=== PATIENT | female | born 1940 | race Caucasian/White ===

== ENCOUNTER 2020-01-12 20:38 | Observation (INO) | payer MEDICARE, SELFPAY ==
--- NOTE | ~2020-01-12 | XR_ITS ---
XR chest 1V portable DATE: 01/12/2020 22:47 INDICATION: Hemoptysis. Fall. TECHNIQUE: Portable upright AP chest on 01/12/2020 at 2239 hours COMPARISON: 03/25/2018 PA and lateral chest FINDINGS: There is chronic elevation the right leaf of the diaphragm. Normal heart size. Aortic calcification and mild unfolding. No hilar or mediastinal enlargement. No pulmonary infiltrate or consolidation, pleural effusion or pulmonary vascular congestion or pneumo thorax. Diffuse idiopathic skeletal hyperostosis of the thoracic spine. Status post cholecystectomy. IMPRESSION: No active cardiopulmonary disease or significant change since 03/25/2018 Reviewed, dictated and finalized at location A.
[2020-01-12 20:36] VITALS: BP 121/68; PULSE 90; RESP 19; TEMP 36.8; O2SAT 98
--- NOTE | 2020-01-12 20:42 | ECG_ITS ---
Measurements Intervals [place] Rate: 88 P: 51 OK: 143 QRS: 24 QRSD: 93 T: 38 QT: 388 QTc: 470 Interpretive Statements SINUS RHYTHM POSSIBLE LEFT ATRIAL ENLARGEMENT BORDERLINE ST ABNORMALITY- ANTEROLATERAL LEADS BASELINE ARTIFACT- II, III, AVL, AVF, V4-V6 BORDERLINE ECG Electronically Signed On 01-12-2020 21:10:15 CDT by Kelvin Decker D.O.
--- NOTE | 2020-01-12 20:44 | ED.NAVMDI ---
HPI - Nausea/Vomiting/Diarrhea General Chief complaint: Nausea/Vomiting/Diarrhea Stated complaint: nausea/vomiting History of Present Illness HPI Narrative: 1 episode of coffee ground emesis tonight per EMS. [place] cool and clamy. Blood pressure low prior to arrival. Given 500 ml MS by EMS. On arrival BP is normal. She denies any complaints at this time. No dark stools or diarrhea. Related Data Home Medications Medication Instructions Recorded Confirmed aspirin 81 mg tablet,delayed 81 mg PO DAILY 10/31/19 release Allergies Allergy/AdvReac Type Severity Reaction Status Date / Time No Known Allergies Allergy Verified 12/08/19 15:32 Review of Systems Review of Systems: All systems reviewed & are unremarkable except as noted in HPI and below Constitutional: Constitutional: Denies fever(s) Cardiovascular: Cardiovascular: Denies chest pain Respiratory: Respiratory: Denies dyspnea Gastrointestinal: Gastrointestinal: Denies abdominal pain, Reports constipation, Reports nausea and Reports vomiting Genitourinary: Genitourinary: Denies hematuria and Denies dysuria Neurologic: Reports dizziness and Denies weakness [facility] Social History Social History (Reviewed 12/08/19 @ 15:32 by Lulu De Leon [facility]) Smoking status: Never smoker Exam Const: General: no acute distress, alert and ill appearing Orientation/consciousness: patient oriented x3 HENMT: Head: normal to inspection Resp: Effort & Inspection: normal respiratory effort Auscultation: clear to auscultation bilaterally Cardio: Rate: regular rate Rhythm: regular rhythm GI: GI Palp: Yes Soft to palpation and No Tenderness to palpation present (GI) Skin: General skin exam: pallor Neuro: General: patient oriented x3, moves all extremities, no focal motor deficits and CN's II-XI intact bilaterally Speech: normal speech Extrem: General: normal to inspection Course Vital Signs Vital signs: Vital Signs Temperature 36.8 C 01/12/20 20:36 Pulse Rate 90 01/12/20 20:36 Respiratory Rate 19 01/12/20 20:36 Blood Pressure 121/68 01/12/20 20:36 Pulse Oximetry 98 01/12/20 20:36 Temperature 36.8 C 01/12/20 20:36 Pulse Rate 94 01/12/20 21:20 Respiratory Rate 18 01/12/20 21:20 Blood Pressure 115/56 L 01/12/20 21:20 Pulse Oximetry 95 01/12/20 21:20 MDM - Nausea/Vomiting/Diarrhea MDM Narrative Medical decision making narrative: History indicates and upper GI bleed. No history of cirrhosis. Given protonix bolus. Given the history and initial hypotension she will need to be admitted. Case discussed with Dr. Barry. He will consult on the patient. Medical Records Attestation: I reviewed the patient's medical records. Lab Data Attestation: I reviewed the patient's lab results. Result diagrams: 01/12/20 20:47 01/12/20 20:47 Labs: Lab Results 01/12/20 01/12/20 01/12/20 Range/Units 20:46 20:47 20:47 WBC 13.3 H (4.5-10.0) K/mm3 RBC 3.55 L (4.2-5.4) M/mm3 Hgb 11.0 L (12.0-15.0) g/dL Hct 31.6 L (37.0-47.0) % MCV 89.0 (80-100) fl MCH 31.0 (26-34) pg MCHC 34.8 (32-36) g/dl RDW 14.0 (11.5-14.5) % Plt Count 222 (150-375) k/mm3 MPV 10.6 H (7.4-10.4) fl Immature Gran % (Auto) 1.1 H (0-0.5) % Neut % (Auto) 83.5 H (45.5-73.1) % Lymph % (Auto) 9.9 L (18.3-44.2) % [place] % (Auto) 4.9 (2.6-8.5) % Eos % (Auto) 0.2 (0-4.4) % Baso % (Auto) 0.4 (0.2-1.2) % Lymph # (Auto) 1.31 (0.9-3.2) K/mm3 [place] # (Auto) 0.7 H (0.1-0.6) K/mm3 Eos # (Auto) 0.0 (0-0.3) K/mm3 Baso # (Auto) 0.1 (0.0-0.1) K/mm3 Abs Immat Gran (auto) 0.14 H (0.00-0.031) K/mm3 Absolute Neuts (auto) 11.1 H (1.3-6.7) K/mm3 Absolute Nucleated RBC 0.0 (0.0-0.012) K/mm3 Nucleated RBC % 0.0 (0.0-0.2) % PT Pending INR Pending APTT Pending Sodium 135 L (137-145) mmol/L Potassium 3.3 L (3.4-5.0) mmol/L
[2020-01-12 20:53] LABS: Basophils Absolute Auto 0.1 K/mm3 (0.0-0.1); Basophils Percent Auto 0.4 % (0.2-1.2); Eosinophils Percent Auto 0.2 % (0-4.4); Hematocrit 31.6 % (37.0-47.0); Immature Granulocyte Absolute 0.14 K/mm3 (0.00-0.031); Immature Granulocyte Percent A 1.1 % (0-0.5); Lymphocytes Absolute Auto 1.31 K/mm3 (0.9-3.2); Lymphocytes Percent Auto 9.9 % (18.3-44.2); Mean Corpuscular HGB Conc 34.8 g/dl (32-36); Mean Platelet Volume 10.6 fl (7.4-10.4); Monocytes Absolute Auto 0.7 K/mm3 (0.1-0.6); Monocytes Percent Auto 4.9 % (2.6-8.5); Neutrophils Absolute Auto 11.1 K/mm3 (1.3-6.7); Neutrophils Percent Auto 83.5 % (45.5-73.1); Platelet Count Result 222 k/mm3 (150-375); Red Blood Count 3.55 M/mm3 (4.2-5.4); White Blood Count 13.3 K/mm3 (4.5-10.0)
[2020-01-12 21:05] LABS: Alanine Aminotransferase 18 U/L (4-35); Albumin Level 3.6 g/dL (3.5-5.1); Alkaline Phosphatase 56 U/L (38-126); Anion Gap 8 mmol/L (8-16); Aspartate Amino Transferase 20 U/L (14-36); Bilirubin,Total 0.7 mg/dL (0.2-1.3); Blood Urea Nitrogen 45 mg/dL (7-17); Calcium 8.4 mg/dL (8.4-10.2); Carbon Dioxide 25 mmol/L (22-30); Chloride 102 mmol/L (98-107); Estimated CRCL calculation 42 ml/min; Estimated Glomerular Filt Rate > 60; Glucose 231 mg/dL (65-105); Lipase 24 U/L (23-300); Potassium 3.3 mmol/L (3.4-5.0); Sodium 135 mmol/L (137-145)
--- NOTE | 2020-01-12 21:14 | PC.NURSE ---
pt unable to void at this time.
[2020-01-12] MEDS: PANTOPRAZOLE SODIUM IV 40 MG VIAL 80 MG IV PUSH (21:18)
[2020-01-12 21:20] VITALS: BP 115/56; PULSE 94; RESP 18; O2SAT 95
--- NOTE | 2020-01-12 21:30 | PC.NURSE ---
pt dropped toilet paper in urine sample, so sample unable to be used.
[2020-01-12] MEDS: SODIUM CHLORIDE 0.9% IV 1,000 ML 999 ML IV CONT (21:31)
[2020-01-12 21:57] LABS: INR 1.1; Prothrombin Time 14.1 Seconds (11.1-14.7)
[2020-01-12 21:58] LABS: Partial Thromboplastin Time 25.7 SECONDS (22.3-36.8)
[2020-01-12 22:03] VITALS: BP 139/62; PULSE 87; RESP 19; O2SAT 97
--- NOTE | 2020-01-12 22:16 | PM.IMHP ---
H&P: HPI History of Present Illness Date/Time: 01/12/20 22:16 Chief complaint: Coffee ground emesis Narrative: This is a pleasant 79 year old female with known history of previous CVA on ASA therapy who presented to the hospital with a complaint of one episode of dark black coffee ground emesis this evening at home. The patient reports that approximately 3 days ago she suffered a ground level fall where she fell on her right side and since then she has had lower back spasms and pain. She denies any previous episodes of GI bleeding and denies taking any blood thinners. She has no previous history of PUD. She has taken NSAIDs over the past few days for her back pain but normally does not take NSAIDs other than ASA. Her last colonoscopy was two years ago and was normal. She has never had an EGD before. Tonight she denies any abdominal pain, diarrhea, black or bloody stools. No chest pain, shortness of breath, headache, fevers, chills, cough, dysuria, hematuria or LE swelling. The patient has not had any further episodes of vomiting. She was evaluated in the ER and found to have an H/H of .6. GI, Dr. Barry was consulted by ER provider and we have been asked to admit the patient to the hospital for further care. No other complaints. Review of Systems Review of Systems: All systems reviewed & are unremarkable except as noted in HPI and below PMFSH Past Medical History Medical History History of CVA (cerebrovascular accident) HTN (hypertension) with goal to be determined Hyperlipidemia Surgical History Surgical History (Updated 01/13/20 @ 06:19 by Prashant Cheek MD) History of ankle surgery Family History Family History Father Pancreatic cancer Mother Acute myocardial infarction Social History Social History Smoking status: Never smoker Second hand tobacco smoke exposure: Yes (as a child) Alcohol intake: current Drinks per week: 7 Substance use: never Spiritual care concerns: Yes (Hindu) Meds Home Medications and Allergies Home Medications Medication Instructions Recorded Confirmed Type aspirin 81 mg tablet,delayed 81 mg PO DAILY 10/31/19 01/12/20 History release atorvastatin 40 mg PO HS 01/12/20 01/12/20 History citalopram 40 mg PO DAILY 01/12/20 01/12/20 History lisinopril-hydrochlorothiazide 1 tablet PO DAILY 01/12/20 01/12/20 History Allergies Allergy/AdvReac Type Severity Reaction Status Date / Time No Known Allergies Allergy Verified 12/08/19 15:32 Vital Signs Vital Signs - 24 hr 01/12/20 20:36 01/12/20 21:20 01/12/20 22:03 Temperature 36.8 C Pulse Rate 90 94 87 Respiratory Rate 19 18 19 Blood Pressure 121/68 115/56 L 139/62 Pulse Oximetry 98 95 97 Exam Const: General: cooperative, no acute distress, alert and awake Nutritional Appearance: well nourished Orientation/consciousness: patient oriented x3 HENMT: Head: normal to inspection General nose exam: Normal external nose present Face and sinus: normal facial exam Mouth: Yes Normal oral and palatal mucosa present and Yes oropharynx normal Eyes: Pupils: Equal, round and reactive pupils present EOM: EOMs intact bilaterally Neck: Neck: supple and no JVD Thyroid: thyroid normal Lymphatic: lymphadenopathy not noted Resp: Effort & Inspection: normal respiratory effort Auscultation: clear to auscultation bilaterally Cardio: Rate: regular rate Rhythm: regular rhythm Heart sounds: no murmurs GI: Inspection: normal to inspection Auscultation: normal bowel sounds Back/Spine/Pelvis: Back: no CVA tenderness Thoracic/Lumbar Spine: Lasegue's sign negative and lumbar spinal tenderness (B/L++ ) Skin: General skin exam: ecchymosis (Right shoulder and right posterior jaw++ ) Neuro: General: patient oriented x3 Cranial nerves: Yes C
[2020-01-12 22:24] VITALS: BP 136/60; PULSE 81; RESP 19; TEMP 36.3; O2SAT 98
[2020-01-12 22:40] VITALS: BP 140/78; PULSE 80; RESP 20; TEMP 36.5; O2SAT 100
[2020-01-12 22:46] VITALS: PULSE 79
[2020-01-12] MEDS: SODIUM CHLORIDE 0.9% IV 1,000 ML 75 ML IV CONT (22:54)
[2020-01-12] MEDS: KCL 20 MEQ/SW 100 ML 100 ML 50 MEQ IVPB (22:57)
[2020-01-12 23:21] VITALS: BMI 26.7
[2020-01-12 23:42] LABS: Add Urine Microscopic? YES; Appearance Urine Clear (Clear); Bilirubin Urine Negative (Negative); Blood Urine Negative (Negative); Color Urine Straw (Yellow); Glucose Urine UA Negative (Negative); Ketones Urine Trace mg/dL (Negative); Leukocyte Esterase Ur Trace LEU/UL (Negative); Nitrate Urine Negative (Negative); Protein Urine Negative (Negative); RBC Urine 0-2 /hpf (0-2); Specific Grav Ur 1.014 (1.001-1.035); Squamous Epithelial Cell Urine Rare /hpf (Few); Urobilinogen Urine Negative mg/dL (<2.0)
[2020-01-12 23:57] LABS: Glucose Point of Care 125 (65-105)
[2020-01-13] VITALS (11 sets, daily range): BP systolic 143–188; BP diastolic 57–97; PULSE 75–90; RESP 15–22; TEMP 36.7–37.1; O2SAT 97–100
--- NOTE | 2020-01-13 02:52 | PC.NURSE ---
This patient, Elizabeth Johnson, was admitted to IMU Room 232-01. Patient/family oriented to hospital policies and general routines including ID bracelet, bed and alarms, visiting hours, pain management, procedures, bathroom and other care routines, personal items, smoking policy, room service/diet, and visiting hours. Valuables list has been completed. Information on how to activate the Rapid Response Team has been discussed. Patient/Family are encouraged to report perceived risks to care and to ask questions if they do not understand what they are told or what they should do.
[2020-01-13 02:57] LABS: Hematocrit 28.9 % (37.0-47.0); Hemoglobin 10.2 g/dL (12.0-15.0)
[2020-01-13 03:09] LABS: Hemoglobin A1C 5.2 % (<5.7)
[2020-01-13 05:07] LABS: Basophils Percent Auto 0.3 % (0.2-1.2); Eosinophils Percent Auto 0.2 % (0-4.4); Hematocrit 26.7 % (37.0-47.0); Hemoglobin 9.4 g/dL (12.0-15.0); Immature Granulocyte Absolute 0.06 K/mm3 (0.00-0.031); Immature Granulocyte Percent A 0.5 % (0-0.5); Lymphocytes Absolute Auto 2.45 K/mm3 (0.9-3.2); Lymphocytes Percent Auto 21.2 % (18.3-44.2); Mean Corpuscular HGB Conc 35.2 g/dl (32-36); Mean Corpuscular Hemoglobin 30.7 pg (26-34); Mean Corpuscular Volume 87.3 fl (80-100); Mean Platelet Volume 10.4 fl (7.4-10.4); Monocytes Percent Auto 8.8 % (2.6-8.5); Platelet Count Result 195 k/mm3 (150-375); Red Blood Count 3.06 M/mm3 (4.2-5.4); Red Cell Distribution Width 13.7 % (11.5-14.5); White Blood Count 11.5 K/mm3 (4.5-10.0)
[2020-01-13 05:23] LABS: Anion Gap 5 mmol/L (8-16); Blood Urea Nitrogen 33 mg/dL (7-17); Calcium 8.1 mg/dL (8.4-10.2); Carbon Dioxide 26 mmol/L (22-30); Chloride 108 mmol/L (98-107); Estimated CRCL calculation 55 ml/min; Estimated Glomerular Filt Rate > 60; Glucose 125 mg/dL (65-105); Potassium 3.2 mmol/L (3.4-5.0); Sodium 139 mmol/L (137-145)
[2020-01-13 09:04] LABS: Hematocrit 27.1 % (37.0-47.0); Hemoglobin 9.6 g/dL (12.0-15.0)
--- NOTE | 2020-01-13 09:57 | PM.IMPN ---
Progress Note: A&P Assessment and Plan (1) Coffee ground emesis: Code(s): K92.0 - Hematemesis Status: Acute Assessment and Plan: r/o acute upper GI bleeding. She had a recent fall and has been taking NSAIDs. Most likely secondary to ulcer from NSAIDs. She is not on any an acids at home. GI evaluated the patient is going to take her for EGD this morning for further evaluation. She has been given PPI IV. She is NPO, continue light fluid hydration, hold her aspirin. Continue monitoring H&H Q 6. Transfuse as needed. (2) Low back pain: Qualifiers: Back pain laterality: midline Chronicity: acute Sciatica presence: without sciatica Qualified Code(s): M54.5 - Low back pain Code(s): M54.5 - Low back pain Status: Acute Assessment and Plan: likely secondary to lower back strain from recent fall. Acetaminophen IV for pain. Will also order K-pad. She is not want anything stronger for her pain at this time. Will have the patient ambulate with assistance and fall precautions. (3) Abnormal glucose: Code(s): R73.09 - Other abnormal glucose Status: Acute Assessment and Plan: r/o undiagnosed diabetes mellitus. Hemoglobin A1c is within normal range of 5.2%. Will discontinue Accuchecks, SSI Coverage, Hypoglycemic protocol. (4) Leukocytosis: Qualifiers: Leukocytosis type: unspecified Qualified Code(s): D72.829 - Elevated white blood cell count, unspecified Code(s): D72.829 - Elevated white blood cell count, unspecified Status: Acute Assessment and Plan: Likely secondary to trauma from recent fall, pain. Monitor CBCd. No acute signs of infection at this time. (5) Hypokalemia: Code(s): E87.6 - Hypokalemia Status: Acute Assessment and Plan: Potassium was 3.2 this morning. Will replenish with KCL magnesium was 1.7 which is within normal range. Monitor serum potassium. (6) HTN (hypertension) with goal to be determined: Code(s): I10 - Essential (primary) hypertension Status: Chronic Assessment and Plan: Stable. Monitor blood pressure. Resume home antihypertensives when appropriate, Eating and drinking again. (7) Hyperlipidemia: Qualifiers: Hyperlipidemia type: unspecified Qualified Code(s): E78.5 - Hyperlipidemia, unspecified Code(s): E78.5 - Hyperlipidemia, unspecified Status: Chronic Assessment and Plan: Resume Lipitor when appropriate. Time Spent With Patient Time with patient: 25 - 35 minutes Subjective Date/time seen: 01/13/20 09:57 Interval history: Date of service 01/13/2020: patient reports still having some pain and stiffness to her right shoulder and upper back from her fall 5 days ago. She had been take ibuprofen and Aleve for her pain without much improvement. Did notice she had episode of vomiting prior to arrival, secondary to her pain and it was dark in color as well as bright red blood Which brought her into the emergency department. she also just had a bowel movement and reported being dark in color as well. She denies any fevers, chills, nausea, vomiting, abdominal pain, diarrhea, leg swelling, calf pain, headache, vision changes, lightheadedness, dizziness, or any other symptoms at this time. She does not want anything stronger for pain other than Tylenol and a heating pad. Review of Systems Review of Systems: All systems reviewed & are unremarkable except as noted in HPI and below Exam Narrative: Exam Narrative: General: 79-year-old woman Laying flat in bed with her he
[2020-01-13 10:31] LABS: Magnesium 1.7 mg/dL (1.6-2.3)
--- NOTE | 2020-01-13 11:00 | WPDGICN ---
Assessment and Plan Assessment and plan (1) Coffee ground emesis: Code(s): K92.0 - Hematemesis Status: Acute Assessment and Plan: Patient with coffee-ground emesis yesterday per consistent with upper GI blood loss. Decline in hemoglobin overnight also consistent with upper GI bleeding. Plan is to treat a patient with proton pump inhibitor. Avoid nonsteroidal anti-inflammatory agents an EGD will be performed today. (2) Low back pain: Qualifiers: Chronicity: acute Back pain laterality: midline Sciatica presence: without sciatica Qualified Code(s): M54.5 - Low back pain Code(s): M54.5 - Low back pain Status: Acute Assessment and Plan: because of GI bleeding avoiding nonsteroidal anti-inflammatory agents are encourage. GI Consult Note Consult date/time: 01/13/20 11:00 HPI: Elizabeth Johnson is a 79 year old female Seen in evaluation at the request of the emergency room. Patient in usual state of health until a fall 5 days ago. This prompted to take nonsteroidal anti-inflammatory agents. She yesterday was noted to vomited a large amount of coffee-ground dark emesis. Upon presented to the emergency room some decline in hemoglobin was noted overnight. Patient denies any prior history of ulcer disease. She denies abdominal pain. Her family history noncontributory. Review of Systems Review of Systems: All systems reviewed & are unremarkable except as noted in HPI and below PMFSH Past Medical History Medical History History of CVA (cerebrovascular accident) HTN (hypertension) with goal to be determined Hyperlipidemia Surgical History Surgical History History of ankle surgery Family History Family History Father Pancreatic cancer Mother Acute myocardial infarction Social History Social History Smoking status: Never smoker Second hand tobacco smoke exposure: Yes (as a child) Alcohol intake: current Drinks per week: 7 Substance use: never Spiritual care concerns: Yes (Synagogue) Meds Home Medications and Allergies Home Medications Medication Instructions Recorded Confirmed Type aspirin 81 mg tablet,delayed 81 mg PO DAILY 10/31/19 01/12/20 History release atorvastatin 40 mg PO HS 01/12/20 01/12/20 History citalopram 40 mg PO DAILY 01/12/20 01/12/20 History lisinopril-hydrochlorothiazide 1 tablet PO DAILY 01/12/20 01/12/20 History Allergies Allergy/AdvReac Type Severity Reaction Status Date / Time No Known Allergies Allergy Verified 12/08/19 15:32 Vital Signs Vital Signs - 24 hr 01/12/20 20:36 01/12/20 21:20 01/12/20 22:03 Temperature 98.3 F Pulse Rate 90 94 87 Respiratory Rate 19 18 19 Blood Pressure 121/68 115/56 L 139/62 Pulse Oximetry 98 95 97 01/12/20 22:24 01/12/20 22:40 01/12/20 22:46 Temperature 97.3 F L 97.7 F Pulse Rate 81 80 79 Respiratory Rate 19 20 Blood Pressure 136/60 140/78 Pulse Oximetry 98 100 01/13/20 00:00 01/13/20 04:00 01/13/20 05:35 Temperature 98.0 F Pulse Rate 80 77 86 Respiratory Rate 18 Blood Pressure 151/57 H Pulse Oximetry 99 01/13/20 08:00 01/13/20 08:36 Temperature 98.3 F Pulse Rate 90 90 Respiratory Rate 16 16 Blood Pressure 188/69 H Pulse Oximetry 98 98 Exam Narrative: Exam Narrative: Physical exam reveals patient to be alert. Vital signs stable. HEENT exam unremarkable. Lungs are clear to auscultation and percussion. Heart is without murmur or extra sounds. Abdominal exam bowel sounds are present soft nontender with no organomegaly. Digital rectal exam is unremarkable. Results Labs CBC & Chem 7: 01/13/20 08:48 01/13/20 05:00 Labs: Short CBC 01/12/20 01/13/20 01/13/20 Range/Units 20:
[2020-01-13] MEDS: LACTATED RINGERS 1,000 ML 150 ML IV CONT (11:03)
[2020-01-13 11:04] LABS: Glucose Point of Care 121 (65-105)
--- NOTE | 2020-01-13 11:07 | WPDANESEPPF ---
Anes - Initial Pre Proc Eval Procedure: Operation Date: 01/13/20 10:30 Proposed Procedures p Esophagogastroduodenoscopy - Carlin Barry MD Date/Time: 01/13/20 11:07 Surgeon: Jacqueline Wright PA-C Pre Op Diagnosis: Coffee ground emesis Patient Data Age: 79 Gender: F Height: 5 ft 1 in Weight: 64.2 kg Last Vital Signs Temp 98.1 F 01/13/20 10:59 Pulse 87 01/13/20 10:59 Resp 20 01/13/20 10:59 BP 147/97 H 01/13/20 10:59 Pulse Ox 100 01/13/20 10:59 Allergies Allergy/AdvReac Type Severity Reaction Status Date / Time No Known Allergies Allergy Verified 12/08/19 15:32 Home Medications Medication Instructions Recorded Confirmed Type aspirin 81 mg tablet,delayed 81 mg PO DAILY 10/31/19 01/12/20 History release atorvastatin 40 mg PO HS 01/12/20 01/12/20 History citalopram 40 mg PO DAILY 01/12/20 01/12/20 History lisinopril-hydrochlorothiazide 1 tablet PO DAILY 01/12/20 01/12/20 History Laboratory Tests 01/12/20 01/12/20 01/12/20 20:46 20:47 20:47 WBC 13.3 K/mm3 H K/mm3 (4.5-10.0) RBC 3.55 M/mm3 L M/mm3 (4.2-5.4) Hgb 11.0 g/dL L g/dL (12.0-15.0) Hct 31.6 % L % (37.0-47.0) MCV 89.0 fl fl (80-100) MCH 31.0 pg pg (26-34) MCHC 34.8 g/dl g/dl (32-36) RDW 14.0 % % (11.5-14.5) Plt Count 222 k/mm3 k/mm3 (150-375) MPV 10.6 fl H fl (7.4-10.4) Immature Gran % (Auto) 1.1 % H % (0-0.5) Neut % (Auto) 83.5 % H % (45.5-73.1) Lymph % (Auto) 9.9 % L % (18.3-44.2) [place] % (Auto) 4.9 % % (2.6-8.5) Eos % (Auto) 0.2 % % (0-4.4) Baso % (Auto) 0.4 % % (0.2-1.2) Lymph # (Auto) 1.31 K/mm3 K/mm3 (0.9-3.2) [place] # (Auto) 0.7 K/mm3 H K/mm3 (0.1-0.6) Eos # (Auto) 0.0 K/mm3 K/mm3 (0-0.3) Baso # (Auto) 0.1 K/mm3 K/mm3 (0.0-0.1) Abs Immat Gran (auto) 0.14 K/mm3 H K/mm3 (0.00-0.031) Absolute Neuts (auto) 11.1 K/mm3 H K/mm3 (1.3-6.7) Absolute Nucleated RBC 0.0 K/mm3 K/mm3 (0.0-0.012) Nucleated RBC % 0.0 % % (0.0-0.2) PT 14.1 Seconds Seconds (11.1-14.7) INR 1.1 APTT 25.7 SECONDS SECONDS (22.3-36.8) Sodium 135 mmol/L L mmol/L (137-145) Potassium 3.3 mmol/L L mmol/L (3.4-5.0) Chloride 102 mmol/L mmol/L (98-107) Carbon Dioxide 25 mmol/L mmol/L (22-30) Anion Gap 8 mmol/L mmol/L (8-16) BUN 45 mg/dL H mg/dL (7-17) Creatinine 0.80 mg/dL mg/dL (0.7-1.0) Estim Creat Clear Calc 42 ml/min ml/min Estimated GFR > 60 (59 - ) Glucose 231 mg/dL H mg/dL (65-105) POC Capillary Glucose Hemoglobin A1c Calcium 8.4 mg/dL mg/dL (8.4-10.2) Magnesium Total Bilirubin 0.7 mg/dL mg/dL (0.2-1.3) AST 20 U/L U/L (14-36) ALT 18 U/L U/L (4-35) Alkaline Phosphatase 56 U/L U/L (38-126) Total Protein 6.0 g/dL L g/dL (6.3-8.2) Albumin 3.6 g/dL g/dL (3.5-5.1) Lipase 24 U/L U/L (23-300) Urine Color Urine Appearance Urine pH Ur Specific [place] Urine Protein Urine Glucose (UA) Urine Ketones Ur Blood (Man) Urine Nitrate Urine Bilirubin Urine Urobilinogen Ur Leukocyte Esterase Leukocyte Esterase Rfl Urine RBC Urine WBC Urine WBC Clumps Ur Squamous Epith Cells Ur Transition Epith Cell Ur Renal Epithelial Cell Terrance Biurate Crystals Calcium Carbonate Cryst Calcium Phosphate Cryst Calcium Oxalate Crystal Leucine Crystal
--- NOTE | 2020-01-13 11:24 | SUR.OPER ---
[address] ALMEIDA A NOTE WITH THE PATIENT'S DAUGHTER'S PHONE NUMBER. RELAYED THE MESSAGE THAT THE PATIENT AND THE DAUGHTER WOULD LIKE TO SPEAK WITH DR. ALMEIDA. ALSO VERBALLY COMMUNICATED THE MESSAGE WITH HIM WELL. ALEX BAL
[2020-01-13 11:39] LABS: Glucose Point of Care 109 (65-105)
[2020-01-13 15:03] LABS: Hematocrit 26.9 % (37.0-47.0); Hemoglobin 9.3 g/dL (12.0-15.0)
[2020-01-13] MEDS: ACETAMINOPHEN 500 MG TABLET 1000 MG PO (15:42)
[2020-01-13 19:03] LABS: Glucose Point of Care 103 (65-105)
[2020-01-13] MEDS: ATORVASTATIN 40 MG TABLET PO (20:05)
[2020-01-13] MEDS: PANTOPRAZOLE SODIUM IV 40 MG VIAL IV PUSH (20:06)
[2020-01-13 21:23] LABS: Hematocrit 26.6 % (37.0-47.0); Hemoglobin 9.3 g/dL (12.0-15.0)
--- NOTE | 2020-01-13 21:40 | PC.NURSE ---
This patient, Elizabeth Johnson, was transferred to [ [id number]] on 01/13/20 at 2140. Personal belongings sent with patient. Belongings list checked and signed with receiving [ ]. Report given to [Kiya ABL ]. Appropriate documentation sent with patient.
--- NOTE | 2020-01-13 22:35 | PC.NURSE ---
This patient, Elizabeth Johnson, was received from [ IMU] on 01/13/20 at 2145. Personal belongings list checked and signed. Patient/family oriented to unit policies and routines
[2020-01-14] MEDS: ACETAMINOPHEN 500 MG TABLET 1000 MG PO ×3 (00:31→11:01)
[2020-01-14 03:01] LABS: Hematocrit 26.9 % (37.0-47.0); Hemoglobin 9.4 g/dL (12.0-15.0); Mean Corpuscular HGB Conc 34.9 g/dl (32-36); Mean Corpuscular Hemoglobin 30.9 pg (26-34); Mean Corpuscular Volume 88.5 fl (80-100); Mean Platelet Volume 10.2 fl (7.4-10.4); Platelet Count Result 202 k/mm3 (150-375); Red Blood Count 3.04 M/mm3 (4.2-5.4); White Blood Count 10.5 K/mm3 (4.5-10.0)
[2020-01-14 03:18] LABS: Anion Gap 5 mmol/L (8-16); Blood Urea Nitrogen 15 mg/dL (7-17); Calcium 8.6 mg/dL (8.4-10.2); Carbon Dioxide 26 mmol/L (22-30); Chloride 107 mmol/L (98-107); Estimated CRCL calculation 55 ml/min; Estimated Glomerular Filt Rate > 60; Glucose 119 mg/dL (65-105); Magnesium 1.6 mg/dL (1.6-2.3); Potassium 3.3 mmol/L (3.4-5.0); Sodium 138 mmol/L (137-145)
[2020-01-14 05:53] VITALS: BP 180/60
[2020-01-14] MEDS: hydrALAZINE HCL 20 MG/ML VIAL 10 MG IV PUSH (05:58)
[2020-01-14 06:56] VITALS: BP 156/71
--- NOTE | 2020-01-14 07:43 | WPDANESPN ---
Anes - Prog Note Post-Op Date/Time: 01/14/20 07:43 Cardiovascular status: normal Respiratory status: normal Airway patency: baseline Mental status: baseline Post-Op hydration status: normal Vital Signs: Last Vital Signs Temp 98.8 F 01/13/20 19:44 Pulse 83 01/13/20 19:44 Resp 18 01/13/20 19:44 BP 156/71 H 01/14/20 06:56 Pulse Ox 99 01/13/20 19:44 I/O: Intake & Output 01/13/20 01/13/20 01/14/20 15:59 23:59 07:59 Intake Total 300 1000 200 Output Total 25 500 400 Balance 275 500 -200 Laboratory Tests 01/14/20 02:53 01/14/20 02:53 01/13/20 01/13/20 01/13/20 08:48 10:07 11:02 WBC RBC Hgb 9.6 L Hct 27.1 L MCV MCH MCHC RDW Plt Count MPV Sodium Potassium Chloride Carbon Dioxide Anion Gap BUN Creatinine Estim Creat Clear Calc Estimated GFR Glucose POC Capillary Glucose 121 H Calcium Magnesium 1.7 01/13/20 01/13/20 01/13/20 11:37 14:48 19:00 WBC RBC Hgb 9.3 L Hct 26.9 L MCV MCH MCHC RDW Plt Count MPV Sodium Potassium Chloride Carbon Dioxide Anion Gap BUN Creatinine Estim Creat Clear Calc Estimated GFR Glucose POC Capillary Glucose 109 103 Calcium Magnesium 01/13/20 01/14/20 01/14/20 20:51 02:53 02:53 WBC 10.5 H RBC 3.04 L Hgb 9.3 L 9.4 L Hct 26.6 L 26.9 L MCV 88.5 MCH 30.9 MCHC 34.9 RDW 14.0 Plt Count 202 MPV 10.2 Sodium 138 Potassium 3.3 L Chloride 107 Carbon Dioxide 26 Anion Gap 5 L BUN 15 D Creatinine 0.60 L Estim Creat Clear Calc 55 Estimated GFR > 60 Glucose 119 H POC Capillary Glucose Calcium 8.6 Magnesium 1.6 Post-procedural complaints: none Patient Feedback: Patient satisfied with anesthetic care.
[2020-01-14] MEDS: CITALOPRAM HYDROBROMIDE 20 MG TABLET 40 MG PO (08:10)
[2020-01-14] MEDS: hydroCHLOROthiazide 25 MG TABLET PO (08:10)
[2020-01-14] MEDS: lisinopriL 20 MG TABLET PO (08:10)
[2020-01-14] MEDS: PANTOPRAZOLE SODIUM IV 40 MG VIAL IV PUSH (08:11)
[2020-01-14 08:27] LABS: Glucose Point of Care 114 (65-105)
[2020-01-14 09:16] LABS: Hematocrit 28.4 % (37.0-47.0)
--- NOTE | 2020-01-14 09:23 | WPDGIPROGNO ---
Progress Note: A&P Additional Plan Patient alert and comfortable this morning. Denies significant abdominal pain. Tolerated diet. No additional bleeding described. Physical exam reveals her to be alert. Vital signs are stable. Lungs are clear. Heart without murmur. Abdomen is soft and nontender. Labs reveal hemoglobin 10.0, hematocrit 28.4 stable after transfusion. Impression 1. Gastric ulcerations. Plan is for proton pump inhibitor therapy. Avoid nonsteroidal anti-inflammatory agents. Histology pending. As is stain for H pylori. This will be followed up as an outpatient. Follow-up EGD in 2-3 months advised. After discharge. 2. Anticoagulation. Patient should continue to hold anticoagulation for at least 2 weeks if not longer because of this significant ulceration and recent GI blood loss. Okay with me for discharge today father's agree. Subjective Date/time seen: 01/14/20 09:23 Objective Data Vital Signs Vital Signs: Vital Signs - 24 hr 01/13/20 10:59 01/13/20 11:29 01/13/20 11:39 Temperature 98.1 F Pulse Rate 87 83 78 Respiratory Rate 20 22 H 15 Blood Pressure 147/97 H 143/75 H 162/77 H Pulse Oximetry 100 98 97 01/13/20 11:49 01/13/20 14:00 01/13/20 19:44 Temperature 98.0 F 98.8 F Pulse Rate 80 82 83 Respiratory Rate 19 18 18 Blood Pressure 177/79 H 156/81 H 166/64 H Pulse Oximetry 98 99 99 01/14/20 05:53 01/14/20 06:56 Temperature Pulse Rate Respiratory Rate Blood Pressure 180/60 H 156/71 H Pulse Oximetry Intake/Output Intake/Output: Intake & Output 01/11/20 01/12/20 01/13/20 01/14/20 23:59 23:59 23:59 23:59 Intake Total 1000 2022 200 Output Total 300 975 400 Balance 700 1047 -200 Meds/Results Medications: Active Medications Generic Name Dose Route Start Last Admin Trade Name Freq PRN Reason Stop Dose Admin Acetaminophen 1,000 mg 01/13/20 18:00 01/14/20 05:58 Tylenol Tablet PO 1,000 mg Q6H JENNIFER Administration Atorvastatin Calcium 40 mg 01/13/20 21:00 01/13/20 20:05 Lipitor PO 40 mg HS JENNIFER Administration Citalopram Hydrobromide 40 mg 01/14/20 09:00 01/14/20 08:10 Celexa PO 40 mg DAILY JENNIFER Administration Dextrose 12.5 gm 01/12/20 22:42 Dextrose 50% Syringe IV PUSH PRN PRN Hypoglycemia Protocol Docusate Sodium 100 mg 01/13/20 10:33 Colace Capsule PO Q12H PRN Constipation Glucagon 1 mg 01/12/20 22:42 Glucagon For Inj IM PRN PRN Hypoglycemia Protocol Hydralazine HCl 10 mg 01/13/20 10:43 01/14/20 05:58 Apresoline Hcl Inj IV PUSH 10 mg Q8H PRN Administration Blood Pressure - High Hydrochlorothiazide 25 mg 01/14/20 09:00 01/14/20 08:10 Hydrochlorothiazide PO 25 mg QAM JENNIFER Administration Dextrose 1,000 mls @ 100 mls/hr 01/12/20 22:42 Dextrose 5% 1,000 Ml IVPB PRN PRN Hypoglycemia Protocol Insulin Aspart 2 - 5 units 01/14/20 08:00 01/14/20 08:08 Novolog SUB-Q Not Given TIDWM JENNIFER Protocol Lisinopril 20 mg 01/14/20 09:00 01/14/20 08:10 Prinivil PO 20 mg QAM JENNIFER Administration Pantoprazole Sodium 40 mg 01/13/20 21:00 01/14/20 08:11 Protonix Iv IV PUSH 40 mg Q12HR JENNIFER Administration Polyethylene Glycol 17 gm 01/13/20 10:33 Miralax PO QAM PRN Constipation Radiology Results: ITS Impressions Chest X-Ray 01/12/20 22:50 IMPRESSION: No active cardiopulmonary disease or significant change since 03/25/2018 Labs Labs: Laboratory Results - last 24 hr 01/13/20 01/13/20 01/13/20 10:07 11:02 11:37 WBC RBC Hgb Hct MCV MCH MCHC RDW Plt Count MPV Sodium Potassium Chloride Carbon Dioxide Anion Gap BUN Creatinine Estim Creat Clear Calc Estimated GFR Glucose POC Capillary Glucose 121 H 109 Calcium Magnesium 1.7 01/13/20 01/13/20 01/13/20 14:48 19:00
[2020-01-14] MEDS: POTASSIUM CHLORIDE 20 MEQ TABLET 40 MEQ PO (11:00)
[2020-01-14] MEDS: MAGNESIUM SULF 2 GM/WATER 50ML 2 GM/50 ML BAG IVPB (11:00)
[2020-01-14 12:43] LABS: Glucose Point of Care 126 (65-105)
--- NOTE | 2020-01-14 13:08 | PM.DS ---
DS: Admitting Diagnosis Admitting Diagnosis Admitting Diagnosis: Coffee ground emesis DS: Discharge Diagnosis Discharge Diagnosis (1) Coffee ground emesis: Code(s): K92.0 - Hematemesis Status: Acute Assessment and Plan: r/o acute upper GI bleeding. She had a recent fall and has been taking NSAIDs. Most likely secondary to ulcer from NSAIDs. She is not on any an acids at home. She had an EGD yesterday which showed a gastric ulcer. Blood counts are stable. Recommended Pantoprazole 40 mg BID and to avoid NSAIDS and ASA. Dr. Barry wants to have repeat EGD in 2 months. Patient understands and agree with the plan all questions answered. (2) Low back pain: Qualifiers: Back pain laterality: midline Chronicity: acute Sciatica presence: without sciatica Qualified Code(s): M54.5 - Low back pain Code(s): M54.5 - Low back pain Status: Acute Assessment and Plan: likely secondary to lower back strain from recent fall. She reports her pain is much improved today with the Tylenol she has not needed heating Pad at all. Physical therapy evaluated her and states she is at her baseline and she does not need any further therapy at this point. (3) Abnormal glucose: Code(s): R73.09 - Other abnormal glucose Status: Acute Assessment and Plan: r/o undiagnosed diabetes mellitus. Hemoglobin A1c is within normal range of 5.2%. (4) Leukocytosis: Qualifiers: Leukocytosis type: unspecified Qualified Code(s): D72.829 - Elevated white blood cell count, unspecified Code(s): D72.829 - Elevated white blood cell count, unspecified Status: Acute Assessment and Plan: Likely secondary to trauma from recent fall, pain. No acute signs of infection at this time. Normal chest x-ray and urinalysis on arrival. Otherwise the patient is feeling much better at this time and ready for discharge. (5) Hypokalemia: Code(s): E87.6 - Hypokalemia Status: Acute Assessment and Plan: Potassium was 3.3 this morning. Will give her 40 mEq p.o. of potassium. Magnesium was 1.6 Which is borderline low will give IV magnesium 2 g. Will recheck her labs in 1 week for further evaluation but most likely secondary to being NPO, IV fluid dilution. (6) HTN (hypertension) with goal to be determined: Code(s): I10 - Essential (primary) hypertension Status: Chronic Assessment and Plan: Stable. Monitor blood pressure. Resume home Medications. (7) Hyperlipidemia: Qualifiers: Hyperlipidemia type: unspecified Qualified Code(s): E78.5 - Hyperlipidemia, unspecified Code(s): E78.5 - Hyperlipidemia, unspecified Status: Chronic Assessment and Plan: Resume Lipitor when appropriate. DS: Summary Hospital Course Reason for hospitalization: Patient is an 79-year-old woman with history prior CVA on aspirin, who presented to the emergency department after 1 episode of dark black coffee-ground emesis prior to arrival home. The patient reports falling on Sunday while she was out shopping and has had significant pain to her right upper back and side with bruising. She has been taking ibuprofen and Aleve intermittently without much relief. She came to the hospital after having episode of vomiting secondary to increased pain and was found to be dark in nature as well as some bright red blood found. Labs showed temperature of 98.3?, blood pressure 121/68, heart rate 90, respiratory rate 19, oxygen saturation 98% on room air. Labs showed leukocytosis at 13,300 nor
[2020-01-14 14:00] VITALS: BP 148/67; PULSE 99; RESP 20; TEMP 36.9; O2SAT 97
[2020-01-14 15:15] LABS: Hematocrit 28.1 % (37.0-47.0); Hemoglobin 9.9 g/dL (12.0-15.0)
== END 2020-01-14 15:45 | disposition home or self-care (01) ==
LOC: ANHED 21:48 → ANHIMU 22:18 → ANH3MEDSUR 01-14 13:24 → ANHIMU 01-16 11:24
PROVIDERS: Internal Medicine Gastroenterology; Physician Assistant; Admitting Provider Family Medicine; Emergency Provider Emergency Medicine; PCP Family Medicine; Visit Provider Internal Medicine
PROC: 0DJ08ZZ Inspection of Upper Intestinal Tract, Via Natural or Artificial Opening Endoscopic (ICD-10-PCS; CPT 43235; principal; 2020-01-13 10:30)
DX: K25.3 Acute gastric ulcer without hemorrhage or perforation (principal); K92.0 Hematemesis; M54.5 Low back pain; D72.829 Elevated white blood cell count, unspecified; E78.5 Hyperlipidemia, unspecified; E87.6 Hypokalemia; I10 Essential (primary) hypertension; R73.09 Other abnormal glucose; Z86.73 Personal history of transient ischemic attack (TIA), and cerebral infarction without residual deficits; Z79.82 Long term (current) use of aspirin
CPT/HCPCS: 43239; 36415; 71045; 80048; 80053; 81001; 83036; 83690; 83735; 85014; 85018; 85025; 85027; 85610; 85730; 86850; 86900; 86901; 88305; 88342; 93005; 96361; 96365; 96366; 96374; 96375; 96376; 97161; 97165; 99285; A9270; C9113; G0378; J0360; J2704; J3475; J3480; J7030; J7060; J7120

== ENCOUNTER 2020-01-21 13:46 | Outpatient (CLI) | payer MEDICARE, SELFPAY ==
[2020-01-21 14:37] LABS: Hemoglobin 10.1 g/dL (12.0-15.0); Mean Corpuscular HGB Conc 33.7 g/dl (32-36); Mean Corpuscular Hemoglobin 30.3 pg (26-34); Mean Corpuscular Volume 90.1 fl (80-100); Mean Platelet Volume 9.6 fl (7.4-10.4); Platelet Count Result 459 k/mm3 (150-375); Red Blood Count 3.33 M/mm3 (4.2-5.4); Red Cell Distribution Width 14.2 % (11.5-14.5); White Blood Count 10.1 K/mm3 (4.5-10.0)
[2020-01-21 14:50] LABS: Anion Gap 8 mmol/L (8-16); Blood Urea Nitrogen 17 mg/dL (7-17); Calcium 9.2 mg/dL (8.4-10.2); Carbon Dioxide 26 mmol/L (22-30); Chloride 104 mmol/L (98-107); Estimated Glomerular Filt Rate > 60; Glucose 104 mg/dL (65-105); Magnesium 1.6 mg/dL (1.6-2.3); Potassium 4.2 mmol/L (3.4-5.0); Sodium 138 mmol/L (137-145)
== END 2020-01-21 13:47 | disposition home or self-care (01) ==
PROVIDERS: PCP Family Medicine; Visit Provider Physician Assistant
DX: E83.42 Hypomagnesemia (principal); E87.6 Hypokalemia; D64.9 Anemia, unspecified
CPT/HCPCS: 36415; 80048; 83735; 85027

== ENCOUNTER 2020-08-02 11:54 | Inpatient (IN) | payer MEDICARE, SELFPAY ==
[2020-08-02] VITALS (25 sets, daily range): BP systolic 113–154; BP diastolic 49–91; PULSE 90–106; RESP 14–22; TEMP 36.4–37.7; O2SAT 90–100; BMI 33.3; BMI 27.6
--- NOTE | ~2020-08-02 | XR_ITS ---
XR knee LT min 4V, XR knee RT min 4V 08/02/2020 12:43 Indication: Knee pain after fall Procedure: 4 views of each knee Comparison: No prior studies for comparison. Findings: No fracture, subluxation or dislocation. There is mild patellofemoral compartment osteoarth ritis. No significant joint effusion. No foreign bodies. No focal soft tissue abnormality. Impression: 1: No acute fracture. Reviewed, dictated and finalized at location A. Impression: 1: No acute fracture. Impression: 1: No acute fracture.
--- NOTE | ~2020-08-02 | XR_ITS ---
XR hip RT 2V w AP pelvis 08/02/2020 12:43 Indication: Right hip pain after fall Procedure: 3 views right hip including AP pelvis Comparison: No prior studies for comparison. Findings: There is a nondisplaced right femoral subcapital fracture. Sacral foramen are symmetric. Mi ld lower lumbar spondylosis with levocurvature. No other fractures identified. Impression: 1: Displaced right femoral subcapital fracture. Reviewed, dictated and finalized at location A. Impression: 1: Displaced right femoral subcapital fracture.
--- NOTE | ~2020-08-02 | XR_ITS ---
EXAMINATION: XR surgery orthopedic EXAM DATE: 08/02/2020 18:35 INDICATION: Right bipolar hip replacement. Intraoperative. TECHNIQUE: 2 frontal portable projections obtained intraoperatively, of the right hip. There is no prior study for comparison. FINDINGS: These images demonstrate an acetabular intermediary component in position, and a femoral b cain. Some subcutaneous gas, surgical defect. IMPRESSION: Intraoperative right hip intraoperative hardware in position. Reviewed, dictated and finalized at location A.
--- NOTE | ~2020-08-02 | XR_ITS ---
XR chest 1V DATE: 08/02/2020 12:44 INDICATION: Fall. TECHNIQUE: AP chest COMPARISON: 01/12/2020 portable AP chest FINDINGS: Normal heart size. Aortic calcification and mild unfolding. No hilar or mediastinal enlarge ment. There is chronic mild elevation of the right leaf of the diaphragm. No pulmonary infiltrate or consol idation, pleural effusion or pulmonary vascular congestion or pneumothorax is detected. Status post cholecystectomy. No active cardiopulmonary disease IMPRESSION: Reviewed, dictated and finalized at location B. IMPRESSION:
--- NOTE | ~2020-08-02 | XR_ITS ---
EXAMINATION: XR hip RT 1V w AP pelvis EXAM DATE: 08/02/2020 20:01 INDICATION: Postoperative right hip replacement. TECHNIQUE: Portable frontal, crosstable lateral projections right hip hip obtained immediately follo wing arthroplasty. Procedure performed by Chadwick Jordan MD. FINDINGS: Patient is status post right hip arthroplasty. The orthopedic hardware is in expected pos ition. There is a surgical drain in the subcutaneous tissues. There is small amount of subcutaneous gas, some soft tissue swelling. Correlate with procedure note. IMPRESSION: Status post right hip arthroplasty. Reviewed, dictated and finalized at location A.
--- NOTE | ~2020-08-02 | CT_ITS ---
EXAMINATION: CT brain wo con DATE: 08/02/2020 12:20 INDICATION: Dizziness TECHNIQUE: Computed tomography (CT) of the head was performed without intravenous contrast. The dose- length product was 605.33 mGy-cm. The mA was adjusted according to patient size. Iterative reconstruc tion technique was employed. COMPARISON: CT dated 08/31/2005 FINDINGS: Generalized atrophy. There are scattered moderate periventricular and subcortical white mat ter changes, most likely related to small vessel ischemic disease (microangiopathy). No ventriculomeg francisca or midline shift. Basilar cisterns are patent. There are chronic bilateral parietal lobe infarcti ons. Paranasal sinuses and mastoids are pneumatized. No depressed skull fractures. There is a partial ly calcified 1.5 cm extra-axial mass left parietal vertex, most likely benign meningioma. IMPRESSION: 1. No acute intracranial abnormality. 2: Chronic bilateral parietal lobe infarctions. 3: Partially calcified extra-axial mass left parietal vertex measuring 1.5 cm, likely benign meningio ma. 4: Chronic age-related findings. Reviewed, dictated and finalized at location A. IMPRESSION: 1. No acute intracranial abnormality. 2: Chronic bilateral parietal lobe infarctions. 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 4: Chronic age-related findings.
--- NOTE | ~2020-08-02 | CT_ITS ---
EXAMINATION: CTA chest PE protocol DATE: 08/04/2020 14:08 INDICATION: Hypoxia TECHNIQUE: Computed tomography angiography (CTA) of the chest was performed with 100 mL Omnipaque-350 intravenous contrast timed to evaluate the pulmonary arteries. Coronal maximum intensity projection 3D-reconstructions were created by the technologist. Automated exposure control and iterative reconst ruction technique were employed. Exam dose: 204.15 mGy-cm total exam DLP. COMPARISON: 08/02/2020 AP chest FINDINGS: There is diagnostic contrast enhancement of the pulmonary arteries. There is no evidence of pulmonary embolism. No thoracic aortic aneurysm or dissection. Heart size is within normal range. Coronary artery calcification. No pericardial effusion. There is minimal left pleural effusion. No hilar or mediastinal mass lesion or lymphadenopathy. There is mild focal infiltrate or atelectasis in the posterior basilar right lower lobe. Minimal depe ndent atelectasis in the posterior left lung base. The lungs otherwise appear clear of infiltrate or consolidation. Moderate elevation right diaphragm. Status post cholecystectomy. Normal morphology of the adrenal glands. Small sliding hiatal hernia. Old healed posterior right seventh-ninth rib fractures. Severe degenerative disc disease of the lower cervical spine. 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 No suspicious osteolytic or osteoblastic lesions are noted. IMPRESSION: No evidence of pulmonary embolism Mild localized infiltrate or atelectasis in the lower lobes Reviewed, dictated and finalized at Location A. Reviewed, dictated and finalized at location B.
--- NOTE | 2020-08-02 12:03 | ECG_ITS ---
Measurements Intervals [place] Rate: 102 P: 72 ID: 176 QRS: 41 QRSD: 97 T: 29 QT: 375 QTc: 489 Interpretive Statements SINUS TACHYCARDIA BORDERLINE ST-T WAVE ABNORMALITY- ANTEROLAT/INF LEADS BASELINE ARTIFACT- I, II, III, AVR, AVL, AVF, V1 BORDERLINE ECG Electronically Signed On 08-02-2020 13:31:37 CDT by Kelvin Decker D.O.
--- NOTE | 2020-08-02 12:05 | ED.FALL ---
HPI - Fall General Chief Complaint: Fall Stated Complaint: R HIP PAIN Source: patient Mode of arrival: EMS Limitations: no limitations History of Present Illness HPI Narrative: This is an 80 year old female with history of hypertension, hyperlipidemia and CVA who presents from home for evaluation of injuries s/p fall. She states last night around 11 pm she bent over and she became dizzy. She was outside with her dog. This dizziness caused her to fall onto her knees. She states she was unable to get up after this fall and her daughter was asleep. She states she was able to move around outside grabbing onto chairs. She states her daughter brought her into the house at 630 am this morning. Patient states she was unable to get herself up onto the couch so she stayed on the kitchen floor until EMS was called. She reports right hip pain and bilateral knee pain. She denies nausea, vomiting, chest pain, sob, cough, abdominal pain, fever or chills. She states she has history of intermittent episodes of dizziness. She was feeling good yesterday before her fall. She reports going to dinner and having some wine yesterday. Related Data Home Medications Medication Instructions Recorded Confirmed atorvastatin 40 mg PO HS 01/12/20 08/02/20 citalopram 40 mg PO DAILY 01/12/20 08/02/20 lisinopril-hydrochlorothiazide 1 tablet PO DAILY 01/12/20 08/02/20 pantoprazole 40 mg PO DAILY 08/02/20 08/02/20 Allergies Allergy/AdvReac Type Severity Reaction Status Date / Time No Known Allergies Allergy Verified 08/02/20 15:38 Review of Systems Review of Systems: All systems reviewed & are unremarkable except as noted in HPI and below Constitutional: Constitutional: Denies chills and Denies fever(s) ENT: Reports dizziness Cardiovascular: Cardiovascular: Denies chest pain Respiratory: Respiratory: Denies cough and Denies dyspnea Gastrointestinal: Gastrointestinal: Denies abdominal pain, Denies diarrhea, Denies nausea and Denies vomiting Musculoskeletal: Musculoskeletal: Reports arthralgias Neurologic: Reports vertigo, Denies headache(s) and Denies focal weakness [facility] Past Medical History Medical History (Updated 08/02/20 @ 14:55 by Alberto Xavier CRNA) Acidosis, lactic Closed displaced fracture of right femoral neck History of CVA (cerebrovascular accident) History of gastric ulcer HTN (hypertension) with goal to be determined Hyperlipidemia Hypokalemia Leukocytosis Surgical History Surgical History History of ankle surgery Family History Family History Father Pancreatic cancer Mother Acute myocardial infarction Social History Social History Smoking status: Never smoker Second hand tobacco smoke exposure: Yes (as a child) Alcohol intake: current Drinks per week: 7 Substance use: never Gender identity (if verbalized by the patient): Female Spiritual care concerns: Yes (Gnosticism) Exam Const: General: no acute distress and alert Orientation/consciousness: patient oriented x3 Eyes: Pupils: Equal, round and reactive pupils present EOM: EOMs intact bilaterally Chest: Chest palpation & inspection: normal inspection of the chest Resp: Effort & Inspection: normal respiratory effort and no retractions Auscultation: clear to auscultation bilaterally Cardio: Rate: regular rate Rhythm: regular rhythm Heart sounds: no murmurs Other: palpable pedal pulses GI: GI Palp: Yes Soft to palpation, No Tenderness to palpation present (GI) and No Guarding due to palpation present (GI) Auscultation: normal bowel sounds Skin: Other: abrasions bilateral knees, no swelling Neuro: General: patient oriented x3, moves all extremities and CN's II-XI intact bilaterally Extrem: Other: Pain with flexion of right hip. no significant swelling
[2020-08-02] MEDS: LACTATED RINGERS 1,000 ML 999 ML IV CONT (12:30)
[2020-08-02 13:24] LABS: Basophils Absolute Auto 0.1 K/mm3 (0.0-0.1); Basophils Percent Auto 0.3 % (0.2-1.2); Hematocrit 37.9 % (37.0-47.0); Hemoglobin 12.6 g/dL (12.0-15.0); Immature Granulocyte Absolute 0.12 K/mm3 (0.00-0.031); Immature Granulocyte Percent A 0.5 % (0-0.5); Lymphocytes Absolute Auto 1.07 K/mm3 (0.9-3.2); Lymphocytes Percent Auto 4.8 % (18.3-44.2); Mean Corpuscular HGB Conc 33.2 g/dl (32-36); Mean Corpuscular Hemoglobin 26.7 pg (26-34); Mean Corpuscular Volume 80.3 fl (80-100); Monocytes Absolute Auto 1.4 K/mm3 (0.1-0.6); Monocytes Percent Auto 6.5 % (2.6-8.5); Neutrophils Absolute Auto 19.6 K/mm3 (1.3-6.7); Neutrophils Percent Auto 87.9 % (45.5-73.1); Platelet Count Result 321 k/mm3 (150-375); Red Blood Count 4.72 M/mm3 (4.2-5.4); Red Cell Distribution Width 15.7 % (11.5-14.5); White Blood Count 22.3 K/mm3 (4.5-10.0)
[2020-08-02 13:28] LABS: Add Urine Microscopic? YES; Appearance Urine Clear (Clear); Bacteria Urine Trace /hpf; Bilirubin Urine Negative (Negative); Blood Urine 3+ (Negative); Color Urine Yellow (Yellow); Glucose Urine UA 1+ mg/dL (Negative); Hyaline Casts Urine 15-19 /lpf; Ketones Urine 1+ mg/dL (Negative); Leukocyte Esterase Ur Negative LEU/UL (Negative); Mucus Urine Rare /lpf; Nitrate Urine Negative (Negative); Protein Urine 3+ mg/dL (Negative); Specific Grav Ur 1.015 (1.001-1.035); Squamous Epithelial Cell Urine Rare /hpf (Few); Urobilinogen Urine Negative mg/dL (<2.0)
[2020-08-02 13:37] LABS: Lactic Acid Reflex 3.5 mmol/L (0.7-2.1)
[2020-08-02 13:38] LABS: Alanine Aminotransferase 24 U/L (4-35); Albumin Level 4.7 g/dL (3.5-5.1); Alkaline Phosphatase 103 U/L (38-126); Anion Gap 8 mmol/L (8-16); Aspartate Amino Transferase 51 U/L (14-36); Bilirubin,Total 1.4 mg/dL (0.2-1.3); Blood Urea Nitrogen 18 mg/dL (7-17); Calcium 9.9 mg/dL (8.4-10.2); Carbon Dioxide 29 mmol/L (22-30); Chloride 103 mmol/L (98-107); Creatine Kinase 667 U/L (30-135); Estimated Glomerular Filt Rate > 60; Glucose 141 mg/dL (65-105); Magnesium 1.4 mg/dL (1.6-2.3); Potassium 3.3 mmol/L (3.4-5.0); Sodium 140 mmol/L (137-145)
[2020-08-02 13:39] LABS: Ethanol < 10 mg/dL (<10)
[2020-08-02 13:40] LABS: Anisocytosis 1+ (NORMAL); Ovalocytes 1+ (NORMAL); Platelet Estimate Adequate (Adequate); Prothrombin Time 13.5 Seconds (11.1-14.7)
[2020-08-02 13:41] LABS: Partial Thromboplastin Time 24.7 SECONDS (22.3-36.8)
[2020-08-02] MEDS: ONDANSETRON INJ 4 MG/2 ML VIAL IV PUSH (13:46)
[2020-08-02] MEDS: MORPHINE SULFATE (*CRX) 2 MG/ML INJ IV PUSH (13:46)
--- NOTE | 2020-08-02 14:37 | WPDANESEPP ---
Anes - Eval Pre Procedure Procedure: Operation Date: 08/02/20 17:00 Proposed Procedures p Right Bipolar - Chadwick Jordan MD Date/Time: 08/02/20 14:37 Pre Op Diagnosis: Right Subcapital Femoral Neck Fracture Patient Data Age: 80 Gender: F Height: Weight: 80 kg Last Vital Signs Temp 97.8 F 08/02/20 11:56 Pulse 106 H 08/02/20 11:56 Resp 14 08/02/20 11:56 BP 145/70 H 08/02/20 11:56 Pulse Ox 100 08/02/20 11:56 Allergies Allergy/AdvReac Type Severity Reaction Status Date / Time No Known Allergies Allergy Verified 12/08/19 15:32 Home Medications Medication Instructions Recorded Confirmed Type aspirin 81 mg tablet,delayed 81 mg PO DAILY 10/31/19 01/12/20 History release atorvastatin 40 mg PO HS 01/12/20 01/12/20 History citalopram 40 mg PO DAILY 01/12/20 01/12/20 History lisinopril-hydrochlorothiazide 1 tablet PO DAILY 01/12/20 01/12/20 History pantoprazole 40 mg PO BID 28 Days #56 tablet 01/14/20 Rx Laboratory Tests 08/02/20 08/02/20 08/02/20 13:12 13:12 13:12 WBC 22.3 K/mm3 H K/mm3 (4.5-10.0) RBC 4.72 M/mm3 M/mm3 (4.2-5.4) Hgb 12.6 g/dL g/dL (12.0-15.0) Hct 37.9 % % (37.0-47.0) MCV 80.3 fl fl (80-100) MCH 26.7 pg pg (26-34) MCHC 33.2 g/dl g/dl (32-36) RDW 15.7 % H % (11.5-14.5) Plt Count 321 k/mm3 k/mm3 (150-375) MPV 10.0 fl fl (7.4-10.4) Immature Gran % (Auto) 0.5 % % (0-0.5) Neut % (Auto) 87.9 % H % (45.5-73.1) Lymph % (Auto) 4.8 % L % (18.3-44.2) [place] % (Auto) 6.5 % % (2.6-8.5) Eos % (Auto) 0.0 % % (0-4.4) Baso % (Auto) 0.3 % % (0.2-1.2) Lymph # (Auto) 1.07 K/mm3 K/mm3 (0.9-3.2) [place] # (Auto) 1.4 K/mm3 H K/mm3 (0.1-0.6) Eos # (Auto) 0.0 K/mm3 K/mm3 (0-0.3) Baso # (Auto) 0.1 K/mm3 K/mm3 (0.0-0.1) Abs Immat Gran (auto) 0.12 K/mm3 H K/mm3 (0.00-0.031) Absolute Neuts (auto) 19.6 K/mm3 H K/mm3 (1.3-6.7) Absolute Nucleated RBC 0.0 K/mm3 K/mm3 (0.0-0.012) Nucleated RBC % 0.0 % % (0.0-0.2) Platelet Estimate Adequate (Adequate) Anisocytosis 1+ (NORMAL) Ovalocytes 1+ (NORMAL) PT INR APTT Sodium 140 mmol/L mmol/L (137-145) Potassium 3.3 mmol/L L mmol/L (3.4-5.0) Chloride 103 mmol/L mmol/L (98-107) Carbon Dioxide 29 mmol/L mmol/L (22-30) Anion Gap 8 mmol/L mmol/L (8-16) BUN 18 mg/dL H mg/dL (7-17) Creatinine 0.70 mg/dL mg/dL (0.7-1.0) Estim Creat Clear Calc Not Reportable Estimated GFR > 60 (59 - ) Glucose 141 mg/dL H mg/dL (65-105) Lactic Acid 3.5 mmol/L H mmol/L (0.7-2.1) Calcium 9.9 mg/dL mg/dL (8.4-10.2) Magnesium 1.4 mg/dL L mg/dL (1.6-2.3) Total Bilirubin 1.4 mg/dL H mg/dL (0.2-1.3) AST 51 U/L H U/L (14-36) ALT 24 U/L U/L (4-35) Alkaline Phosphatase 103 U/L U/L (38-126) Total Creatine Kinase 667 U/L H U/L (30-135) Total Protein 8.0 g/dL g/dL (6.3-8.2) Albumin 4.7 g/dL g/dL (3.5-5.1) Urine Color Urine Appearance Urine pH Ur Specific [place] Urine Protein Urine Glucose (UA) Urine Ketones Ur Blood (Man) Urine Nitrate Urine Bilirubin Urine Urobilinogen Leukocyte Esterase Rfl Urine RBC Urine WBC Ur Squamous Epith Cells Urine Bacteria Hyaline Casts Urine Mucus Ethyl Alcohol 08/02/20 08/02/20 08/02/20 13:12 13:12 13:12 WBC RBC Hgb
[2020-08-02] MEDS: POTASSIUM CHLORIDE 20 MEQ TABLET 40 MEQ PO (14:47)
[2020-08-02] MEDS: SODIUM CHLORIDE 0.9% IV 1,000 ML 999 ML IV CONT (14:47)
[2020-08-02 16:20] LABS: Reflex Lactic Acid Yes or No Add Lactic
--- NOTE | 2020-08-02 16:50 | P.PNAN_ITS ---
Anes - Eval Final PreProcedure Day of Procedure 08/02/20 16:50 Patient weight: obese Heart: regular rate and rhythm Lungs: clear to auscultation and normal air movement Airway: Mallampati scale class II Neurological: alert and oriented Last oral intake: >/= 8 hours ASA classification: III Emergent: no Anesthetic plan: proceed Anesthesia type and monitoring: general ETT Informed Consent: The patient's anesthetic plan and its attendant risks and be nefits were discussed with the patient/family/POA. Questions were solicited and answers provided to the satisfaction of the patient/family/POA.
--- NOTE | 2020-08-02 16:54 | PM.CNOR ---
Assessment and Plan Additional Plan Patient is an 80-year-old female who presented to the emergency room earlier today with a displaced subcapital right femoral neck fracture. It is a little confusing exactly the sequence of events. She fell on her knee hard yesterday and she does have a small abrasion over the anterolateral margin of the patella on the right where she landed and then earlier today she states she bumped into some furniture and her leg would not lópez she found herself on the ground and had to call the ambulance was brought in. She lives alone and is recently been raising a new puppy. She walks without gait aid. She has had a few falls in the last year and her daughter notes that she is unsteady and would like her mother to use a cane at least. She drives she manages her own affairs. Up until the jon virus pandemic she was going to the [facility] to exercise 3 days a week. Her past medical history is significant for a bleeding gastric ulcer last December treated by Dr. Barry and she did require transfusion. She never underwent the follow-up upper endoscopy to assess healing of the ulcer because of the Coronavirus concerns. Her labs on admission show hemoglobin of 12.6. White count of 22.000, platelets [id number]. Absolute immature granulocytes 0.12. INR was 1.0. Potassium slightly low at 3.0 sodium 140. BUN was 18 creatinine was 0.7 an estimated creatinine clearance was not calculated for some reason. Her GFR was greater than 60. Lactic acid was elevated at 3.5 AST mildly elevated at 51 bilirubin 1.4 magnesium low at 1.4 total creatinine kinase 667. Albumin was normal at 4.7. Her urinalysis showed 4-6 white blood cells per high powered field so no strong evidence to suggest urinary tract infection. Trace bacteria noted. Current medications include pantoprazole 40 mg daily lisinopril hydrochlorothiazide citalopram and atorvastatin. She has a history of a cerebrovascular accident in 2013 and she took baby aspirin following that but the baby aspirin was stopped in April presumably due to concerns of bleeding from her gastric ulcer. She has hyperlipidemia hypertension and history of a broken ankle that we fixed in the early . Patient's EKG today showed borderline abnormalities. She denies any history of heart attack or chest pain problems in the past. On examination today she was alert and oriented. She had a 2+ posterior tibial artery pulse palpable on the right. There is no lower extremity edema. She had a small abrasion over her right patella that was not very tender she had no effusion the right knee normal medial lateral right knee tenderness. There is a purple 2 in bruise over the posterolateral aspect of the right hip. She states that was present yesterday. The skin is otherwise intact. She has bruising over the dorsal surface of the proximal right ulna. She has minimal tenderness there and full range of motion of her elbow and pronation supination without pain. She denies any other injury. She can lift her head off the pillow and moved side to side without difficulty. Impression patient has a displaced right subcapital femoral neck fracture. I have discussed with her and her daughter was present as well as another daughter who is a nurse who was on the telephone the same to the conversation. I have recommended cemented bipolar hemiarthroplasty. We discussed the option of nonsurgical treatment which would give her a poor functional result and has higher risk of mortality and is therefore not a good option for this fracture in this patient. I have discussed the risks of surgery with them in detail. I explained that there is risk of fracture dislocation wound infection blood clots nerve injury blood vessel injury bleeding need for transfusion and medical complications such as heart attack stroke pulmonary embolism and . I think she is a little bit higher risk for stroke as she is not on aspirin as a history of stroke. Fo
[2020-08-02] MEDS: LACTATED RINGERS 1,000 ML 30 ML IV CONT ×2 (17:00→20:00)
[2020-08-02] MEDS: TRANEXAMIC ACID 1,000MG/ISO100 1,000 MG/100 ML BAG 200 MG IVPB (17:00)
[2020-08-02] MEDS: ceFAZolin 2 GM/D5W 50 ML 2 GM/50 ML BAG IVPB (17:07)
[2020-08-02] MEDS: ceFAZolin SODIUM 1 GM VIAL 3 GM IRRIGATION (17:57)
[2020-08-02] MEDS: EPINEPHrine HCL INJ 1 MG/ML AMPUL IRRIGATION (18:26)
[2020-08-02] MEDS: ceFAZolin SODIUM 1 GM VIAL IV PUSH (19:10)
--- NOTE | 2020-08-02 19:15 | PM.IMHP ---
H&P: HPI History of Present Illness Date/Time: 08/02/20 19:15 Chief Complaint: Right hip pain after fall. Narrative: This is a very pleasant 80-year-old female with hypertension, hyperlipidemia, GERD, and history of stroke who presented to the emergency department earlier this morning via EMS from home for evaluation of right hip pain after a fall last night. Last evening around 23:00 she took her 8-week-old puppy out to use the restroom. When she bent over to picker / packer the dog, she felt lightheaded and fell forward onto her knees and right hip. Unfortunately she was not able to get herself up due to the pain in the hip and right leg and was unable to crawl into the home to call for help, thus she lay outside all night until her daughter found her at 06:30. She was brought into the hospital via EMS and on arrival she was found to have a displaced subcapital right femoral fracture. I saw the patient in the PACU status post bipolar hemiarthroplasty of the right hip per Dr. Jordan. At the time my evaluation she rates her pain a 7/10 and has a hard time describing it excised from ?it just hurts.? She tells me that she did not lose consciousness in the fall last night and there was no head trauma. She has had issues with intermittent lightheadedness with position changes but denies syncope. She has not had chest pain, pleuritic pain, palpitations, or shortness of breath. No postoperative fever or chills. She also denies postoperative chest pain, shortness of breath, nausea, and vomiting. Review of Systems Review of Systems: Narrative: Twelve systems were reviewed with pertinent positives and negatives as per HPI. She has been having issues with seasonal allergies this week. No real cold or flu symptoms. She denies sick contacts exposure to those positive for COVID-19. No nausea, vomiting, or diarrhea. No dysuria. She denies history of venous thromboembolism. No history of coronary artery disease. Except as documented, all other systems were reviewed and are negative. [facility] Past Medical History Medical History (Updated 08/02/20 @ 23:47 by Gabrielle Cox PA-C) Cerebrovascular accident (~2012) Gastroesophageal reflux disease History of gastric ulcer Hyperlipidemia Hypertension Surgical History Surgical History (Updated 08/02/20 @ 23:43 by Gabrielle Cox PA-C) History of ankle surgery (~2001) ORIF ankle fracture. History of cataract extraction History of cholecystectomy (~1999) History of facial surgery (~2013) Repair of left orbital fracture. History of hemiarthroplasty of right hip (~08/02/20) ORIF right hip fracture after fall. History of tonsillectomy Family History Family History Father Pancreatic cancer Mother Acute myocardial infarction Social History Social History (Updated 08/02/20 @ 23:44 by Gabrielle Cox PA-C) Social History: Surrogate decision maker: Margi Moura, daughter. Code status: Full code. Smoking status: Never smoker Second hand tobacco smoke exposure: Yes (as a child) Alcohol intake: current Drinks per week: 5 Substance use: never Substance use type: does not use Additional living arrangements comments: The patient lives in her own home in [place]. She has an 8-week-old puppy. 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 Gender identity (if verbalized by the patient): Female Sexual Orientation (if Verbalized by the Patient): Straight or Heterosexual Spiritual care concerns: No Meds Home Medications and Allergies Home Medications Medication Instructions Recorded Confirmed Type atorvastatin 40 mg PO HS 01/12/20 08/02/20 History citalopram 40 mg PO DAILY 01/12/20 08/02/20 History lisinopril-hydrochlorothiazide 1 tablet PO DAILY 01/12/20 08/02/20 History pantoprazole 40 mg PO DAILY 08/02/20 08/02/20 History Allergies Allergy/AdvReac Type
--- NOTE | 2020-08-02 19:43 | PM.PROC ---
Procedure Note - Detailed Date of procedure: 08/02/20 Pre-op diagnosis: Right Subcapital Femoral Neck Fracture Post-op diagnosis: same Procedure performed: Cemented bipolar hemiarthroplasty right hip Description of procedure: Patient was brought to the operating room and general anesthesia was administered. The right hip was scrubbed with the chlorhexidine cloth. She was transferred to the operating table placed in the lateral decubitus position. She received 2 g of Ancef weight based vancomycin and 1 g of tranexamic acid preoperatively. The right hip was prepped draped usual fashion. A 6 in longitudinal incision was made over lateral aspect of the right hip. The fascia was incised longitudinally. Anterior 50% gluteus medius and gluteus minimus were elevated off the greater trochanter. Capsule was incised along its superior aspect elevated off the anterior femur. Provisional femoral neck osteotomy was made in the femoral head removed. It measured 43.3 mm in diameter and the 44 head sat securely in the acetabulum. The femur was very small. We broached up to a size 8 and trialed. I could only get the -6 to reduce. We took an intraoperative x-ray which showed equal leg lengths and I thought just a tiny bit of diminished offset the -6 standard neck. Alignment of the stem was appropriate as was the fit of the femoral head in the acetabulum. We were able to broach up to a size 9 and countersink about 2.5 mm and calcar plane. I trialed and the -6 was a little bit loose in extension external rotation the -3 reduced easily and seemed to have appropriate range of motion soft tissue tension. The small cement restrictor was inserted in the canal. We sounded for a 9 mm centralizer which was applied the tip of the FX size 7 cemented stem. The canal was carefully prepared with pulsatile lavage and epinephrine-soaked sponges and dry sponges and cement was inserted and pressurized and the size 7 Biomet Echo fracture stem was inserted and fully seated in the proper position. The cement was allowed to harden excess cement was sought for removed and we trialed again had the same findings and the -3 was assembled onto the 44 bipolar head and the construct impacted onto the clean and dried trunnion after through irrigation of the wound. Hip was reduced stability range of motion reconfirmed. Capsule was repaired with 2. Ethibond the gluteus minimus and anterior medius were reattached with 5. Mersilene 3 but through bone and 2. Ethibond suture. Fascia roxana closed with 2. Vicryl is a 1. Unidirectional barbed strata fix suture. Drain placed deep in the subcutaneous layer and skin closed with to a subcutaneous Vicryl and glue EBL is 100 cc. Third g of Ancef was given at time of wound closure. There were no known complications. Implants: Biomet Echo FX stem and bipolar head Anesthesia: GETA Surgeon: Chadwick Jordan MD Master Planner: Sg Estimated blood loss (mL): 100 Drains: Yes Packing: No Pathology: none sent Complications: No immediate complications Condition: stable Disposition: PACU
[2020-08-02] MEDS: HYDROmorphone HCL INJ (*CRX) 1 MG/ML SYR 0.25 MG IV PUSH (20:58)
--- NOTE | 2020-08-02 22:09 | PC.NURSE ---
2130 TO ROOM PER BED FROM PACU. A&O X3 VOICES NO C/O
[2020-08-02] MEDS: ACETAMINOPHEN 500 MG TABLET 1000 MG PO (22:42)
[2020-08-02] MEDS: ATORVASTATIN 40 MG TABLET PO (22:43)
[2020-08-02] MEDS: KCL 20 MEQ/D5/0.45% SOD CHL 1,000 ML 100 ML IV CONT (22:58)
[2020-08-03] VITALS (17 sets, daily range): BP systolic 116–150; BP diastolic 52–76; PULSE 85–100; RESP 14–20; TEMP 36–37.1; O2SAT 85–99
[2020-08-03 00:03] LABS: Hemoglobin 9.9 g/dL (12.0-15.0); Mean Corpuscular Hemoglobin 26.5 pg (26-34); Mean Corpuscular Volume 80.4 fl (80-100); Platelet Count Result 252 k/mm3 (150-375); Red Blood Count 3.73 M/mm3 (4.2-5.4); Red Cell Distribution Width 15.9 % (11.5-14.5); White Blood Count 19.5 K/mm3 (4.5-10.0)
[2020-08-03 00:25] LABS: Anion Gap 4 mmol/L (8-16); Blood Urea Nitrogen 9 mg/dL (7-17); CRP 8.4 mg/dL (<1.0); Calcium 8.2 mg/dL (8.4-10.2); Carbon Dioxide 28 mmol/L (22-30); Chloride 105 mmol/L (98-107); Creatine Kinase 1214 U/L (30-135); Estimated CRCL calculation 54 ml/min; Estimated Glomerular Filt Rate > 60; Glucose 163 mg/dL (65-105); Magnesium 1.3 mg/dL (1.6-2.3); Potassium 3.6 mmol/L (3.4-5.0); Sodium 137 mmol/L (137-145)
[2020-08-03] MEDS: oxyCODONE HCL (*CRX) 2.5 MG TAB IR PO ×6 (00:44→22:37)
[2020-08-03] MEDS: SODIUM CHLORIDE 0.9% IV 1,000 ML 100 ML IV CONT (00:48)
[2020-08-03] MEDS: MAGNESIUM SULFATE 3GM/D5W100ML 3 GM/100 ML BAG IVPB (01:20)
[2020-08-03] MEDS: ACETAMINOPHEN 500 MG TABLET 1000 MG PO ×4 (03:14→20:46)
[2020-08-03 05:22] LABS: Basophils Percent Auto 0.1 % (0.2-1.2); Hematocrit 28.8 % (37.0-47.0); Hemoglobin 9.5 g/dL (12.0-15.0); Immature Granulocyte Absolute 0.16 K/mm3 (0.00-0.031); Immature Granulocyte Percent A 0.8 % (0-0.5); Lymphocytes Absolute Auto 1.12 K/mm3 (0.9-3.2); Lymphocytes Percent Auto 5.5 % (18.3-44.2); Mean Corpuscular Hemoglobin 26.4 pg (26-34); Mean Platelet Volume 10.3 fl (7.4-10.4); Monocytes Percent Auto 4.7 % (2.6-8.5); Neutrophils Absolute Auto 18.1 K/mm3 (1.3-6.7); Neutrophils Percent Auto 88.9 % (45.5-73.1); Platelet Count Result 242 k/mm3 (150-375); Red Cell Distribution Width 15.9 % (11.5-14.5); White Blood Count 20.4 K/mm3 (4.5-10.0)
[2020-08-03 05:52] LABS: Alanine Aminotransferase 25 U/L (4-35); Albumin Level 3.1 g/dL (3.5-5.1); Alkaline Phosphatase 60 U/L (38-126); Anion Gap 4 mmol/L (8-16); Aspartate Amino Transferase 61 U/L (14-36); Bilirubin,Total 0.6 mg/dL (0.2-1.3); Blood Urea Nitrogen 9 mg/dL (7-17); Calcium 8.1 mg/dL (8.4-10.2); Carbon Dioxide 27 mmol/L (22-30); Chloride 105 mmol/L (98-107); Creatine Kinase 1354 U/L (30-135); Estimated CRCL calculation 47 ml/min; Estimated Glomerular Filt Rate > 60; Glucose 176 mg/dL (65-105); Potassium 3.7 mmol/L (3.4-5.0); Sodium 136 mmol/L (137-145)
[2020-08-03 05:57] LABS: Large Platelets Present; Ovalocytes 1+ (NORMAL); Platelet Estimate Adequate (Adequate)
[2020-08-03 06:01] LABS: Hemoglobin A1C 5.2 % (<5.7)
--- NOTE | 2020-08-03 06:51 | PM.PNORT ---
Progress Note: A&P Additional Plan POD 1 alert avss wd-dry pt is moving all 4 extrem. equally, pain is controlled, hgb-9.5 PT to start working with pt today <ULICES Tai - Last Filed: 08/03/20 06:53> Subjective Subjective Date/Time Seen: 08/03/20 06:51 <ULICES Tai - Last Filed: 08/03/20 06:53> Objective Data Vital Signs Vital Signs: Vital Signs - 24 hr 08/02/20 11:56 08/02/20 12:02 08/02/20 12:42 Temperature 36.6 C Pulse Rate 106 H 104 H 101 H Respiratory Rate 14 17 16 Blood Pressure 145/70 H 130/77 Pulse Oximetry 100 97 98 08/02/20 12:43 08/02/20 12:45 08/02/20 13:11 Temperature Pulse Rate 100 95 99 Respiratory Rate 14 19 20 Blood Pressure Pulse Oximetry 98 98 95 08/02/20 13:22 08/02/20 13:30 08/02/20 13:50 Temperature Pulse Rate 99 102 H 100 Respiratory Rate 20 20 20 Blood Pressure Pulse Oximetry 98 96 98 08/02/20 14:00 08/02/20 14:15 08/02/20 14:53 Temperature Pulse Rate 100 99 104 H Respiratory Rate 20 20 20 Blood Pressure Pulse Oximetry 97 97 98 08/02/20 14:55 08/02/20 15:27 08/02/20 20:00 Temperature 37.7 C H 37.1 C Pulse Rate 104 H 101 H 96 Respiratory Rate 20 20 17 Blood Pressure 144/67 H 154/67 H 115/55 L Pulse Oximetry 98 100 94 08/02/20 20:15 08/02/20 20:30 08/02/20 20:45 Temperature Pulse Rate 102 H 99 96 Respiratory Rate 20 22 H 18 Blood Pressure 138/77 141/69 H 144/68 H Pulse Oximetry 100 90 93 08/02/20 21:00 08/02/20 21:15 08/02/20 21:37 Temperature Pulse Rate 97 92 94 Respiratory Rate 19 19 Blood Pressure 140/68 128/65 Pulse Oximetry 93 93 08/02/20 22:00 08/02/20 22:15 08/02/20 22:45 Temperature 36.4 C L 36.4 C L 36.4 C Pulse Rate 93 90 90 Respiratory Rate 14 16 16 Blood Pressure 127/91 H 120/60 118/51 L Pulse Oximetry 94 95 95 08/02/20 23:45 08/03/20 00:00 08/03/20 00:30 Temperature 36.5 C Pulse Rate 91 90 Respiratory Rate 16 Blood Pressure 113/49 L Pulse Oximetry 94 95 08/03/20 02:00 08/03/20 04:00 08/03/20 05:08 Temperature 36.4 C L Pulse Rate 85 87 Respiratory Rate 14 Blood Pressure 116/53 L Pulse Oximetry 96 93 <ULICES Tai - Last Filed: 08/03/20 06:53> Intake/Output Intake/Output: Intake & Output 07/31/20 08/01/20 08/02/20 08/03/20 23:59 23:59 23:59 23:59 Intake Total 1350 1150 Output Total 1000 715 Balance 350 435 <ULICES Tai - Last Filed: 08/03/20 06:53> Meds/Results Medications: Active Medications Generic Name Dose Route Start Last Admin Trade Name Freq PRN Reason Stop Dose Admin Acetaminophen 1,000 mg 08/02/20 21:00 08/03/20 03:14 Acetaminophen 500 Mg Tablet PO 1,000 mg Q6H JENNIFER Administration Apixaban 2.5 mg 08/03/20 09:00 Apixaban 2.5 Mg Tablet PO 09/07/20 09:01 Q12HR JENNIFER Atorvastatin Calcium 40 mg 08/02/20 21:00 08/02/20 22:43 Atorvastatin 40 Mg Tablet PO 40 mg HS JENNIFER Administration Citalopram Hydrobromide 40 mg 08/03/20 09:00 Citalopram Hydrobromide 10 Mg Tablet PO DAILY JENNIFER Hydrochlorothiazide 25 mg 08/03/20 09:00 Hydrochlorothiazide 25 Mg Tablet PO DAILY JENNIFER Cefazolin Sodium 1 gm in 50 mls @ 100 mls/hr 08/03/20 01:00 08/03/20 01:22 Ancef 1 Gm/D5w 50 Ml Pm IVPB 08/03/20 17:29 Infused Q8H JENNIFER Infusion Vancomycin HCl 1,000 mg in 250 mls @ 250 mls/hr 08/03/20 03:00 08/03/20 03:14 Vancomycin 1,000 Mg/D5w 250 Ml IVPB 08/03/20 15:59 250 mls/hr Q12H JENNIFER Administration Sodium Chloride 1,000 mls @ 100 mls/hr 08/03/20 00:30 08/03/20 00:48 Normal Saline Iv IV CONT 100 mls/hr .Q10H JENNIFER Administration Lisinopril 20 mg 08/03/20 09:00 Lisinopril 20 Mg Tablet PO 09/02/20 09:01 DAILY JENNIFER Magnesium Hydroxide 30 ml 08/02/20 19:51 Magnesium Hydroxide Susp 30 Ml Udc PO BID PRN Constipation Morphine Sulfate 1 mg 08/02/20 19:54 Morphine Sulfate (*Crx) 2 Mg/Ml Inj IV PUSH Q
[2020-08-03 08:25] LABS: Magnesium 2.3 mg/dL (1.6-2.3)
[2020-08-03] MEDS: APIXABAN 2.5 MG TABLET PO ×2 (11:40→20:46)
[2020-08-03] MEDS: CITALOPRAM HYDROBROMIDE 10 MG TABLET 40 MG PO (11:41)
[2020-08-03] MEDS: SENNA/DOCUSATE SODIUM TABLET 2 TAB PO ×2 (11:45→16:30)
[2020-08-03] MEDS: hydroCHLOROthiazide 25 MG TABLET PO (11:47)
[2020-08-03] MEDS: lisinopriL 20 MG TABLET PO (11:50)
[2020-08-03] MEDS: PANTOPRAZOLE 40 MG TABLET PO ×2 (11:51→20:47)
--- NOTE | 2020-08-03 14:21 | PM.IMPN ---
Progress Note: A&P Assessment and Plan (1) Acute respiratory failure with hypoxia: Code(s): J96.01 - Acute respiratory failure with hypoxia Status: Acute Assessment and Plan: Patient is requiring oxygen especially when ambulating -this is new for her and she does not really feel short of breath -chest x-ray normal -could be due to anesthesia -patient has had both of her COVID-19 vaccines and chest x-ray is clear. COVID less likely -PE seems less likely as she is not tachycardic and has no clinical signs of DVT -at this time I will try to wean the oxygen, if she continues to require oxygen may consider CTA. D-dimer will be elevated due to surgery and not indicated. (2) Closed displaced fracture of right femoral neck: Code(s): S72.001A - Fracture of unspecified part of neck of right femur, initial encounter for closed fracture Status: Acute Assessment and Plan: Postoperative day number 1, status post bipolar hemiarthroplasty of the right hip. -Wound care and pain control will be deferred to Dr. Jordan as well as DVT prophylaxis (currently on Eliquis per Dr. Jordan). (3) Elevated creatine kinase: Code(s): R74.8 - Abnormal levels of other serum enzymes Status: Acute Assessment and Plan: Secondary to lying outside all night -repeat CK in the morning -likely causing her liver enzymes to be slightly elevated -no signs of renal failure -will order small amount of fluids for today, recheck in the morning -patient plans to look in to a medical call button (4) Elevated lactic acid level: Code(s): R79.89 - Other specified abnormal findings of blood chemistry Status: Acute Assessment and Plan: Resolved, no infection suspected (5) Electrolyte abnormality: Code(s): E87.8 - Other disorders of electrolyte and fluid balance, not elsewhere classified Status: Acute Assessment and Plan: Resolved -mag now normal. recheck in the am -glucose elevated d/t fall/sx, a1c is 5.2 (6) Leukocytosis: Code(s): D72.829 - Elevated white blood cell count, unspecified Status: Acute Assessment and Plan: Likely related to a stress response from the fracture and surgery as she gives no history to suggest underlying infection -UA and CXR without infection -no fevers -Will likely decrease with time, monitor closely. (7) Hypertension: Code(s): I10 - Essential (primary) hypertension Status: Acute Assessment and Plan: bp 138/57 -Continue lisinopril and hctz Time Spent With Patient Time with patient: 25 - 35 minutes Subjective Date/time seen: 08/03/20 14:21 Interval history: Pt is a 80-year-old female who was found down outside after getting dizzy and falling forward picking up her dog. She states that she has chronic dizziness that comes and goes that has been thoroughly evaluated according to her. 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 Unfortunately she laid on the back patio overnight until her daughter found her. She had immediate pain to the right hip and was found to have a fracture. Today she states that the pain is currently a 7/10 but she got pain medications recently. She thinks the ice helps. She is not having any numbness or tingling anywhere in her body. She denies chest pain, shortness of breath, fevers, chills, nausea, vomiting, diarrhea or constipation. She states she does not usually wear oxygen at home. Review of Systems Review of Systems: All systems reviewed & are unremarkable except as noted in HPI and below Exam Narrative: Exam Narrative: General: Well developed well nourished patient in NAD HEENT: normocephalic Neck: supple, no pain to palpation Neuro: Alert and oriented x4. Equal strength the upper lower extremities 5/5 CV:RRR. Telemetry without significant abnormal reviews Resp: Mildly decreased breath soun
--- NOTE | 2020-08-03 14:24 | WPDANESPN ---
Anes - Prog Note Post-Op Date/Time: 08/03/20 14:24 Cardiovascular status: normal Respiratory status: normal Airway patency: baseline Mental status: baseline Post-Op hydration status: normal Vital Signs: Last Vital Signs Temp 37.1 C 08/03/20 10:45 Pulse 85 08/03/20 12:00 Resp 20 08/03/20 10:45 BP 138/57 L 08/03/20 10:45 Pulse Ox 99 08/03/20 10:45 Pain Score (VAS): 0 I/O: Intake & Output 08/02/20 08/03/20 08/03/20 23:59 07:59 15:59 Intake Total 250 1150 170 Output Total 1000 715 Balance -750 435 170 Laboratory Tests 08/03/20 05:10 08/03/20 05:10 08/02/20 08/02/20 08/02/20 13:32 21:57 23:53 WBC RBC Hgb Hct MCV MCH MCHC RDW Plt Count MPV Immature Gran % (Auto) Neut % (Auto) Lymph % (Auto) Meriwether % (Auto) Eos % (Auto) Baso % (Auto) Lymph # (Auto) Meriwether # (Auto) Eos # (Auto) Baso # (Auto) Abs Immat Gran (auto) Absolute Neuts (auto) Absolute Nucleated RBC Nucleated RBC % Platelet Estimate Large Platelets Ovalocytes Sodium 137 Potassium 3.6 Chloride 105 Carbon Dioxide 28 Anion Gap 4 L BUN 9 D Creatinine 0.60 L Estim Creat Clear Calc 54 Estimated GFR > 60 Glucose 163 H Hemoglobin A1c Lactic Acid 2.0 Calcium 8.2 L Magnesium 1.3 L Total Bilirubin AST ALT Alkaline Phosphatase Total Creatine Kinase 1214 H C-Reactive Protein 8.4 H Total Protein Albumin Blood Type O Positive Antibody Screen Negative 08/02/20 08/03/20 08/03/20 23:53 05:10 05:10 WBC 19.5 H 20.4 H RBC 3.73 L 3.60 L Hgb 9.9 L 9.5 L Hct 30.0 L 28.8 L MCV 80.4 80.0 MCH 26.5 26.4 MCHC 33.0 33.0 RDW 15.9 H 15.9 H Plt Count 252 242 MPV 10.0 10.3 Immature Gran % (Auto) 0.8 H Neut % (Auto) 88.9 H Lymph % (Auto) 5.5 L Meriwether % (Auto) 4.7 Eos % (Auto) 0.0 Baso % (Auto) 0.1 L Lymph # (Auto) 1.12 Meriwether # (Auto) 1.0 H Eos # (Auto) 0.0 Baso # (Auto) 0.0 Abs Immat Gran (auto) 0.16 H Absolute Neuts (auto) 18.1 H Absolute Nucleated RBC 0.0 Nucleated RBC % 0.0 Platelet Estimate Adequate Large Platelets Present Ovalocytes 1+ Sodium 136 L Potassium 3.7 Chloride 105 Carbon Dioxide 27 Anion Gap 4 L BUN 9 Creatinine 0.70 Estim Creat Clear Calc 47 Estimated GFR > 60 Glucose 176 H Hemoglobin A1c Lactic Acid Calcium 8.1 L Magnesium Total Bilirubin 0.6 AST 61 H ALT 25 Alkaline Phosphatase 60 Total Creatine Kinase 1354 H C-Reactive Protein Total Protein 6.0 L Albumin 3.1 L Blood Type Antibody Screen 08/03/20 08/03/20 05:10 05:10 WBC RBC Hgb Hct MCV MCH MCHC RDW Plt Count MPV Immature Gran % (Auto) Neut % (Auto) Lymph % (Auto) Meriwether % (Auto) Eos % (Auto) Baso % (Auto) Lymph # (Auto) Meriwether # (Auto) Eos # (Auto) Baso # (Auto) Abs Immat Gran (auto) Absolute Neuts (auto) Absolute Nucleated RBC Nucleated RBC % Platelet Estimate Large Platelets Ovalocytes Sodium Potassium Chloride Carbon Dioxide Anion Gap BUN Creatinine Estim Creat Clear Calc Estimated GFR Glucose Hemoglobin A1c 5.2 Lactic Acid Calcium Magnesium 2.3 Total Bilirubin AST ALT Alkaline Phosphatase Total Creatine Kinase C-Reactive Protein Total Protein Albumin Blood Type Antibody Screen Post-procedural complaints: none Patient Feedback: Patient satisfied with anesthetic care.
[2020-08-03] MEDS: LACTATED RINGERS 500 ML 75 ML IV CONT (14:47)
--- NOTE | 2020-08-03 15:44 | WPDGICN ---
Assessment and Plan Assessment and plan (1) Gastric ulcer: Code(s): K25.9 - Gastric ulcer, unspecified as acute or chronic, without hemorrhage or perforation Status: Acute Assessment and Plan: previous hospitalization, no signs of gib bleeding since last hospitalization and she has been taking her ppi twice daily as instructed avoid using nsaid's she did not come back for repeat EGD, at this moment I will defer for another 6-8 weeks until fully recovered from hip surgery unless any signs of gib (2) Closed displaced fracture of right femoral neck: Code(s): S72.001A - Fracture of unspecified part of neck of right femur, initial encounter for closed fracture Status: Acute Assessment and Plan: had surgery, PT/OT (3) Hypertension: Code(s): I10 - Essential (primary) hypertension Status: Acute (4) Acute blood loss anemia: Code(s): D62 - Acute posthemorrhagic anemia Status: Acute Assessment and Plan: probably from recent surgery, no signs of gib continue with ppi bid given history of ulcers months ago GI Consult Note Consult date/time: 08/03/20 15:44 Reason for consult: gastric ulcers HPI: Elizabeth Johnson is a 80 year old female with history of hypertension, hyperlipidemia, stroke who last year was admitted for hematemesis, found to have cratered gastric ulcers 01/2020, started on ppi bid which she has been taking and advised to follow up for repeat EGD but she did not come back because concern of COVID. This time she was admitted to the hospital via EMS from home after she fell outside home when she took her puppy out, developed severe pain of right hip pain. ER evaluation found a displaced subcapital right femoral fracture, underwent hip surgery and she is recovering now. She denies more hematemesis, no abdominal pain or vomiting. Hb on arrival 12.6, repeat 9.5 (after surgery). Review of Systems Constitutional: Constitutional: Denies chills Eyes: Eyes: Reports no additional eye complaints ENT: Reports system reviewed and no additional complaints, except as documented Cardiovascular: Cardiovascular: Denies chest pain Respiratory: Respiratory: Denies dyspnea Gastrointestinal: Gastrointestinal: Denies abdominal pain, Denies melena and Denies vomiting Genitourinary: Genitourinary: Denies hematuria Musculoskeletal: Musculoskeletal: Reports arthralgias Integumentary/Breasts: Skin/Breast: Denies dry skin Neurologic: Denies headache(s) Psychiatric: Psychiatric: Denies anxiety PMFSH Past Medical History Medical History (Updated 08/03/20 @ 15:52 by Cornel Mcdaniel MD) Acute blood loss anemia Cerebrovascular accident (~2012) Gastric ulcer Gastroesophageal reflux disease History of gastric ulcer Hyperlipidemia Hypertension Surgical History Surgical History (Updated 08/02/20 @ 23:43 by Gabrielle Cox PA-C) History of ankle surgery (~2001) ORIF ankle fracture. History of cataract extraction History of cholecystectomy (~1999) History of facial surgery (~2013) Repair of left orbital fracture. History of hemiarthroplasty of right hip (~08/02/20) ORIF right hip fracture after fall. History of tonsillectomy Family History Family History Father Pancreatic cancer Mother Acute myocardial infarction Social History Social History (Updated 08/02/20 @ 23:44 by Gabrielle Cox PA-C) Social History: Surrogate decision maker: Margi Moura, daughter. Code status: Full code. Smoking status: Never smoker Second hand tobacco smoke exposure: Yes (as a child) Alcohol intake: current Drinks per week: 5 Substance use: never Substance use type: does not use Additional living arrangements comments: The patient lives in her own home in [place]. She has an 8-week-old puppy. 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
[2020-08-03] MEDS: ATORVASTATIN 40 MG TABLET PO (20:47)
[2020-08-04] VITALS (14 sets, daily range): BP systolic 111–166; BP diastolic 56–66; PULSE 85–105; RESP 16; TEMP 36–36.8; O2SAT 85–96
[2020-08-04 02:01] LABS: SARS-CoV-2 RNA PCR Negative
[2020-08-04] MEDS: oxyCODONE HCL (*CRX) 2.5 MG TAB IR PO ×4 (03:33→15:56)
[2020-08-04] MEDS: ACETAMINOPHEN 500 MG TABLET 1000 MG PO ×4 (03:33→20:40)
[2020-08-04 05:44] LABS: Basophils Absolute Auto 0.1 K/mm3 (0.0-0.1); Basophils Percent Auto 0.5 % (0.2-1.2); Eosinophils Absolute Auto 0.1 K/mm3 (0-0.3); Eosinophils Percent Auto 0.3 % (0-4.4); Hematocrit 27.1 % (37.0-47.0); Hemoglobin 8.8 g/dL (12.0-15.0); Immature Granulocyte Absolute 0.14 K/mm3 (0.00-0.031); Immature Granulocyte Percent A 0.9 % (0-0.5); Lymphocytes Absolute Auto 1.55 K/mm3 (0.9-3.2); Lymphocytes Percent Auto 9.9 % (18.3-44.2); Mean Corpuscular HGB Conc 32.5 g/dl (32-36); Mean Corpuscular Hemoglobin 26.1 pg (26-34); Mean Corpuscular Volume 80.4 fl (80-100); Mean Platelet Volume 10.6 fl (7.4-10.4); Monocytes Absolute Auto 0.9 K/mm3 (0.1-0.6); Monocytes Percent Auto 5.7 % (2.6-8.5); Neutrophils Absolute Auto 12.9 K/mm3 (1.3-6.7); Neutrophils Percent Auto 82.7 % (45.5-73.1); Platelet Count Result 223 k/mm3 (150-375); Red Blood Count 3.37 M/mm3 (4.2-5.4); White Blood Count 15.6 K/mm3 (4.5-10.0)
[2020-08-04 05:57] LABS: Alanine Aminotransferase 29 U/L (4-35); Albumin Level 3.1 g/dL (3.5-5.1); Alkaline Phosphatase 62 U/L (38-126); Anion Gap 1 mmol/L (8-16); Aspartate Amino Transferase 67 U/L (14-36); Bilirubin,Total 0.7 mg/dL (0.2-1.3); Blood Urea Nitrogen 9 mg/dL (7-17); Calcium 8.4 mg/dL (8.4-10.2); Carbon Dioxide 33 mmol/L (22-30); Chloride 103 mmol/L (98-107); Creatine Kinase 1188 U/L (30-135); Estimated CRCL calculation 47 ml/min; Estimated Glomerular Filt Rate > 60; Glucose 117 mg/dL (65-105); Magnesium 1.7 mg/dL (1.6-2.3); Potassium 3.5 mmol/L (3.4-5.0); Sodium 137 mmol/L (137-145)
[2020-08-04 06:49] LABS: Thyroid Stimulating Hormone Reflex 0.839 uIU/mL (0.465-4.68)
[2020-08-04] MEDS: SENNA/DOCUSATE SODIUM TABLET 2 TAB PO ×2 (08:32→15:57)
[2020-08-04] MEDS: APIXABAN 2.5 MG TABLET PO ×2 (08:32→20:41)
[2020-08-04] MEDS: CITALOPRAM HYDROBROMIDE 10 MG TABLET 40 MG PO (08:33)
[2020-08-04] MEDS: PANTOPRAZOLE 40 MG TABLET PO ×2 (08:33→20:41)
[2020-08-04] MEDS: polyethylene glycoL 3350 17 GM POWD.PACK PO (08:33)
[2020-08-04] MEDS: lisinopriL 20 MG TABLET PO (08:33)
[2020-08-04] MEDS: hydroCHLOROthiazide 25 MG TABLET PO (08:33)
[2020-08-04] MEDS: POTASSIUM CHLORIDE 20 MEQ TABLET PO (10:52)
[2020-08-04] MEDS: MAGNESIUM OXIDE 400 MG TABLET PO (10:53)
--- NOTE | 2020-08-04 11:40 | WPDCDIQUERY2 ---
CDI Query Clarification Request -CK 1214 on 08/02, 1354 on 08/03, and 1188 on 08/04 so CK >1000U/L and >5X upper limit -Documentation that patient fell and laid outside all night -IV fluid bolus given in the ED and IVF at 100cc/hr ordered -Elevated creatine kinase documented on problem list Please clarify if there is a possible corresponding diagnosis for the elevated creatine kinase.
--- NOTE | 2020-08-04 12:02 | WPDHPUPDATE1 ---
History and Physical Update Update Date/Time: 08/04/20 12:02 History and Physical has been reviewed, including an updated exam of the patient. There are NO changes in the patient's condition. Risks, benefits, and alternatives have been discussed and questions answered. Patient agrees to proceed with procedure.
--- NOTE | 2020-08-04 12:12 | PM.IMPN ---
Progress Note: A&P Assessment and Plan (1) Acute respiratory failure with hypoxia: Code(s): J96.01 - Acute respiratory failure with hypoxia Status: Acute Assessment and Plan: Still requiring low-flow supplemental O2 this morning. Denies shortness of breath. Does not use O2 at home. CXR is clear. PE less likely - no tachycardia, chest pain, no clinical signs of DVT. COVID negative 08/03 (tested for dc planning). Obtain CTA chest to rule out PE or other causes for her hypoxia. Continue incentive spirometry. (2) Closed displaced fracture of right femoral neck: Code(s): S72.001A - Fracture of unspecified part of neck of right femur, initial encounter for closed fracture Status: Acute Assessment and Plan: Patient is seen POD#2 s/p bipolar hemiarthroplasty of right hip by Dr Jordan 08/02/20. Wound care, pain control, and DVT prophylaxis are per Dr Jordan's recommendations. (3) Rhabdomyolysis: Qualifiers: Rhabdomyolysis type: traumatic Encounter type: initial encounter Qualified Code(s): T79.6XXA - Traumatic ischemia of muscle, initial encounter Code(s): M62.82 - Rhabdomyolysis Status: Acute Assessment and Plan: Patient was lying outside overnight after a fall, couldn't get up. Now clinically with rhabdomyolysis from same. CK remains elevated today at 1100. She received some IV fluids yesterday. I will resume IV fluids this afternoon for 1L total and we will recheck CK in AM. Also with mild transaminitis suspect related to rhabdo. No evidence of renal failure. Continue to monitor renal function. (4) Leukocytosis: Qualifiers: Leukocytosis type: unspecified Qualified Code(s): D72.829 - Elevated white blood cell count, unspecified Code(s): D72.829 - Elevated white blood cell count, unspecified Status: Acute Assessment and Plan: Likely related to a stress response from the fracture and surgery as she gives no history to suggest underlying infection UA and CXR without infection. Afebrile. Improving today; monitor CBC. (5) Hypertension: Qualifiers: Hypertension type: essential hypertension Qualified Code(s): I10 - Essential (primary) hypertension Code(s): I10 - Essential (primary) hypertension Status: Acute Assessment and Plan: Stable, last 136/62. Continue lisinopril and HCTZ. Monitor BP and adjust treatment as needed. Subjective Date/time seen: 08/04/20 1200 Interval history: Ms. Johnson is an 80yo F seen in follow up, admitted for right hip fracture now POD#2 s/p bipolar hemiarthroplasty right hip. She reports feeling pretty well this morning. She denies feeling short of breath despite her oxygen requirements. She denies chest pain. Her pain to right hip is reasonably well-controlled at present while resting in chair. She tolerated some breakfast and lunch without nausea, vomiting, or abdominal pain. Review of Systems Review of Systems: All systems reviewed & are unremarkable except as noted in HPI and below Exam Narrative: Exam Narrative: General: Female resting comfortably sitting up in bedside chair in no acute distress. HEENT: Normocephalic, EOMI, oral mucosa moist. Neck: Dupple, no pain to palpation Neuro: Alert and oriented. No focal neurologic deficit is noted. Speech is clear. CV:Rate and rhythm regular. Resp: Mildly decreased breath sounds, no crackles or rhonchi. Tolerating 1 L/min at 97% weaned down to room air during my exam. Abd: Soft, nontender, nondistended, bowel sounds present. Extremities: Right hip dressing clean/dry/intact. RLE neurovascularly intact distal to the surgical site. Objective Data Vital Signs Vital Signs: Last Vital Signs Temp 96.8 F L 08/04/20
--- NOTE | 2020-08-04 14:14 | WPDCN ---
Assessment and Plan Assessment and plan (1) Acute blood loss anemia: Code(s): D62 - Acute posthemorrhagic anemia Status: Acute Assessment and Plan: GI consult noted. Continue PPI BID (2) Gastric ulcer: Code(s): K25.9 - Gastric ulcer, unspecified as acute or chronic, without hemorrhage or perforation Status: Acute (3) Acute respiratory failure with hypoxia: Code(s): J96.01 - Acute respiratory failure with hypoxia Status: Acute Assessment and Plan: CTA pending (4) Elevated lactic acid level: Code(s): R79.89 - Other specified abnormal findings of blood chemistry Status: Acute (5) Elevated creatine kinase: Code(s): R74.8 - Abnormal levels of other serum enzymes Status: Acute (6) Hypertension: Code(s): I10 - Essential (primary) hypertension Status: Acute Assessment and Plan: Continue home meds/monitor (7) Closed displaced fracture of right femoral neck: Code(s): S72.001A - Fracture of unspecified part of neck of right femur, initial encounter for closed fracture Status: Acute Assessment and Plan: CHANDNI per Nikki with [facility]WB Patient has been accepted to [facility] awaiting results of CTA (8) Leukocytosis: Code(s): D72.829 - Elevated white blood cell count, unspecified Status: Acute Assessment and Plan: Probable results of Rhabdomylosis (9) Acidosis, lactic: Code(s): E87.2 - Acidosis Status: Acute (10) Rhabdomyolysis: Code(s): M62.82 - Rhabdomyolysis Status: Acute Assessment and Plan: CKs downtrending. Continue to monitor HPI Data of Consult Date/Time: 08/04/20 14:14 Requesting Physician: DEE Salamanca Primary Care Provider: Josr Saha MD Consult Narrative Narrative: Elizabeth Johnson is a 80 year old female who fell outsidess her home while picking up her puppy. Unfortunately, she was not found till the morning and was admitted to [facility] with dx of R femoral neck fracture. Patient underwent CHANDNI by Dr Jordan and is FWB. Hospital course: 1. ABLA GI consulted secondary to prior admission of gastric ulcer. REC PPI BID 2. Hypoxemia: CTA pending 3. Mobility: Patient is requiring min assist with tx and gait ( distance 5-10 feet) 4.Post op pain managed with pain meds PMHX: CVA with RHP, history of falls, HTN, HLD GERD, PUD, Review of Systems Constitutional: Constitutional: Reports frequent falls Eyes: Comments: cataract surgery Cardiovascular: Cardiovascular: Reports no additional cardiovascular complaints Respiratory: Comments: post op hypoxia Gastrointestinal: Gastrointestinal: Reports as per HPI and Reports constipation Comments: Genitourinary: Genitourinary: Reports as per HPI Musculoskeletal: Comments: right bunionectomy with limping and 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 History of cataract extraction History of cholecystectomy (~1999) History of facial surgery (~2013) Repair of left orbital fracture. History of hemiarthroplasty of right hip (~08/02/20) ORIF right hip fracture after fall. History of tonsillectomy Family History Family History Father Pancreatic cancer Mother Acute myocardial infarction Social History Social History (Updated 08/04/20 @ 14:29 by Eleanor Swenson DO) Social History: Chika
--- NOTE | 2020-08-04 14:23 | PCOTNOTE ---
Addendum entered by DURGA Villavicencio 08/04/20 14:32: Patient was not taken for CAT scan, test was for chest CT scan. Original Note: 14:18 - Attempted to see patient for a second time this date. Patient just returned from CAT scan and is lying in bed. When discussing participation in therapy patient declined therapy stating, I just got back, am feeling very worn out and need to rest. The patient treatment was not able to be completed this date. Will plan to continue treatment per plan of care.
--- NOTE | 2020-08-04 14:37 | PCOTNOTE ---
13:49 - Attempted to see patient this PM for skilled OT session. Unable to see patient at this time due to being taken for scan. Will attempt to see patient for a second time this date.
[2020-08-04] MEDS: SODIUM CHLORIDE 0.9% IV 1,000 ML 100 ML IV CONT (15:09)
--- NOTE | 2020-08-04 16:24 | WPDGIPROGNO ---
Progress Note: A&P Assessment and Plan (1) Gastric ulcer: Code(s): K25.9 - Gastric ulcer, unspecified as acute or chronic, without hemorrhage or perforation Status: Acute Assessment and Plan: it does not seem to be an issue but continue with ppi twice daily she can see us in office in about 2 months or so after fully recovered from surgery and then we can make a decision if need to repeat egd (2) Acute blood loss anemia: Code(s): D62 - Acute posthemorrhagic anemia Status: Acute Assessment and Plan: no signs of gib most likely from recent fracture/surgery (3) Closed displaced fracture of right femoral neck: Code(s): S72.001A - Fracture of unspecified part of neck of right femur, initial encounter for closed fracture Status: Acute Assessment and Plan: s/p surgery pt/ot (4) Hypertension: Qualifiers: Hypertension type: essential hypertension Qualified Code(s): I10 - Essential (primary) hypertension Code(s): I10 - Essential (primary) hypertension Status: Acute Subjective Date/time seen: 08/04/20 16:24 Interval history: she is participating with therapy, eating ok, no signs of gib Review of Systems Review of Systems: All systems reviewed & are unremarkable except as noted in HPI and below Exam Const: General: comfortable and no acute distress HENMT: General nose exam: Normal nares present Eyes: General: appearance normal, both eyes and all related structures Neck: Neck: supple Resp: Auscultation: clear to auscultation bilaterally Cardio: Rate: regular rate GI: Inspection: non-distended GI Palp: Yes Soft to palpation and No Guarding due to palpation present (GI) Auscultation: normal bowel sounds Skin: General skin exam: normal color Neuro: Speech: normal speech Extrem: Other: Right hip with clean and dry incisions with no dehiscence or discharge. Psych: Affect: normal affect Objective Data Vital Signs Vital Signs: Vital Signs - 24 hr 08/03/20 20:00 08/03/20 21:40 08/04/20 00:00 Temperature 98.3 F Pulse Rate 94 100 89 Respiratory Rate 16 Blood Pressure 150/67 H Pulse Oximetry 96 96 08/04/20 02:00 08/04/20 04:00 08/04/20 05:30 Temperature 98.0 F 98.0 F Pulse Rate 105 H 91 89 Respiratory Rate 16 16 Blood Pressure 166/66 H 143/65 H Pulse Oximetry 92 94 08/04/20 07:39 08/04/20 10:00 08/04/20 12:32 Temperature 98.3 F Pulse Rate 95 92 Respiratory Rate 16 Blood Pressure 111/57 L Pulse Oximetry 93 85 L 08/04/20 12:38 08/04/20 14:00 Temperature 96.8 F L Pulse Rate 95 Respiratory Rate 16 Blood Pressure 136/62 Pulse Oximetry 92 93 Intake/Output Intake/Output: Intake & Output 08/01/20 08/02/20 08/03/20 08/04/20 23:59 23:59 23:59 23:59 Intake Total 1350 1570 650 Output Total 1000 2015 400 Balance 350 -445 250 Meds/Results Medications: Active Medications Generic Name Dose Route Start Last Admin Trade Name Freq PRN Reason Stop Dose Admin Acetaminophen 1,000 mg 08/02/20 21:00 08/04/20 15:10 Acetaminophen 500 Mg Tablet PO 1,000 mg Q6H JENNIFER Administration Apixaban 2.5 mg 08/03/20 09:00 08/04/20 08:32 Apixaban 2.5 Mg Tablet PO 09/07/20 09:01 2.5 mg Q12HR JENNIFER Administration Atorvastatin Calcium 40 mg 08/02/20 21:00 08/03/20 20:47 Atorvastatin 40 Mg Tablet PO 40 mg HS JENNIFER Administration Citalopram Hydrobromide 40 mg 08/03/20 09:00 08/04/20 08:33 Citalopram Hydrobromide 10 Mg Tablet PO 40 mg DAILY JENNIFER Administration Hydrochlorothiazide 25 mg 08/03/20 09:00 08/04/20 08:33 Hydrochlorothiazide 25 Mg Tablet PO 25 mg DAILY JENNIFER Administration Sodium Chloride 1,000 mls @ 100 mls/hr 08/04/20 14:05 08/04/20 15:09 Normal Saline Iv IV CONT 08/05/20 00:04 100 mls/hr .Q10H JENNIFER Administration Lisinopril 20 mg 08/03/20 09:00 08/04/20 08:33 Lisinopril 20 Mg Tablet PO 09/02/20 09:01 20 mg DAILY JENNIFER
--- NOTE | 2020-08-04 16:59 | PM.PNORT ---
Progress Note: A&P Additional Plan POD2. Some hypoxia. CTA neg for PE but shows some infiltrate and atelectasis. Right hip wd dry. Receiving IVFs. Hg 8.8 Plts [id number]. Subjective Subjective Date/Time Seen: 08/04/20 16:59 Objective Data Vital Signs Vital Signs: Vital Signs - 24 hr 08/03/20 20:00 08/03/20 21:40 08/04/20 00:00 Temperature 36.8 C Pulse Rate 94 100 89 Respiratory Rate 16 Blood Pressure 150/67 H Pulse Oximetry 96 96 08/04/20 02:00 08/04/20 04:00 08/04/20 05:30 Temperature 36.7 C 36.7 C Pulse Rate 105 H 91 89 Respiratory Rate 16 16 Blood Pressure 166/66 H 143/65 H Pulse Oximetry 92 94 08/04/20 07:39 08/04/20 10:00 08/04/20 12:00 Temperature 36.8 C Pulse Rate 95 92 95 Respiratory Rate 16 Blood Pressure 111/57 L Pulse Oximetry 93 08/04/20 12:32 08/04/20 12:38 08/04/20 14:00 Temperature 36.0 C L Pulse Rate 95 Respiratory Rate 16 Blood Pressure 136/62 Pulse Oximetry 85 L 92 93 08/04/20 16:00 Temperature Pulse Rate 87 Respiratory Rate Blood Pressure Pulse Oximetry Intake/Output Intake/Output: Intake & Output 08/01/20 08/02/20 08/03/20 08/04/20 23:59 23:59 23:59 23:59 Intake Total 1350 1570 650 Output Total 1000 2015 400 Balance 350 -445 250 Meds/Results Medications: Active Medications Generic Name Dose Route Start Last Admin Trade Name Freq PRN Reason Stop Dose Admin Acetaminophen 1,000 mg 08/02/20 21:00 08/04/20 15:10 Acetaminophen 500 Mg Tablet PO 1,000 mg Q6H JENNIFER Administration Apixaban 2.5 mg 08/03/20 09:00 08/04/20 08:32 Apixaban 2.5 Mg Tablet PO 09/07/20 09:01 2.5 mg Q12HR JENNIFER Administration Atorvastatin Calcium 40 mg 08/02/20 21:00 08/03/20 20:47 Atorvastatin 40 Mg Tablet PO 40 mg HS JENNIFER Administration Citalopram Hydrobromide 40 mg 08/03/20 09:00 08/04/20 08:33 Citalopram Hydrobromide 10 Mg Tablet PO 40 mg DAILY JENNIFER Administration Hydrochlorothiazide 25 mg 08/03/20 09:00 08/04/20 08:33 Hydrochlorothiazide 25 Mg Tablet PO 25 mg DAILY JENNIFER Administration Sodium Chloride 1,000 mls @ 100 mls/hr 08/04/20 14:05 08/04/20 15:09 Normal Saline Iv IV CONT 08/05/20 00:04 100 mls/hr .Q10H JENNIFER Administration Lisinopril 20 mg 08/03/20 09:00 08/04/20 08:33 Lisinopril 20 Mg Tablet PO 09/02/20 09:01 20 mg DAILY JENNIFER Administration Magnesium Hydroxide 30 ml 08/02/20 19:51 Magnesium Hydroxide Susp 30 Ml Udc PO BID PRN Constipation Magnesium Oxide 400 mg 08/04/20 10:00 08/04/20 10:53 Magnesium Oxide 400 Mg Tablet PO 400 mg QAM JENNIFER Administration Morphine Sulfate 1 mg 08/02/20 19:54 Morphine Sulfate (*Crx) 2 Mg/Ml Inj IV PUSH Q1H PRN Pain Rated 7-10 Naloxone HCl 0.1 mg 08/02/20 19:51 Naloxone Hcl 0.4 Mg/Ml Vial IV PUSH Q2M PRN Opiate Reversal Oxycodone HCl 2.5 mg 08/02/20 19:55 08/04/20 15:56 Oxycodone Hcl (*Crx) 2.5 Mg Tab Ir PO 2.5 mg Q4H JENNIFER Administration Pantoprazole Sodium 40 mg 08/03/20 09:00 08/04/20 08:33 Pantoprazole 40 Mg Tablet PO 40 mg Q12HR JENNIFER Administration Polyethylene Glycol 17 gm 08/03/20 09:00 08/04/20 08:33 Polyethylene Glycol 3350 17 Gm Powd.Pack PO 17 gm QAM JENNIFER Administration Senna/Docusate Sodium 2 tab 08/03/20 09:00 08/04/20 15:57 Senna/Docusate Sodium Tablet PO 2 tab BID JENNIFER Administration Radiology Results: ITS Impressions Head CT 08/02/20 12:26 IMPRESSION: 1. No acute intracranial abnormality. 2: Chronic bilateral parietal lobe infarctions. 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 4: Chronic age-related findings. Knee X-Ray 08/02/20 12:46 Impression: 1: No acute fracture. Knee X-Ray 08/02/20 12:46 Impression: 1: No acute fracture. Chest X-Ray 08/02/20 12:47 IMPRESSION: Intraoperative X-Ray 08/02/20 18:52 IMPRESSION:
[2020-08-04] MEDS: ATORVASTATIN 40 MG TABLET PO (20:41)
[2020-08-05] VITALS (7 sets, daily range): BP systolic 129–136; BP diastolic 46–60; PULSE 53–89; RESP 16; TEMP 36.3–36.8; O2SAT 90–98
[2020-08-05] MEDS: oxyCODONE HCL (*CRX) 2.5 MG TAB IR PO (03:31)
[2020-08-05] MEDS: ACETAMINOPHEN 500 MG TABLET 1000 MG PO (03:31)
[2020-08-05 06:28] LABS: Basophils Absolute Auto 0.1 K/mm3 (0.0-0.1); Basophils Percent Auto 0.4 % (0.2-1.2); Eosinophils Absolute Auto 0.3 K/mm3 (0-0.3); Hematocrit 25.7 % (37.0-47.0); Hemoglobin 8.4 g/dL (12.0-15.0); Immature Granulocyte Absolute 0.06 K/mm3 (0.00-0.031); Immature Granulocyte Percent A 0.5 % (0-0.5); Lymphocytes Absolute Auto 1.29 K/mm3 (0.9-3.2); Lymphocytes Percent Auto 10.4 % (18.3-44.2); Mean Corpuscular HGB Conc 32.7 g/dl (32-36); Mean Corpuscular Hemoglobin 26.7 pg (26-34); Mean Corpuscular Volume 81.6 fl (80-100); Mean Platelet Volume 10.8 fl (7.4-10.4); Monocytes Absolute Auto 0.7 K/mm3 (0.1-0.6); Monocytes Percent Auto 5.8 % (2.6-8.5); Neutrophils Absolute Auto 10.1 K/mm3 (1.3-6.7); Neutrophils Percent Auto 80.9 % (45.5-73.1); Platelet Count Result 234 k/mm3 (150-375); Red Blood Count 3.15 M/mm3 (4.2-5.4); Red Cell Distribution Width 16.1 % (11.5-14.5); White Blood Count 12.4 K/mm3 (4.5-10.0)
[2020-08-05 07:00] LABS: Alanine Aminotransferase 26 U/L (4-35); Albumin Level 2.9 g/dL (3.5-5.1); Alkaline Phosphatase 72 U/L (38-126); Anion Gap 1 mmol/L (8-16); Aspartate Amino Transferase 47 U/L (14-36); Bilirubin,Total 0.7 mg/dL (0.2-1.3); Blood Urea Nitrogen 12 mg/dL (7-17); Calcium 8.4 mg/dL (8.4-10.2); Carbon Dioxide 35 mmol/L (22-30); Chloride 104 mmol/L (98-107); Creatine Kinase 701 U/L (30-135); Estimated CRCL calculation 42 ml/min; Estimated Glomerular Filt Rate > 60; Glucose 97 mg/dL (65-105); Magnesium 1.8 mg/dL (1.6-2.3); Potassium 3.7 mmol/L (3.4-5.0); Sodium 140 mmol/L (137-145)
--- NOTE | 2020-08-05 07:27 | PM.PNORT ---
Progress Note: A&P Additional Plan Patient is postop day 3 after cemented bipolar hemiarthroplasty right hip for femoral neck fracture. She is alert and oriented this morning. Her hemoglobin is a low 8.4 acute blood loss anemia. She is on Eliquis for DVT prophylaxis. Her creatinine clearance remain satisfactory at 42 GFR is greater than 60. Her IV fluids were stopped overnight and she complains that she is still urinating frequently this morning. She has a nasal cannula in place and her O2 sat was 98% last night. Again the CT angiogram was negative for pulmonary embolism but she does have some mild atelectasis and small areas of infiltrates. Her white count is 12.4 this morning. That is steadily coming down. It was 22,000 on admission and we do not have an etiology for that. She has remained afebrile and vital signs stable systolic blood pressure 135. She is getting up and moving around and the plan is for transitional rehab care with the hope of eventually having her return home after that. I Subjective Subjective Date/Time Seen: 08/05/20 07:27 Objective Data Vital Signs Vital Signs: Vital Signs - 24 hr 08/04/20 07:39 08/04/20 10:00 08/04/20 12:00 Temperature 36.8 C Pulse Rate 95 92 95 Respiratory Rate 16 Blood Pressure 111/57 L Pulse Oximetry 93 08/04/20 12:32 08/04/20 12:38 08/04/20 14:00 Temperature 36.0 C L Pulse Rate 95 Respiratory Rate 16 Blood Pressure 136/62 Pulse Oximetry 85 L 92 93 08/04/20 16:00 08/04/20 18:00 08/04/20 20:00 Temperature 36.3 C L Pulse Rate 87 88 85 Respiratory Rate 16 16 Blood Pressure 129/56 L Pulse Oximetry 95 96 08/04/20 22:00 08/05/20 00:00 08/05/20 02:00 Temperature 36.7 C 36.3 C L Pulse Rate 85 80 86 Respiratory Rate 16 16 Blood Pressure 135/57 L 136/60 Pulse Oximetry 96 98 08/05/20 04:00 08/05/20 06:00 Temperature 36.7 C Pulse Rate 84 53 L Respiratory Rate 16 Blood Pressure 131/56 L Pulse Oximetry 95 Intake/Output Intake/Output: Intake & Output 08/02/20 08/03/20 08/04/2021 23:59 23:59 23:59 23:59 Intake Total 1350 1570 850 100 Output Total 999 2014 400 400 Balance 350 -445 450 -300 Meds/Results Medications: Active Medications Generic Name Dose Route Start Last Admin Trade Name Glennq PRN Reason Stop Dose Admin Acetaminophen 1,000 mg 08/02/20 21:00 08/05/20 03:31 Acetaminophen 500 Mg Tablet PO 1,000 mg Q6H JENNIFER Administration Apixaban 2.5 mg 08/03/20 09:00 08/04/20 20:41 Apixaban 2.5 Mg Tablet PO 09/07/20 09:01 2.5 mg Q12HR JENNIFER Administration Atorvastatin Calcium 40 mg 08/02/20 21:00 08/04/20 20:41 Atorvastatin 40 Mg Tablet PO 40 mg HS JENNIFER Administration Citalopram Hydrobromide 40 mg 08/03/20 09:00 08/04/20 08:33 Citalopram Hydrobromide 10 Mg Tablet PO 40 mg DAILY JENNIFER Administration Hydrochlorothiazide 25 mg 08/03/20 09:00 08/04/20 08:33 Hydrochlorothiazide 25 Mg Tablet PO 25 mg DAILY JENNIFER Administration Lisinopril 20 mg 08/03/20 09:00 08/04/20 08:33 Lisinopril 20 Mg Tablet PO 09/02/20 09:01 20 mg DAILY JENNIFER Administration Magnesium Hydroxide 30 ml 08/02/20 19:51 Magnesium Hydroxide Susp 30 Ml Udc PO BID PRN Constipation Magnesium Oxide 400 mg 08/04/20 10:00 08/04/20 10:53 Magnesium Oxide 400 Mg Tablet PO 400 mg QAM JENNIFER Administration Morphine Sulfate 1 mg 08/02/20 19:54 Morphine Sulfate (*Crx) 2 Mg/Ml Inj IV PUSH Q1H PRN Pain Rated 7-10 Naloxone HCl 0.1 mg 08/02/20 19:51 Naloxone Hcl 0.4 Mg/Ml Vial IV PUSH Q2M PRN Opiate Reversal Oxycodone HCl 2.5 mg 08/02/20 19:55 08/05/20 03:31 Oxycodone Hcl (*Crx) 2.5 Mg Tab Ir PO 2.5 mg Q4H JENNIFER Administration Pantoprazole Sodium 40 mg 08/03/20 09:00 08/04/20 20:41 Pantoprazole 40 Mg Tablet PO 40 mg Q12HR JENNIFER Administration Polyethylene Glycol 17 gm 08/03/20 09:00 08/04/20 08:33 Polyethylene Glycol 33
[2020-08-05] MEDS: ACETAMINOPHEN 325 MG TABLET 650 MG PO (08:53)
[2020-08-05] MEDS: hydroCHLOROthiazide 25 MG TABLET PO (08:54)
[2020-08-05] MEDS: CITALOPRAM HYDROBROMIDE 10 MG TABLET 40 MG PO (08:54)
[2020-08-05] MEDS: SENNA/DOCUSATE SODIUM TABLET 2 TAB PO (08:54)
[2020-08-05] MEDS: lisinopriL 20 MG TABLET PO (08:54)
[2020-08-05] MEDS: MAGNESIUM OXIDE 400 MG TABLET PO (08:55)
[2020-08-05] MEDS: PANTOPRAZOLE 40 MG TABLET PO (08:55)
[2020-08-05] MEDS: APIXABAN 2.5 MG TABLET PO (08:55)
--- NOTE | 2020-08-05 13:13 | PC.NURSE ---
This patient, Elizabeth Johnson, was transferred to [facility] room 219 on 08/05/20 at 1300. Personal belongings sent with patient. Report given to Elizabeth Martin. Appropriate documentation sent with patient.
--- NOTE | 2020-08-05 15:58 | PM.DS ---
DS: Admitting Diagnosis Admitting Diagnosis Admitting Diagnosis: Right hip fracture DS: Discharge Diagnosis Discharge Diagnosis (1) Acute respiratory failure with hypoxia: Code(s): J96.01 - Acute respiratory failure with hypoxia Status: Acute Assessment and Plan: Date of Admission 08/02/20 Date of Discharge/DOS 08/05/20 Ms. Johnson is an 80yo F with history of hypertension who presented to the ED for evaluation of ambulatory dysfunction and right hip pain after a fall at home. She was letting her dogs outside when she felt lightheaded and fell to her knees. XR demonstrated displaced right femoral subcapital fracture and orthopedic surgery was consulted. She was evaluated by Dr. Jordan and underwent right bipolar hemiarthroplasty 08/02/20 which she tolerated well. She did continue to require low-flow supplemental oxygen postoperatively however the patient felt well without any chest pain or shortness of breath and was eventually tolerating room air day of discharge. Further imaging with CTA chest demonstrated no evidence for pulmonary embolism but did show some mild bibasilar atelectasis. She was educated and encouraged to continue using incentive spirometry. She did have elevated creatine kinase levels, suspect related to acute rhabdomyolysis as she unfortunately laid outside overnight after her fall due to ambulatory dysfunction until she was found by family. She was maintained on IV fluids and her CK improved down to 701. Routine lab work also demonstrated a leukocytosis which may be related to stress reaction from trauma given that she has no evidence of acute infection at this time, afebrile and feeling well. She continued to work with PT/OT and was felt to be a good candidate to continue therapy in the acute rehab setting. She was started on Eliquis for DVT prophylaxis by the orthopedic surgery service which will be continued at [facility]. Her oxygen requirements and CK levels can continue to be monitored at [facility]. Her blood pressures remained stable on her home lisinopril and hydrochlorothiazide. She is hemodynamically stable for discharge to [facility] 08/05/2020. CTA chest demonstrates bibasilar atelectasis without evidence of PE. Continue incentive spirometry. (2) Closed displaced fracture of right femoral neck: Code(s): S72.001A - Fracture of unspecified part of neck of right femur, initial encounter for closed fracture Status: Acute Assessment and Plan: Patient is discharged to [facility] POD#3 s/p bipolar hemiarthroplasty of right hip by Dr Jordan 08/02/20. Wound care, pain control, and DVT prophylaxis are per Dr Jordan's recommendations. I discharged her with prescriptions for Eliquis and a few oxycodone tablets at the request of the orthopedic service; for further questions please contact Dr. Jordan or CALVIN Leos. (3) Rhabdomyolysis: Qualifiers: Rhabdomyolysis type: traumatic Encounter type: initial encounter Qualified Code(s): T79.6XXA - Traumatic ischemia of muscle, initial encounter Code(s): M62.82 - Rhabdomyolysis Status: Acute Assessment and Plan: Patient was lying outside overnight after a fall, couldn't get up. Now clinically with rhabdomyolysis from same. CK improved from > 1000 down to 700 with some IV hydration. She is doing well, no evidence of renal failure. (4) Leukocytosis: Qualifiers: Leukocytosis type: unspecified Qualified Code(s): D72.829 - Elevated white blood cell count, unspecified Code(s): D72.829 - Elevated white blood cell count, unspecified Status: Acute Assessment and Plan: Likely related to a stress response from the fracture and surgery as she gives no history to suggest underlying infection UA and CXR without infection. Afebrile. Leukocyto
== END 2020-08-05 13:00 | DRG 956 ==
LOC: ANHED 14:29 → ANH2MED 22:20 → ANH3MEDSUR 08-06 13:20
PROVIDERS: Orthopaedic Surgery; Physician Assistant; Admitting Provider Internal Medicine; Emergency Provider General Practice; PCP Family Medicine; Visit Provider Physician Assistant
PROC: 0SRR0J9 Replacement of Right Hip Joint, Femoral Surface with Synthetic Substitute, Cemented, Open Approach (ICD-10-PCS; CPT 27125; principal; 2020-08-02 17:00)
DX: S72.011A Unspecified intracapsular fracture of right femur, initial encounter for closed fracture (principal); T79.6XXA Traumatic ischemia of muscle, initial encounter; J96.01 Acute respiratory failure with hypoxia; D62 Acute posthemorrhagic anemia; W19.XXXA Unspecified fall, initial encounter; Y93.K9 Activity, other involving animal care; Z20.822 Contact with and (suspected) exposure to COVID-19; K25.9 Gastric ulcer, unspecified as acute or chronic, without hemorrhage or perforation; I10 Essential (primary) hypertension; E78.5 Hyperlipidemia, unspecified; E87.6 Hypokalemia; D72.829 Elevated white blood cell count, unspecified; E87.8 Other disorders of electrolyte and fluid balance, not elsewhere classified; R79.89 Other specified abnormal findings of blood chemistry; Z79.899 Other long term (current) drug therapy; Z86.73 Personal history of transient ischemic attack (TIA), and cerebral infarction without residual deficits
CPT/HCPCS: 36415; 70450; 71045; 71275; 73501; 73502; 73564; 80048; 80053; 80076; 80307; 81001; 82550; 83036; 83605; 83735; 84443; 85025; 85027; 85610; 85730; 86140; 86850; 86900; 86901; 88305; 88307; 88311; 93005; 96361; 96374; 96375; 97110; 97116; 97161; 97165; 97530; 97535; 99291; A9270; C1713; C1776; C9803; J0131; J0171; J0330; J0690; J1100; J1170; J2270; J2370; J2405; J2704; J2710; J2795; J3010; J3370; J3475; J3480; J7030; J7120; Q9967; U0003; U0005

== ENCOUNTER 2020-08-05 13:29 | IRF | payer MEDICARE, SELFPAY ==
[2020-08-05 13:10] VITALS: BP 162/59; PULSE 100; RESP 16; TEMP 36.1; O2SAT 92; BMI 27.8
--- NOTE | 2020-08-05 13:26 | ADMGEN ---
This patient, Elizabeth Johnson, was admitted to [facility] Room 219-02. Patient/family oriented to hospital policies and general routines including ID bracelet, bed and alarms, visiting hours, pain management, procedures, bathroom and other care routines, personal items, smoking policy, room service/diet, and visiting hours. Information on how to activate the Rapid Response Team has been discussed. Patient/Family are encouraged to report perceived risks to care and to ask questions if they do not understand what they are told or what they should do. Arrived to floor at 1310, IV's still in place in right and left forearm, will discontinu. Alert and oriented, pleasant and cooperative
[2020-08-05 14:00] VITALS: BP 152/63; PULSE 103; RESP 16; TEMP 36.8; O2SAT 92
[2020-08-05] MEDS: ACETAMINOPHEN 325 MG TABLET 650 MG PO (15:29)
--- NOTE | 2020-08-05 16:02 | WPDREHABHP ---
H&P: HPI History of Present Illness Date/Time: 08/05/20 16:02 Chief Complaint: Fall with R femur fracture s/p CHANDNI and rhabdomyolysis Narrative: HISTORY OF PRESENT ILLNESS: The patient's primary rehab impairment category is Orthopedic lower extremity The etiologic diagnosis is displaced right femoral subcapital fracture I saw this patient [id number] on 08/05/2020 The patient is a 80-year-old female with hypertension, hyperlipidemia, GERD, recent GI bleed, and a history of a stroke with right hemiplegia who was admitted to [facility] on 08/02/2020 via EMS. The patient had taken out her new 8-week-old puppy outside at 11:00 p.m. and fell. She was unable to get back into the house and her daughter discovered her the next morning. Patient was then taken to [facility] a hip and pelvis x-ray revealed a displaced subcapital right femoral fracture. Workup: Head CT no acute intracranial abnormality,, chronic bilateral parietal lobe infarctions, partially calcified extra-axial mass left parietal vertex measuring 1.5 cm likely benign meningioma, and chronic age-related findings. Initial labs revealed leukocytosis elevated AST ALT creatinine kinase felt to be due to rhabdomyolysis, hyperglycemia, hypocalcemia, hypo magnesium, On 08/02/2020 the patient underwent a cemented bipolar hemiarthroplasty of the right hip by Dr Jordan. Patient was still requiring oxygen despite chest x-ray being normal. His chest CTA revealed no evidence of pulmonary embolism and mild localized infiltrate or atelectasis in the lower lobes. On 07/3107/13/2020 gastroenterology was consulted due to acute gastric ulcer history recommended to defer EGD for 6-8 weeks and continue on PPI b.i.d.. Patient continues should to show improvements in all labs and is being transferred today to the rehab center. The patient will be discharged to [facility] on Eliquis 25 mg until 09/07/2020 for DVT prophylaxis. The patient's pain is being moderate urge with Tylenol and rocks a code own. The patient had 3 doses of Ancef pre and postoperatively. COVID: The patient has not traveled outside the [place] or had contact with someone who is ill that his travel outside the [place] in the past 21 days. The patient has not traveled to an area of the [place] that is experiencing known transmission of the Coronavirus and has not had close personal contact with anyone that has. The patient does not have a fever. The patient is not experiencing lower respiratory illness symptoms. The patient has had some postop shortness of breath with ambulation requiring oxygen per nasal cannula, thought to be anesthesia related. COVID testing is negative on 08/03/2020 Therapy was initiated at the acute care facility and the patient transferred to us from [facility] on 08/05/20 FALLS OR SURGERIES: The patient has had major surgeries in the 100 days prior to admission. She has had 2 falls on the past year. She has had 2 falls with injury in the past year. Right hip bipolar arthroplasty on 08/02/[address] Jordan and right rib fracture. January 2020 PRIOR LEVEL OF FUNCTION: Eating was [INDEPENDENT] Oral Care was [INDEPENDENT] Toileting Hygiene was [INDEPENDENT] Shower/Bathing was [INDEPENDENT] Upper Body Dressing was [INDEPENDENT] Lower Body Dressing was [INDEPENDENT] Donning/Watchtower Footwear was [INDEPENDENT] Rolling Left and Right was [INDEPENDENT] Sit to Lying was [INDEPENDENT] Lying to Sitting was [INDEPENDENT] Sit to Stand was [INDEPENDENT] Bed to Chair Transfers was [INDEPENDENT] Toilet Transfers was [INDEPENDENT] Walking was [INDEPENDENT] 500 feet with standard walker prn Wheelchair Mobility was [NOT APPLICABLE PRIOR TO ADMISSION] Stairs were [INDEPENDENT] CURRENT LEVEL OF FUNCTION: Eating was setup or clean-up assistance Oral Care was setup or clean-up assistance Toileting Hygiene was partial to moderate assistance Shower/Bathing was partial to moderate assistance Upper Curt
[2020-08-05] MEDS: oxyCODONE HCL (*CRX) 2.5 MG TAB IR PO ×2 (19:00→23:10)
[2020-08-05 20:00] VITALS: O2SAT 93
[2020-08-05] MEDS: APIXABAN 2.5 MG TABLET PO (20:03)
[2020-08-05] MEDS: ATORVASTATIN 40 MG TABLET PO (20:03)
[2020-08-05 21:22] VITALS: BP 102/65; PULSE 95; RESP 16; TEMP 36.6; O2SAT 91
[2020-08-06 05:10] VITALS: BP 154/75; PULSE 87; RESP 16; TEMP 36.4; O2SAT 92
[2020-08-06 05:11] LABS: Basophils Percent Auto 0.4 % (0.2-1.2); Eosinophils Absolute Auto 0.3 K/mm3 (0-0.3); Eosinophils Percent Auto 2.9 % (0-4.4); Hematocrit 26.6 % (37.0-47.0); Hemoglobin 8.8 g/dL (12.0-15.0); Immature Granulocyte Absolute 0.07 K/mm3 (0.00-0.031); Immature Granulocyte Percent A 0.7 % (0-0.5); Lymphocytes Absolute Auto 1.61 K/mm3 (0.9-3.2); Lymphocytes Percent Auto 15.8 % (18.3-44.2); Mean Corpuscular HGB Conc 33.1 g/dl (32-36); Mean Corpuscular Hemoglobin 26.3 pg (26-34); Mean Corpuscular Volume 79.4 fl (80-100); Mean Platelet Volume 10.1 fl (7.4-10.4); Monocytes Absolute Auto 0.8 K/mm3 (0.1-0.6); Monocytes Percent Auto 7.9 % (2.6-8.5); Neutrophils Absolute Auto 7.4 K/mm3 (1.3-6.7); Neutrophils Percent Auto 72.3 % (45.5-73.1); Platelet Count Result 264 k/mm3 (150-375); Red Blood Count 3.35 M/mm3 (4.2-5.4); Red Cell Distribution Width 15.6 % (11.5-14.5); White Blood Count 10.2 K/mm3 (4.5-10.0)
[2020-08-06 05:34] LABS: Anion Gap 4 mmol/L (8-16); Blood Urea Nitrogen 12 mg/dL (7-17); Calcium 8.5 mg/dL (8.4-10.2); Carbon Dioxide 32 mmol/L (22-30); Chloride 102 mmol/L (98-107); Creatine Kinase 458 U/L (30-135); Estimated CRCL calculation 55 ml/min; Estimated Glomerular Filt Rate > 60; Glucose 110 mg/dL (65-105); Magnesium 1.5 mg/dL (1.6-2.3); Sodium 138 mmol/L (137-145)
[2020-08-06] MEDS: MAGNESIUM OXIDE 400 MG TABLET PO (08:56)
[2020-08-06] MEDS: PANTOPRAZOLE 40 MG TABLET PO (08:56)
[2020-08-06] MEDS: CITALOPRAM HYDROBROMIDE 20 MG TABLET 40 MG PO (08:56)
[2020-08-06] MEDS: APIXABAN 2.5 MG TABLET PO ×2 (08:56→20:34)
[2020-08-06] MEDS: lisinopriL 20 MG TABLET PO (08:57)
[2020-08-06] MEDS: hydroCHLOROthiazide 25 MG TABLET PO (08:57)
[2020-08-06] MEDS: oxyCODONE HCL (*CRX) 2.5 MG TAB IR PO (08:57)
[2020-08-06] MEDS: POTASSIUM CHLORIDE 20 MEQ PACKET (FOR LIQUID) 40 MEQ PO (11:19)
--- NOTE | 2020-08-06 12:51 | WPDNEURORHBP ---
Subjective Date/time seen: 08/06/20 12:51 The patient is a 80-year-old female with hypertension, hyperlipidemia, GERD, recent GI bleed, and a history of a stroke with right hemiplegia who was admitted to [facility] on 08/02/2020 via EMS. The patient had taken out her new 8-week-old puppy outside at 11:00 p.m. and fell. She was unable to get back into the house and her daughter discovered her the next morning. Patient was then taken to [facility] a hip and pelvis x-ray revealed a displaced subcapital right femoral fracture. Workup: Head CT no acute intracranial abnormality,, chronic bilateral parietal lobe infarctions, partially calcified extra-axial mass left parietal vertex measuring 1.5 cm likely benign meningioma, and chronic age-related findings. Initial labs revealed leukocytosis elevated AST ALT creatinine kinase felt to be due to rhabdomyolysis, hyperglycemia, hypocalcemia, hypo magnesium, On 08/02/2020 the patient underwent a cemented bipolar hemiarthroplasty of the right hip by Dr Jordan. Patient was still requiring oxygen despite chest x-ray being normal. His chest CTA revealed no evidence of pulmonary embolism and mild localized infiltrate or atelectasis in the lower lobes. On 07/3107/13/2020 gastroenterology was consulted due to acute gastric ulcer history recommended to defer EGD for 6-8 weeks and continue on PPI b.i.d.. Patient continues should to show improvements in all labs and is being transferred today to the rehab center. The patient will be discharged to [facility] on Eliquis 25 mg until 09/07/2020 for DVT prophylaxis. Patient voices no complaints except for hip pain and fatigue Review of Systems Review of Systems: All systems reviewed & are unremarkable except as noted in HPI and below Functional Status Ambulation Ability Ability to Ambulate 10 Feet: Minimum Assistance X 1 Ambulation Assistive Devices: Walker, Wheeled Exam Narrative: Exam Narrative: Patient is seen in wheelchair. Patient is in no acute distress. Head is normocephalic. Extraocular muscles are intact. Speech is fluent. Neck is supple. Heart rate and rhythm is regular. Lungs are clear to auscultation. Abdomen is soft nontender. Bilateral upper extremity strength reveal mild rotator cuff bilaterally but essential strength is 4-5 left lower extremity strength is 4/5. Right proximal hip reveals incision with dressing with scant drainage noted. Bruising present. Right proximal hip strength is 2 and distal strength is 3+ to 4-. Patient's transfers are fluctuating from minute to moderate assistance. Gait is also Min to moderate assistance short distances. Cognition reveals memory deficits. Patient requires rest between therapies. Objective Data Vital Signs Vital Signs: Vital Signs - 24 hr 08/05/20 13:10 08/05/20 14:00 08/05/20 20:00 Temperature 36.1 C L 36.8 C Pulse Rate 100 103 H Respiratory Rate 16 16 Blood Pressure 162/59 H 152/63 H Pulse Oximetry 92 92 93 08/05/20 21:22 08/06/20 05:10 Temperature 36.6 C 36.4 C L Pulse Rate 95 87 Respiratory Rate 16 16 Blood Pressure 102/65 154/75 H Pulse Oximetry 91 92 Intake/Output Intake/Output: Intake & Output 08/03/20 08/04/20 08/05/20 08/06/20 23:59 23:59 23:59 23:59 Intake Total 240 250 Balance 240 250 Meds/Results Medications: Active Medications Generic Name Dose Route Start Last Admin Trade Name Freq PRN Reason Stop Dose Admin Acetaminophen 650 mg 08/05/20 14:06 08/05/20 15:29 Acetaminophen 325 Mg Tablet PO 650 mg Q6H PRN Administration Pain rated 1-6 Apixaban 2.5 mg 08/05/20 21:00 08/06/20 08:56 Apixaban 2.5 Mg Tablet PO 2.5 mg Q12HR JENNIFER Administration Atorvastatin Calcium 40 mg 08/05/20 21:00 08/05/20 20:03 Atorvastatin 40 Mg Tablet PO 40 mg HS JENNIFER Administration Citalopram Hydrobromide 40 mg 08/06/20 09:00 08/06/20 08:56 Citalopram Hydrobromide 20 Mg Tablet PO 40 mg DAILY JENNIFER Administrat
[2020-08-06 12:54] VITALS: BMI 27.8
--- NOTE | 2020-08-06 13:23 | PCNSR ---
On 08/06/20, the student, Alexandra Bertrand, provided care and completed [facility] documentation on this patient. I have reviewed the student's documentation and agree with the findings.
[2020-08-06 14:00] VITALS: BP 120/49; PULSE 90; RESP 16; TEMP 36.1; O2SAT 96
[2020-08-06] MEDS: ATORVASTATIN 40 MG TABLET PO (20:34)
[2020-08-06 22:00] VITALS: BP 149/60; PULSE 89; RESP 16; TEMP 36.9; O2SAT 93
[2020-08-07 05:14] VITALS: BP 165/85; PULSE 83; RESP 16; TEMP 36.3; O2SAT 95
[2020-08-07 06:44] VITALS: BP 183/87
[2020-08-07] MEDS: APIXABAN 2.5 MG TABLET PO ×2 (08:42→20:36)
[2020-08-07] MEDS: oxyCODONE HCL (*CRX) 2.5 MG TAB IR PO ×2 (08:42→12:05)
[2020-08-07] MEDS: lisinopriL 20 MG TABLET PO (08:43)
[2020-08-07] MEDS: MAGNESIUM OXIDE 400 MG TABLET PO (08:43)
[2020-08-07] MEDS: CITALOPRAM HYDROBROMIDE 20 MG TABLET 40 MG PO (08:43)
[2020-08-07] MEDS: polyethylene glycoL 3350 17 GM POWD.PACK PO (08:43)
[2020-08-07] MEDS: PANTOPRAZOLE 40 MG TABLET PO (08:43)
[2020-08-07] MEDS: hydroCHLOROthiazide 25 MG TABLET PO (08:43)
--- NOTE | 2020-08-07 09:26 | WPDNEURORHBP ---
Subjective Date/time seen: 08/07/20 The patient is a 80-year-old female with hypertension, hyperlipidemia, GERD, recent GI bleed, and a history of a stroke with right hemiplegia who was admitted to [facility] on 08/02/2020 via EMS. The patient had taken out her new 8-week-old puppy outside at 11:00 p.m. and fell. She was unable to get back into the house and her daughter discovered her the next morning. Patient was then taken to [facility] a hip and pelvis x-ray revealed a displaced subcapital right femoral fracture. Workup: Head CT no acute intracranial abnormality,, chronic bilateral parietal lobe infarctions, partially calcified extra-axial mass left parietal vertex measuring 1.5 cm likely benign meningioma, and chronic age-related findings. Initial labs revealed leukocytosis elevated AST ALT creatinine kinase felt to be due to rhabdomyolysis, hyperglycemia, hypocalcemia, hypo magnesium, On 08/02/2020 the patient underwent a cemented bipolar hemiarthroplasty of the right hip by Dr Jordan. Patient was still requiring oxygen despite chest x-ray being normal. His chest CTA revealed no evidence of pulmonary embolism and mild localized infiltrate or atelectasis in the lower lobes. On 07/3107/13/2020 gastroenterology was consulted due to acute gastric ulcer history recommended to defer EGD for 6-8 weeks and continue on PPI b.i.d.. Patient continues should to show improvements in all labs and is being transferred today to the rehab center. The patient will be discharged to [facility] on Eliquis 25 mg until 09/07/2020 for DVT prophylaxis. The patient's pain is being moderate urge with Tylenol and rocks a code own. The patient had 3 doses of Ancef pre and postoperatively. Post op encephalopathy improving. Pain is better with scheduled dosing . Appetite is poor. Review of Systems Review of Systems: All systems reviewed & are unremarkable except as noted in HPI and below Functional Status Ambulation Ability Ability to Ambulate 10 Feet: Minimum Assistance X 1 Ambulation Assistive Devices: Walker, Wheeled Exam Narrative: Exam Narrative: Patient is seen in wheelchair. Patient is in no acute distress. Head is normocephalic. Extraocular muscles are intact. Speech is fluent. Neck is supple. Heart rate and rhythm is regular. Lungs are clear to auscultation. Abdomen is soft nontender. Bilateral upper extremity strength reveal mild rotator cuff bilaterally but essential strength is 4-5 left lower extremity strength is 4/5. Right proximal hip reveals incision with dressing with scant drainage noted. Bruising present. Right proximal hip strength is 2 and distal strength is 3+ to 4-. Patient's transfers are fluctuating from minute to moderate assistance. Cognition is better. Speech no longer has delay with answers. Overall endurance is limited but improving. O 2 needs are during therapy prn Objective Data Vital Signs Vital Signs: Vital Signs - 24 hr 08/06/20 14:00 08/06/20 22:00 08/07/20 05:14 Temperature 36.1 C L 36.9 C 36.3 C L Pulse Rate 90 89 83 Respiratory Rate 16 16 16 Blood Pressure 120/49 L 149/60 H 165/85 H Pulse Oximetry 96 93 95 08/07/20 06:44 Temperature Pulse Rate Respiratory Rate Blood Pressure 183/87 H Pulse Oximetry Intake/Output Intake/Output: Intake & Output 08/04/20 08/05/20 08/06/20 08/07/20 23:59 23:59 23:59 23:59 Intake Total 240 670 360 Balance 240 670 360 Meds/Results Medications: Active Medications Generic Name Dose Route Start Last Admin Trade Name Freq PRN Reason Stop Dose Admin Acetaminophen 650 mg 08/05/20 14:06 08/05/20 15:29 Acetaminophen 325 Mg Tablet PO 650 mg Q6H PRN Administration Pain rated 1-6 Apixaban 2.5 mg 08/05/20 21:00 08/07/20 08:42 Apixaban 2.5 Mg Tablet PO 2.5 mg Q12HR JENNIFER Administration Atorvastatin Calcium 40 mg 08/05/20 21:00 08/06/20 20:34 Atorvastatin 40 Mg Tablet PO 40 mg HS JENNIFER Administration Cital
[2020-08-07 11:08] LABS: Alanine Aminotransferase 28 U/L (4-35); Albumin Level 3.8 g/dL (3.5-5.1); Alkaline Phosphatase 85 U/L (38-126); Anion Gap 7 mmol/L (8-16); Aspartate Amino Transferase 37 U/L (14-36); Bilirubin,Total 0.9 mg/dL (0.2-1.3); Blood Urea Nitrogen 13 mg/dL (7-17); Carbon Dioxide 30 mmol/L (22-30); Chloride 102 mmol/L (98-107); Estimated CRCL calculation 47 ml/min; Estimated Glomerular Filt Rate > 60; Glucose 115 mg/dL (65-105); Sodium 139 mmol/L (137-145)
[2020-08-07] MEDS: FERROUS SULFATE 324 MG TABLET PO (12:05)
[2020-08-07] MEDS: DOCUSATE SODIUM 100 MG CAPSULE PO ×2 (12:05→20:36)
[2020-08-07 14:00] VITALS: BP 152/67; PULSE 86; RESP 18; TEMP 36.6; O2SAT 97
[2020-08-07] MEDS: POTASSIUM CHLORIDE 20 MEQ TABLET.ER PO (17:25)
[2020-08-07 20:00] VITALS: PULSE 81; RESP 18; O2SAT 96
[2020-08-07] MEDS: ATORVASTATIN 40 MG TABLET PO (20:36)
[2020-08-07 20:49] VITALS: BP 120/55; PULSE 81; RESP 18; TEMP 36.2; O2SAT 96
[2020-08-08 04:49] LABS: Potassium 3.4 mmol/L (3.4-5.0)
[2020-08-08 05:34] VITALS: BP 126/76; PULSE 82; RESP 18; TEMP 36.4; O2SAT 99
[2020-08-08 08:00] VITALS: PULSE 82; RESP 18; O2SAT 99
[2020-08-08] MEDS: hydroCHLOROthiazide 25 MG TABLET PO (08:28)
[2020-08-08] MEDS: PANTOPRAZOLE 40 MG TABLET PO (08:28)
[2020-08-08] MEDS: lisinopriL 20 MG TABLET PO (08:28)
[2020-08-08] MEDS: POTASSIUM CHLORIDE 20 MEQ TABLET.ER PO (08:29)
[2020-08-08] MEDS: DOCUSATE SODIUM 100 MG CAPSULE PO (08:29)
[2020-08-08] MEDS: APIXABAN 2.5 MG TABLET PO ×2 (08:29→20:38)
[2020-08-08] MEDS: CITALOPRAM HYDROBROMIDE 20 MG TABLET 40 MG PO (08:29)
[2020-08-08] MEDS: MAGNESIUM OXIDE 400 MG TABLET PO (08:29)
[2020-08-08] MEDS: FERROUS SULFATE 324 MG TABLET PO (08:29)
[2020-08-08] MEDS: polyethylene glycoL 3350 17 GM POWD.PACK PO (08:30)
[2020-08-08] MEDS: oxyCODONE HCL (*CRX) 2.5 MG TAB IR PO ×2 (08:33→11:58)
--- NOTE | 2020-08-08 08:51 | WPDNEURORHBP ---
Subjective Date/time seen: 08/08/20 08:51 The patient is a 80-year-old female with hypertension, hyperlipidemia, GERD, recent GI bleed, and a history of a stroke with right hemiplegia who was admitted to [facility] on 08/02/2020 via EMS. The patient had taken out her new 8-week-old puppy outside at 11:00 p.m. and fell. She was unable to get back into the house and her daughter discovered her the next morning. Patient was then taken to [facility] a hip and pelvis x-ray revealed a displaced subcapital right femoral fracture. Workup: Head CT no acute intracranial abnormality,, chronic bilateral parietal lobe infarctions, partially calcified extra-axial mass left parietal vertex measuring 1.5 cm likely benign meningioma, and chronic age-related findings. Initial labs revealed leukocytosis elevated AST ALT creatinine kinase felt to be due to rhabdomyolysis, hyperglycemia, hypocalcemia, hypo magnesium, On 08/02/2020 the patient underwent a cemented bipolar hemiarthroplasty of the right hip by Dr Jordan. Patient was still requiring oxygen despite chest x-ray being normal. Her chest CTA revealed no evidence of pulmonary embolism and mild localized infiltrate or atelectasis in the lower lobes. On 07/31/20 gastroenterology was consulted due to acute gastric ulcer history recommended to defer EGD for 6-8 weeks and continue on PPI b.i.d.. The patient will be on Eliquis 25 mg until 09/07/2020 for DVT prophylaxis. Post op encephalopathy improving. Pain is better with scheduled dosing . Appetite has improved. Patient voices complaint of soft stools. Patient feels stronger. Review of Systems Review of Systems: All systems reviewed & are unremarkable except as noted in HPI and below Functional Status Ambulation Ability Ability to Ambulate 10 Feet: Minimum Assistance X 1 Ability to Ambulate 50 Feet With 2 Turns: Minimum Assistance X 1 Ambulation Assistive Devices: Walker, Wheeled Transfers Ability Ability to Transfer In/Out of Chair: Contact Guard Exam Narrative: Exam Narrative: Patient is seen in wheelchair.Patient has eaten better today. Patient is in no acute distress. Head is normocephalic. Extraocular muscles are intact. Speech is fluent. Neck is supple. Heart rate and rhythm is regular. Lungs are clear to auscultation. Abdomen is soft nontender. Bilateral upper extremity strength reveal mild rotator cuff bilaterally but essential strength is 4-5 left lower extremity strength is 4/5. . Right proximal hip strength is 2 and distal strength is 3+ to 4-. Patient's transfers have improved to contact guard Cognition is better. Speech no longer has delay with answers. Overall endurance is limited but improving. O 2 needs are during therapy prn Objective Data Vital Signs Vital Signs: Vital Signs - 24 hr 08/07/20 14:00 08/07/20 20:00 08/07/20 20:49 Temperature 36.6 C 36.2 C L Pulse Rate 86 81 81 Respiratory Rate 18 18 18 Blood Pressure 152/67 H 120/55 L Pulse Oximetry 97 96 96 08/08/20 05:34 Temperature 36.4 C Pulse Rate 82 Respiratory Rate 18 Blood Pressure 126/76 Pulse Oximetry 99 Intake/Output Intake/Output: Intake & Output 08/05/20 08/06/20 08/07/20 08/08/20 23:59 23:59 23:59 23:59 Intake Total 240 670 840 Balance 240 670 840 Meds/Results Medications: Active Medications Generic Name Dose Route Start Last Admin Trade Name Freq PRN Reason Stop Dose Admin Acetaminophen 650 mg 08/05/20 14:06 08/05/20 15:29 Acetaminophen 325 Mg Tablet PO 650 mg Q6H PRN Administration Pain rated 1-6 Apixaban 2.5 mg 08/05/20 21:00 08/08/20 08:29 Apixaban 2.5 Mg Tablet PO 2.5 mg Q12HR JENNIFER Administration Atorvastatin Calcium 40 mg 08/05/20 21:00 08/07/20 20:36 Atorvastatin 40 Mg Tablet PO 40 mg HS JENNIFER Administration Citalopram Hydrobromide 40 mg 08/06/20 09:00 08/08/20 08:29 Citalopram Hydrobromide 20 Mg Tablet PO 40 mg DAILY JENNIFER Administration Ferrous S
[2020-08-08 14:00] VITALS: BP 146/67; PULSE 78; RESP 18; TEMP 36.3; O2SAT 99
[2020-08-08 19:54] VITALS: BP 120/41; PULSE 78; RESP 18; TEMP 36.1; O2SAT 93
[2020-08-08 20:00] VITALS: PULSE 78; RESP 18; O2SAT 93
[2020-08-08] MEDS: ATORVASTATIN 40 MG TABLET PO (20:38)
[2020-08-08] MEDS: ACETAMINOPHEN 325 MG TABLET 650 MG PO (20:43)
[2020-08-09 05:07] VITALS: BP 171/69; PULSE 83; RESP 20; TEMP 36.4; O2SAT 96
[2020-08-09] MEDS: ACETAMINOPHEN 325 MG TABLET 650 MG PO (05:22)
--- NOTE | 2020-08-09 08:35 | RPD ---
INDIVIDUALIZED PLAN OF CARE FOR Elizabeth Johnson Brief Synthesis of Pre-Admission Screen, Post-Admission Evaluation and Therapy Evaluations: The patient presents to rehab with a displaced right femoral subcapital fracture. Comorbidities include ABLA, gastric ulcer, acute respiratory failure with hypoxia, electroltye abnormality, elevated lactic acid level, elevated creatine kinase, HTN, lactic acidosis, leukocytosis, displaced right femoral subcapital fracture, hypokalemia, abnormal glucose, HLD, low back pain, hyponatremia, hypocalcemia, hypomagnesemia, hypoproteinemia, hypoalbuminemia, and rhabdomyolysis. The complexity of the patient's medical management, nursing, and therapy needs require an inpatient rehab hospital stay with a physician-led interdisciplinary team approach. The patient?s needs will be best met in an intensive program vs. at a lower level of care. The patient requires physician services for medical oversight, management of postop complications in setting of present comorbidities, and pain management. She will be followed at least three times a week by the rehabilitation physician. The patient requires nursing services for DVT prophylactics, infection protection, medication management and education, pressure relief, and wound care Deficits include:ADLs, Balance, Endurance, Family Training/Education, Mobility, Pain Management, ROM, Safety, Strength, and Transfers. Metal Machine Setter/Case Management for: Discharge Planning and Patient/Family Counseling Physical Therapy: 5 days per week for 90 minutes. Treatments may include: Therapeutic Exercise, Gait Training, Neuromuscular Re-education, Transfer Training, Community Reintegration, Bed Mobility, Patient/Family Education, Wheelchair Mobility Group Therapy/Concurrent Therapy Rationales: -Improve attention span during functional activities in a distracted environment. -Enhance problem solving and/or adequate judgment skills during functional activities in a distracted environment. -Promote increased safety awareness in a distracted environment to reduce fall risk with functional tasks, transfers, and ambulation to allow a more safe, self-sufficient return to the home environment. -Improve dynamic balance skills to promote safety and independence with functional activities in a distracted environment for maximum gain. Occupational Therapy: 5 days per week for 90 minutes. Treatments may include: Therapeutic Exercise, Therapeutic Activity, Cognitive Training, Self-Care Transfer Training, Community Reintegration, Home Management, Patient/Family Education, Wheelchair Mobility Training, Energy Conservation Training Group Therapy/Concurrent Therapy Rationales: -Allow therapist to observe and teach generalization and carry-over of skills learned in individual therapy. -Enhance problem solving and sequencing skills during therapeutic activities in a distracted environment. -Promote increased safety awareness in a realistic setting to reduce fall risk with functional tasks due to visual and verbal distractions. -Increase functional level with ADLs, ADL transfers and use of adaptive equipment through therapeutic activities with others while promoting safety to allow a more safe, self-sufficient return home. Medical Prognosis: Good Anticipated Length of Stay: 10 days Rehab Goals: Eating Goal: 06-Independent Oral Hygiene Goal: 06-Independent Toileting Hygiene Goal: 06-Independent Shower/Bathe Self Goal: 06-Independent Upper Body Dressing Goal: 06-Independent Lower Body Dressing Goal: 06-Independent Putting On/Taking Off Footwear Goal: 06-Independent Rolling Left and Right Goal: 06-Independent Sit to Lying Goal: 06-Independent Lying to Sitting on Side of Bed Goal: 06-Independent Sit to Stand Goal: 06-Independent Chair/[id number] Transfer Goal: 06-Independent Toilet Transfer Goal: 06-Independent Car Transfer Goal: 06-Independent Walk 10' Goal: 06-Independent Walk 50' with Two Turns Goal: 06-Independen
[2020-08-09] MEDS: polyethylene glycoL 3350 17 GM POWD.PACK PO (09:09)
[2020-08-09] MEDS: CITALOPRAM HYDROBROMIDE 20 MG TABLET 40 MG PO (09:09)
[2020-08-09] MEDS: APIXABAN 2.5 MG TABLET PO ×2 (09:09→20:23)
[2020-08-09] MEDS: MAGNESIUM OXIDE 400 MG TABLET PO (09:09)
[2020-08-09] MEDS: oxyCODONE HCL (*CRX) 2.5 MG TAB IR PO ×3 (09:09→23:28)
[2020-08-09] MEDS: FERROUS SULFATE 324 MG TABLET PO (09:10)
[2020-08-09] MEDS: POTASSIUM CHLORIDE 20 MEQ TABLET.ER PO (09:10)
[2020-08-09] MEDS: hydroCHLOROthiazide 25 MG TABLET PO (09:10)
[2020-08-09] MEDS: lisinopriL 20 MG TABLET PO (09:10)
[2020-08-09] MEDS: PANTOPRAZOLE 40 MG TABLET PO ×2 (09:11→17:38)
--- NOTE | 2020-08-09 09:54 | WPDNEURORHBP ---
Subjective Date/time seen: 08/09/20 09:54 Interval history: 80-year-old female with history of hypertension, hyperlipidemia, GERD, recent GI bleed, history of CVA with right hemiplegia who was admitted to [facility] on 08/02/2020. patient had spent the night outside after taking her 8-week-old puppy outside 11:00 p.m. she fell. Daughter did not discover her till the morning. Patient was found to have a displaced subcapital right femoral fracture. Workup: Head CT no acute intracranial abnormality, chronic bilateral parietal lobe infarcts, partially calcified extra axial mass left parietal vertex measuring 1.5 cm likely benign meningioma and chronic age-related findings. Her chest CT revealed no evidence of pulmonary embolism and mild localized infiltrate or atelectasis in the lower lobes. Initial labs revealed leukocytosis, elevated AST and ALT and creatinine kinase felt to be due to rhabdomyolysis. Patient also demonstrated postop confusion felt to be due to encephalopathy Patient also experienced hyperglycemia hypocalcemia and Hypomagnesium. On 08/02 patient underwent a cemented bipolar hemiarthroplasty of the right hip by Dr. Jordan. Patient was transferred to the rehab center at [facility]. Rehab hospital course: Encephalopathy has been resolved. Hypokalemia requires ongoing potassium Pain is lessening Discharge planning: family members and patient's initial discharge planning was to go home with circular sawyer helper.Her daughter now is considering other options. Review of Systems Review of Systems: All systems reviewed & are unremarkable except as noted in HPI and below Functional Status Ambulation Ability Ability to Ambulate 10 Feet: Contact Guard Ability to Ambulate 50 Feet With 2 Turns: Minimum Assistance X 1 Ambulation Assistive Devices: Walker, Wheeled Transfers Ability Ability to Transfer In/Out of Chair: Contact Guard Exam Narrative: Exam Narrative: Patient is seen in wheelchair.Patient is getting her appetite back. Patient is in no acute distress. Head is normocephalic. Extraocular muscles are intact. Speech is fluent. Neck is supple. Heart rate and rhythm is regular. Lungs are clear to auscultation. Abdomen is soft nontender. Bilateral upper extremity strength reveal mild rotator cuff bilaterally but essential strength is 4-5 left lower extremity strength is 4/5. . Right proximal hip strength is 3and distal strength is 3+ to 4-. Cognition. Patient's speech is fluent and intelligible. No expressive language deficit noted. No cognitive her written language deficits noted. Transfers are contact guard to standby assist. Patient is bearing more weight through the right lower extremity. Objective Data Vital Signs Vital Signs: Vital Signs - 24 hr 08/08/20 14:00 08/08/20 19:54 08/08/20 20:00 Temperature 36.3 C L 36.1 C L Pulse Rate 78 78 78 Respiratory Rate 18 18 18 Blood Pressure 146/67 H 120/41 L Pulse Oximetry 99 93 93 08/09/20 05:07 Temperature 36.4 C Pulse Rate 83 Respiratory Rate 20 Blood Pressure 171/69 H Pulse Oximetry 96 Intake/Output Intake/Output: Intake & Output 08/06/20 08/07/20 08/08/20 08/09/20 23:59 23:59 23:59 23:59 Intake Total 670 840 720 Balance 670 840 720 Meds/Results Medications: Active Medications Generic Name Dose Route Start Last Admin Trade Name Freq PRN Reason Stop Dose Admin Acetaminophen 650 mg 08/05/20 14:06 08/09/20 05:22 Acetaminophen 325 Mg Tablet PO 650 mg Q6H PRN Administration Pain rated 1-6 Apixaban 2.5 mg 08/05/20 21:00 08/09/20 09:09 Apixaban 2.5 Mg Tablet PO 2.5 mg Q12HR JENNIFER Administration Atorvastatin Calcium 40 mg 08/05/20 21:00 08/08/20 20:38 Atorvastatin 40 Mg Tablet PO 40 mg HS JENNIFER Administration Citalopram Hydrobromide 40 mg 08/06/20 09:00 08/09/20 09:09 Citalopram Hydrobromide 20 Mg Tablet PO 40 mg DAILY JENNIFER Administration Ferrous Sulf
[2020-08-09 11:28] LABS: Alanine Aminotransferase 22 U/L (4-35); Albumin Level 3.8 g/dL (3.5-5.1); Alkaline Phosphatase 76 U/L (38-126); Anion Gap 8 mmol/L (8-16); Aspartate Amino Transferase 28 U/L (14-36); Bilirubin,Total 0.5 mg/dL (0.2-1.3); Blood Urea Nitrogen 14 mg/dL (7-17); Calcium 8.9 mg/dL (8.4-10.2); Carbon Dioxide 27 mmol/L (22-30); Chloride 104 mmol/L (98-107); Estimated CRCL calculation 47 ml/min; Estimated Glomerular Filt Rate > 60; Glucose 113 mg/dL (65-105); Potassium 3.6 mmol/L (3.4-5.0); Sodium 139 mmol/L (137-145)
[2020-08-09 14:00] VITALS: BP 122/56; PULSE 89; RESP 16; TEMP 36.3; O2SAT 95
--- NOTE | 2020-08-09 17:08 | PM.PNORT ---
Progress Note: A&P Additional Plan POD 7 pt is alert, she did remember me from previous care. She is cheerful with min. pain. She has been progressing with PT, remains on eliquis, wd-dry, dresssing to be changed today. Overall doing much better. Will continue with PT, pt has no help at home at this point so we will try to keep her in rehab as long as possible Subjective Subjective Date/Time Seen: 08/09/20 17:08 Objective Data Vital Signs Vital Signs: Vital Signs - 24 hr 08/08/20 19:54 08/08/20 20:00 08/09/20 05:07 Temperature 36.1 C L 36.4 C Pulse Rate 78 78 83 Respiratory Rate 18 18 20 Blood Pressure 120/41 L 171/69 H Pulse Oximetry 93 93 96 08/09/20 14:00 Temperature 36.3 C L Pulse Rate 89 Respiratory Rate 16 Blood Pressure 122/56 L Pulse Oximetry 95 Intake/Output Intake/Output: Intake & Output 08/06/20 08/07/20 08/08/20 08/09/20 23:59 23:59 23:59 23:59 Intake Total 670 840 720 480 Balance 670 840 720 480 Meds/Results Medications: Active Medications Generic Name Dose Route Start Last Admin Trade Name Freq PRN Reason Stop Dose Admin Acetaminophen 650 mg 08/05/20 14:06 08/09/20 05:22 Acetaminophen 325 Mg Tablet PO 650 mg Q6H PRN Administration Pain rated 1-6 Apixaban 2.5 mg 08/05/20 21:00 08/09/20 09:09 Apixaban 2.5 Mg Tablet PO 2.5 mg Q12HR JENNIFER Administration Atorvastatin Calcium 40 mg 08/05/20 21:00 08/08/20 20:38 Atorvastatin 40 Mg Tablet PO 40 mg HS JENNIFER Administration Citalopram Hydrobromide 40 mg 08/06/20 09:00 08/09/20 09:09 Citalopram Hydrobromide 20 Mg Tablet PO 40 mg DAILY JENNIFER Administration Ferrous Sulfate 324 mg 08/07/20 09:30 08/09/20 09:10 Ferrous Sulfate 324 Mg Tablet PO 324 mg DAILY JENNIFER Administration Hydrochlorothiazide 25 mg 08/06/20 09:00 08/09/20 09:10 Hydrochlorothiazide 25 Mg Tablet PO 25 mg DAILY JENNIFER Administration Lisinopril 20 mg 08/06/20 09:00 08/09/20 09:10 Lisinopril 20 Mg Tablet PO 20 mg DAILY JENNIFER Administration Magnesium Oxide 400 mg 08/08/20 09:00 08/09/20 09:09 Magnesium Oxide 400 Mg Tablet PO 400 mg QAM [facility] Administration Oxycodone HCl 2.5 mg 08/05/20 14:06 08/06/20 08:57 Oxycodone Hcl (*Crx) 2.5 Mg Tab Ir PO 2.5 mg Q4H PRN Administration pain (scale score 7-10) Oxycodone HCl 2.5 mg 08/07/20 08:00 08/09/20 13:05 Oxycodone Hcl (*Crx) 2.5 Mg Tab Ir PO 2.5 mg 0800,1200 [facility] Administration Pantoprazole Sodium 40 mg 08/09/20 17:00 Pantoprazole 40 Mg Tablet PO BIDWM [facility] Polyethylene Glycol 17 gm 08/06/20 09:00 08/09/20 09:09 Polyethylene Glycol 3350 17 Gm Powd.Pack PO 17 gm QAM [facility] Administration Potassium Chloride 20 meq 08/07/20 08:00 08/09/20 09:10 Potassium Chloride 20 Meq Tablet.Er PO 20 meq DAILY@0800 [facility] Administration Senna/Docusate Sodium 1 tab 08/05/20 14:06 Senna/Docusate Sodium Tablet PO BID PRN constipation Labs Labs: Laboratory Results - last 24 hr 08/09/20 11:00 Sodium 139 Potassium 3.6 Chloride 104 Carbon Dioxide 27 Anion Gap 8 BUN 14 Creatinine 0.70 Estim Creat Clear Calc 47 Estimated GFR > 60 Glucose 113 H Calcium 8.9 Total Bilirubin 0.5 AST 28 ALT 22 Alkaline Phosphatase 76 Total Protein 7.0 Albumin 3.8
[2020-08-09] MEDS: ATORVASTATIN 40 MG TABLET PO (20:24)
[2020-08-09 21:52] VITALS: BP 128/66; PULSE 81; RESP 16; TEMP 36.6; O2SAT 95
[2020-08-10 05:18] LABS: Anion Gap 0 mmol/L (8-16); Blood Urea Nitrogen 14 mg/dL (7-17); Calcium 8.4 mg/dL (8.4-10.2); Carbon Dioxide 34 mmol/L (22-30); Chloride 108 mmol/L (98-107); Estimated CRCL calculation 42 ml/min; Estimated Glomerular Filt Rate > 60; Glucose 111 mg/dL (65-105); Potassium 4.1 mmol/L (3.4-5.0); Sodium 142 mmol/L (137-145)
[2020-08-10 07:30] VITALS: BP 166/71; PULSE 88; RESP 18; TEMP 35.9; O2SAT 100
[2020-08-10] MEDS: oxyCODONE HCL (*CRX) 2.5 MG TAB IR PO ×2 (07:55→12:05)
[2020-08-10] MEDS: PANTOPRAZOLE 40 MG TABLET PO ×2 (07:55→17:44)
[2020-08-10] MEDS: APIXABAN 2.5 MG TABLET PO ×2 (07:56→20:10)
[2020-08-10] MEDS: FERROUS SULFATE 324 MG TABLET PO (07:56)
[2020-08-10] MEDS: lisinopriL 20 MG TABLET PO (07:56)
[2020-08-10] MEDS: CITALOPRAM HYDROBROMIDE 20 MG TABLET 40 MG PO (07:56)
[2020-08-10] MEDS: MAGNESIUM OXIDE 400 MG TABLET PO (07:56)
[2020-08-10] MEDS: POTASSIUM CHLORIDE 20 MEQ TABLET.ER PO (07:56)
[2020-08-10] MEDS: hydroCHLOROthiazide 25 MG TABLET PO (07:56)
[2020-08-10] MEDS: polyethylene glycoL 3350 17 GM POWD.PACK PO (07:57)
[2020-08-10 14:00] VITALS: BP 112/43; PULSE 86; RESP 18; TEMP 35.8; O2SAT 96
--- NOTE | 2020-08-10 14:11 | WPDNEURORHBP ---
Subjective Date/time seen: 08/10/20 14:11 Interval history: 80-year-old female with history of hypertension, hyperlipidemia, GERD, recent GI bleed, history of CVA with right hemiplegia who was admitted to [facility] on 08/02/2020. patient had spent the night outside after taking her 8-week-old puppy outside 11:00 p.m. she fell. Daughter did not discover her till the morning. Patient was found to have a displaced subcapital right femoral fracture. Workup: Head CT no acute intracranial abnormality, chronic bilateral parietal lobe infarcts, partially calcified extra axial mass left parietal vertex measuring 1.5 cm likely benign meningioma and chronic age-related findings. Her chest CT revealed no evidence of pulmonary embolism and mild localized infiltrate or atelectasis in the lower lobes. Initial labs revealed leukocytosis, elevated AST and ALT and creatinine kinase felt to be due to rhabdomyolysis. Patient also demonstrated postop confusion felt to be due to encephalopathy Patient also experienced hyperglycemia hypocalcemia and Hypomagnesium. On 08/02 patient underwent a cemented bipolar hemiarthroplasty of the right hip by Dr. Jordan. Patient was transferred to the rehab center at [facility]. Rehab hospital course: Encephalopathy has been resolved. Hypokalemia requires ongoing potassium Pain is lessening No O2 needs now Discharge planning: family members and patient's initial discharge planning was to go home with car unloader helper.Her daughters now are considering other options. Patient admits to being anxious and nervous about going home. Reassurance was offered. Patient denies any complaints. Review of Systems Review of Systems: All systems reviewed & are unremarkable except as noted in HPI and below Functional Status Ambulation Ability Ability to Ambulate 10 Feet: Standby Assistance Ability to Ambulate 50 Feet With 2 Turns: Standby Assistance Ability to Ambulate 150 Feet: Standby Assistance Ambulation Assistive Devices: Walker, Standard Transfers Ability Ability to Transfer In/Out of Chair: Standby Assistance Exam Narrative: Exam Narrative: Patient is seen in wheelchair. Appetite improving Patient is in no acute distress. Head is normocephalic. Extraocular muscles are intact. Speech is fluent. Neck is supple. Heart rate and rhythm is regular. Lungs are clear to auscultation. Abdomen is soft nontender. Bilateral upper extremity strength reveal mild rotator cuff bilaterally but essential strength is 4-5 left lower extremity strength is 4/5. . Right proximal hip strength is 3and distal strength is 3+ to 4-. Cognition. Patient's speech is fluent and intelligible. No expressive language deficit noted. No cognitive or written language deficits noted. Transfers are contact guard to standby assist. Patient is bearing more weight through the right lower extremity. Rehab: Patient is minimal assistance with bed mobility requiring assistance only to get the right leg into bed. Transfers are contact guard. Patient is ambulating 150 ft with contact guard with a standard walker. Patient is independent with grooming she requires setup to standby assistance with her ADLs except for tub shower transfers which are minimal assistance. Patient is continent of bowel and bladder. Objective Data Vital Signs Vital Signs: Vital Signs - 24 hr 08/09/20 21:52 08/10/20 07:30 Temperature 36.6 C 35.9 C L Pulse Rate 81 88 Respiratory Rate 16 18 Blood Pressure 128/66 166/71 H Pulse Oximetry 95 100 Intake/Output Intake/Output: Intake & Output 08/07/20 08/08/20 08/09/20 08/10/20 23:59 23:59 23:59 23:59 Intake Total 840 720 720 720 Balance 840 720 720 720 Meds/Results Medications: Active Medications Generic Name Dose Route Start Last Admin Trade Name Freq PRN Reason Stop Dose Admin Acetaminophen 650 mg 08/05/20 14:06 08/09/20 05:22 Acetaminophen 325 Mg Tablet PO 650 mg Q6H
[2020-08-10] MEDS: ATORVASTATIN 40 MG TABLET PO (20:10)
[2020-08-10 22:00] VITALS: BP 158/62; PULSE 90; RESP 16; TEMP 36.2; O2SAT 100
[2020-08-11 06:00] VITALS: BP 138/55; PULSE 75; RESP 16; TEMP 36.3; O2SAT 99
[2020-08-11 08:00] VITALS: PULSE 75; RESP 16; O2SAT 99
[2020-08-11] MEDS: lisinopriL 20 MG TABLET PO (08:29)
[2020-08-11] MEDS: APIXABAN 2.5 MG TABLET PO ×2 (08:29→21:27)
[2020-08-11] MEDS: POTASSIUM CHLORIDE 20 MEQ TABLET.ER PO (08:29)
[2020-08-11] MEDS: MAGNESIUM OXIDE 400 MG TABLET PO (08:29)
[2020-08-11] MEDS: hydroCHLOROthiazide 25 MG TABLET PO (08:29)
[2020-08-11] MEDS: FERROUS SULFATE 324 MG TABLET PO (08:29)
[2020-08-11] MEDS: CITALOPRAM HYDROBROMIDE 20 MG TABLET 40 MG PO (08:29)
[2020-08-11] MEDS: PANTOPRAZOLE 40 MG TABLET PO ×2 (08:30→17:08)
[2020-08-11] MEDS: oxyCODONE HCL (*CRX) 2.5 MG TAB IR PO ×2 (08:35→12:07)
--- NOTE | 2020-08-11 13:32 | WPDNEURORHBP ---
Subjective Date/time seen: 08/11/20 13:32 Interval history: 80-year-old female with history of hypertension, hyperlipidemia, GERD, recent GI bleed, history of CVA with right hemiplegia who was admitted to [facility] on 08/02/2020. patient had spent the night outside after taking her 8-week-old puppy outside 11:00 p.m. she fell. Daughter did not discover her till the morning. Patient was found to have a displaced subcapital right femoral fracture. Workup: Head CT no acute intracranial abnormality, chronic bilateral parietal lobe infarcts, partially calcified extra axial mass left parietal vertex measuring 1.5 cm likely benign meningioma and chronic age-related findings. Her chest CT revealed no evidence of pulmonary embolism and mild localized infiltrate or atelectasis in the lower lobes. Initial labs revealed leukocytosis, elevated AST and ALT and creatinine kinase felt to be due to rhabdomyolysis. Patient also demonstrated postop confusion felt to be due to encephalopathy Patient also experienced hyperglycemia hypocalcemia and Hypomagnesium. On 08/02 patient underwent a cemented bipolar hemiarthroplasty of the right hip by Dr. Jordan. Patient was transferred to the rehab center at [facility]. Rehab hospital course: Encephalopathy has been resolved. Hypokalemia requires ongoing potassium . Potassium is now 4.1. Appetite has improved. Will discontinue K and recheck labs. Pain is lessening Discharge planning: family members and patient's initial discharge planning was to go home with cement mason helper.Her daughter now is considering other options. Review of Systems Review of Systems: All systems reviewed & are unremarkable except as noted in HPI and below Functional Status Ambulation Ability Ability to Ambulate 10 Feet: Independent Ability to Ambulate 50 Feet With 2 Turns: Independent Ability to Ambulate 150 Feet: Standby Assistance Ambulation Assistive Devices: Walker, Standard Transfers Ability Ability to Transfer In/Out of Chair: Standby Assistance Exam Narrative: Exam Narrative: Patient is seen in wheelchair. Appetite improving Patient is in no acute distress. Head is normocephalic. Extraocular muscles are intact. Speech is fluent. Neck is supple. Heart rate and rhythm is regular. Lungs are clear to auscultation. Abdomen is soft nontender. Bilateral upper extremity strength reveal mild rotator cuff bilaterally but essential strength is 4-5 left lower extremity strength is 4/5. . Right proximal hip strength is 3and distal strength is 3+ to 4-. Cognition. Patient's speech is fluent and intelligible. No expressive language deficit noted. No cognitive or written language deficits noted. Transfers are contact guard to standby assist. Patient is bearing more weight through the right lower extremity. Rehab: Patient is now at independent level. Transfers are SBA Patient is ambulating 150 ft with contact guard with a standard walker. Patient is independent with grooming she requires setup to standby assistance with her ADLs except for tub shower transfers which are minimal assistance. Patient is continent of bowel and bladder. Objective Data Vital Signs Vital Signs: Vital Signs - 24 hr 08/10/20 14:00 08/10/20 22:00 08/11/20 06:00 Temperature 35.8 C L 36.2 C L 36.3 C L Pulse Rate 86 90 75 Respiratory Rate 18 16 16 Blood Pressure 112/43 L 158/62 H 138/55 L Pulse Oximetry 96 100 99 08/11/20 08:00 Temperature Pulse Rate 75 Respiratory Rate 16 Blood Pressure Pulse Oximetry 99 Intake/Output Intake/Output: Intake & Output 08/08/20 08/09/20 08/10/20 08/11/20 23:59 23:59 23:59 23:59 Intake Total 720 720 960 480 Balance 720 720 960 480 Meds/Results Medications: Active Medications Generic Name Dose Route Start Last Admin Trade Name Freq PRN Reason Stop Dose Admin Acetaminophen 650 mg 08/05/20 14:06 08/09/20 05:22 Acetaminophen 325 Mg Tablet PO
[2020-08-11 13:52] VITALS: TEMP 36.3
[2020-08-11] MEDS: ACETAMINOPHEN 325 MG TABLET 650 MG PO (13:52)
[2020-08-11 14:00] VITALS: BP 140/57; PULSE 80; RESP 18; TEMP 36.3; O2SAT 97
[2020-08-11] MEDS: ACETAMINOPHEN 500 MG TABLET 1000 MG PO (17:08)
[2020-08-11 20:30] VITALS: BP 112/47; PULSE 74; RESP 18; TEMP 35.9; O2SAT 98
[2020-08-11] MEDS: ATORVASTATIN 40 MG TABLET PO (21:27)
[2020-08-12 05:31] VITALS: BP 174/60; PULSE 85; RESP 18; TEMP 36.1; O2SAT 100
[2020-08-12 08:35] VITALS: PULSE 108; O2SAT 96
[2020-08-12] MEDS: APIXABAN 2.5 MG TABLET PO ×2 (09:42→20:42)
[2020-08-12] MEDS: FERROUS SULFATE 324 MG TABLET PO (09:42)
[2020-08-12] MEDS: PANTOPRAZOLE 40 MG TABLET PO ×2 (09:42→16:25)
[2020-08-12] MEDS: CITALOPRAM HYDROBROMIDE 20 MG TABLET 40 MG PO (09:42)
[2020-08-12] MEDS: ACETAMINOPHEN 500 MG TABLET 1000 MG PO ×2 (09:42→16:25)
[2020-08-12] MEDS: lisinopriL 20 MG TABLET PO (09:43)
[2020-08-12] MEDS: hydroCHLOROthiazide 25 MG TABLET PO (09:43)
[2020-08-12] MEDS: MAGNESIUM OXIDE 400 MG TABLET PO (09:43)
--- NOTE | 2020-08-12 13:08 | PCDIET ---
Nutrition Follow-Up Complete: No nutrition diagnosis at this time. Nutrition Goal: Patient to consume 75% or more of meals on current diet order. Goal in progress. Patient consuming 70-100% of recorded meals, but c/o decreased appetite and is ordering light meals. Does not care for Ensure Surgery and does not recall receiving Frozen Nutritional Treat. Clarified orders with dietary department. Recommend discontinuing Ensure Surgery and sending Frozen Nutritional Treat BID. Last recorded weight is 66.7 kg. Recommend obtaining new weight. Bowel Motility: +BM today. Labs Reviewed: Glu (111) Meds Noted: Lipitor, Ferrous Sulfate, Hydrochlorothiazide, Lisinopril, Mag-ox, Miralax, Protonix Additional Notes: Right hip surgical site. No documented pressure sores. Will continue to monitor with same goal. Nutrition Monitoring and Evaluation: Follow up every 7 days.
[2020-08-12 14:00] VITALS: BP 105/48; PULSE 85; RESP 16; TEMP 36.5; O2SAT 99
--- NOTE | 2020-08-12 15:36 | WPDNEURORHBP ---
Subjective Date/time seen: 08/12/20 15:36 Interval history: 80-year-old female with history of hypertension, hyperlipidemia, GERD, recent GI bleed, history of CVA with right hemiplegia who was admitted to [facility] on 08/02/2020. patient had spent the night outside after taking her 8-week-old puppy outside 11:00 p.m. she fell. Daughter did not discover her till the morning. Patient was found to have a displaced subcapital right femoral fracture. Workup: Head CT no acute intracranial abnormality, chronic bilateral parietal lobe infarcts, partially calcified extra axial mass left parietal vertex measuring 1.5 cm likely benign meningioma and chronic age-related findings. Her chest CT revealed no evidence of pulmonary embolism and mild localized infiltrate or atelectasis in the lower lobes. Initial labs revealed leukocytosis, elevated AST and ALT and creatinine kinase felt to be due to rhabdomyolysis. Patient also demonstrated postop confusion felt to be due to encephalopathy Patient also experienced hyperglycemia hypocalcemia and Hypomagnesium. On 08/02 patient underwent a cemented bipolar hemiarthroplasty of the right hip by Dr. Jordan. Patient was transferred to the rehab center at [facility]. Rehab hospital course: Encephalopathy has been resolved. Hypokalemia requires ongoing potassium . Potassium is now 4.1. Appetite has improved. Will discontinue K and recheck labs. Pain is lessening Discharge planning: family members and patient's initial discharge planning was to go home with pole peeling machine operator helper.Her daughter now is considering other options. Confidence is building Patient admits to fair appetite Review of Systems Review of Systems: All systems reviewed & are unremarkable except as noted in HPI and below Functional Status Ambulation Ability Ability to Ambulate 10 Feet: Independent Ability to Ambulate 50 Feet With 2 Turns: Independent Ability to Ambulate 150 Feet: Standby Assistance Ambulation Assistive Devices: Walker, Standard Transfers Ability Ability to Transfer In/Out of Chair: Standby Assistance Exam Narrative: Exam Narrative: Patient is in no acute distress. Head is normocephalic. Extraocular muscles are intact. Speech is fluent. Neck is supple. Heart rate and rhythm is regular. Lungs are clear to auscultation. Abdomen is soft nontender. Bilateral upper extremity strength reveal mild rotator cuff bilaterally but essential strength is 4-5 left lower extremity strength is 4/5. . Right proximal hip strength is 3+ and distal strength is 4-. Cognition. Patient's speech is fluent and intelligible. No expressive language deficit noted. No cognitive or written language deficits noted. Transfers are contact guard to standby assist. Patient is bearing more weight through the right lower extremity. Weightshifting is improving. Rehab: Patient is now at independent level. Transfers are SBA Patient is ambulating 150 ft with contact guard with a standard walker. Patient is independent with grooming she requires setup to standby assistance with her ADLs except for tub shower transfers which are minimal assistance. Patient is continent of bowel and bladder. Objective Data Vital Signs Vital Signs: Vital Signs - 24 hr 08/11/20 20:30 08/12/20 05:31 08/12/20 14:00 Temperature 35.9 C L 36.1 C L 36.5 C Pulse Rate 74 85 85 Respiratory Rate 18 18 16 Blood Pressure 112/47 L 174/60 H 105/48 L Pulse Oximetry 98 100 99 Intake/Output Intake/Output: Intake & Output 08/09/20 08/10/20 08/11/20 08/12/20 23:59 23:59 23:59 23:59 Intake Total 720 960 720 360 Balance 720 960 720 360 Meds/Results Medications: Active Medications Generic Name Dose Route Start Last Admin Trade Name Freq PRN Reason Stop Dose Admin Acetaminophen 650 mg 08/05/20 14:06 08/11/20 13:52 Acetaminophen 325 Mg Tablet PO 650 mg Q6H PRN Administration Pain rated 1-6 Acetaminophen 1,00
[2020-08-12] MEDS: oxyCODONE HCL (*CRX) 2.5 MG TAB IR PO (20:41)
[2020-08-12] MEDS: ATORVASTATIN 40 MG TABLET PO (20:43)
[2020-08-12 20:53] VITALS: BP 119/50; PULSE 75; RESP 18; TEMP 36.1; O2SAT 99
[2020-08-12 23:40] VITALS: O2SAT 99
[2020-08-13 05:11] LABS: Basophils Absolute Auto 0.1 K/mm3 (0.0-0.1); Basophils Percent Auto 0.8 % (0.2-1.2); Eosinophils Absolute Auto 0.5 K/mm3 (0-0.3); Hematocrit 31.4 % (37.0-47.0); Hemoglobin 9.8 g/dL (12.0-15.0); Immature Granulocyte Absolute 0.13 K/mm3 (0.00-0.031); Immature Granulocyte Percent A 1.5 % (0-0.5); Lymphocytes Absolute Auto 2.55 K/mm3 (0.9-3.2); Lymphocytes Percent Auto 28.8 % (18.3-44.2); Mean Corpuscular HGB Conc 31.2 g/dl (32-36); Mean Corpuscular Hemoglobin 26.1 pg (26-34); Mean Corpuscular Volume 83.7 fl (80-100); Monocytes Absolute Auto 0.9 K/mm3 (0.1-0.6); Monocytes Percent Auto 10.2 % (2.6-8.5); Neutrophils Absolute Auto 4.7 K/mm3 (1.3-6.7); Neutrophils Percent Auto 52.7 % (45.5-73.1); Platelet Count Result 449 k/mm3 (150-375); Red Blood Count 3.75 M/mm3 (4.2-5.4); Red Cell Distribution Width 17.3 % (11.5-14.5); White Blood Count 8.9 K/mm3 (4.5-10.0)
[2020-08-13] MEDS: CITALOPRAM HYDROBROMIDE 20 MG TABLET 40 MG PO (08:44)
[2020-08-13] MEDS: FERROUS SULFATE 324 MG TABLET PO (08:44)
[2020-08-13] MEDS: MAGNESIUM OXIDE 400 MG TABLET PO (08:44)
[2020-08-13] MEDS: PANTOPRAZOLE 40 MG TABLET PO ×2 (08:45→17:26)
[2020-08-13] MEDS: lisinopriL 20 MG TABLET PO (08:45)
[2020-08-13] MEDS: ACETAMINOPHEN 500 MG TABLET 1000 MG PO ×2 (08:45→17:26)
[2020-08-13] MEDS: hydroCHLOROthiazide 25 MG TABLET PO (08:45)
[2020-08-13] MEDS: APIXABAN 2.5 MG TABLET PO ×2 (09:02→20:28)
[2020-08-13 11:00] VITALS: BP 118/51; PULSE 74; RESP 18; TEMP 36.3; O2SAT 100
[2020-08-13 14:00] VITALS: BP 125/49; PULSE 79; RESP 18; TEMP 36.2; O2SAT 97
--- NOTE | 2020-08-13 17:36 | WPDNEURORHBP ---
Subjective Date/time seen: 08/13/20 17:36 Interval history: 80-year-old female with history of hypertension, hyperlipidemia, GERD, recent GI bleed, history of CVA with right hemiplegia who was admitted to [facility] on 08/02/2020. patient had spent the night outside after taking her 8-week-old puppy outside 11:00 p.m. she fell. Daughter did not discover her till the morning. Patient was found to have a displaced subcapital right femoral fracture. Workup: Head CT no acute intracranial abnormality, chronic bilateral parietal lobe infarcts, partially calcified extra axial mass left parietal vertex measuring 1.5 cm likely benign meningioma and chronic age-related findings. Her chest CT revealed no evidence of pulmonary embolism and mild localized infiltrate or atelectasis in the lower lobes. Initial labs revealed leukocytosis, elevated AST and ALT and creatinine kinase felt to be due to rhabdomyolysis. Patient also demonstrated postop confusion felt to be due to encephalopathy Patient also experienced hyperglycemia hypocalcemia and Hypomagnesium. On 08/02 patient underwent a cemented bipolar hemiarthroplasty of the right hip by Dr. Jordan. Patient was transferred to the rehab center at [facility]. Rehab hospital course: Encephalopathy has been resolved. Hypokalemia requires ongoing potassium . Potassium is now 4.1. Appetite has improved. Will discontinue K and recheck labs. Pain is lessening Discharge planning: family members and patient's initial discharge planning was to go home with oil pipe inspector helper.Her daughter now is considering other options. Confidence is building Patient admits to fair appetite Functional Status Ambulation Ability Ability to Ambulate 10 Feet: Independent Ability to Ambulate 50 Feet With 2 Turns: Independent Ability to Ambulate 150 Feet: Standby Assistance Ambulation Assistive Devices: Walker, Standard Transfers Ability Ability to Transfer In/Out of Chair: Standby Assistance Exam Narrative: Exam Narrative: Patient is in no acute distress. Head is normocephalic. Extraocular muscles are intact. Speech is fluent. Neck is supple. Heart rate and rhythm is regular. Lungs are clear to auscultation. Abdomen is soft nontender. Bilateral upper extremity strength reveal mild rotator cuff bilaterally but essential strength is 4-5 left lower extremity strength is 4/5. . Right proximal hip strength is 3+ and distal strength is 4-. Cognition. Patient's speech is fluent and intelligible. No expressive language deficit noted. No cognitive or written language deficits noted. Transfers are contact guard to standby assist. Patient is bearing more weight through the right lower extremity. Weightshifting is improving. Rehab: Patient is now at independent level. Transfers are SBA Patient is ambulating 150 ft with contact guard with a standard walker. Patient is independent with grooming she requires setup to standby assistance with her ADLs except for tub shower transfers which are minimal assistance. Patient is continent of bowel and bladder. Objective Data Vital Signs Vital Signs: Vital Signs - 24 hr 08/12/20 20:53 08/12/20 23:40 08/13/20 11:00 Temperature 36.1 C L 36.3 C L Pulse Rate 75 74 Respiratory Rate 18 18 Blood Pressure 119/50 L 118/51 L Pulse Oximetry 99 99 100 08/13/20 14:00 Temperature 36.2 C L Pulse Rate 79 Respiratory Rate 18 Blood Pressure 125/49 L Pulse Oximetry 97 Intake/Output Intake/Output: Intake & Output 08/10/20 08/11/20 08/12/20 08/13/20 23:59 23:59 23:59 23:59 Intake Total 960 720 690 480 Balance 960 720 690 480 Meds/Results Medications: Active Medications Generic Name Dose Route Start Last Admin Trade Name Freq PRN Reason Stop Dose Admin Acetaminophen 650 mg 08/05/20 14:06 08/11/20 13:52 Acetaminophen 325 Mg Tablet PO 650 mg Q6H PRN Administration Pain rated 1-6 Acetaminophen 1,000 mg
[2020-08-13 20:00] VITALS: PULSE 66; RESP 16; O2SAT 98
[2020-08-13] MEDS: ATORVASTATIN 40 MG TABLET PO (20:28)
[2020-08-13 21:27] VITALS: BP 116/57; PULSE 66; RESP 16; TEMP 35.9; O2SAT 98
[2020-08-14 05:14] VITALS: BP 171/61; PULSE 76; RESP 16; TEMP 36.6; O2SAT 96
[2020-08-14 07:14] LABS: Alanine Aminotransferase 14 U/L (4-35); Albumin Level 3.9 g/dL (3.5-5.1); Alkaline Phosphatase 90 U/L (38-126); Anion Gap 7 mmol/L (8-16); Aspartate Amino Transferase 20 U/L (14-36); Bilirubin,Total 0.3 mg/dL (0.2-1.3); Blood Urea Nitrogen 16 mg/dL (7-17); Calcium 9.2 mg/dL (8.4-10.2); Carbon Dioxide 28 mmol/L (22-30); Chloride 108 mmol/L (98-107); Estimated CRCL calculation 42 ml/min; Estimated Glomerular Filt Rate > 60; Glucose 108 mg/dL (65-105); Potassium 3.8 mmol/L (3.4-5.0); Sodium 143 mmol/L (137-145)
[2020-08-14] MEDS: ACETAMINOPHEN 500 MG TABLET 1000 MG PO ×2 (08:47→17:15)
[2020-08-14] MEDS: MAGNESIUM OXIDE 400 MG TABLET PO (08:47)
[2020-08-14] MEDS: APIXABAN 2.5 MG TABLET PO ×2 (08:47→22:36)
[2020-08-14] MEDS: CITALOPRAM HYDROBROMIDE 20 MG TABLET 40 MG PO (08:47)
[2020-08-14] MEDS: PANTOPRAZOLE 40 MG TABLET PO ×2 (08:47→17:15)
[2020-08-14] MEDS: FERROUS SULFATE 324 MG TABLET PO (08:48)
[2020-08-14] MEDS: hydroCHLOROthiazide 25 MG TABLET PO (08:48)
[2020-08-14] MEDS: lisinopriL 20 MG TABLET PO (08:48)
--- NOTE | 2020-08-14 09:22 | WPDNEURORHBP ---
Subjective Date/time seen: 08/14/20 09:22 Interval history: 80-year-old female with history of hypertension, hyperlipidemia, GERD, recent GI bleed, history of CVA with right hemiplegia who was admitted to [facility] on 08/02/2020. patient had spent the night outside after taking her 8-week-old puppy outside 11:00 p.m. she fell. Daughter did not discover her till the morning. Patient was found to have a displaced subcapital right femoral fracture. Workup: Head CT no acute intracranial abnormality, chronic bilateral parietal lobe infarcts, partially calcified extra axial mass left parietal vertex measuring 1.5 cm likely benign meningioma and chronic age-related findings. Her chest CT revealed no evidence of pulmonary embolism and mild localized infiltrate or atelectasis in the lower lobes. Initial labs revealed leukocytosis, elevated AST and ALT and creatinine kinase felt to be due to rhabdomyolysis. Patient also demonstrated postop confusion felt to be due to encephalopathy Patient also experienced hyperglycemia hypocalcemia and Hypomagnesium. On 08/02 patient underwent a cemented bipolar hemiarthroplasty of the right hip by Dr. Jordan. Patient was transferred to the rehab center at [facility]. Rehab hospital course: Encephalopathy has been resolved. Hypokalemia requires ongoing potassium . Potassium is now 4.1. Appetite has improved. Will discontinue K and recheck labs. Pain is lessening Discharge planning: family members and patient's initial discharge planning was to go home with cane weigher helper.Her daughter now is considering other options. Confidence is building Patient admits to fair appetite Review of Systems Review of Systems: All systems reviewed & are unremarkable except as noted in HPI and below Functional Status Ambulation Ability Ability to Ambulate 10 Feet: Independent Ability to Ambulate 50 Feet With 2 Turns: Independent Ability to Ambulate 150 Feet: Standby Assistance Ambulation Assistive Devices: Walker, Standard Transfers Ability Ability to Transfer In/Out of Chair: Standby Assistance Exam Narrative: Exam Narrative: Patient is in no acute distress. Head is normocephalic. Extraocular muscles are intact. Speech is fluent. Neck is supple. Heart rate and rhythm is regular. Lungs are clear to auscultation. Abdomen is soft nontender. Bilateral upper extremity strength reveal mild rotator cuff bilaterally but essential strength is 4-5 left lower extremity strength is 4/5. . Right proximal hip strength is 3+ and distal strength is 4-. Cognition. Patient's speech is fluent and intelligible. No expressive language deficit noted. No cognitive or written language deficits noted. Transfers are contact guard to standby assist. Patient is bearing more weight through the right lower extremity. Weightshifting is improving. Rehab: Transfers are SBA Patient is ambulating 150 ft with contact guard with a standard walker. Patient is independent with grooming she requires setup to standby assistance with her ADLs except for tub shower transfers which are minimal assistance. Patient is continent of bowel and bladder. Objective Data Vital Signs Vital Signs: Vital Signs - 24 hr 08/13/20 11:00 08/13/20 14:00 08/13/20 20:00 Temperature 36.3 C L 36.2 C L Pulse Rate 74 79 66 Respiratory Rate 18 18 16 Blood Pressure 118/51 L 125/49 L Pulse Oximetry 100 97 98 08/13/20 21:27 08/14/20 05:14 Temperature 35.9 C L 36.6 C Pulse Rate 66 76 Respiratory Rate 16 16 Blood Pressure 116/57 L 171/61 H Pulse Oximetry 98 96 Intake/Output Intake/Output: Intake & Output 08/11/20 08/12/20 08/13/20 08/14/20 23:59 23:59 23:59 23:59 Intake Total 720 690 720 240 Balance 720 690 720 240 Meds/Results Medications: Active Medications Generic Name Dose Route Start Last Admin Trade Name Freq PRN Reason Stop Dose Admin Acetaminophen 650 mg 08/05/20 14:06 08/11/20 13:52
[2020-08-14 14:00] VITALS: BP 109/42; PULSE 85; RESP 18; TEMP 36.4; O2SAT 99
[2020-08-14 20:00] VITALS: PULSE 79; RESP 16; O2SAT 99
[2020-08-14 22:00] VITALS: BP 137/48; PULSE 79; RESP 16; TEMP 36.8; O2SAT 99
[2020-08-14] MEDS: oxyCODONE HCL (*CRX) 2.5 MG TAB IR PO (22:35)
[2020-08-14] MEDS: ATORVASTATIN 40 MG TABLET PO (22:37)
[2020-08-15 05:45] VITALS: BP 170/74; PULSE 80; RESP 16; TEMP 36.1; O2SAT 99
[2020-08-15] MEDS: hydroCHLOROthiazide 25 MG TABLET PO (08:42)
[2020-08-15] MEDS: lisinopriL 20 MG TABLET PO (08:42)
[2020-08-15] MEDS: CITALOPRAM HYDROBROMIDE 20 MG TABLET 40 MG PO (08:42)
[2020-08-15] MEDS: FERROUS SULFATE 324 MG TABLET PO (08:42)
[2020-08-15] MEDS: MAGNESIUM OXIDE 400 MG TABLET PO (08:42)
[2020-08-15] MEDS: PANTOPRAZOLE 40 MG TABLET PO ×2 (08:42→17:39)
[2020-08-15] MEDS: APIXABAN 2.5 MG TABLET PO ×2 (08:42→19:57)
[2020-08-15] MEDS: ACETAMINOPHEN 500 MG TABLET 1000 MG PO ×2 (08:43→17:39)
--- NOTE | 2020-08-15 08:51 | WPDNEURORHBP ---
Subjective Date/time seen: 08/15/20 08:51 Interval history: 80-year-old female with history of hypertension, hyperlipidemia, GERD, recent GI bleed, history of CVA with right hemiplegia who was admitted to [facility] on 08/02/2020. patient had spent the night outside after taking her 8-week-old puppy outside 11:00 p.m. she fell. Daughter did not discover her till the morning. Patient was found to have a displaced subcapital right femoral fracture. Workup: Head CT no acute intracranial abnormality, chronic bilateral parietal lobe infarcts, partially calcified extra axial mass left parietal vertex measuring 1.5 cm likely benign meningioma and chronic age-related findings. Her chest CT revealed no evidence of pulmonary embolism and mild localized infiltrate or atelectasis in the lower lobes. Initial labs revealed leukocytosis, elevated AST and ALT and creatinine kinase felt to be due to rhabdomyolysis. Patient also demonstrated postop confusion felt to be due to encephalopathy Patient also experienced hyperglycemia hypocalcemia and Hypomagnesium. On 08/02 patient underwent a cemented bipolar hemiarthroplasty of the right hip by Dr. Jordan. Patient was transferred to the rehab center at [facility]. Rehab hospital course: Encephalopathy has been resolved. Hypokalemia required ongoing potassium. Potassium has been held. Current potassium level is 3.8. Appetite has improved. Will discontinue K and recheck labs prn. Pain is lessening. Patient takes the occasional oxycodone but is essentially maintained with Tylenol Discharge planning: family members and patient's initial discharge planning was to go home with marine pipefitter helper. Plans keep changing. Patient was to go to [place]. Current plans: home for 2 weeks then [place] Confidence is building Patient admits to fair appetite No complaints Review of Systems Review of Systems: All systems reviewed & are unremarkable except as noted in HPI and below Functional Status Ambulation Ability Ability to Ambulate 10 Feet: Independent Ability to Ambulate 50 Feet With 2 Turns: Independent Ability to Ambulate 150 Feet: Independent Ambulation Assistive Devices: Walker, Standard Transfers Ability Ability to Transfer In/Out of Chair: Independent Exam Narrative: Exam Narrative: Patient is in no acute distress. Head is normocephalic. Extraocular muscles are intact. Speech is fluent. Neck is supple. Heart rate and rhythm is regular. Lungs are clear to auscultation. Abdomen is soft nontender. Bilateral upper extremity strength reveal mild rotator cuff bilaterally but essential strength is 4-5 left lower extremity strength is 4/5. . Right proximal hip strength is 3+ and distal strength is 4-. Cognition. Patient's speech is fluent and intelligible. No expressive language deficit noted. No cognitive or written language deficits noted. Transfers are contact guard to standby assist. Patient is bearing more weight through the right lower extremity. Weightshifting is improving. Rehab: Transfers are SBA/independent Patient is ambulating 150 ft with contact guard/independent with a standard walker. Patient is independent with grooming she requires setup to standby assistance/independent with her ADLs except for tub shower transfers which are minimal assistance. Patient is continent of bowel and bladder. Objective Data Vital Signs Vital Signs: Vital Signs - 24 hr 08/14/20 14:00 08/14/20 20:00 08/14/20 22:00 Temperature 36.4 C 36.8 C Pulse Rate 85 79 79 Respiratory Rate 18 16 16 Blood Pressure 109/42 L 137/48 L Pulse Oximetry 99 99 99 08/15/20 05:45 Temperature 36.1 C L Pulse Rate 80 Respiratory Rate 16 Blood Pressure 170/74 H Pulse Oximetry 99 Intake/Output Intake/Output: Intake & Output 08/12/20 08/13/20 08/14/20 08/15/20 23:59 23:59 23:59 23:59 Intake Total 690 720 720 240 Balance 690 720 720 240 Meds/Results Medications: Active
[2020-08-15 14:00] VITALS: BP 111/47; PULSE 79; RESP 18; TEMP 36.7; O2SAT 97
[2020-08-15] MEDS: ATORVASTATIN 40 MG TABLET PO (19:57)
[2020-08-15 22:00] VITALS: BP 114/47; PULSE 68; RESP 16; TEMP 36.2; O2SAT 98
[2020-08-16 06:00] VITALS: BP 172/55; PULSE 90; RESP 18; TEMP 36.4; O2SAT 96
[2020-08-16 06:50] VITALS: BP 146/60; PULSE 77
[2020-08-16] MEDS: CITALOPRAM HYDROBROMIDE 20 MG TABLET 40 MG PO (08:47)
[2020-08-16] MEDS: MAGNESIUM OXIDE 400 MG TABLET PO (08:47)
[2020-08-16] MEDS: APIXABAN 2.5 MG TABLET PO ×2 (08:47→20:49)
[2020-08-16] MEDS: FERROUS SULFATE 324 MG TABLET PO (08:47)
[2020-08-16] MEDS: lisinopriL 20 MG TABLET PO (08:47)
[2020-08-16] MEDS: ACETAMINOPHEN 500 MG TABLET 1000 MG PO ×2 (08:47→17:14)
[2020-08-16] MEDS: hydroCHLOROthiazide 25 MG TABLET PO (08:48)
[2020-08-16] MEDS: PANTOPRAZOLE 40 MG TABLET PO ×2 (08:48→17:14)
[2020-08-16 14:00] VITALS: BP 117/55; PULSE 87; RESP 18; TEMP 36.8; O2SAT 98
--- NOTE | 2020-08-16 14:40 | WPDNEURORHBP ---
Subjective Date/time seen: 08/16/20 14:40 Interval history: 80-year-old female with history of hypertension, hyperlipidemia, GERD, recent GI bleed, history of CVA with right hemiplegia who was admitted to [facility] on 08/02/2020. patient had spent the night outside after taking her 8-week-old puppy outside 11:00 p.m. she fell. Daughter did not discover her till the morning. Patient was found to have a displaced subcapital right femoral fracture. Workup: Head CT no acute intracranial abnormality, chronic bilateral parietal lobe infarcts, partially calcified extra axial mass left parietal vertex measuring 1.5 cm likely benign meningioma and chronic age-related findings. Her chest CT revealed no evidence of pulmonary embolism and mild localized infiltrate or atelectasis in the lower lobes. Initial labs revealed leukocytosis, elevated AST and ALT and creatinine kinase felt to be due to rhabdomyolysis. Patient also demonstrated postop confusion felt to be due to encephalopathy Patient also experienced hyperglycemia hypocalcemia and Hypomagnesium. On 08/02 patient underwent a cemented bipolar hemiarthroplasty of the right hip by Dr. Jordan. Patient was transferred to the rehab center at [facility]. Rehab hospital course: Encephalopathy has been resolved. Hypokalemia required ongoing potassium. Potassium has been held. Current potassium level is 3.8. Appetite has improved. Will discontinue K and recheck labs prn. Pain is lessening. Patient takes the occasional oxycodone but is essentially maintained with Tylenol Discharge planning: family members and patient's initial discharge planning was to go home with skein yarn dyer helper. Plans keep changing. Patient was to go to [place]. Current plans: home for 2 weeks then [place] Confidence is building. Patient is feeling more relaxed about going home. Patient is enjoying the frozen protein supplements. Appetite is still somewhat limited on the food trays that she receives. Review of Systems Review of Systems: All systems reviewed & are unremarkable except as noted in HPI and below Functional Status Ambulation Ability Ability to Ambulate 10 Feet: Independent Ability to Ambulate 50 Feet With 2 Turns: Independent Ability to Ambulate 150 Feet: Independent Ambulation Assistive Devices: Walker, Standard Transfers Ability Ability to Transfer In/Out of Chair: Independent Exam Narrative: Exam Narrative: Patient is in no acute distress. Head is normocephalic. Extraocular muscles are intact. Speech is fluent. Neck is supple. Heart rate and rhythm is regular. Lungs are clear to auscultation. Abdomen is soft nontender. Bilateral upper extremity strength reveal mild rotator cuff bilaterally but essential strength is 4-5 left lower extremity strength is 4/5. . Right proximal hip strength is 3+ and distal strength is 4-. Cognition. Patient's speech is fluent and intelligible. No expressive language deficit noted. No cognitive or written language deficits noted. Patient is bearing more weight through the right lower extremity. Weightshifting is improving. Rehab: Transfers are independent Patient is ambulating 150 ft with independent with a standard walker. Patient is independent with grooming she is independent with her ADLs except for tub shower transfers which are minimal assistance. We will transition to independent living tomorrow Patient is continent of bowel and bladder. Objective Data Vital Signs Vital Signs: Vital Signs - 24 hr 08/15/20 22:00 08/16/20 06:00 08/16/20 06:50 Temperature 36.2 C L 36.4 C L Pulse Rate 68 90 77 Respiratory Rate 16 18 Blood Pressure 114/47 L 172/55 H 146/60 H Pulse Oximetry 98 96 Intake/Output Intake/Output: Intake & Output 08/13/20 08/14/20 08/15/20 08/16/20 23:59 23:59 23:59 23:59 Intake Total 720 720 480 480 Balance 720 720 480 480 Meds/Results Medications: Active Medications Generic Name D
[2020-08-16] MEDS: ACETAMINOPHEN 325 MG TABLET 650 MG PO (14:55)
[2020-08-16] MEDS: ATORVASTATIN 40 MG TABLET PO (20:49)
[2020-08-16 21:56] VITALS: BP 141/52; PULSE 66; RESP 16; TEMP 36.6; O2SAT 98
[2020-08-17 08:00] VITALS: BP 110/49; PULSE 88; RESP 18; TEMP 36.3; O2SAT 97
[2020-08-17 09:02] LABS: Hematocrit 34.4 % (37.0-47.0); Mean Corpuscular Hemoglobin 27.2 pg (26-34); Mean Corpuscular Volume 84.9 fl (80-100); Mean Platelet Volume 9.7 fl (7.4-10.4); Platelet Count Result 601 k/mm3 (150-375); Red Blood Count 4.05 M/mm3 (4.2-5.4); Red Cell Distribution Width 17.9 % (11.5-14.5)
[2020-08-17 09:21] LABS: Alanine Aminotransferase 13 U/L (4-35); Albumin Level 4.2 g/dL (3.5-5.1); Alkaline Phosphatase 93 U/L (38-126); Anion Gap 9 mmol/L (8-16); Aspartate Amino Transferase 20 U/L (14-36); Bilirubin,Total 0.4 mg/dL (0.2-1.3); Blood Urea Nitrogen 17 mg/dL (7-17); Calcium 9.4 mg/dL (8.4-10.2); Carbon Dioxide 28 mmol/L (22-30); Chloride 106 mmol/L (98-107); Estimated CRCL calculation 42 ml/min; Estimated Glomerular Filt Rate > 60; Glucose 122 mg/dL (65-105); Potassium 3.2 mmol/L (3.4-5.0); Sodium 143 mmol/L (137-145)
[2020-08-17] MEDS: APIXABAN 2.5 MG TABLET PO ×2 (09:38→21:00)
[2020-08-17] MEDS: ACETAMINOPHEN 500 MG TABLET 1000 MG PO ×2 (09:38→18:02)
[2020-08-17] MEDS: PANTOPRAZOLE 40 MG TABLET PO ×2 (09:38→18:02)
[2020-08-17] MEDS: FERROUS SULFATE 324 MG TABLET PO (09:38)
[2020-08-17] MEDS: CITALOPRAM HYDROBROMIDE 20 MG TABLET 40 MG PO (09:38)
[2020-08-17] MEDS: lisinopriL 20 MG TABLET PO (09:39)
[2020-08-17] MEDS: MAGNESIUM OXIDE 400 MG TABLET PO (09:39)
[2020-08-17] MEDS: hydroCHLOROthiazide 25 MG TABLET PO (09:39)
--- NOTE | 2020-08-17 10:45 | PCPTNOTE ---
Elizabeth Johnson was evaluated for a STANDARD walker on 08/17/2020 by this physical therapist. The STANDARD walker will resolve patient's mobility limitations and will be used for ADL's within the home. The patient can safely use the STANDARD walker. ?The STANDARD walker will resolve the patient?s mobility deficits, including impaired balance, impaired strength, and impaired functional activity tolerance. Yens Otero, PT, DPT
[2020-08-17 14:00] VITALS: BP 144/58; PULSE 74; RESP 18; TEMP 36.2; O2SAT 97
--- NOTE | 2020-08-17 14:32 | WPDNEURORHBP ---
Subjective Date/time seen: 08/17/20 14:32 pa Patient complaining of diarrhea. Patient states that she is anxious and nervous and this is the cause of the diarrhea. Patient is nervous about going home and she is aware that she is independent. Family members will be with her at home. Interval history: 80-year-old female with history of hypertension, hyperlipidemia, GERD, recent GI bleed, history of CVA with right hemiplegia who was admitted to [facility] on 08/02/2020. patient had spent the night outside after taking her 8-week-old puppy outside 11:00 p.m. she fell. Daughter did not discover her till the morning. Patient was found to have a displaced subcapital right femoral fracture. Workup: Head CT no acute intracranial abnormality, chronic bilateral parietal lobe infarcts, partially calcified extra axial mass left parietal vertex measuring 1.5 cm likely benign meningioma and chronic age-related findings. Her chest CT revealed no evidence of pulmonary embolism and mild localized infiltrate or atelectasis in the lower lobes. Initial labs revealed leukocytosis, elevated AST and ALT and creatinine kinase felt to be due to rhabdomyolysis. Patient also demonstrated postop confusion felt to be due to encephalopathy Patient also experienced hyperglycemia hypocalcemia and Hypomagnesium. On 08/02 patient underwent a cemented bipolar hemiarthroplasty of the right hip by Dr. Jordan. Patient was transferred to the rehab center at [facility]. Rehab hospital course: Encephalopathy has been resolved. Hypokalemia required ongoing potassium. Potassium has been held. Current potassium level is 3.8. Appetite has improved. Will discontinue K and recheck labs prn. Pain is lessening. Patient takes the occasional oxycodone but is essentially maintained with Tylenol Discharge planning: family members and patient's initial discharge planning was to go home with line helper. Plans keep changing. Patient was to go to [place]. Current plans: home for 2 weeks then [place] Confidence is building. Patient is feeling more relaxed about going home. Patient is enjoying the frozen protein supplements. Appetite is still somewhat limited on the food trays that she receives. Review of Systems Review of Systems: All systems reviewed & are unremarkable except as noted in HPI and below Functional Status Ambulation Ability Ability to Ambulate 10 Feet: Independent Ability to Ambulate 50 Feet With 2 Turns: Independent Ability to Ambulate 150 Feet: Independent Ambulation Assistive Devices: Walker, Standard Transfers Ability Ability to Transfer In/Out of Chair: Independent Exam Narrative: Exam Narrative: Patient is in no acute distress. Head is normocephalic. Extraocular muscles are intact. Speech is fluent. Neck is supple. Heart rate and rhythm is regular. Lungs are clear to auscultation. Abdomen is soft nontender. Bilateral upper extremity strength reveal mild rotator cuff bilaterally but essential strength is 4-5 left lower extremity strength is 4/5. . Right proximal hip strength is 3+ and distal strength is 4-. Patient's speech is fluent and intelligible. No expressive language deficit noted. No cognitive or written language deficits noted. Patient is bearing more weight through the right lower extremity. Weightshifting is improving. Rehab: Transfers are independent Patient is ambulating 150 ft with independent with a standard walker. Patient is independent with grooming she is independent with her ADLs except for tub shower transfers which are SBA Patient is continent of bowel and bladder. Objective Data Vital Signs Vital Signs: Vital Signs - 24 hr 08/16/20 21:56 08/17/20 08:00 08/17/20 14:00 Temperature 36.6 C 36.3 C L 36.2 C L Pulse Rate 66 88 74 Respiratory Rate 16 18 18 Blood Pressure 141/52 H 110/49 L 144/58 H Pulse Oximetry 98 97 97 Intake/Output Intake/Output: Intake & Output 08/14/20 04/0
[2020-08-17] MEDS: ATORVASTATIN 40 MG TABLET PO (21:00)
[2020-08-17 21:27] VITALS: BP 125/39; PULSE 78; RESP 18; TEMP 36.4; O2SAT 98
[2020-08-18] MEDS: ACETAMINOPHEN 500 MG TABLET 1000 MG PO (06:48)
[2020-08-18] MEDS: hydroCHLOROthiazide 25 MG TABLET PO (08:43)
[2020-08-18] MEDS: APIXABAN 2.5 MG TABLET PO (08:43)
[2020-08-18] MEDS: CITALOPRAM HYDROBROMIDE 20 MG TABLET 40 MG PO (08:43)
[2020-08-18] MEDS: FERROUS SULFATE 324 MG TABLET PO (08:43)
[2020-08-18] MEDS: PANTOPRAZOLE 40 MG TABLET PO (08:43)
[2020-08-18] MEDS: MAGNESIUM OXIDE 400 MG TABLET PO (08:43)
[2020-08-18] MEDS: lisinopriL 20 MG TABLET PO (08:43)
--- NOTE | 2020-08-18 09:13 | PM.DS ---
DS: Admitting Diagnosis Admitting Diagnosis Admitting Diagnosis: displaced right femoral subcapital fracture DS: Discharge Diagnosis Discharge Diagnosis (1) Closed displaced fracture of right femoral neck: Code(s): S72.001A - Fracture of unspecified part of neck of right femur, initial encounter for closed fracture Status: Acute Assessment and Plan: PTOT (2) Rhabdomyolysis: Qualifiers: Encounter type: initial encounter Rhabdomyolysis type: traumatic Qualified Code(s): T79.6XXA - Traumatic ischemia of muscle, initial encounter Code(s): M62.82 - Rhabdomyolysis Status: Acute Assessment and Plan: resolved. Labs back to normal. Cognition improved to baseline (3) Acute blood loss anemia: Code(s): D62 - Acute posthemorrhagic anemia Status: Acute Assessment and Plan: add iron supplement. Hemoglobin is now 11 (4) Right hemiplegia: Code(s): G81.91 - Hemiplegia, unspecified affecting right dominant side Status: Acute Assessment and Plan: OT PT ST to assess and treat for maximum recovery following fall. No further need for Speech. (5) Hypertension: Qualifiers: Hypertension type: essential hypertension Qualified Code(s): I10 - Essential (primary) hypertension Code(s): I10 - Essential (primary) hypertension Status: Acute Assessment and Plan: Lisinopril 20 mg daily HCTZ 25mg daily She has been trending high but this may be due to pain. Will follow. BP better today Highest BP occurs at 5 am. Will see if BP is lower after 7 am. Patient may be startled and this may be an inaccurate reading. Patient BP fluctuated again this morning but will not change meds for now. Patient is highly anxious in the morning. (6) Hypokalemia: Code(s): E87.6 - Hypokalemia Status: Acute Assessment and Plan: Patient has been off K supplement .K level has dropped to 3.2 Will resume low dose K but will need ongoing follow up PCP (7) Encephalopathy: Code(s): G93.40 - Encephalopathy, unspecified Status: Acute Assessment and Plan: Cognition is now at baseline. Speech will re eval with D/C (8) Nutrition impaired due to imbalance of nutrients: Code(s): E63.9 - Nutritional deficiency, unspecified Status: Acute Assessment and Plan: Add Ensure. Appetite better (9) Gastric ulcer: Code(s): K25.9 - Gastric ulcer, unspecified as acute or chronic, without hemorrhage or perforation Status: Acute Assessment and Plan: Pantoprazole 40 mg b.i.d. with meals DS: Summary Hospital Course Hospital Course: The patient's primary rehab impairment category is Orthopedic lower extremity The etiologic diagnosis is displaced right femoral subcapital fracture I saw this patient [id number] on 08/05/2020 The patient is a 80-year-old female with hypertension, hyperlipidemia, GERD, recent GI bleed, and a history of a stroke with right hemiplegia who was admitted to [facility] on 08/02/2020 via EMS. The patient had taken out her new 8-week-old puppy outside at 11:00 p.m. and fell. She was unable to get back into the house and her daughter discovered her the next morning. Patient was then taken to [facility] a hip and pelvis x-ray revealed a displaced subcapital right femoral fracture. Workup: Head CT no acute intracranial abnormality,, chronic bilateral parietal lobe infarctions, partially calcified extra-axial mass left parietal vertex measuring 1.5 cm likely benign meningioma, and chronic age-related findings. Initial labs revealed leukocytosis elevated AST ALT creatinine kinase felt to be due to rhabdomyolysis, hyperglycemia, hypocalcemia, hypo magnesium, On 08/02/2020 the patient underwent a cemented bipolar hemiarthroplasty of the right hip by Dr Jordan. Patient was still requiring oxygen despite chest x-ray being normal. His chest CTA revealed no evidence of
[2020-08-18 14:00] VITALS: BP 137/56; PULSE 79; RESP 20; TEMP 36.2; O2SAT 97
[2020-08-18] MEDS: ACETAMINOPHEN 325 MG TABLET 650 MG PO (15:25)
== END 2020-08-18 16:30 | disposition home health service (06) | DRG 560 ==
PROVIDERS: Admitting Provider Physical Medicine & Rehabilitation; PCP Family Medicine; Visit Provider Physical Medicine & Rehabilitation
DX: Z47.1 Aftercare following joint replacement surgery (principal); I69.351 Hemiplegia and hemiparesis following cerebral infarction affecting right dominant side; S72.011D Unspecified intracapsular fracture of right femur, subsequent encounter for closed fracture with routine healing; T79.6XXD Traumatic ischemia of muscle, subsequent encounter; W19.XXXD Unspecified fall, subsequent encounter; E87.6 Hypokalemia; E78.5 Hyperlipidemia, unspecified; E83.42 Hypomagnesemia; F41.9 Anxiety disorder, unspecified; I10 Essential (primary) hypertension; K21.9 Gastro-esophageal reflux disease without esophagitis; K25.9 Gastric ulcer, unspecified as acute or chronic, without hemorrhage or perforation; Z96.641 Presence of right artificial hip joint
CPT/HCPCS: 36415; 80048; 80053; 82550; 83735; 84132; 85025; 85027; 92507; 92523; 97110; 97116; 97161; 97166; 97530; 97535; 97542; A9270

== ENCOUNTER 2021-08-05 20:32 | Emergency (ER) | payer MEDICARE, SELFPAY ==
--- NOTE | ~2021-08-05 | CT_ITS ---
EXAMINATION: CT brain wo con EXAM DATE: 08/05/2021 21:54 INDICATION: Head injury TECHNIQUE: Spiral CT of the head was performed without contrast. Axial, coronal and sagittal images were reviewed. The dose-length product (DLP) for this examination was 605.33 mGy-cm. The exposure w as tailored according to patient size, and iterative reconstruction (ASIR) was used as additional dos e reduction technique. Comparison is made to prior examination from 08/02/2020. FINDINGS: There is no acute intraparenchymal hemorrhage. No evidence of intraparenchymal brain mass lesion. No evidence of acute infarction. Please note that initial head CT has limited sensitivity f or small or acute infarctions. Calcified meningioma at the left vertex unchanged. There is mild to moderate periventricular and subcortical hypodensity, nonspecific but probably related to small vesse l ischemic disease. There is prominence of the sulci and ventricles related to cerebral atrophy. There is intracranial carotid arteriosclerosis. There are no extra-axial collections. There is no m ass effect or midline shift. There is left orbital inferior orbital wall repair. There is large right posterior scalp hematoma, laceration. The visualized sinuses and mastoid air cells are well aerated. IMPRESSION: 1. Large right posterior scalp contusion. Laceration. No underlying fracture. No acute intracranial findings. 2. Chronic age related findings. 3. Chronic meningioma unchanged. Reviewed, dictated and finalized at location .
--- NOTE | ~2021-08-05 | CT_ITS ---
EXAMINATION: CT cervical spine wo con EXAM DATE: 08/05/2021 22:02 INDICATION: Head injury. TECHNIQUE: Spiral CT of the cervical spine was performed without contrast. Axial images were reviewe d. Coronal and sagittal reformatted images cervical spine were also reviewed. The dose-length produc t (DLP) for this examination was 265.98 mGy-cm. The exposure was tailored according to patient size (auto mA exposure control), and iterative reconstruction (ASIR) was used as additional dose reduction technique. There is no prior study for comparison. FINDINGS: There is no evidence of acute cervical fracture. The odontoid process is intact. Pre-dens space is normal. Prevertebral soft tissue is normal. There are no soft tissue abnormalities identi fied. There is no disc space widening or traumatic vertebral body subluxation suspected. There are large cervical thoracic endplate osteophytes. There is advanced left-sided facet arthropathy. Moderat e lower cervical disc disease. A detailed level by level evaluation of spondylosis can be added as a ddendum if requested. IMPRESSION: No acute cervical fracture. Spondylosis. Reviewed, dictated and finalized at location G.
[2021-08-05 20:40] VITALS: BP 154/67; PULSE 95; RESP 16; TEMP 36.1; O2SAT 99
--- NOTE | 2021-08-05 21:28 | ED.HEATRA ---
HPI - Head Injury General Chief complaint: Head Injury Stated complaint: fall, struck head Time Seen by Provider: 08/05/21 21:15 Source: patient Mode of arrival: EMS Limitations: no limitations History of Present Illness HPI Narrative: Patient is an 81-year-old female brought in by EMS complaining of head injury after she fell backwards at home. Patient states that she missed a step on her porch fell backwards landing on the back of her head. Patient denies any symptoms prior to the fall. Patient denies any loss of consciousness. Patient denies any neck, chest, back, abdomen, pelvis, hip or any extremity pain/injury. Patient states that she was able to call her neighbor to help her up and that is when they called EMS after. Patient currently denies any pain, I am surprised I am not in any pain . Related Data Home Medications Medication Instructions Recorded Confirmed atorvastatin 40 mg PO HS 01/12/20 08/05/20 citalopram 40 mg PO DAILY 01/12/20 08/05/20 lisinopril-hydrochlorothiazide 1 tablet PO DAILY 01/12/20 08/05/20 Allergies Allergy/AdvReac Type Severity Reaction Status Date / Time No Known Drug Allergies Allergy Unknown Unknown Verified 08/05/21 20:46 Review of Systems Review of Systems: All systems reviewed & are unremarkable except as noted in HPI and below Constitutional: Constitutional: Denies body ache(s), Denies chills, Denies excessive sweating, Denies fatigue, Denies fever(s), Denies headache(s), Denies lethargy, Denies malaise, Denies weakness and Denies weight loss Eyes: Eyes: Denies blurry vision, Denies change in vision and Denies loss of vision ENT: Denies dizziness, Denies ear discharge, Denies headache(s), Denies lip swelling, Denies epistaxis, Denies nasal congestion, Denies neck pain, Denies throat swelling and Denies tongue swelling Cardiovascular: Cardiovascular: Denies chest pain, Denies chest pain at rest, Denies chest pain with activity, Denies diaphoresis, Denies rapid heart rate, Denies edema, Denies irregular heart rhythm, Denies lightheadedness, Denies palpitations, Denies dyspnea and Denies dyspnea on exertion Respiratory: Respiratory: Denies chest congestion, Denies cough, Denies hemoptysis, Denies dyspnea and Denies dyspnea on exertion Gastrointestinal: Gastrointestinal: Denies abdominal pain, Denies melena, Denies hematochezia, Denies diarrhea, Denies nausea, Denies vomiting and Denies hematemesis Musculoskeletal: Musculoskeletal: Denies abnormal gait, Denies deformity, Denies joint swelling, Denies limited range of motion, Denies neck pain and Denies numbness Neurologic: Denies Abnormal speech present, Denies abnormal gait, Denies confusion, Denies dizziness, Denies headache(s), Denies focal weakness, Denies loss of vision, Denies numbness, Denies Other visual disturbances, Denies Sensory deficit (Neuro) and Denies weakness Psychiatric: Psychiatric: Denies confusion, Denies depression, Denies auditory hallucinations, Denies homicidal ideation and Denies suicidal ideation Endocrine: Endocrine: Denies cold intolerance, Denies excessive sweating, Denies fatigue, Denies heat intolerance and Denies palpitations Hematologic/Lymphatic: Hematologic/Lymphatic: Denies easy bleeding and Denies easy bruising Allergic/Immunologic: Allergic/Immunologic: Denies lip swelling, Denies throat swelling and Denies tongue swelling PMFSH Past Medical History Medical History Acute blood loss anemia Cerebrovascular accident (~2012) Gastric ulcer Gastroesophageal reflux disease History of gastric ulcer Hyperlipidemia Hypertension Right hemiplegia Surgical History Surgical History History of ankle surgery (~2001) ORIF ankle fracture. History of bunionectomy of right great toe History of cataract extraction History of cholecystectomy (~1999) History of facial surgery (~2013) Repair of left orbi
[2021-08-05 22:22] LABS: Basophils Absolute Auto 0.1 K/mm3 (0.0-0.1); Basophils Percent Auto 0.3 % (0.2-1.2); Eosinophils Percent Auto 0.1 % (0-4.4); Hematocrit 36.2 % (37.0-47.0); Hemoglobin 12.1 g/dL (12.0-15.0); Immature Granulocyte Absolute 0.07 K/mm3 (0.00-0.031); Immature Granulocyte Percent A 0.4 % (0-0.5); Lymphocytes Absolute Auto 1.33 K/mm3 (0.9-3.2); Lymphocytes Percent Auto 8.5 % (18.3-44.2); Mean Corpuscular HGB Conc 33.4 g/dl (32-36); Mean Corpuscular Hemoglobin 28.5 pg (26-34); Mean Corpuscular Volume 85.2 fl (80-100); Monocytes Percent Auto 6.5 % (2.6-8.5); Neutrophils Absolute Auto 13.1 K/mm3 (1.3-6.7); Neutrophils Percent Auto 84.2 % (45.5-73.1); Platelet Count Result 255 k/mm3 (150-375); Red Blood Count 4.25 M/mm3 (4.2-5.4); Red Cell Distribution Width 15.5 % (11.5-14.5); White Blood Count 15.6 K/mm3 (4.5-10.0)
[2021-08-05 22:32] LABS: Anion Gap 8 mmol/L (8-16); Blood Urea Nitrogen 14 mg/dL (7-17); Calcium 9.2 mg/dL (8.4-10.2); Carbon Dioxide 28 mmol/L (22-30); Chloride 101 mmol/L (98-107); Estimated CRCL calculation 46 ml/min; Estimated Glomerular Filt Rate > 60; Glucose 156 mg/dL (65-110); Potassium 3.3 mmol/L (3.4-5.0); Sodium 137 mmol/L (137-145)
[2021-08-05] MEDS: HYDROGEN PEROXIDE 3% SOLN(*SP) 473 ML BOTTLE IRRIGATION (22:51)
[2021-08-05] MEDS: LACTATED RINGERS 1,000 ML 500 ML IV CONT (22:52)
[2021-08-06] MEDS: ACETAMINOPHEN 325 MG TABLET 650 MG PO (00:01)
[2021-08-06] MEDS: POTASSIUM CHLORIDE 20 MEQ PACKET (FOR LIQUID) 40 MEQ PO (00:02)
[2021-08-06 00:36] VITALS: PULSE 76; RESP 18; O2SAT 98
== END 2021-08-06 00:37 | disposition home or self-care (01) ==
PROVIDERS: Emergency Provider Emergency Medicine; PCP Family Medicine
DX: S01.01XA Laceration without foreign body of scalp, initial encounter (principal); E78.5 Hyperlipidemia, unspecified; I10 Essential (primary) hypertension; G81.91 Hemiplegia, unspecified affecting right dominant side; K21.9 Gastro-esophageal reflux disease without esophagitis; Z98.49 Cataract extraction status, unspecified eye; Z86.73 Personal history of transient ischemic attack (TIA), and cerebral infarction without residual deficits; Z66 Do not resuscitate; M47.812 Spondylosis without myelopathy or radiculopathy, cervical region; W10.9XXA Fall (on) (from) unspecified stairs and steps, initial encounter
CPT/HCPCS: 12002; 36415; 70450; 72125; 80048; 85025; 96360; 96361; 99284; A9270; J7120

== ENCOUNTER 2024-12-09 14:23 | Outpatient (CLI) | payer MEDICARE, SELFPAY ==
--- OUTSIDE RECORDS SUMMARY | 2024-12-09 14:31 | XMS_ITS | Clinical Summary ---
Author Organization [facility] Address [address] [place] [address] Phone Care Team Providers Care Lumber Yard Worker Name Role Phone Laina Duran Primary Care Provider [phone] Allergies Active Allergy Reactions Criticality Noted Date Comments Risedronate Other (See Comments) 09/14/2014 Flu like reaction Medications CALCIUM CARBONATE/VITAMIN D3 (CALCIUM + D ORAL) Take by mouth. 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 (CMS/HCC),History of cerebrovascular accident TAKE 1 TABLET BY MOUTH EVERY DAY 100 Tablet 3 09/02/19 25 Active Active Problems Problem Noted Date Diagnosed Date History of cerebrovascular accident 03/08/2015 Osteopenia 07/06/2014 Risk for falls 11/12/2013 Hemiplegia 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 She was in [place] at that time and so her surgeon is over there, she has a follow up in the near future Impacted cerumen 06/28/2007 12/07/2008 Herpes zoster without mention of complication 04/27/20 06 12/14/2009 Routine general medical exam ination at a health care facility 04/09/2006 12/07/2008 Need for prophylactic vaccin ation and inoculation against influenza 04/09/2006 12/07/2008 Need for prophylactic vaccin ation against Streptococcus pneumoniae (pneumococcus) 04/09/2006 12/07/2008 Family history of ischemic heart disease 04/09/2006 01/27/2011 Family history of malignant neoplasm of breast 04/09/2006 01/27/2011 Edema 04/09/2006 02/26/2013 Family history of other card iovascular diseases(V17.49) 01/14/2004 01/27/2011 Overview (06/08/2010): Updating IMO/ICD9 Code and Description Other bursitis disorders 12/30/2002 Encounters Date Type Department Care Team Description 10/21/2024 External Device Data STL ABSTRACTION Provider, Abstract from Last 3 Months Immunizations Immunization Administration Dates Next Due (ADACEL/BOOSTRIX)(10 YR UP) TDAP VACCINE, 0.5ML, IM 02/26/2012 (COMIRNATY)(12 YR UP) COVID- 19 VACCINE, MRNA, SPIKE PROTEIN, LNP, MARY JO(PF) 30 MCG/0.3 ML IM SUSP 06/09/2024 (PNEUMOVAX 23)(50 YRS UP) PN EUMOCOCCAL POLYSACCHARIDE (PPV23) 0.5 ML, IM 09/28/2011,04/09/2006 (PREVNAR 13)(6 WKS UP) PNEUM OCOCCAL CONJUGATE (PCV13) 0.5 ML, IM 03/08/2015 (SHINGRIX)(50 YRS UP) ZOSTER VACCINE RECOMBINANT, 0.5 ML, IM 07/17/2019,03/05/2019,07/18/2018 INFLUENZA VACCINE HIGH DOSE QUADRIVALENT 65 YR UP PF IM 02/16/2022,03/10/2021 INFLUENZA VACCINE QUADRIVALE NT 6 MOS UP PF IM 05/16/2023 INFLUENZA VACCINE QUADRIVALE NT ADJ 65 YR UP PF IM 02/27/2020 Influenza Seasonal Unspecifi ed Formulation IM 03/25/2017,02/22/2015 Influenza Vaccine High Dose 65+ Yrs IM 9,03/23/2017 Influenza Vaccine Split 3+ Yrs IM 2015,03/03/2014,02/26/2013,02/25,01/27/2011,04/09/2006 Influenza Vaccine Tri Adjuva nted 65+ PF IM 02/06/2018 Varicella Zoster Immune Glob ulin IM Patient Supplied 01/27/2011 Family History Medical History Relation Name Comments No Known Problems Daughter 1 Breast Cancer Daughter 2 Pancreatic Cancer Father Coronary Artery Disease Mother Heart Disease Mother Cancer Other Multiple aunts and uncles/Aunt with stomach cancer Breast Cancer Sister 1 Hypertension Sister 1 Heart Failure Sister 2 Ovarian Cancer Neg Hx Relation Name Status Comments Daughter 1 Alive Daughter 2 Alive Father Mother Other Sister 1 Alive Sister 2 Alive Social History Tobacco Use Types Packs/Day Years Used Date Smoking Tobacco: Never Smokeless Tobacco: Never Tobacco Cessation:Counseling Given: Not Answered Alcohol Use Standard Drinks/Week Comments Yes 14 (1 standard drink = 0.6 oz pu re alcohol) Comments No Sex and Gender Information Value Date Recorded Sex Assigned at Not on file Legal Sex Female 3:53 AM MARKETING AGENT Gender Identity Not on file Sexual Orientation Not on file Occupation Industry Job Start Date Job End Date retired Not on file Not on file Not on file Not on file Not on file Not on file Not on file Last Filed Vital Signs Vital Sign Reading Time Taken Comments Blood Pressure 138/78 06/09/2024 1:33 PM MARKETING AGENT Pulse 86 06/09/2024 1:33 PM MARKETING AGENT Temperature 35.8 C (96.4 F) 06/09/2024 1:33 PM MARKETING AGENT Respiratory Rate 10 05/16/2023 1:38 PM MARKETING AGENT Oxygen Saturation 96% 06/09/2024 1:33 PM MARKETING AGENT Inhaled Oxygen Concentration - - Weight 60.9 kg (134 lb 3.2 oz) 06/09/2024 1:33 P M MARKETING AGENT Height 154.9 cm (5' 1) 06/09/2024 1:33 PM MARKETING AGENT Body Mass Index 25.36 06/09/2024 1:33 PM MARKETING AGENT Plan of Treatment Upcoming Encounters Date Type Department Care Team (Late st Contact Info) Description 02/20/2025 11:30 AM CDT Office Visit [facility] Internal Medicine Medical [place] [facility] [address] [place] [address] Laina Duran, [address] [facility] [place] [address] Health Maintenance Due Date Last Done Comments RSV VACCINE (60+ or ) (1 - 1-dose 75+ series) 2014 DTAP/TDAP/TD VACCINES (2 - T d or Tdap) 02/25/2022 02/26/2012 COVID-19 Vaccine (2 - 2023-2 5 season) 2024 06/09/2024 INFLUENZA VACCINE (#1) 2024 , 05/16/2023, 02/16/2022, Additional history exists Traditional Medicare (ACO) A nnual Wellness Visit 06/10/2025 06/09/2024, 05/16/2023, 03/10/2021, Additional history exists OSTEOPOROSIS SCREENING 12/29/2027 3, 11/22/2020, 12/13/2017, Additional history exists FIT/FOBT Q 1 year Discontinued 07/13/2011, , 12/30/2002, Additional history exists PNEUMOCOCCAL VACCINE 50+ YEARS Completed 1 , 09/28/2011, 04/09/2006 COLORECTAL SCREENING Discontinued 01/03/2017, 01/03/2017, 12/07/2006 Colorectal Cancer Screening Discontinued ZOSTER VACCINE Completed 07/17/2019, 02/12, 07/18/2018 FIT-DNA Q 3 years Discontinued Flex Sig/CT Colonography Q 5 years Discontinued Procedures Procedure Name Priority Date/Time Associated Diagnosis Comments XR DEXA BONE DENSITY AXIAL 1 OR MORE SITES Routine 12/28/2022 10:59 AM CDT Osteopenia, unspecified location Postmenopausal ENDOSCOPY, COLON, SCREENING Routine 01/03/2017 POC OCCULT BLOOD 1 CARD Routine 07/13/2011 Screening for malignant neoplasm of the rectum from Last 3 Months or Most Recently Relevant to Health Maintenance Results * XR DEXA BONE DENSITY AXIAL 1 OR MORE SITES (12/28/2022 10:59 AM CDT) Anatomical Region Laterality Modality Digital Radiogra phy 12/28/2022 11:0 8 AM CDT Impressions 12/28/2022 11:33 AM CDT IMPRESSION: This is a summary page. Please refer to the complete detailed report found in the Imaging Section of the [facility] EMR. Osteopenia. Lumbar Spine: t-Score: 1.0 Left Femoral Neck: t-Score: -1.8 Left Total Femur: t-Score: -1.2 Left Forearm: t-Score: -2.0 Statistical change: Significant decrease of 5.3 % in Left femoral neck BMD since 2020. Significant decrease of 5.5 % in Left forearm BMD since 2020. FRAX FRACTURE RISK ASSESSMENT: (Only valid Between 40-89 Years Of Age) Risk factors: History of fracture as an adult. 10 Year Probability Of Fracture Major Osteoporotic: 21.4 % Hip: 5.8 % Comparison population: [place], Race: White A major osteoporotic fracture is defined as a fracture of the spine, forearm, hip or shoulder. Definitions: Normal: T-score above -1.0 Osteopenia T-score less than -1.0 and above -2.5 Osteoporosis: T-score <= -2.5 Follow-up Recommendations: Patients without high risk factors for osteoporosis T-score -1.0 to -1.5 - Consider repeat BMD in 5-10 years T-score -1.5 to - 2.0 - Consider repeat BMD in 3-5 years T-score -2.0 to - 2.5 - Consider repeat BMD every 2 years Patients on treatment for osteoporosis 1-2 years after initiation of treatment and every 2 years thereafter D[address] Dr[address] Carlin Avalos MD DICTATION LOCATION: 12/28/2022 11:33 AM CDT EXAMINATION: BONE DENSITY STUDY (DXA) DATE: 12/28/2022 10:59 AM HISTORY: 82 years Female. Postmenopausal. Right hip replacement. PROCEDURE: Planar images of the lumbar spine, hip(s) and forearm(s) using a LUNAR DEXA scanner for bone mineral density determination (BMD). Prior bone density: 11/22/2020 FINDINGS: Lumbar Spine (L1-L2): t-Score: 1.0 1.285 g/sq cm Prior: 1.249 g/sq cm Left Femoral Neck: t-Score: -1.8 0.793 g/sq cm Prior: 0.837 g/sq cm Left Total Femur: t-Score: -1.2 Left 33% Radius: t-Score: -2.0 0.701 g/sq cm Prior: 0.742 g/sq cm INCIDENTAL FINDINGS: L3-L4 excluded bcause of statistical variation.. Procedure Note Carlin Avalos MD - 12/28/2022 EXAMINATION: BONE DENSITY STUDY (DXA) DATE: 12/28/2022 10:59 AM HISTORY: 82 years Female. Postmenopausal. Right hip replacement. PROCEDURE: Planar images of the lumbar spine, hip(s) and forearm(s) using a LUNAR DEXA scanner for bone mineral density determination (BMD). Prior bone density: 11/22/2020 FINDINGS: Lumbar Spine (L1-L2): t-Score: 1.0 1.285 g/sq cm Prior: 1.249 g/sq cm Left Femoral Neck: t-Score: -1.8 0.793 g/sq cm Prior: 0.837 g/sq cm Left Total Femur: t-Score: -1.2 Left 33% Radius: t-Score: -2.0 0.701 g/sq cm Prior: 0.742 g/sq cm INCIDENTAL FINDINGS: L3-L4 excluded bcause of statistical variation.. IMPRESSION: This is a summary page. Please refer to the complete detailed report found in the Imaging Section of the [facility] EMR. Osteopenia. Lumbar Spine: t-Score: 1.0 Left Femoral Neck: t-Score: -1.8 Left Total Femur: t-Score: -1.2 Left Forearm: t-Score: -2.0 Statistical change: Significant decrease of 5.3 % in Left femoral neck BMD since 2020. Significant decrease of 5.5 % in Left forearm BMD since 2020. FRAX FRACTURE RISK ASSESSMENT: (Only valid Between 40-89 Years Of Age) Risk factors: History of fracture as an adult. 10 Year Probability Of Fracture Major Osteoporotic: 21.4 % Hip: 5.8 % Comparison population: [place], Race: White A major osteoporotic fracture is defined as a fracture of the spine, forearm, hip or shoulder. Definitions: Normal: T-score above -1.0 Osteopenia T-score less than -1.0 and above -2.5 Osteoporosis: T-score <= -2.5 Follow-up Recommendations: Patients without high risk factors for osteoporosis T-score -1.0 to -1.5 - Consider repeat BMD in 5-10 years T-score -1.5 to - 2.0 - Consider repeat BMD in 3-5 years T-score -2.0 to - 2.5 - Consider repeat BMD every 2 years Patients on treatment for osteoporosis 1-2 years after initiation of treatment and every 2 years thereafter D[address] Dr[address] Carlin Avalos MD DICTATION LOCATION: 1 us Laina Duran DO DIAGNOSTIC IMAGING ORDERABLES Final Result * ENDOSCOPY, COLON, SCREENING (01/03/2017) us Laina Duran DO GI PROCEDURE ORDERABLES Final Result [facility], KARAN JIMENEZIA# [id number] [address] [address] * POC OCCULT BLOOD 1 CARD (07/13/2011) OCCULT BLOOD #1 Negative [facility] Stool specimen (specimen) Julieta Brock MD POINT OF CARE TESTING Final Result [facility] from Last 3 Months or Most Recently Relevant to Health Maintenance Insurance MEDICARE PART A AND B [facility] [employer] Medicare Part D Advance Directives For more information, please contact: [phone] * Full Code (Latest Code Status on File) Date Activated Date Inactivated Comments 09/27/2013 2:49 PM 09/29/2013 7:30 PM Care Teams Lumber Yard Worker Relationship Specialty Start Date End Date Laina Duran DO [address] [place] [id number] PCP - General Internal Medicine 03/08/15 NO DME 03/05/19
--- OUTSIDE RECORDS SUMMARY | 2024-12-09 14:31 | XMS_ITS | Continuity of Care Document ---
Author Organization [facility] Address [address] [place] [address] Phone Care Team Providers Care Educational Administration Teacher Name Role Phone David Appiah Unavailable Unavailable Advance Directives Directive Yes / No Effective Date File Name No Information Encounters Encounter Description Practice Location Reason(s) For Visit Diagnoses Date Provider Providers Copied on Encounter Merged with [facility], [id number] [place] [address] [address], [place], [place], [id number], [place] tel:[phone] [facility] No Information [address] , [address], [place], [address], [place]. tel:[phone] Family History Family Member Type Diagnosis Age At Onset No Information Payers Payer name Insurance type Covered green party ID Authoriza tion(s) No Information Social History Type Description Quantity Date Captured Comments Sex Female Smoking Status No Information Chief Complaint And Reason For Visit No Information Reason For Referral Reason For Referral No Information History Of Present Illness Encounter Date Complaint History Of Prese nt Illness No Information Functional Status Date Functional Assessmen t No Information Instructions Date Instruction Additional Infor mation No Information Assessments Type Assessment Date No Information Patient Care Teams Name Effective Dates (start - stop) Status Members No Information
--- OUTSIDE RECORDS SUMMARY | 2024-12-09 14:31 | XMS_ITS | Clinical Summary ---
Author Organization [facility] [place] [address] Address [address] [place] [address] Care Team Providers Care Mortgage Collector Name Role Phone Unknown, Notinfile Primary Care Provider Unavail able Allergies Active Allergy Reactions Criticality Noted Date Comments Risedronate Other (See comments) Low 09/14/2014 Flu like reaction Medications No known medications Active Problems No known active problems Immunizations Immunization Administration Dates Next Due Influenza, Quadrivalent, Hig h Dose, Preservative Free, Intrr 02/16/2022 Social History Tobacco Use Types Packs/Day Years Used Date Smoking Tobacco: Never Assessed Comments Unknown Sex and Gender Information Value Date Recorded Sex Assigned at Not on file Legal Sex Female 5:02 AM BUILDING 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 Gender Identity Not on file Sexual Orientation Not on file Obstetrics History Last Filed Vital Signs Vital Sign Reading Time Taken Comments Blood Pressure 140/72 09/08/2021 7:16 PM CDT Pulse 81 09/08/2021 6:43 PM CDT Temperature 36.9 C (98.5 F) 09/08/2021 6:43 PM CDT Respiratory Rate 14 09/08/2021 6:43 PM CDT Oxygen Saturation 100% 09/08/2021 6:43 PM CDT Inhaled Oxygen Concentration - - Weight 62.6 kg (138 lb) 09/08/2021 6:43 PM CDT Height 154.9 cm (5' 1) 09/08/2021 6:43 PM CDT Body Mass Index 26.07 09/08/2021 6:43 PM CDT Plan of Treatment Health Maintenance Due Date Last Done Comments Depression Screening 1940 Fall Risk Assessment 1940 Osteoporosis Screening-Bone Density Scan 1940 Hepatitis B Screening 1957 Well Visit 65+ 2004 DTaP/Tdap/Td Vaccine (2 - Td or Tdap) 02/25/2022 02/26/2012 Covid-19 Vaccine (4 2023-2 5 season) 2024 03/29/2021, 07/20/2020, 06/22/2020 Influenza Vaccine (#1) 2025 , 02/27/2020, 03/05/2019, Additional history exists Pneumococcal vaccine 65+ Completed 015, 09/28/2011, 04/09/2006 Zoster Vaccine Completed 07/17/2019, 02/12, 07/18/2018 Insurance MEDICARE [facility] Care Teams Mortgage Collector Relationship Specialty Start Date End Date Unknown, Notinfile PCP - General 09/08/21
--- OUTSIDE RECORDS SUMMARY | 2024-12-09 14:31 | XMS_ITS | Referral Summary ---
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
--- OUTSIDE RECORDS SUMMARY | 2024-12-09 14:32 | XMS_ITS | Encounter Summary ---
Author Organization [facility] Address [address] [place] [address] Care Team Providers Care Hand Tool Lapper Name Role Phone Laina Duran DO Primary Care Provider [phone] Encounter Details Date Type Department Care Team (Late st Contact Info) Description 03/06/2000 Outpatient Historical [facility] Internal Medicine - [place] [address] [place] [address] [place] [address] [place] [address] Social History Tobacco Use Types Packs/Day Years Used Date Smoking Tobacco: Never Assessed Comments Unknown Sex and Gender Information Value Date Recorded Sex Assigned at Not on file Legal Sex Female 3:53 AM LIGHTING TECHNICIAN Gender Identity Not on file Sexual Orientation Not on file documented as of this encounter Plan of Treatment Upcoming Encounters Date Type Department Care Team (Late st Contact Info) Description 02/20/2025 11:30 AM CDT Office Visit [facility] Internal Medicine Medical [place] [address] [facility] [facility] [address] [address] Laina Duran DO [address] [facility] [facility] [address] [place] [address] documented as of this encounter Visit Diagnoses Not on filedocumented in this encounter Care Teams Hand Tool Lapper Relationship Specialty Start Date End Date Laina Duran DO [address] [place] [address] PCP - General Internal Medicine 03/08/15 NO DME 03/05/19 documented as of this encounter
--- OUTSIDE RECORDS SUMMARY | 2024-12-09 14:32 | XMS_ITS | Encounter Summary ---
Author Organization [facility] Address [address] [place] [address] Care Team Providers Care Drilling Field Operator Name Role Phone Laina Duran DO Primary Care Provider [phone] Encounter Details Date Type Department Care Team (Late st Contact Info) Description 06/28/2007 Outpatient Historical [facility] Internal Medicine [facility] [address] [facility] [address] [address] Kandy Schulz MD Social History Tobacco Use Types Packs/Day Years Used Date Smoking Tobacco: Never Assessed Comments Unknown Sex and Gender Information Value Date Recorded Sex Assigned at Not on file Legal Sex Female 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 Gender Identity Not on file Sexual Orientation Not on file documented as of this encounter Plan of Treatment Upcoming Encounters Date Type Department Care Team (Late st Contact Info) Description 02/20/2025 11:30 AM CDT Office Visit [facility] Internal Medicine [facility] [address] [address] Laina Duran DO [address] [facility] [address] [place] [address] documented as of this encounter Visit Diagnoses Not on filedocumented in this encounter Care Teams Drilling Field Operator Relationship Specialty Start Date End Date Laina Duran DO [address] [facility] [facility] [address] [place] [address] PCP - General Internal Medicine 03/08/15 NO DME 03/05/19 documented as of this encounter
--- OUTSIDE RECORDS SUMMARY | 2024-12-09 14:32 | XMS_ITS | Encounter Summary ---
Author Organization [facility] Address [address] [place] [address] Care Team Providers Care Shrinking Machine Operator Name Role Phone Laina Duran DO Primary Care Provider [phone] Encounter Details Date Type Department Care Team (Latest Contact Info) Description 11/03/1998 Outpatient Historical HIS [facility] AVRIL Avila, Candi Ferreira MD NO ADDRESS ON FILE Other screening mammogram (Primary Dx) Social History Tobacco Use Types Packs/Day Years Used Date Smoking Tobacco: Never Assessed Comments Unknown Sex and Gender Information Value Date Recorded Sex Assigned at Not on file Legal Sex Female 3:53 AM PRACTICE MANAGEMENT CONSULTANT Gender Identity Not on file Sexual Orientation Not on file documented as of this encounter Plan of Treatment Upcoming Encounters Date Type Department Care Team (Late st Contact Info) Description 02/20/2025 11:30 AM CDT Office Visit [facility] Internal Medicine Medical [place] [address] [address] Laina Duran DO [address] [place], [place] [id number] documented as of this encounter Visit Diagnoses Diagnosis Other screening mammogram- Primary documented in this encounter Care Teams Shrinking Machine Operator Relationship Specialty Start Date End Date Laina Duran DO [address] [place] [address] PCP - General Internal Medicine 03/08/15 NO DME 03/05/19 documented as of this encounter
--- OUTSIDE RECORDS SUMMARY | 2024-12-09 14:32 | XMS_ITS | Encounter Summary ---
Author Organization [facility] Address [address] [place] [address] Care Team Providers Care Curing Room Supervisor Name Role Phone Laina Duran DO Primary Care Provider [phone] Encounter Details Date Type Department Care Team (Latest Contact Info) Description 07/01/2008 Outpatient Historical HIS [facility] AV[facility] Avila, Candi Ferreira MD NO ADDRESS ON FILE Other Screening Mammogram Social History Tobacco Use Types Packs/Day Years Used Date Smoking Tobacco: Never Assessed Comments Unknown Sex and Gender Information Value Date Recorded Sex Assigned at Not on file Legal Sex Female 3:53 AM PELLETIZER Gender Identity Not on file Sexual Orientation Not on file documented as of this encounter Plan of Treatment Upcoming Encounters Date Type Department Care Team (Late st Contact Info) Description 02/20/2025 11:30 AM CDT Office Visit [facility] Internal Medicine Medical [place] A [facility] [address] [address] Laina Duran DO [address] [place] [address] documented as of this encounter Procedures Procedure Name Priority Date/Time Associated Diagnosis Comments MAMMO SCREEN BILAT W OR WO CAD Routine 07/01/2008 10:04 AM PELLETIZER documented in this encounter Results * MAMMO DIGITAL SCREEN BILAT (07/01/2008 10:04 AM PELLETIZER) Anatomical Region Laterality Modality Breast Bilateral Other 07/01/2008 10:0 4 AM PELLETIZER Narrative 07/02/2008 7:40 AM PELLETIZER [place] [address] [place], [place] [address] Admit Date: 07/01/2008 ELIZABETH GODFREY Sex: F Admit Prov: CANDI AVILA Date: 1940 Primary Care Prov: LILIYA MURRAY CMRN: [id number] [facility]: [id number] IMAGING SERVICES Ordering Prov: CANDI AVILA Accession Number: [id number] Interpretation BILATERAL FULL FIELD DIGITAL SCREENING MAMMOGRAM WITH CAD. Date: 07/01/08 History: Routine Screening. Technique: Full field digital craniocaudal and mediolateral oblique projections of both breasts were obtained. Computer aided detection was performed. Comparison: 06/2007, 04/2006, 02/2005, 01/2004 Breast Parenchymal Composition: Scattered fibroglandular densities. Findings: No suspicious mass, suspicious microcalcifications, or architectural distortion in either breast is identified. Since the prior study, there has been no significant interval change. The computer aided detection system detects no significant abnormality. Overall Assessment: BI-RADS category 1: Negative. Recommendation: Annual mammography is recommended. Assessment BIRADS: 1-Negative Recommendation: Normal interval follow-up Dictated by: ORALIA BENITO Electronically signed by: ORALIA BENITO 07/02/2008 07:39 Transcribed: 07/01/2008 22:17 AMK Procedure Note Oralia Benito - 07/02/2008 [place] [address] [place], [place] [address] Admit Date: 07/01/2008 ELIZABETH GODFREY Sex: F Admit Prov: CANDI AVILA Date: 1940 Primary Care Prov: LILIYA MURRAY CMRN: [id number] Room: [facility] SSN: [id number] IMAGING SERVICES Ordering Prov: CANDI AVILA Interpretation BILATERAL FULL FIELD DIGITAL SCREENING MAMMOGRAM WITH CAD. Date: 07/01/08 History: Routine Screening. Technique: Full field digital craniocaudal and mediolateral oblique projections of both breasts were obtained. Computer aided detectionwas performed. Comparison: 06/2007, 04/2006, 02/2005, 01/2004 Breast Parenchymal Composition: Scattered fibroglandular densities. Findings: No suspicious mass, suspicious microcalcifications, or architectural distortion in either breast is identified. Since theprior study, there has been no significant interval change. The computeraided detection system detects no significant abnormality. Overall Assessment: BI-RADS category 1: Negative. Recommendation: Annual mammography is recommended. Assessment BIRADS: 1-Negative Recommendation: Normal interval follow-up Dictated by: ORALIA BENITO Electronically signed by: ORALIA BENITO 07/02/2008 07:39 Transcribed: 07/01/2008 22:17 AMK Candi Avila MD MAMMO ORDERABLES Final Resul t documented in this encounter Visit Diagnoses Diagnosis Other screening mammogram documented in this encounter Care Teams Curing Room Supervisor Relationship Specialty Start Date End Date Laina Duran DO [address] [place] [address] PCP - General Internal Medicine 03/08/15 NO DME 03/05/19 documented as of this encounter
--- OUTSIDE RECORDS SUMMARY | 2024-12-09 14:32 | XMS_ITS | Encounter Summary ---
Author Organization [facility] Address [address] [place] [address] Care Team Providers Care Magnetic Tape Composer Operator Name Role Phone Laina Duran DO Primary Care Provider [phone] Encounter Details Date Type Department Care Team (Latest Contact Info) Description 01/27/2004 Outpatient Historical HIS [facility] AVRIL Avila, Candi Ferreira MD NO ADDRESS ON FILE SCREENING MAMM-MAILG NEOPL-OTHER (Primary Dx) Social History Tobacco Use Types Packs/Day Years Used Date Smoking Tobacco: Never Assessed Comments Unknown Sex and Gender Information Value Date Recorded Sex Assigned at Not on file Legal Sex Female 3:53 AM SEWING DEPARTMENT SUPERVISOR Gender Identity Not on file Sexual Orientation Not on file documented as of this encounter Plan of Treatment Upcoming Encounters Date Type Department Care Team (Late st Contact Info) Description 02/20/2025 11:30 AM CDT Office Visit [facility] Internal Medicine Medical [place] [address] [address] Laina Duran DO [address] [place] [address] documented as of this encounter Visit Diagnoses Diagnosis Other screening mammogram- Primary documented in this encounter Care Teams Magnetic Tape Composer Operator Relationship Specialty Start Date End Date Laina Duran DO [address] [place] [address] PCP - General Internal Medicine 03/08/15 NO DME 03/05/19 documented as of this encounter
--- OUTSIDE RECORDS SUMMARY | 2024-12-09 14:32 | XMS_ITS | Encounter Summary ---
Author Organization [facility] Address [address] [place] [address] Care Team Providers Care Pin Sorter And Bagger Name Role Phone Laina Duran DO Primary Care Provider [phone] Encounter Details Date Type Department Care Team (Late st Contact Info) Description 12/07/2006 Outpatient Historical [facility] Kevin Garcia MD [address] [place] [address] Special Screening for Malignant Neoplasms, Colon (Primary Dx) Social History Tobacco Use Types Packs/Day Years Used Date Smoking Tobacco: Never Assessed Comments Unknown Sex and Gender Information Value Date Recorded Sex Assigned at Not on file Legal Sex Female 3:53 AM RECOVERY AGENT Gender Identity Not on file Sexual Orientation Not on file documented as of this encounter Plan of Treatment Upcoming Encounters Date Type Department Care Team (Late st Contact Info) Description 02/20/2025 11:30 AM CDT Office Visit [facility] Internal Medicine Medical [place] A [facility] [address] [facility] [address] [address] Laina Duran DO [address] [facility] [facility] [address] [place] [address] documented as of this encounter Visit Diagnoses Diagnosis Special screening for malignant neoplasms, colon- Primary documented in this encounter Care Teams Pin Sorter And Bagger Relationship Specialty Start Date End Date Laina Duran DO [address] [facility] [facility] [address] [place] [address] PCP - General Internal Medicine 03/08/15 NO DME 03/05/19 documented as of this encounter
--- OUTSIDE RECORDS SUMMARY | 2024-12-09 14:32 | XMS_ITS | Encounter Summary ---
Author Organization [facility] Address [address] [place] [address] Care Team Providers Care Background Check Coordinator Name Role Phone Laina Duran DO Primary Care Provider [phone] Encounter Details Date Type Department Care Team (Late st Contact Info) Description 05/30/2005 Outpatient Historical [facility] Internal Medicine - [place] [address] [place] [address] [place] [address] [place] [id number] Social History Tobacco Use Types Packs/Day Years Used Date Smoking Tobacco: Never Assessed Comments Unknown Sex and Gender Information Value Date Recorded Sex Assigned at Not on file Legal Sex Female 3:53 AM BANQUET PREP COOK Gender Identity Not on file Sexual Orientation Not on file documented as of this encounter Plan of Treatment Upcoming Encounters Date Type Department Care Team (Late st Contact Info) Description 02/20/2025 11:30 AM CDT Office Visit [facility] Internal Medicine Medical [place] [address] [facility] [address] [address] Laina Duran DO [address] [facility] [address] [place] [address] documented as of this encounter Visit Diagnoses Not on filedocumented in this encounter Care Teams Background Check Coordinator Relationship Specialty Start Date End Date Laina Duran DO [address] [place] [address] PCP - General Internal Medicine 03/08/15 NO DME 03/05/19 documented as of this encounter
--- OUTSIDE RECORDS SUMMARY | 2024-12-09 14:32 | XMS_ITS | Encounter Summary ---
Author Organization [facility] Address [address] [place] [address] Care Team Providers Care Harbor Engineer Name Role Phone Laina Duran DO Primary Care Provider [phone] Encounter Details Date Type Department Care Team (Late st Contact Info) Description 12/30/2002 Outpatient Historical [facility] Internal Medicine - [place] [address] [place] [address] [place] [address] [place] [phone] Social History Tobacco Use Types Packs/Day Years Used Date Smoking Tobacco: Never Assessed Comments Unknown Sex and Gender Information Value Date Recorded Sex Assigned at Not on file Legal Sex Female 3:53 AM PROSTHETIC LAB TECHNICIAN Gender Identity Not on file Sexual Orientation Not on file documented as of this encounter Plan of Treatment Upcoming Encounters Date Type Department Care Team (Late st Contact Info) Description 02/20/2025 11:30 AM CDT Office Visit [facility] Internal Medicine Medical [place] [address] [facility] [address] [address] Laina Duran DO [address] [facility] [facility] [address] [place] [address] documented as of this encounter Visit Diagnoses Not on filedocumented in this encounter Care Teams Harbor Engineer Relationship Specialty Start Date End Date Laina Duran DO [address] [facility] [facility] [address] [place] [address] PCP - General Internal Medicine 03/08/15 NO DME 03/05/19 documented as of this encounter
--- OUTSIDE RECORDS SUMMARY | 2024-12-09 14:32 | XMS_ITS | Encounter Summary ---
Author Organization [facility] Address [address] [place] [address] Care Team Providers Care Stone Polisher Machine Name Role Phone Laina Duran DO Primary Care Provider [phone] Encounter Details Date Type Department Care Team (Late st Contact Info) Description 04/09/2006 Outpatient Historical [facility] Internal Medicine [facility] [address] [address] Kandy Schulz MD Social History Tobacco Use Types Packs/Day Years Used Date Smoking Tobacco: Never Assessed Comments Unknown Sex and Gender Information Value Date Recorded Sex Assigned at Not on file Legal Sex Female 3:53 AM RUBY RAILS DEVELOPER Gender Identity Not on file Sexual Orientation Not on file documented as of this encounter Plan of Treatment Upcoming Encounters Date Type Department Care Team (Late st Contact Info) Description 02/20/2025 11:30 AM CDT Office Visit [facility] Internal Medicine [facility] [address] [address] Laina Duran DO [address] [facility] [address] [place] [address] documented as of this encounter Visit Diagnoses Not on filedocumented in this encounter Care Teams Stone Polisher Machine Relationship Specialty Start Date End Date Laina Duran DO [address] [facility] [address] [place] [address] PCP - General Internal Medicine 03/08/15 NO DME 03/05/19 documented as of this encounter
--- OUTSIDE RECORDS SUMMARY | 2024-12-09 14:32 | XMS_ITS | Encounter Summary ---
Author Organization [facility] Address [address] [place] [address] Care Team Providers Care Regional Vice President Life Sales Name Role Phone Laina Duran DO Primary Care Provider [phone] Encounter Details Date Type Department Care Team (Late st Contact Info) Description 06/28/2007 Outpatient Historical [facility] Internal Medicine [facility] [address] [address] Kandy Schulz MD Social History Tobacco Use Types Packs/Day Years Used Date Smoking Tobacco: Never Assessed Comments Unknown Sex and Gender Information Value Date Recorded Sex Assigned at Not on file Legal Sex Female 3:53 AM NICU RN Gender Identity Not on file Sexual Orientation Not on file documented as of this encounter Plan of Treatment Upcoming Encounters Date Type Department Care Team (Late st Contact Info) Description 02/20/2025 11:30 AM CDT Office Visit [facility] Internal Medicine [facility] [address] [address] Laina Duran DO [address] [facility] [facility] [address] [place] [address] documented as of this encounter Visit Diagnoses Not on filedocumented in this encounter Care Teams Regional Vice President Life Sales Relationship Specialty Start Date End Date Laina Duran DO [address] [facility] [facility] [address] [place] [address] PCP - General Internal Medicine 03/08/15 NO DME 03/05/19 documented as of this encounter
--- OUTSIDE RECORDS SUMMARY | 2024-12-09 14:32 | XMS_ITS | Encounter Summary ---
Author Organization [facility] Address [address] [place] [address] Care Team Providers Care Rotary Kiln Operator Name Role Phone Laina Duran DO Primary Care Provider [phone] Encounter Details Date Type Department Care Team (Late st Contact Info) Description 07/23/2001 Outpatient Historical [facility] Internal Medicine - [place] [address] [place] [address] [place] [address] [place] [phone] Social History Tobacco Use Types Packs/Day Years Used Date Smoking Tobacco: Never Assessed Comments Unknown Sex and Gender Information Value Date Recorded Sex Assigned at Not on file Legal Sex Female 3:53 AM GARDENING INSTRUCTOR Gender Identity Not on file Sexual Orientation Not on file documented as of this encounter Plan of Treatment Upcoming Encounters Date Type Department Care Team (Late st Contact Info) Description 02/20/2025 11:30 AM CDT Office Visit [facility] Internal Medicine Medical [place] [address] [facility] [address] [address] Laina Duran DO [address] [facility] [address] [place] [address] documented as of this encounter Visit Diagnoses Not on filedocumented in this encounter Care Teams Rotary Kiln Operator Relationship Specialty Start Date End Date Laina Duran DO [address] [facility] [address] [place] [address] PCP - General Internal Medicine 03/08/15 NO DME 03/05/19 documented as of this encounter
--- OUTSIDE RECORDS SUMMARY | 2024-12-09 14:32 | XMS_ITS | Encounter Summary ---
Author Organization [facility] Address [address] [place] [address] Care Team Providers Care Sweatband Drummer Name Role Phone Laina Duran DO Primary Care Provider [phone] Encounter Details Date Type Department Care Team (Latest Contact Info) Description 06/19/2007 Outpatient Historical HIS [facility] AVRIL Avila, Candi Ferreira MD NO ADDRESS ON FILE Other Screening Mammogram Social History Tobacco Use Types Packs/Day Years Used Date Smoking Tobacco: Never Assessed Comments Unknown Sex and Gender Information Value Date Recorded Sex Assigned at Not on file Legal Sex Female 3:53 AM HOME THERAPY CLINICIAN Gender Identity Not on file Sexual Orientation Not on file documented as of this encounter Plan of Treatment Upcoming Encounters Date Type Department Care Team (Late st Contact Info) Description 02/20/2025 11:30 AM CDT Office Visit [facility] Internal Medicine Medical [place] A [facility] [address] [facility] [address] [address] Laina Duran DO [address] [facility] [facility] [address] [place] [address] documented as of this encounter Visit Diagnoses Diagnosis Other screening mammogram documented in this encounter Care Teams Sweatband Drummer Relationship Specialty Start Date End Date Laina Duran DO [address] [facility] [facility] [address] [place] [address] PCP - General Internal Medicine 03/08/15 NO DME 03/05/19 documented as of this encounter
--- OUTSIDE RECORDS SUMMARY | 2024-12-09 14:32 | XMS_ITS | Encounter Summary ---
Author Organization [facility] Address [address] Attn: [place] [address] Care Team Providers Care Punch Machine Operator Name Role Phone Laina Duran DO Primary Care Provider Encounter Details Date Type Department Care Team (Latest Contact Info) Description 06/28/2007 Orders Only Kandy Schulz MD Social History Tobacco Use Types Packs/Day Years Used Date Smoking Tobacco: Never Assessed Comments Unknown Sex and Gender Information Value Date Recorded Sex Assigned at Not on file Legal Sex Female 3:53 AM PACKER OPERATOR AUTOMATIC Gender Identity Not on file Sexual Orientation Not on file documented as of this encounter Plan of Treatment Upcoming Encounters Date Type Department Care Team (Late st Contact Info) Description 02/20/2025 11:30 AM CDT Office Visit [facility] Internal Medicine Medical [place] [address] [facility] [address] [address] Laina Duran DO [address] [address] [facility] [address] [place], [place] [address] documented as of this encounter Visit Diagnoses Not on filedocumented in this encounter Care Teams Punch Machine Operator Relationship Specialty Start Date End Date Laina Duran DO [address] [facility] [address] [place] [address] PCP - General Internal Medicine 03/08/15 NO DME 03/05/19 documented as of this encounter
--- OUTSIDE RECORDS SUMMARY | 2024-12-09 14:32 | XMS_ITS | Encounter Summary ---
Author Organization [facility] Address [address] [place] [address] Care Team Providers Care Trimmer Machine Operator Name Role Phone Laina Duran DO Primary Care Provider [phone] Encounter Details Date Type Department Care Team (Latest Contact Info) Description 06/28/2007 Outpatient Historical HIS [facility] AVRIL Avila, Candi Ferreira MD NO ADDRESS ON FILE Other Screening Mammogram Social History Tobacco Use Types Packs/Day Years Used Date Smoking Tobacco: Never Assessed Comments Unknown Sex and Gender Information Value Date Recorded Sex Assigned at Not on file Legal Sex Female 3:53 AM TAX EXAMINER Gender Identity Not on file Sexual Orientation Not on file documented as of this encounter Plan of Treatment Upcoming Encounters Date Type Department Care Team (Late st Contact Info) Description 02/20/2025 11:30 AM CDT Office Visit [facility] Internal Medicine Medical [place] A [facility] [address] [address] Laina Duran DO [address] [facility] [address] [place] [address] documented as of this encounter Procedures Procedure Name Priority Date/Time Associated Diagnosis Comments MAMMO SCREEN BILAT W OR WO CAD Timed Study 06/28/2007 12:24 PM TAX EXAMINER documented in this encounter Results * MAMMO DIGITAL SCREEN BILAT (06/28/2007 12:24 PM TAX EXAMINER) Anatomical Region Laterality Modality Breast Bilateral Other 06/28/2007 12:2 4 PM TAX EXAMINER Narrative 06/29/2007 7:35 PM TAX EXAMINER [id number] [place], [place] [address] Admit Date: 06/28/2007 ELIZABETH GODFREY Sex: F Admit Prov: CANDI AVILA Date: 1940 Primary Care Prov: LILIYA MURRAY CMRN: [id number] Room: TERRA N: [id number] IMAGING SERVICES Ordering Prov: CANDI AVILA Accession Number: [id number] Interpretation BILATERAL SCREENING DIGITAL MAMMOGRAMS WITH COMPUTER ASSISTED DIAGNOSIS 06/28/2007 Comparison is made with 01/27/04. The breast parenchyma is heterogeneously dense. No new dominant masses, suspicious calcifications or areas of parenchymal asymmetry or distortion are identified. The films were reviewed using the CAD system. Impression: Stable screening mammogram Recommend routine followup Assessment BIRADS: 1-Negative Recommendation: Normal interval follow-up Dictated by: ANA MARIA TUCKER Electronically signed by: ANA MARIA TUCKER 06/29/2007 19:35 Transcribed: 06/28/2007 14:00 AMK Procedure Note Provider, Historical - 06/29/2007 [id number] [place], [place] [address] Admit Date: 06/28/2007 ELIZABETH GODFREY Sex: F Admit Prov: CANDI AVILA Date: 1940 Primary Care Prov: LILIYA MURRAY CMRN: [id number] Room: TERRA N: [id number] IMAGING SERVICES Ordering Prov: CANDI AVILA Interpretation BILATERAL SCREENING DIGITAL MAMMOGRAMS WITH COMPUTER ASSISTEDDIAGNOSIS 06/28/2007 Comparison is made with 01/27/04. The breast parenchyma isheterogeneously dense. No new dominant masses, suspicious calcifications or areasof parenchymal asymmetry or distortion are identified. The films were reviewed using the CAD system. Impression: Stable screening mammogram Recommend routine followup Assessment BIRADS: 1-Negative Recommendation: Normal interval follow-up Dictated by: ANA MARIA TUCKER Electronically signed by: ANA MARIA TUCKER 06/29/2007 19:35 Transcribed: 06/28/2007 14:00 AMK Candi Avila MD MAMMO ORDERABLES Final Resul t documented in this encounter Visit Diagnoses Diagnosis Other screening mammogram documented in this encounter Care Teams Trimmer Machine Operator Relationship Specialty Start Date End Date Laina Duran DO [address] [place] [address] PCP - General Internal Medicine 03/08/15 NO DME 03/05/19 documented as of this encounter
--- OUTSIDE RECORDS SUMMARY | 2024-12-09 14:32 | XMS_ITS | Encounter Summary ---
Author Organization [facility] Address [address] [place] [address] Care Team Providers Care Packing Machine Tender Name Role Phone Laina Duran DO Primary Care Provider [phone] Encounter Details Date Type Department Care Team (Late st Contact Info) Description 01/14/2004 Outpatient Historical [facility] Internal Medicine - [place] [address] [place] [address] [place] [address] [place], [place] Social History Tobacco Use Types Packs/Day Years Used Date Smoking Tobacco: Never Assessed Comments Unknown Sex and Gender Information Value Date Recorded Sex Assigned at Not on file Legal Sex Female 3:53 AM RIVETER HAND Gender Identity Not on file Sexual Orientation Not on file documented as of this encounter Plan of Treatment Upcoming Encounters Date Type Department Care Team (Late st Contact Info) Description 02/20/2025 11:30 AM CDT Office Visit [facility] Internal Medicine Medical [place] [address] [address] Laina Duran DO [address] [place] [address] documented as of this encounter Visit Diagnoses Not on filedocumented in this encounter Care Teams Packing Machine Tender Relationship Specialty Start Date End Date Laina Duran DO [address] [place] [address] PCP - General Internal Medicine 03/08/15 NO DME 03/05/19 documented as of this encounter
--- OUTSIDE RECORDS SUMMARY | 2024-12-09 14:32 | XMS_ITS | Encounter Summary ---
Author Organization [facility] Address [address] [place] [address] Care Team Providers Care Business Technology Professor Name Role Phone Laina Duran DO Primary Care Provider [phone] Reason for Visit * Reason Comments Question Encounter Details Date Type Department Care Team (Late st Contact Info) Description 12/27/2023 Telephone [facility] Internal Medicine Medical [facility] [address] [facility] [address] [address] Laina Duran DO [address] [facility] [address] [place] [address] Question Social History Tobacco Use Types Packs/Day Years Used Date Smoking Tobacco: Never Smokeless Tobacco: Never Alcohol Use Standard Drinks/Week Comments Yes 14 (1 standard drink = 0.6 oz pu re alcohol) Comments No Sex and Gender Information Value Date Recorded Sex Assigned at Not on file Legal Sex Female 3:53 AM HELICOPTER DISPATCHER Gender Identity Not on file Sexual Orientation Not on file Occupation Industry Job Start Date Job End Date retired Not on file Not on file Not on file Not on file Not on file Not on file Not on file documented as of this encounter Miscellaneous Notes * Telephone Encounter - Lety Douglas - 12/28/2023 8:26 AM CDT 12/28/2023 8:26 AM Called patient x2, both times phone was picked up and then disconnected. Contact Center ok to warm transfer to back line. Need more information regarding recommendations. What specialty or reason for referrals? Lety * Telephone Encounter - Carol Ann Dumont - 12/27/2023 1:54 PM CDT Copied from [facility] #[id number]. Topic: Patient or Caregiver Communication Request >> Dec 27, 2023 1:47 PM Carol Ann Ferreira wrote: Patient or Caregiver insisting that a message be sent to Care Team Caller: Elizabeth Johnson Patient/Caregiver Callback Number: [phone] (home) Call Notes: .Elizabeth Johnson because she wanted to know the name of the 4 docs she recommend herto go to . Please call pt back on phone documented in this encounter Plan of Treatment Upcoming Encounters Date Type Department Care Team (Late st Contact Info) Description 02/20/2025 11:30 AM CDT Office Visit [facility] Internal Medicine Medical [place] A [facility] [address] [address] Laina Duran DO [address] [facility] [address] [place] [address] documented as of this encounter Visit Diagnoses Not on filedocumented in this encounter Care Teams Business Technology Professor Relationship Specialty Start Date End Date Laina Duran DO [address] [place] [address] PCP - General Internal Medicine 03/08/15 NO DME 03/05/19 documented as of this encounter
--- OUTSIDE RECORDS SUMMARY | 2024-12-09 14:32 | XMS_ITS | Clinical Summary ---
Author Organization [facility] Address [address] [place] [address] Care Team Providers Care Cigarette Making Machine Hopper Feeder Name Role Phone Kandy Schulz MD Primary Care Provider Source Comments [facility],non-owned Affiliates and Associated Physician Practices is amultiple site organization consisting of ambulatory clinics and hospital sitesin [place], [place], [place] and [place]. This disclosure is being madepursuant to the Care Everywhere program and may not contain all information available regarding this patient. Last updated 18.[facility] Allergies No known active allergies Medications * Be aware that medications may not be up to date on this document. Alwaysverify current medications with the patient. 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 Family History Medical History Relation Name Comments Cancer - Skin, Non Melanoma Father Relation Name Status Comments Father Social History Tobacco Use Types Packs/Day Years Used Date Smoking Tobacco: Never Smokeless Tobacco: Never Alcohol Use Standard Drinks/Week Comments Yes 0 (1 standard drink = 0.6 oz pur e alcohol) socially Comments Unknown Sex and Gender Information Value Date Recorded Sex Assigned at Not on file Legal Sex Female 6:28 PM CLINICAL OPERATIONS LEADER Gender Identity Not on file Sexual Orientation Not on file Last Filed Vital Signs Vital Sign Reading Time Taken Comments Blood Pressure 186/82 03/28/2018 2:46 PM CLINICAL OPERATIONS LEADER Pulse 65 03/28/2018 2:45 PM CLINICAL OPERATIONS LEADER Temperature 36.4 C (97.5 F) 03/28/2018 2:00 PM CLINICAL OPERATIONS LEADER Respiratory Rate 20 03/28/2018 2:45 PM CLINICAL OPERATIONS LEADER Oxygen Saturation 97% 03/28/2018 2:40 PM CLINICAL OPERATIONS LEADER Inhaled Oxygen Concentration - - Weight 59.4 kg (131 lb) 03/28/2018 11:49 AM CLINICAL OPERATIONS LEADER Height 154.9 cm (5' 1) 03/28/2018 11:49 AM CLINICAL OPERATIONS LEADER Body Mass Index 24.75 03/28/2018 11:49 AM CLINICAL OPERATIONS LEADER Plan of Treatment Health Maintenance Due Date Last Done Comments BONE DENSITY TESTING 1940 DTAP/TDAP/TD VACCINES (1 - Tdap) 1958 PNEUMOCOCCAL VACCINE 50+ (1 of 1 - PCV) 1989 ZOSTER VACCINE (1 of 2) 1989 Respiratory Syncytial Virus (RSV) Vaccine Pt: or over 60 yrs (1 - 1-dose 75+ series) 2014 COVID-19 VACCINE ( - 2023-2 5 season) 2024 DEPRESSION SCREENING 05/14/2024 INFLUENZA VACCINE (#1) 2025 HEPATITIS B VACCINE Aged Out No longe r eligible based on patient's age to complete this topic HIB VACCINE Aged Out No longer eligi ble based on patient's age to complete this topic HPV VACCINE Aged Out No longer eligi ble based on patient's age to complete this topic MENINGOCOCCAL (Group B) VACC INE SHARED DECISION-MAKING Aged Out No longer eligibl e based on patient's age to complete this topic MENINGOCOCCAL GROUPS A/C/Y/W VACCINE Aged Out No longer eligible b ased on patient's age to complete this topic Medical Devices Implanted Type Area Academic Manager Device Identifier Shelf Expiration Date Model / Serial / Lot Kit Inst 2mm Bone Tamp Gd Slv Implanted:Qty: 1 on 03/28/2018 by Janine Conway MD at [facility] Right: Foot [employer] [id number] / / [id number] Insurance MEDICARE MEDICARE [facility] Care Teams Cigarette Making Machine Hopper Feeder Relationship Specialty Start Date End Date Kandy Schulz MD [address] [place] [phone] PCP - General 06/12/08
--- OUTSIDE RECORDS SUMMARY | 2024-12-09 14:32 | XMS_ITS | Encounter Summary ---
Author Organization [facility] Address [address] [place] [address] Care Team Providers Care Parts Counter Specialist Name Role Phone Laina Duran DO Primary Care Provider [phone] Encounter Details Date Type Department Care Team (Late st Contact Info) Description 02/10/1999 Outpatient Historical [facility] Julieta Brock MD [address] [facility] [address] [place] [address] Abdominal pain, left lower quadrant (Primary Dx) Social History Tobacco Use Types Packs/Day Years Used Date Smoking Tobacco: Never Assessed Comments Unknown Sex and Gender Information Value Date Recorded Sex Assigned at Not on file Legal Sex Female 3:53 AM DIE TECHNICIAN Gender Identity Not on file Sexual Orientation Not on file documented as of this encounter Plan of Treatment Upcoming Encounters Date Type Department Care Team (Late Contact Info) Description 02/20/2025 11:30 AM CDT Office Visit [facility] Internal Medicine Medical [place] [address] [facility] [facility] [address] [facility] [address] [address] Laina Duran DO [address] [facility] [address] [facility] [address] [place] [address] documented as of this encounter Visit Diagnoses Diagnosis Abdominal pain, left lower quadrant- Primary documented in this encounter Care Teams Parts Counter Specialist Relationship Specialty Start Date End Date Laina Duran DO [address] [facility] [address] [place] [address] PCP - General Internal Medicine 03/08/15 NO DME 03/05/19 documented as of this encounter
--- OUTSIDE RECORDS SUMMARY | 2024-12-09 14:32 | XMS_ITS | Encounter Summary ---
Author Organization [facility] Address [address] [place] [address] Care Team Providers Care Warehouse Production Worker Name Role Phone Laina Duran DO Primary Care Provider [phone] Encounter Details Date Type Department Care Team (Late st Contact Info) Description 12/17/1998 Outpatient Historical [facility] Internal Medicine - [place] [address] [address] [place] [address] [place] [address] Social History Tobacco Use Types Packs/Day Years Used Date Smoking Tobacco: Never Assessed Comments Unknown Sex and Gender Information Value Date Recorded Sex Assigned at Not on file Legal Sex Female 3:53 AM INDUSTRIAL PSYCHOLOGY TEACHER Gender Identity Not on file Sexual Orientation Not on file documented as of this encounter Plan of Treatment Upcoming Encounters Date Type Department Care Team (Late st Contact Info) Description 02/20/2025 11:30 AM CDT Office Visit [facility] Internal Medicine Medical [place] [address] [facility] [address] [address] Laina Duran DO [address] [facility] [address] [place] [address] documented as of this encounter Visit Diagnoses Not on filedocumented in this encounter Care Teams Warehouse Production Worker Relationship Specialty Start Date End Date Laina Duran DO [address] [facility] [address] [place] [address] PCP - General Internal Medicine 03/08/15 NO DME 03/05/19 documented as of this encounter
--- OUTSIDE RECORDS SUMMARY | 2024-12-09 14:32 | XMS_ITS | Encounter Summary ---
Author Organization [facility] Address [address] [place] [address] Care Team Providers Care Warehouse Helper Name Role Phone Laina Duran DO Primary Care Provider [phone] Encounter Details Date Type Department Care Team (Latest Contact Info) Description 09/03/2002 Outpatient Historical HIS [facility] AVRIL Avila, Candi Ferreira MD NO ADDRESS ON FILE SCREENING MAMM-MAILG NEOPL-OTHER (Primary Dx) Social History Tobacco Use Types Packs/Day Years Used Date Smoking Tobacco: Never Assessed Comments Unknown Sex and Gender Information Value Date Recorded Sex Assigned at Not on file Legal Sex Female 3:53 AM EXCEPTIONAL NEEDS TEACHER Gender Identity Not on file Sexual Orientation Not on file documented as of this encounter Plan of Treatment Upcoming Encounters Date Type Department Care Team (Late st Contact Info) Description 02/20/2025 11:30 AM CDT Office Visit [facility] Internal Medicine Medical [place] [address] [address] Laina Duran DO [address] [facility] [address] [place] [address] documented as of this encounter Visit Diagnoses Diagnosis Other screening mammogram- Primary documented in this encounter Care Teams Warehouse Helper Relationship Specialty Start Date End Date Laina Duran DO [address] [facility] [address] [place] [address] PCP - General Internal Medicine 03/08/15 NO DME 03/05/19 documented as of this encounter
--- OUTSIDE RECORDS SUMMARY | 2024-12-09 14:32 | XMS_ITS | Encounter Summary ---
Author Organization [facility] Address [address] [place] [address] Care Team Providers Care Counselor Manager Name Role Phone Laina Duran DO Primary Care Provider [phone] Encounter Details Date Type Department Care Team (Latest Contact Info) Description 04/11/2006 Outpatient Historical [facility] AVRIL Avila, Candi Ferreira MD NO ADDRESS ON FILE Other Screening Mammogram (Primary Dx) Social History Tobacco Use Types Packs/Day Years Used Date Smoking Tobacco: Never Assessed Comments Unknown Sex and Gender Information Value Date Recorded Sex Assigned at Not on file Legal Sex Female 3:53 AM SEAM FINISHER Gender Identity Not on file Sexual Orientation Not on file documented as of this encounter Plan of Treatment Upcoming Encounters Date Type Department Care Team (Late st Contact Info) Description 02/20/2025 11:30 AM CDT Office Visit [facility] Internal Medicine Medical [place] [address] [address] Laina Duran DO [address] [facility] [facility] [address] [place], [place] [address] documented as of this encounter Visit Diagnoses Diagnosis Other screening mammogram- Primary documented in this encounter Care Teams Counselor Manager Relationship Specialty Start Date End Date Laina Duran DO [address] [facility] [facility] [address] [place] [address] PCP - General Internal Medicine 03/08/15 NO DME 03/05/19 documented as of this encounter
--- OUTSIDE RECORDS SUMMARY | 2024-12-09 14:32 | XMS_ITS | Encounter Summary ---
Author Organization [facility] Address [address] [place] [address] Care Team Providers Care Retort Operator Name Role Phone Laina Duran DO Primary Care Provider [phone] Encounter Details Date Type Department Care Team (Latest Contact Info) Description 12/07/2008 Outpatient Historical [facility] AVRIL Schulz, Kandy Perez MD [address] [place] [address] Family History of Ischemic Heart Disease Social History Tobacco Use Types Packs/Day Years Used Date Smoking Tobacco: Never Alcohol Use Standard Drinks/Week Comments Yes 6.7 (1 standard drink = 0.6 oz p ure alcohol) social Comments No Sex and Gender Information Value Date Recorded Sex Assigned at Not on file Legal Sex Female 3:53 AM SKIN CARE TECHNICIAN Gender Identity Not on file Sexual Orientation Not on file Occupation Industry Job Start Date Job End Date retired Not on file Not on file Not on file documented as of this encounter Plan of Treatment Upcoming Encounters Date Type Department Care Team (Late st Contact Info) Description 02/20/2025 11:30 AM CDT Office Visit [facility] Internal Medicine Medical [place] [facility] [address] [facility] [address] [facility] [address] [address] Laina Duran DO [address] [facility] [address] [place] [address] documented as of this encounter Visit Diagnoses Diagnosis Family history of ischemic heart disease documented in this encounter Care Teams Retort Operator Relationship Specialty Start Date End Date Laina Duran DO [address] [place] [address] PCP - General Internal Medicine 03/08/15 NO DME 03/05/19 documented as of this encounter
--- OUTSIDE RECORDS SUMMARY | 2024-12-09 14:32 | XMS_ITS | Encounter Summary ---
Author Organization [facility] Address [address] [place] [address] Care Team Providers Care Laborer Shaft Sinking Name Role Phone Laina Duran DO Primary Care Provider [phone] Encounter Details Date Type Department Care Team (Late st Contact Info) Description 05/30/2005 Outpatient Historical [facility] Internal Medicine - [place] [address] [place] [address] [place] [address] [place] [address] Social History Tobacco Use Types Packs/Day Years Used Date Smoking Tobacco: Never Assessed Comments Unknown Sex and Gender Information Value Date Recorded Sex Assigned at Not on file Legal Sex Female 3:53 AM BACTERIOLOGIST INDUSTRIAL Gender Identity Not on file Sexual Orientation Not on file documented as of this encounter Plan of Treatment Upcoming Encounters Date Type Department Care Team (Late st Contact Info) Description 02/20/2025 11:30 AM CDT Office Visit [facility] Internal Medicine Medical [place] [address] [facility] [facility] [address] [address] Laina Duran DO [address] [facility] [address] [place] [address] documented as of this encounter Visit Diagnoses Not on filedocumented in this encounter Care Teams Laborer Shaft Sinking Relationship Specialty Start Date End Date Laina Duran DO [address] [facility] [address] [place] [address] PCP - General Internal Medicine 03/08/15 NO DME 03/05/19 documented as of this encounter
--- OUTSIDE RECORDS SUMMARY | 2024-12-09 14:32 | XMS_ITS | Encounter Summary ---
Author Organization [facility] Address [address] [place] [address] Care Team Providers Care Instrumentation Chemist Name Role Phone Laina Duran DO Primary Care Provider [phone] Encounter Details Date Type Department Care Team (Late st Contact Info) Description 12/30/2002 Outpatient Historical [facility] Internal Medicine - [place] [address] [place] [address] [place] [address] [place] [address] Social History Tobacco Use Types Packs/Day Years Used Date Smoking Tobacco: Never Assessed Comments Unknown Sex and Gender Information Value Date Recorded Sex Assigned at Not on file Legal Sex Female 3:53 AM MEDICINE MAN Gender Identity Not on file Sexual Orientation Not on file documented as of this encounter Plan of Treatment Upcoming Encounters Date Type Department Care Team (Late st Contact Info) Description 02/20/2025 11:30 AM CDT Office Visit [facility] Internal Medicine Medical [place] [address] [facility] [address] [address] Laina Duran DO [address] [facility] [address] [place] [address] documented as of this encounter Visit Diagnoses Not on filedocumented in this encounter Care Teams Instrumentation Chemist Relationship Specialty Start Date End Date Laina Duran DO [address] [facility] [address] [place] [address] PCP - General Internal Medicine 03/08/15 NO DME 03/05/19 documented as of this encounter
--- OUTSIDE RECORDS SUMMARY | 2024-12-09 14:32 | XMS_ITS | Encounter Summary ---
Author Organization [facility] Address [address] [place] [address] Care Team Providers Care Brass Bobbin Winder Name Role Phone Laina Duran DO Primary Care Provider [phone] Encounter Details Date Type Department Care Team (Late st Contact Info) Description 12/30/2002 Outpatient Historical [facility] Internal Medicine - [place] [address] [place] [address] [place] [address] [place] [id number] Social History Tobacco Use Types Packs/Day Years Used Date Smoking Tobacco: Never Assessed Comments Unknown Sex and Gender Information Value Date Recorded Sex Assigned at Not on file Legal Sex Female 3:53 AM EGGS INSPECTOR Gender Identity Not on file Sexual Orientation Not on file documented as of this encounter Plan of Treatment Upcoming Encounters Date Type Department Care Team (Late st Contact Info) Description 02/20/2025 11:30 AM CDT Office Visit [facility] Internal Medicine Medical [place] [address] [facility] [address] [address] Laina Duran DO [address] [address] [place] [address] documented as of this encounter Visit Diagnoses Not on filedocumented in this encounter Care Teams Brass Bobbin Winder Relationship Specialty Start Date End Date Laina Duran DO [address] [facility] [address] [place] [address] PCP - General Internal Medicine 03/08/15 NO DME 03/05/19 documented as of this encounter
--- OUTSIDE RECORDS SUMMARY | 2024-12-09 14:32 | XMS_ITS | Encounter Summary ---
Author Organization [facility] Address [address] [place] [address] Care Team Providers Care Staff Certified Nurse Midwife Name Role Phone Laina Duran DO Primary Care Provider [phone] Reason for Visit * Reason Comments Provider Call Encounter Details Date Type Department Care Team (Late st Contact Info) Description 07/29/2024 Telephone [facility] Internal Medicine Medical [facility] [address] [facility] [address] [address] Laina Duran DO [address] [facility] [address] [place] [address] Provider Call Social History Tobacco Use Types Packs/Day Years Used Date Smoking Tobacco: Never Smokeless Tobacco: Never Alcohol Use Standard Drinks/Week Comments Yes 14 (1 standard drink = 0.6 oz pu re alcohol) Comments No Sex and Gender Information Value Date Recorded Sex Assigned at Not on file Legal Sex Female 3:53 AM CHILD ADOLESCENT CARE Gender Identity Not on file Sexual Orientation Not on file Occupation Industry Job Start Date Job End Date retired Not on file Not on file Not on file Not on file Not on file Not on file Not on file documented as of this encounter Miscellaneous Notes * Telephone Encounter - Eagle Murillo - 07/29/2024 11:18 AM CDT Copied from [facility] #[id number]. Topic: Lhdgghbf-Sw-Avhyyict Call >> Jul 29, 2024 11:16 AM Eagle Ferreira wrote: Caller is requesting to speak with Clinical Care Team. Caller Name: [facility] Callback Number: [phone] Clinician Type: Other healthcare professional not listed above Call Notes: Leda with [facility] in [place] is calling for NPI for Remote Control Assembler Rozina Ratliff.Info was given. Is this addressing an immediate patient care need? No documented in this encounter Plan of Treatment Upcoming Encounters Date Type Department Care Team (Late st Contact Info) Description 02/20/2025 11:30 AM CDT Office Visit [facility] Internal Medicine Medical [place] A [facility] [address] [address] Laina Duran DO [address] [facility] [address] [place] [address] documented as of this encounter Visit Diagnoses Not on filedocumented in this encounter Care Teams Staff Certified Nurse Midwife Relationship Specialty Start Date End Date Laina Duran DO [address] [facility] [address] [place] [address] PCP - General Internal Medicine 03/08/15 NO DME 03/05/19 documented as of this encounter
--- OUTSIDE RECORDS SUMMARY | 2024-12-09 14:32 | XMS_ITS | Encounter Summary ---
Author Organization [facility] Address [address] Attn: [place] [address] Care Team Providers Care Puddler Helper Name Role Phone Laina Duran DO Primary Care Provider [phone] Encounter Details Date Type Department Care Team (Latest Contact Info) Description 04/09/2006 Orders Only Kandy Schulz MD Social History Tobacco Use Types Packs/Day Years Used Date Smoking Tobacco: Never Assessed Comments Unknown Sex and Gender Information Value Date Recorded Sex Assigned at Not on file Legal Sex Female 3:53 AM CLIPPER MACHINE Gender Identity Not on file Sexual Orientation Not on file documented as of this encounter Plan of Treatment Upcoming Encounters Date Type Department Care Team (Late st Contact Info) Description 02/20/2025 11:30 AM CDT Office Visit [facility] Internal Medicine Medical [place] [address] [facility] [address] [address] Laina Duran DO [address] [facility] [address] [place] [address] documented as of this encounter Visit Diagnoses Not on filedocumented in this encounter Care Teams Puddler Helper Relationship Specialty Start Date End Date Laina Duran DO [address] [facility] [address] [place] [address] PCP - General Internal Medicine 03/08/15 NO DME 03/05/19 documented as of this encounter
--- OUTSIDE RECORDS SUMMARY | 2024-12-09 14:32 | XMS_ITS | Encounter Summary ---
Author Organization [facility] Address [address] [place] [address] Care Team Providers Care Room Clerk Name Role Phone Laina Duran DO Primary Care Provider [phone] Encounter Details Date Type Department Care Team (Late st Contact Info) Description 10/30/2014 Nurse Triage Report [facility] ABSTRACTION Natalia Jean, RN Social History Tobacco Use Types Packs/Day Years Used Date Smoking Tobacco: Never Smokeless Tobacco: Never Alcohol Use Standard Drinks/Week Comments Yes 16.7 (1 standard dri nk = 0.6 oz pure alcohol) social, wine daily one glass Comments No Sex and Gender Information Value Date Recorded Sex Assigned at Not on file Legal Sex Female 3:53 AM RAD TECH Gender Identity Not on file Sexual Orientation Not on file Occupation Industry Job Start Date Job End Date retired Not on file Not on file Not on file Not on file Not on file Not on file Not on file documented as of this encounter Progress Notes * Natalia Jean RN - 10/30/2014 6:35 PM CDT CHART DOCUMENTATION ONLY Call Type: Triage Call Presenting Problem: I have a rash. Report feedback to Dr. Schulz Associated Symptoms: Rash after Poison Puja Exposure, hands back, legs Onset: x 3 days and worsening Location: Generalized Pain Assessment: 1 - 10 with 10 being the most severe pain 8 Treatment so far for current presenting problem: Anti-itch cream History (Clinical Problems): (HTN, Hx CVA) Medications: Reviewed with pt per Epic Medication reactions: Reviewed with pt per Epic <<<<<<<< TRIAGE NOTE >>>>>>>> Triage Note: Death Surveys Coder Natalia Jean added this note on Oct 30 2014 6:34PM: Dr Capps returned call and order for prescription given. Escribed dosepack as ordered to pt's pharmacy of choice. Pt very pleased. <<<<<<<< TRIAGE/OUTCOME >>>>>>>> Guideline Title: Poison Puja, [place], or [place] Exposure ; Poison Puja, [place], or [place] Exposure Recommended Disposition: See Provider within 4 hours Original Inclination: Call Provider/See in 24 Override Disposition: Redirection Page Intended Action: Call Provider Immediately Physician Contacted: Yes Involves eyes, mouth, or genitals. ? YES documented in this encounter Plan of Treatment Upcoming Encounters Date Type Department Care Team (Late st Contact Info) Description 02/20/2025 11:30 AM CDT Office Visit [facility] Internal Medicine Medical [place] [facility] [address] [facility] [address] [address] Laina Duran DO [address] [facility] [facility] [address] [place] [address] documented as of this encounter Visit Diagnoses Not on filedocumented in this encounter Additional Health Concerns Assessment Noted Time PHQ-9 Depression Total Score: 2 03/03/20 14 1:00 PM CDT documented as of this encounter Care Teams Room Clerk Relationship Specialty Start Date End Date Laina Duran DO [address] [facility] [address] [place] [address] PCP - General Internal Medicine 03/08/15 NO DME 03/05/19 documented as of this encounter
--- OUTSIDE RECORDS SUMMARY | 2024-12-09 14:32 | XMS_ITS | Encounter Summary ---
Author Organization [facility] Address [address] [place] [address] Care Team Providers Care Folder And Notcher Name Role Phone Laina Duran DO Primary Care Provider [phone] Encounter Details Date Type Department Care Team (Late st Contact Info) Description 01/14/2004 Outpatient Historical [facility] Internal Medicine - [place] [address] [place] [address] [place] [address] [place], [place] Social History Tobacco Use Types Packs/Day Years Used Date Smoking Tobacco: Never Assessed Comments Unknown Sex and Gender Information Value Date Recorded Sex Assigned at Not on file 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 Gender Identity Not on file Sexual Orientation Not on file documented as of this encounter Plan of Treatment Upcoming Encounters Date Type Department Care Team (Late st Contact Info) Description 02/20/2025 11:30 AM CDT Office Visit [facility] Internal Medicine Medical [place] [address] [facility] [address] [address] Laina Duran DO [address] [facility] [address] [place] [address] documented as of this encounter Visit Diagnoses Not on filedocumented in this encounter Care Teams Folder And Notcher Relationship Specialty Start Date End Date Laina Duran DO [address] [facility] [address] [place] [address] PCP - General Internal Medicine 03/08/15 NO DME 03/05/19 documented as of this encounter
--- OUTSIDE RECORDS SUMMARY | 2024-12-09 14:32 | XMS_ITS | Encounter Summary ---
Author Organization [facility] Address [address] [place] [address] Care Team Providers Care Freight Car Loader Name Role Phone Laina Duran DO Primary Care Provider [phone] Encounter Details Date Type Department Care Team (Latest Contact Info) Description 04/09/2006 Outpatient Historical [facility] Internal Medicine [facility] [address] [facility] [address] [facility] [place] [address] Kandy Schulz MD Family History of Ischemic Heart Disease (Primary Dx) Social History Tobacco Use Types Packs/Day Years Used Date Smoking Tobacco: Never Assessed Comments Unknown Sex and Gender Information Value Date Recorded Sex Assigned at Not on file Legal Sex Female 3:53 AM FIRST SAMPLER Gender Identity Not on file Sexual Orientation Not on file documented as of this encounter Plan of Treatment Upcoming Encounters Date Type Department Care Team (Late st Contact Info) Description 02/20/2025 11:30 AM CDT Office Visit [facility] Internal Medicine [facility] [address] [facility] [address] [place] [address] Laina Duran DO [address] [facility] [facility] [address] [place] [address] documented as of this encounter Procedures Procedure Name Priority Date/Time Associated Diagnosis Comments TSH REFLEXIVE Routine 04/09/2006 11:01 AM FIRST SAMPLER CBC WITH DIFFERENTIAL Routine 04/09/2006 11:01 AM FIRST SAMPLER CBC WITH DIFFERENTIAL Routine 04/09/2006 11:01 AM FIRST SAMPLER LIPID PANEL Routine 04/09/2006 11:01 AM FIRST SAMPLER COMPREHENSIVE METABOLIC PANEL Routine 04/09/2006 11:01 AM FIRST SAMPLER documented in this encounter Results * CBC WITH DIFFERENTIAL (04/09/2006 11:01 AM FIRST SAMPLER) NEUTROPHILS 50 45 - 70 % INTERFAC E SYSTEM LYMPHOCYTES 40 16 - 45 % INTERFAC E SYSTEM MONOCYTES 6 3 - 13 % INTERFACE SYSTEM EOSINOPHILS 3 0 - 7 % INTERFAC E SYSTEM BASOPHILS 0 0 - 2 % INTERFACE SYSTEM NEUTROPHIL ABSOLUTE 3.54 1.90 - 7.00 K/uL INTERFACE SYSTEM LYMPHOCYTE ABSOLUTE 2.85 0.70 - 4.50 K/uL INTERFACE SYSTEM MONOCYTE ABSOLUTE 0.45 0.10 - 1.30 K/uL INTERFACE SYSTEM EOSINOPHIL ABSOLUTE 0.21 0.00 - 0.70 K/uL INTERFACE SYSTEM BASOPHILS ABSOLUTE 0.03 0.00 - 0.20 K/uL INTERFACE SYSTEM 04/09/2006 11:0 1 AM FIRST SAMPLER us Kandy Schulz MD HEMATOLOGY ORDERABLES Final R esult INTERFACE SYSTEM Refer to clinic/hospital department * CBC WITH DIFFERENTIAL (04/09/2006 11:01 AM FIRST SAMPLER) WBC 7.1 4.0 - 9.8 K/uL INTERFACE SYSTEM RBC 4.78 3.90 - 4.90 M/uL INTERFACE SYSTEM HEMOGLOBIN 14.2 11.8 - 14.8 g/dL INTERFACE SYSTEM HEMATOCRIT 40.2 35.5 - 44.0 % INTERFACE SYSTEM MCV 84.1 82.0 - 99.0 fL INTERFACE SYSTEM MCH 29.7 27.2 - 32.6 pg INTERFACE SYSTEM MCHC 35.3 31.5 - 35.5 % INTERFACE SYSTEM RDW 13.7 11.5 - 14.5 % INTERFACE SYSTEM RDW-STDEV 41.9 37.1 - 48.7 fL INTERFACE SYSTEM PLATELETS 321 140 - 350 K/uL INTERFACE SYSTEM MPV 10.1 9.3 - 12.4 fL INTERFACE SYSTEM 04/09/2006 11:0 1 AM FIRST SAMPLER us Kandy Schulz MD HEMATOLOGY ORDERABLES Final R esult Performing Organization Address [facility] [place] Phone Number INTERFACE SYSTEM Refer to clinic/hospital department * TSH REFLEXIVE (04/09/2006 11:01 AM FIRST SAMPLER) TSH 1.28 0.27 - 4.20 uU/mL INTERFACE SYSTEM 04/09/2006 11:0 1 AM FIRST SAMPLER us Kandy Schulz MD CHEMISTRY ORDERABLES Final Re sult Performing Organization Address [facility] Phone Number INTERFACE SYSTEM Refer to clinic/hospital department * (ABNORMAL) COMPREHENSIVE METABOLIC PANEL (04/09/2006 11:01 AM FIRST SAMPLER) GLUCOSE 94 65 - 99 mg/dL INTERFACE SYSTEM CREATININE 0.70 0.51 - 0.95 mg/dL INTERFACE SYSTEM Comment:Note: Effective 03/14 New Methodolgy and Reference Ranges CALCIUM 8.7 8.4 - 10.2 mg/dL INTERFACE SYSTEM ALKALINE PHOSPHATASE 72 35 - 104 U/L INTERFACE SYSTEM AST 18 12 - 32 U/L INTERFACE SYSTEM ALT 9 0 - 31 U/L INTERFACE SYSTEM TOTAL PROTEIN 7.3 6.3 - 8.6 g/dL INTERFACE SYSTEM ALBUMIN 4.3 3.4 - 4.8 g/dL INTERFACE SYSTEM BILIRUBIN TOTAL 0.4 0.2 - 1.0 mg/dL INTERFACE SYSTEM BUN 17 6 - 20 mg/dL INTERFACE SYSTEM SODIUM 145 135 - 145 mmol/L INTERFACE SYSTEM POTASSIUM 3.4(L) 3.5 - 4.9 mmol/L INTERFACE SYSTEM CHLORIDE 106 96 - 108 mmol/L INTERFACE SYSTEM CO2 29 22 - 30 mmol/L INTERFACE SYSTEM 04/09/2006 11:0 1 AM FIRST SAMPLER us Kandy Schulz MD CHEMISTRY ORDERABLES Final Re sult Performing Organization Address [facility] Co de Phone Number INTERFACE SYSTEM Refer to clinic/hospital department * (ABNORMAL) LIPID PANEL (04/09/2006 11:01 AM FIRST SAMPLER) CHOLESTEROL 180 100 - 199 mg/dL INTERFACE SYSTEM TRIGLYCERIDE 101 10 - 149 mg/dL INTERFACE SYSTEM HDL 70(H) 40 - 59 mg/dL INTERFACE SYSTEM CHOL/HDL RATIO 2.6 2.0 - 5.0 INTER FACE SYSTEM LDL CALCULATED 90 <=99 mg/dL INTERFACE SYSTEM LIPID PANEL COMMENT See Below INTERFACE SYSTEM Comment: The adult ATP and pediatric NCEP classifications for lipids are available on the [facility] Intranet at: [email or web address] Select: Lab Policies and Procedures Select: Reference Ranges - Lipids 04/09/2006 11:0 1 AM FIRST SAMPLER us Kandy Schulz MD CHEMISTRY ORDERABLES Final Re sult INTERFACE SYSTEM Refer to clinic/hospital department documented in this encounter Visit Diagnoses Diagnosis Family history of ischemic heart disease- Primary documented in this encounter Care Teams Freight Car Loader Relationship Specialty Start Date End Date Laina Duran DO [address] [facility] [address] [place] [address] PCP - General Internal Medicine 03/08/15 NO DME 03/05/19 documented as of this encounter
--- OUTSIDE RECORDS SUMMARY | 2024-12-09 14:32 | XMS_ITS | Continuity of Care Document ---
Author Organization [facility] Address [address] [facility] [address] [place] [address] Phone Care Team Providers Care Welding Lead Burner Name Role Phone Iris COTTO, Monster Unavailable Unavaila ble Allergies, Adverse Reactions, Alerts Substance Reaction Status Criticality No Known Allergies Active No Inform ation Medications Medication Instructions Dosage Effective Dates (start - stop) Status Comments pantoprazole 40 mg tablet,delayed release take 1 tablet by oral route every day 40 MG - Active LISINOPRIL-HYDROCHLO ROTHIAZIDE (unknown strength) take 1 tablet by oral route every day Not Available - Active atorvastatin 40 mg tablet take 1 tablet by oral route every day 40 MG - Active citalopram 20 mg tablet take 1 tablet (20MG) by oral route every day 20 MG - Active Procedures Procedure Date OFFICE/OUTPATIENT VISIT, EST OFFICE/OUTPATIENT VISIT, EST OFFICE/OUTPATIENT VISIT, EST OFFICE/OUTPATIENT VISIT, EST OFFICE/OUTPATIENT VISIT, EST OFFICE/OUTPATIENT VISIT, EST OFFICE/OUTPATIENT VISIT, NEW Advance Directives Directive Yes / No Effective Date File Name No Information Encounters Encounter Description Practice Location Reason(s) For Visit Diagnoses Date Provider Providers Copied on Encounter OFFICE/OUTPA TIENT VISIT, EST [facility], [address] [address], [place], [place], [id number], [place] tel:[phone] [facility] CON[facility] pseudophakia (chief complaint) Other secondary cataract, bilateralPost erior vitreous detachment of both eyesInsuffici ency of tear film of both eyesMacular pucker, left eyePseudophak ia of both eyes 5 Iris Sureshhil. [address], [address], [place], [place], [id number], [place]. tel:[phone] Referring Provider: Monster painting, [address], [place], [address] . tel:[phone] OFFICE/OUTPA TIENT VISIT, EST [facility], [address] [place] [address], [id number], [place] tel:[phone] OPH CONSULT CATRINA GIPSON PCO OU (chief complaint) Other secondary cataract, bilateralPost erior vitreous detachment of both eyesMacular pucker, left eyeInsufficie ncy of tear film of both eyesPseudopha arnol of both eyes Fe 4 Iris Coelhol. [address], [address], [place], [place], [id number], [place]. tel:[phone] Referring Provider: Monster painting, [address], [place], [address] . tel:[phone] OFFICE/OUTPA TIENT VISIT, EST [facility], [address] [place] [address], [id number], [place] tel:[phone] OPH CONSULT CATRINA GIPSON pressure inside OS (chief complaint) Other secondary cataract, bilateralPost erior vitreous detachment of both eyesMacular pucker, left eyeInsufficie ncy of tear film of both eyesPseudopha arnol of both eyes Oct- 2 Iris Sureshhil. [address], [address], [place], [place], [id number], [place]. tel:[phone] Referring Provider: Laina NAVARRETE, [address], [place], [address]. tel:[phone] OFFICE/OUTPA TIENT VISIT, EST [facility], [address] [place] [address], [id number], [place] tel:[phone] OPH CONSULT CATRINA GIPSON IOL check (chief complaint) Other secondary cataract, bilateralPost erior vitreous detachment of both eyesInsuffici ency of tear film of both eyesMacular pucker, left eyePseudophak ia of both eyes 9 Krishnasamy Monster. [address], [address], [place], [place], [id number], [place]. tel:[phone] Referring Provider: Monster painting, [address], [place], [address] . tel:[phone] OFFICE/OUTPA TIENT VISIT, EST [facility], [address] [place] [address], [id number], [place] tel:[phone] Oph Consult [facility] Office feeling pressure (chief complaint) PVD (posterior vitreous detachment), both eyesOther secondary cataract, bilateralPseu dophakia of both eyesInsuffici ency of tear film of both eyesClosed fracture of left orbital floor with routine healing, subsequent encounter 6 Krishnasabel Sureshhil. [address], [address], [place], [place], [id number], [place]. tel:[phone] Referring Provider: Monster painting, [address], [place], [address] . tel:[phone] OFFICE/OUTPA TIENT VISIT, EST [facility], [address] [place] [address], [id number], [place] tel:[phone] Oph Consult [facility] Office Pressure/ Blurry Vison (chief complaint) Closed fracture of orbital floor (blow-out)Santo s replaced by other meansDiplopia Vitreous degenerationE xposure keratoconjunc tivitisAfter cataract not obscuring vision 5 Krishnasamy Monster. [address], [address], [place], [place], [id number], . tel:[phone] Referring Provider: Monster painting, [address], [place], [address] . tel:[phone] OFFICE/OUTPA TIENT VISIT, NEW [facility], [address] [address], [place], [place], [id number], tel:[phone] Oph Consult [facility] Office Exposure keratoconjunc tivitisDiplop iaClosed fracture of orbital floor (blow-out)Tea r film insufficiency , unspecifiedVi treous degenerationL ens replaced by other means 4 Iris Hook. [address], [place], [place], [id number], [place]. tel:[phone] Referring Provider: Monster painting, [address], [place], [address] . tel:[phone] Family History Family Member Type Diagnosis Age At Onset Problem No family history of Macular degeneration Problem No family history of [place] a Payers Payer name Insurance type Covered alliance party ID Authorconnor gupta(s) [place] MB [id number] [facility] [id number] Social History Type Description Quantity Date Captured Comments Alcohol Use Details Caffeine Use Details Unknown Tobacco Use Status Current non-smoker Smoking Status Never smoker Non-Smoking Tobacco Use Details : No Details Available : No Details Available Sex Female Vital Signs Date / Time: Height Weight BMI Pulse Rate Blood Pressure Temperature Respiratory Rate Body Surface Area Head Circumference Head Circ. Percentile Wt./Santo. Percentile BMI percentile Pulse Ox Inhaled Ox 10:11 AM 61.00 in 54.431 kg (120.00 lbs) 22.6 7 kg/m eter (2) Chief Complaint And Reason For Visit From encounter dated '11/20/2024 10:00'. pseudophakia (chief complaint). Description: The 84 year old patient presents for evaluation of pseudophakia, monovision.Patient states distance and near vision is stable, can still see everything clearly. Does feel a pressure sensation in OS, s/p Orbital Fracture. Not using any gtts. Reason For Referral Reason For Referral No Information History Of Present Illness Encounter Date Complaint History Of Prese nt Illness pseudophakia The 84 year old patient presents for evaluation of pseudophakia, monovision.Patient states distance and near vision is stable, can still see everything clearly. Does feel a pressure sensation in OS, s/p Orbital Fracture. Not using any gtts. PCO OU The 82 year old female presents for evaluation of PCO OU. Pt complains of mildly blurry vision OS, constant, stable. She denies much noticeable change to vision since the last visit. She denies any new floaters or flashers, no pain or discomfort. She is not using any eyedrops. She notes that vision is comfortable OU without Rx. pressure inside OS The 81 year o ld female presents for evaluation of pressure inside OS. Pt states that in 2013 she had to have facial reconstructive surgery to rebuild OS orbit. Starting back in November 2021 she started feeling pressure in her eye. This worried her so she is here to make sure that everything is doing ok. She does state that her vision has been gradually getting worse, but it DID NOT start at the same time. IOL check The 78 year old female presents for evaluation of IOL check in the right eye and left eye. Last exam was about 3 year(s) ago. The condition is constant. The condition is stable. Pt reports her DV isn't quite as bright as it has been in the past. H/O PCO OU feeling pressure The 75 year old female presents for evaluation of feeling pressure in the left eye. It started about 2 month(s) ago. The symptom is pretty constant and mild. Is worried that something has changed since having the closed fracture of orbital floor OS 2-3 yrs ago.Vision seems foggy, but very mild. Pressure/ Blurry Vison The 74 ye ar old female presents for evaluation of Pressure/ Blurry Vison in the left eye. It started about 2 month(s) ago. It occurs with no pattern. It affects VA not affected. The symptom is constant. The condition is significant. Pt states that vision clears up throughout the day. She states that OS feels swollen, no pain, but feeling of pressure. 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 Impression/Plan Related to Poste rior vitreous detachment of both eyes Impression/Plan Related to Other secondary cataract, bilateral Impression/Plan Related to Other secondary cataract, bilateral Impression/Plan Related to Poste rior vitreous detachment of both eyes Impression/Plan Related to Macul ar pucker, left eye Impression/Plan 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 Impression/Plan 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 Feb- Impression/Plan 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 Feb- Impression/Plan 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 Continue to observe. Related to Pseudophakia of both eyes Impression/Plan - s/ p LLL ectropion repair by Dr Cedeno.Some limitation to up and down gaze d/t injury-stable.Continue to observe. Related to Closed fracture of left orbital floor with routine healing, subsequent encounter Impression/Plan - No evidence of permanent changes to the cornea. Explained condition does not have a cure and will need artificial tears for maintenance. 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 All signs and risks of retinal detachment and tears were discussed in detail. Patient instructed to call the office immediately if any symptoms noted. Related to PVD (posterior vitreous detachment), both eyes Impression/Plan - No t visually significant. Continue to observe. Related to Other secondary cataract, bilateral Impression/Plan - RD warning discussed, patient aware and understands. Related to Vitreous degeneration Impression/Plan - Re assured patient of current condition and treatment. Emphasized and explained compliance. Continue Ats monique QPM OU. 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 Related to Diplopia Impression/Plan - Wi ll continue to observe Related to Lens replaced by other means Impression/Plan - Fo llow up with Dr. Cedeno PRN. Related to Closed fracture of orbital floor (blow-out) Impression/Plan - YA G not indicated, will monitor. Related to After cataract not obscuring vision Lens replaced by oth er means OU - Will continue to observe Related to Lens replaced by other means - Return in 3 weeks with Monster Simmons MD for follow up exam. Related to Lens replaced by other means Exposure keratoconju nctivitis OS - S/P orbital fracture repair - Discussed diagnosis in detail with patient. Discussed treatment options with patient. Patient instructed to use monique or gel tears QID OS. 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 There is no evidence of retinal pathology. All signs and risks of retinal detachment and tears were discussed in detail. Patient instructed to call the office immediately if any symptoms noted. Educational materials provided:Flashers/floaters. Related to Vitreous degeneration Tear film insufficie ncy, unspecified OU - Dry eyes account for the patient's complaints. There is no evidence of permanent changes to the cornea. Explained condition does not have a cure and will need artificial tears for maintenance. Patient instructed to use artificial tears as needed, monique at bedtime. Educational materials provided:Dry eye syndrome. Related to Tear film insufficiency, unspecified Closed fracture of o rbital floor (blow-out) OS - S/P repair in [place] - Patient Ref to Dr. Cedeno for evaluation Related to Closed fracture of orbital floor (blow-out) Diplopia - supra/inf raduction deficit OS, post-traumatic and post orbital floor fx repair - Discussed diagnosis in detail with patient. Reassured patient of current condition and treatment. Will continue to observe condition and or symptoms. New glasses rx not given at this time Related to Diplopia Assessments Type Assessment Date assessment Other secondary cataract, bilate ral impression Other secondary cataract, bilate ral: H26.493. assessment Posterior vitreous detachment of both eyes impression Posterior vitreous detachment of both eyes: H43.813. assessment Insufficiency of tear film of stephanie th eyes impression Insufficiency of tear film of stephanie th eyes: H04.123. assessment Macular pucker, left eye 2024 impression Macular pucker, left eye: H35.37 2. assessment Pseudophakia of both eyes impression Pseudophakia of both eyes: Z96.1 . monovision Patient Care Teams Name Effective Dates (start - stop) Status Members No Information
--- OUTSIDE RECORDS SUMMARY | 2024-12-09 14:32 | XMS_ITS | Encounter Summary ---
Author Organization [facility] Address [address] [place] [address] Care Team Providers Care [facility]keeper [facility] Name Role Phone Laina Duran DO Primary Care Provider [phone] Encounter Details Date Type Department Care Team (Late st Contact Info) Description 01/14/2004 Outpatient Historical [facility] Internal Medicine - [place] [address] [place] [address] [place] [address] [place], [place] Social History Tobacco Use Types Packs/Day Years Used Date Smoking Tobacco: Never Assessed Comments Unknown Sex and Gender Information Value Date Recorded Sex Assigned at Not on file Legal Sex Female 3:53 AM LAYUP WORKER Gender Identity Not on file Sexual Orientation Not on file documented as of this encounter Plan of Treatment Upcoming Encounters Date Type Department Care Team (Late st Contact Info) Description 02/20/2025 11:30 AM CDT Office Visit [facility] Internal Medicine Medical [place] [address] [address] [facility] [address] [address] Laina Duran DO [address] [facility] [address] [place] [address] documented as of this encounter Visit Diagnoses Not on filedocumented in this encounter Care Teams Housekeeper [facility] Relationship Specialty Start Date End Date Laina Duran DO [address] [facility] [address] [place] [address] PCP - General Internal Medicine 03/08/15 NO DME 03/05/19 documented as of this encounter
--- OUTSIDE RECORDS SUMMARY | 2024-12-09 14:32 | XMS_ITS | Encounter Summary ---
Author Organization [facility] Address [address] [place] [address] Care Team Providers Care Stacker Attendant Name Role Phone Laina Duran DO Primary Care Provider [phone] Encounter Details Date Type Department Care Team (Latest Contact Info) Description 04/10/2000 Outpatient Historical [facility] AVRIL Avila, Candi Ferreira MD NO ADDRESS ON FILE Other screening mammogram (Primary Dx) Social History Tobacco Use Types Packs/Day Years Used Date Smoking Tobacco: Never Assessed Comments Unknown Sex and Gender Information Value Date Recorded Sex Assigned at Not on file Legal Sex Female 3:53 AM POURER CRANE LADLE Gender Identity Not on file Sexual Orientation Not on file documented as of this encounter Plan of Treatment Upcoming Encounters Date Type Department Care Team (Late st Contact Info) Description 02/20/2025 11:30 AM CDT Office Visit [facility] Internal Medicine Medical [place] [address] [facility] [address] [address] Laina Duran DO [address] [facility] [address] [place], [place] [id number] documented as of this encounter Visit Diagnoses Diagnosis Other screening mammogram- Primary documented in this encounter Care Teams Stacker Attendant Relationship Specialty Start Date End Date Laina Duran DO [address] [facility] [address] [place] [address] PCP - General Internal Medicine 03/08/15 NO DME 03/05/19 documented as of this encounter
--- OUTSIDE RECORDS SUMMARY | 2024-12-09 14:32 | XMS_ITS | Encounter Summary ---
Author Organization [facility] Address [address] [place] [address] Care Team Providers Care Hydro Excavation Operator Name Role Phone Laina Duran DO Primary Care Provider [phone] Encounter Details Date Type Department Care Team (Late st Contact Info) Description 04/09/2006 Outpatient Historical [facility] Internal Medicine [facility] [address] [facility] [address] [address] Kandy Schulz MD Social History Tobacco Use Types Packs/Day Years Used Date Smoking Tobacco: Never Assessed Comments Unknown Sex and Gender Information Value Date Recorded Sex Assigned at Not on file Legal Sex Female 3:53 AM SPECIAL 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 TEACHER Gender Identity Not on file Sexual Orientation Not on file documented as of this encounter Plan of Treatment Upcoming Encounters Date Type Department Care Team (Late st Contact Info) Description 02/20/2025 11:30 AM CDT Office Visit [facility] Internal Medicine [facility] [address] [address] Laina Duran DO [address] [facility] [address] [place] [address] documented as of this encounter Visit Diagnoses Not on filedocumented in this encounter Care Teams Hydro Excavation Operator Relationship Specialty Start Date End Date Laina Duran DO [address] [facility] [address] [place] [address] PCP - General Internal Medicine 03/08/15 NO DME 03/05/19 documented as of this encounter
--- OUTSIDE RECORDS SUMMARY | 2024-12-09 14:32 | XMS_ITS | Encounter Summary ---
Author Organization [facility] Address [address] [place] [address] Care Team Providers Care Clinic Mgr Name Role Phone Laina Duran DO Primary Care Provider Encounter Details Date Type Department Care Team (Late st Contact Info) Description 05/30/2005 Outpatient Historical [facility] Internal Medicine - [place] [address] [place] [address] [place] [address] [place] [address] Social History Tobacco Use Types Packs/Day Years Used Date Smoking Tobacco: Never Assessed Comments Unknown Sex and Gender Information Value Date Recorded Sex Assigned at Not on file Legal Sex Female 3:53 AM CLINIC LEAD Gender Identity Not on file Sexual Orientation Not on file documented as of this encounter Plan of Treatment Upcoming Encounters Date Type Department Care Team (Late st Contact Info) Description 02/20/2025 11:30 AM CDT Office Visit [facility] Internal Medicine Medical [place] A [address] [facility] [address] [address] Laina Duran DO [address] [facility] [address] [place] [address] documented as of this encounter Visit Diagnoses Not on filedocumented in this encounter Care Teams Clinic Mgr Relationship Specialty Start Date End Date Laina Duran DO [address] [facility] [address] [place] [address] PCP - General Internal Medicine 03/08/15 NO DME 03/05/19 documented as of this encounter
--- OUTSIDE RECORDS SUMMARY | 2024-12-09 14:32 | XMS_ITS | Encounter Summary ---
Author Organization [facility] Address 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 Gender Identity Not on file Sexual Orientation Not on file documented as of this encounter Plan of Treatment Upcoming Encounters Date Type Department Care Team (Late st Contact Info) Description 02/20/2025 11:30 AM CDT Office Visit [facility] Internal Medicine Medical [place] [address] [address] [facility] [address] [address] Laina Duran DO [address] [facility] [address] [place] [address] documented as of this encounter Visit Diagnoses Diagnosis Mastodynia- Primary documented in this encounter Care Teams Vocational Education Professional Relationship Specialty Start Date End Date Laina Duran DO [address] [facility] [address] [place] [address] PCP - General Internal Medicine 03/08/15 NO DME 03/05/19 documented as of this encounter
--- OUTSIDE RECORDS SUMMARY | 2024-12-09 14:32 | XMS_ITS | Encounter Summary ---
Author Organization [facility] Address 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 Gender Identity Not on file Sexual Orientation Not on file documented as of this encounter Plan of Treatment Upcoming Encounters Date Type Department Care Team (Late st Contact Info) Description 02/20/2025 11:30 AM CDT Office Visit [facility] Internal Medicine Medical [place] [address] [facility] [address] [address] [address] Laina Duran DO [address] [facility] [address] [place] [address] documented as of this encounter Visit Diagnoses Diagnosis Mastodynia- Primary documented in this encounter Care Teams Smoke Control Supervisor Relationship Specialty Start Date End Date Laina Duran DO [address] [facility] [address] [place] [address] PCP - General Internal Medicine 03/08/15 NO DME 03/05/19 documented as of this encounter
--- OUTSIDE RECORDS SUMMARY | 2024-12-09 14:32 | XMS_ITS | Encounter Summary ---
Author Organization [facility] Address [address] [place] [address] Care Team Providers Care Director Of Radiology Name Role Phone Laina Duran DO Primary Care Provider [phone] Encounter Details Date Type Department Care Team (Late st Contact Info) Description 04/27/2006 Orders Only [facility] Internal Medicine Medical [place] [facility] [address] [address] Consuelo Hernandez MD [facility] [address] [place] [address] Social History Tobacco Use Types Packs/Day Years Used Date Smoking Tobacco: Never Assessed Comments Unknown Sex and Gender Information Value Date Recorded Sex Assigned at Not on file Legal Sex Female 3:53 AM COMPUTATIONAL LINGUIST Gender Identity Not on file Sexual Orientation Not on file documented as of this encounter Progress Notes * Consuelo Hernandez MD - 02/26/2008 3:35 AM CDT WEIGHT: 132lbs BLOOD PRESSURE: 120/70 Right Arm Sitting PULSE: 80 Right Radial, Regular HEIGHT: 5ft1in NURSE NAME: Marita Andre ALLERGIES: Allergies were reviewed. MEDICATIONS: Medication list current. CHIEF COMPLAINT Complains of left leg pain. HISTORY: HISTORY OF PRESENT ILLNESS: PAIN: Hip pain noted on the left. The onset was approximately 4 days ago. Woke from sleep- burning pain- thought she pulled something. Saw PT and pain is worse. Has had rash developing in that area. CURRENT PROBLEM LIST: 782.3 EDEMA V03.82 NEED FOR VACCINE PNEUMOCOCCUS V04.81 NEED FOR VACCINE INFLUENZA V16.3 FAMILY HISTORY OF CARCINOMA BREAST V17.3 FAMILY HISTORY OF ISCHEMIC HEART DISEASE V70.0 ROUTINE GENERAL MEDICAL EXAMINATION CURRENT MEDICATION LIST: EVISTA ORAL TABLET 60 MG, 1qd TRIAMTERENE-HCTZ ORAL TABLET 37.5-25 MG, 1 Every Day CURRENT ALLERGY LIST: NKDA PHYSICAL EXAMINATION: CONSTITUTIONAL: GENERAL APPEARANCE: Healthy appearing patient in no distress. SKIN: vesicular rash in dermatomal distribution along and just below left inguinal area. ASSESSMENT/PLAN: 053.9-HERPES ZOSTER/SHINGLES also gave lidoderm patch to try MEDICATIONS: ACYCLOVIR ORAL TABLET 800 MG, 1 po 5x a day for 10 days, 50 Dispensed, status: NEW PRESCRIPTION, 04/27/2006. PERCOCET ORAL TABLET 5-325 MG, 1-2 po q 4-6 hours prn, 40 Dispensed, status: NEW PRESCRIPTION, 04/27/2006. RETURN VISIT : Patient instructed to call in 1 week if not improving. Electronically Signed by: Consuelo Hernandez MD on Thursday, April 27, 2006 documented in this encounter Plan of Treatment Upcoming Encounters Date Type Department Care Team (Late st Contact Info) Description 02/20/2025 11:30 AM CDT Office Visit [facility] Internal Medicine [place] [facility] [address] [address] Laina Duran DO [address] [facility] [address] [place], [place] [address] documented as of this encounter Visit Diagnoses Not on filedocumented in this encounter Care Teams Director Of Radiology Relationship Specialty Start Date End Date Laina Duran DO [address] [facility] [address] [place] [address] PCP - General Internal Medicine 03/08/15 NO DME 03/05/19 documented as of this encounter
--- OUTSIDE RECORDS SUMMARY | 2024-12-09 14:32 | XMS_ITS | Encounter Summary ---
Author Organization [facility] Address [address] [place] [address] Care Team Providers Care Briar Shop Supervisor Name Role Phone Laina Duran DO Primary Care Provider [phone] Encounter Details Date Type Department Care Team (Late st Contact Info) Description 06/28/2007 Outpatient Historical [facility] Internal Medicine [facility] [address] [address] Kandy Schulz MD Social History Tobacco Use Types Packs/Day Years Used Date Smoking Tobacco: Never Assessed Comments Unknown Sex and Gender Information Value Date Recorded Sex Assigned at Not on file Legal Sex Female 3:53 AM CHIEF OF HARBOR PATROL Gender Identity Not on file Sexual Orientation Not on file documented as of this encounter Plan of Treatment Upcoming Encounters Date Type Department Care Team (Late st Contact Info) Description 02/20/2025 11:30 AM CDT Office Visit [facility] Internal Medicine [facility] [address] [address] Laina Duran DO [address] [place] [address] documented as of this encounter Visit Diagnoses Not on filedocumented in this encounter Care Teams Briar Shop Supervisor Relationship Specialty Start Date End Date Laina Duran DO [address] [place] [address] PCP - General Internal Medicine 03/08/15 NO DME 03/05/19 documented as of this encounter
--- OUTSIDE RECORDS SUMMARY | 2024-12-09 14:32 | XMS_ITS | Encounter Summary ---
Author Organization [facility] Address [address] [place] [address] Care Team Providers Care Condenser Operator Name Role Phone Laina Duran DO Primary Care Provider [phone] Encounter Details Date Type Department Care Team (Late st Contact Info) Description 05/30/2006 Outpatient Historical [facility] Internal Medicine Medical [place] [facility] [address] [address] Kandy Schulz MD Social History Tobacco Use Types Packs/Day Years Used Date Smoking Tobacco: Never Assessed Comments Unknown Sex and Gender Information Value Date Recorded Sex Assigned at Not on file Legal Sex Female 3:53 AM ORE STORAGE DRIER Gender Identity Not on file Sexual Orientation Not on file documented as of this encounter Last Filed Vital Signs Vital Sign Reading Time Taken Comments Blood Pressure 130/74 05/30/2006 2:15 PM ORE STORAGE DRIER Pulse 72 05/30/2006 2:15 PM ORE STORAGE DRIER Temperature 36.8 C (98.2 F) 05/30/2006 2:15 PM ORE STORAGE DRIER Respiratory Rate - - Oxygen Saturation - - Inhaled Oxygen Concentration - - Weight 58.5 kg (129 lb) 05/30/2006 2:15 PM ORE STORAGE DRIER Height - - Body Mass Index 24.37 04/27/2006 4:00 PM ORE STORAGE DRIER documented in this encounter Plan of Treatment Upcoming Encounters Date Type Department Care Team (Late st Contact Info) Description 02/20/2025 11:30 AM CDT Office Visit [facility] Internal Medicine Medical [place] [facility] [address] [address] Laina Duran DO [address] [place] [address] documented as of this encounter Visit Diagnoses Not on filedocumented in this encounter Care Teams Condenser Operator Relationship Specialty Start Date End Date Laina Duran DO [address] [place] [address] PCP - General Internal Medicine 03/08/15 NO DME 03/05/19 documented as of this encounter
--- OUTSIDE RECORDS SUMMARY | 2024-12-09 14:32 | XMS_ITS | Encounter Summary ---
Author Organization [facility] Address [address] [place] [address] Care Team Providers Care Centrifugal Casting Machine Operator Name Role Phone Laina Duran DO Primary Care Provider [phone] Encounter Details Date Type Department Care Team (Late st Contact Info) Description 04/09/2006 Outpatient Historical [facility] Internal Medicine [facility] [address] [facility] [address] [facility] [address] [address] Kandy Schulz MD Social History Tobacco Use Types Packs/Day Years Used Date Smoking Tobacco: Never Assessed Comments Unknown Sex and Gender Information Value Date Recorded Sex Assigned at Not on file Legal Sex Female 3:53 AM COMMUNITY SUPPORT WORKER Gender Identity Not on file Sexual Orientation Not on file documented as of this encounter Plan of Treatment Upcoming Encounters Date Type Department Care Team (Late st Contact Info) Description 02/20/2025 11:30 AM CDT Office Visit [facility] Internal Medicine [facility] [address] [address] Laina Duran DO [address] [place] [address] documented as of this encounter Visit Diagnoses Not on filedocumented in this encounter Care Teams Centrifugal Casting Machine Operator Relationship Specialty Start Date End Date Laina Duran DO [address] [place] [address] PCP - General Internal Medicine 03/08/15 NO DME 03/05/19 documented as of this encounter
--- OUTSIDE RECORDS SUMMARY | 2024-12-09 14:32 | XMS_ITS | Encounter Summary ---
Author Organization [facility] Address [address] [place] [address] Care Team Providers Care City Engineer Name Role Phone Laina Duran DO Primary Care Provider [phone] Reason for Visit * Reason Onset Date Comments Needs Form Or Letter Filled Out 07/05/2023 Handicapped Placard Encounter Details Date Type Department Care Team (Late st Contact Info) Description 07/05/2023 Telephone [facility] Internal Medicine Medical [place] [facility] [address] [address] Laina Duran DO [address] [facility] [address] [place] [address] Needs Form Or Letter Filled Out (Handicapped Placard) Social History Tobacco Use Types Packs/Day Years Used Date Smoking Tobacco: Never Smokeless Tobacco: Never Alcohol Use Standard Drinks/Week Comments Yes 14 (1 standard drink = 0.6 oz pu re alcohol) Comments No Sex and Gender Information Value Date Recorded Sex Assigned at Not on file Legal Sex Female 3:53 AM AGGREGATE CONVEYOR OPERATOR Gender Identity Not on file Sexual Orientation Not on file Occupation Industry Job Start Date Job End Date retired Not on file Not on file Not on file Not on file Not on file Not on file Not on file documented as of this encounter Miscellaneous Notes * Telephone Encounter - Lety Douglas - 07/05/2023 1:31 PM CST Spoke with patient, she would prefer 5 year permanent handicapped placard. [place] resident. Filled out [place] Handicapped Parking Placard Form. At my desk to be signed by physician. Then will mail to patient home. EGATE CONVEYOR OPERATOR * Telephone Encounter - Lety Douglas - 07/05/2023 1:26 PM CST LM to call office back. Contact Center: Transfer to office EGATE CONVEYOR OPERATOR * Telephone Encounter - Laina Duran DO - 07/05/2023 12:24 PM CST Ok to do handicap placard, please advise her temporary can only be for 6 mo max. Does she want permanent (5yrs) instead? EGATE CONVEYOR OPERATOR * Telephone Encounter - Jimenez Lomeli - 07/05/2023 12:06 PM CST Copied from [facility] #[id number]. Topic: CPA Information Request - Patient Call Back >> Jul 05, 2023 12:05 PM Jimenez Ferreira wrote: Caller is returning phone call from clinic. Patient Has Additional Questions Caller Name: Elizabeth Johnson Patient/Caregiver Callback Number: [phone] Call Notes: ,Elizabeth called in regarding issue with broken hip and cannot step on a curb. She wantspermission to get a disabled sticker for drving for a 1 yr. Please Advise EGATE CONVEYOR OPERATOR documented in this encounter Plan of Treatment Upcoming Encounters Date Type Department Care Team (Late st Contact Info) Description 02/20/2025 11:30 AM CDT Office Visit [facility] Internal Medicine [facility] [place] [facility] [address] [address] Laina Duran DO [address] [place], [place] [address] documented as of this encounter Visit Diagnoses Not on filedocumented in this encounter Care Teams City Engineer Relationship Specialty Start Date End Date Laina Duran DO [address] [place] [address] PCP - General Internal Medicine 03/08/15 NO DME 03/05/19 documented as of this encounter
--- OUTSIDE RECORDS SUMMARY | 2024-12-09 14:32 | XMS_ITS | Encounter Summary ---
Author Organization [facility] Address [address] [place] [address] Care Team Providers Care Bracer Name Role Phone Laina Duran DO Primary Care Provider [phone] Encounter Details Date Type Department Care Team (Late st Contact Info) Description 04/27/2006 Outpatient Historical [facility] Internal Medicine [facility] [place] [address] [address] Consuelo Hernandez MD [address] [place] [address] Social History Tobacco Use Types Packs/Day Years Used Date Smoking Tobacco: Never Assessed Comments Unknown Sex and Gender Information Value Date Recorded Sex Assigned at Not on file Legal Sex Female 3:53 AM PULMONARY FELLOW Gender Identity Not on file Sexual Orientation Not on file documented as of this encounter Last Filed Vital Signs Vital Sign Reading Time Taken Comments Blood Pressure 120/70 04/27/2006 4:00 PM PULMONARY FELLOW Pulse 80 04/27/2006 4:00 PM PULMONARY FELLOW Temperature - - Respiratory Rate - - Oxygen Saturation - - Inhaled Oxygen Concentration - - Weight 59.9 kg (132 lb) 04/27/2006 4:00 PM PULMONARY FELLOW Height 154.9 cm (5' 1) 04/27/2006 4:00 PM PULMONARY FELLOW Body Mass Index 24.94 04/27/2006 4:00 PM PULMONARY FELLOW documented in this encounter Plan of Treatment Upcoming Encounters Date Type Department Care Team (Late st Contact Info) Description 02/20/2025 11:30 AM CDT Office Visit [facility] Internal Medicine Medical [place] [address] [address] Laina Duran DO [address] [address] [place] [address] documented as of this encounter Visit Diagnoses Not on filedocumented in this encounter Care Teams Bracer Relationship Specialty Start Date End Date Laina Duran DO [address] [facility] [address] [place] [address] PCP - General Internal Medicine 03/08/15 NO DME 03/05/19 documented as of this encounter
--- OUTSIDE RECORDS SUMMARY | 2024-12-09 14:32 | XMS_ITS | Encounter Summary ---
Author Organization [facility] Address [address] [place] [address] Care Team Providers Care Primary Care Pediatrician Name Role Phone Laina Duran DO Primary Care Provider [phone] Encounter Details Date Type Department Care Team (Latest Contact Info) Description 06/28/2007 Outpatient Historical [facility] Internal Medicine [facility] [address] [place] [address] Kandy Schulz MD Family History of Ischemic Heart Disease Social History Tobacco Use Types Packs/Day Years Used Date Smoking Tobacco: Never Assessed Comments Unknown Sex and Gender Information Value Date Recorded Sex Assigned at Not on file Legal Sex Female 3:53 AM MAJOR GIFTS DIRECTOR Gender Identity Not on file Sexual Orientation Not on file documented as of this encounter Plan of Treatment Upcoming Encounters Date Type Department Care Team (Late st Contact Info) Description 02/20/2025 11:30 AM CDT Office Visit [facility] Internal Medicine [facility] [address] [facility] [address] [facility] [address] [place] [address] Laina Duran DO [address] [address] documented as of this encounter Procedures Procedure Name Priority Date/Time Associated Diagnosis Comments TSH WITH REFLEX FT4 AND FT3 Routine 06/28/2007 11:59 AM MAJOR GIFTS DIRECTOR LIPID PANEL Routine 06/28/2007 11:59 AM MAJOR GIFTS DIRECTOR COMPREHENSIVE METABOLIC PANEL Routine 06/28/2007 11:59 AM MAJOR GIFTS DIRECTOR documented in this encounter Results * (ABNORMAL) LIPID PANEL (06/28/2007 11:59 AM MAJOR GIFTS DIRECTOR) Pathologist [facility] CHOL/HDL RATIO 2.7 2.0 - 5.0 [facility] TRIGLYCERIDE 116 10 - 149 mg/dL [facility] HDL 72(H) 40 - 59 mg/dL [facility] CHOLESTEROL 196 100 - 199 mg/dL [facility] LDL CALCULATED 101(H) <=99 mg/dL [facility] LIPID PANEL COMMENT See Below [facility] Comment: The adult ATP and pediatric NCEP classifications for lipids are available on the [facility] Intranet at: [email or web address] Select: Lab Policies and Procedures,Current Select: Lipid Panel Interpretation Blood specimen (specimen) 06/28/2007 11:59 AM MAJOR GIFTS DIRECTOR 06/28/2007 12:12 PM MAJOR GIFTS DIRECTOR Kandy Schulz MD CHEMISTRY ORDERABLES Edited [facility] [address] [place] [address] * TSH WITH REFLEX FT4 AND FT3 (06/28/2007 11:59 AM MAJOR GIFTS DIRECTOR) Pathologist [facility] TSH 1.33 0.27 - 4.20 uU/mL [facility] Blood specimen (specimen) 06/28/2007 11:59 AM MAJOR GIFTS DIRECTOR 06/28/2007 12:12 PM MAJOR GIFTS DIRECTOR us Kandy Schulz MD CHEMISTRY ORDERABLES Final Resu lt [facility] [address] [place] [address] * (ABNORMAL) COMPREHENSIVE METABOLIC PANEL (06/28/2007 11:59 AM MAJOR GIFTS DIRECTOR) SODIUM 144 135 - 145 mmol/L [facility] ALKALINE PHOSPHATASE 65 35 - 104 U/L [facility] CO2 30 22 - 30 mmol/L [facility] BILIRUBIN TOTAL 0.4 0.2 - 1.0 mg/dL [facility] POTASSIUM 3.1(L) 3.5 - 4.9 mmol/L [facility] TOTAL PROTEIN 7.3 6.3 - 8.6 g/dL [facility] GLUCOSE 93 65 - 99 mg/dL [facility] AST 22 12 - 32 U/L [facility] BUN 16 6 - 20 mg/dL [facility] CALCIUM 8.8 8.4 - 10.2 mg/dL [facility] ALBUMIN 4.3 3.4 - 4.8 g/dL [facility] CHLORIDE 103 96 - 108 mmol/L [facility] CREATININE 0.72 0.51 - 0.95 mg/dL [facility] ALT 14 0 - 31 U/L [facility] GFR, >60 >=60 mL/min/1. 7 sq meter [facility] GFR >60 >=60 mL/min/1. 7 sq meter [facility] Comment: Estimated GFR rate interpretative information for both Americans and non- Americans is available on the [facility] Intranet at: [email or web address] Select: Lab Policies and Procedures Select: Reference Ranges - GFR Blood specimen (specimen) 06/28/2007 11:59 AM MAJOR GIFTS DIRECTOR 06/28/2007 12:12 PM MAJOR GIFTS DIRECTOR Kandy Schulz MD CHEMISTRY ORDERABLES Edited [facility] [address] [place] [address] documented in this encounter Visit Diagnoses Diagnosis Family history of ischemic heart disease documented in this encounter Care Teams Primary Care Pediatrician Relationship Specialty Start Date End Date Laina Duran DO [address] [facility] [facility] [address] [place] [address] PCP - General Internal Medicine 03/08/15 NO DME 03/05/19 documented as of this encounter
[2024-12-09 18:45] LABS: Hematocrit 40.6 % (37.0-47.0); Hemoglobin 13.7 g/dL (12.0-15.0); Immature Granulocyte Percent A 0.4 % (0-0.5); Lymphocytes Absolute Auto 2.84 K/mm3 (0.9-3.2); Mean Corpuscular HGB Conc 33.7 g/dl (32-36); Mean Corpuscular Hemoglobin 29.2 pg (26-34); Mean Corpuscular Volume 86.6 fl (80-100); Nucleated Red Blood Cells Absolute Auto 0.000 K/mm3 (0.0-0.012); Nucleated Red Blood Cells Perc 0.0 % (0.0-0.2); Platelet Count Result 263 k/mm3 (150-375); Red Blood Count 4.69 M/mm3 (4.2-5.4); White Blood Count 9.5 K/mm3 (4.5-10.0)
[2024-12-09 19:40] LABS: Alanine Aminotransferase 15 U/L (6-35); Albumin Level 4.3 g/dL (3.5-5.1); Alkaline Phosphatase 88 U/L (38-126); Anion Gap 7 mmol/L (4-12); Aspartate Amino Transferase 36 U/L (14-36); Bilirubin,Total 1.0 mg/dL (0.2-1.3); Blood Urea Nitrogen 15 mg/dL (7-17); Calcium 9.8 mg/dL (8.4-10.2); Carbon Dioxide 28 mmol/L (22-30); Chloride 100 mmol/L (98-107); Cholesterol 140 mg/dL (0-200); Estimated Glomerular Filt Rate > 60; Glucose 82 mg/dL (65-110); HDL Direct 71 mg/dL; Potassium 4.0 mmol/L (3.4-5.0); Sodium 135 mmol/L (137-145); Total Protein 7.5 g/dL (6.3-8.2); Triglycerides 110 mg/dL (<150)
[2024-12-09 20:20] LABS: Thyroid Stimulating Hormone < 0.015 uIU/mL (0.465-4.680)
== END 2024-12-09 14:24 | disposition home or self-care (01) ==
LOC: ANHGOSHLAB 14:23
PROVIDERS: PCP Family Medicine; Visit Provider Family Medicine
DX: E87.6 Hypokalemia (principal); I10 Essential (primary) hypertension; Z78.0 Asymptomatic menopausal state; Z79.899 Other long term (current) drug therapy
CPT/HCPCS: 36415; 80053; 80061; 82306; 84443; 85025

== ENCOUNTER 2024-12-25 12:52 | Outpatient (CLI) | payer MEDICARE, SELFPAY ==
--- OUTSIDE RECORDS SUMMARY | 2024-12-25 13:05 | XMS_ITS | Encounter Summary ---
Author Organization [facility] Address [address] [place] [address] Care Team Providers Care Media Monitor Name Role Phone Laina Duran DO Primary Care Provider [phone] Encounter Details Date Type Department Care Team (Late st Contact Info) Description 04/09/2006 Outpatient Historical [facility] Internal Medicine [facility] [address] [facility] [address] [address] Kandy Schulz MD Social History Tobacco Use Types Packs/Day Years Used Date Smoking Tobacco: Never Assessed Comments Unknown Sex and Gender Information Value Date Recorded Sex Assigned at Not on file Legal Sex Female 3:53 AM MILLER APPRENTICE Gender Identity Not on file Sexual Orientation Not on file documented as of this encounter Plan of Treatment Upcoming Encounters Date Type Department Care Team (Late st Contact Info) Description 02/20/2025 11:30 AM CDT Office Visit [facility] Internal Medicine [facility] [address] [address] Laina Duran DO [address] [facility] [address] [place] [address] documented as of this encounter Visit Diagnoses Not on filedocumented in this encounter Care Teams Media Monitor Relationship Specialty Start Date End Date Laina Duran DO [address] [facility] [address] [place] [address] PCP - General Internal Medicine 03/08/15 NO DME 03/05/19 documented as of this encounter
--- OUTSIDE RECORDS SUMMARY | 2024-12-25 13:05 | XMS_ITS | Encounter Summary ---
Author Organization [facility] Address [address] [place] [address] Care Team Providers Care Hose Tester Name Role Phone Laina Duran DO Primary Care Provider [phone] Encounter Details Date Type Department Care Team (Late st Contact Info) Description 04/09/2006 Outpatient Historical [facility] Internal Medicine [facility] [address] [facility] [address] [address] Kandy Schulz MD Social History Tobacco Use Types Packs/Day Years Used Date Smoking Tobacco: Never Assessed Comments Unknown Sex and Gender Information Value Date Recorded Sex Assigned at Not on file Legal Sex Female 3:53 AM NEEDLE LOOM TENDER Gender Identity Not on file Sexual Orientation Not on file documented as of this encounter Plan of Treatment Upcoming Encounters Date Type Department Care Team (Late st Contact Info) Description 02/20/2025 11:30 AM CDT Office Visit [facility] Internal Medicine [facility] [address] [address] Laina Duran DO [address] [facility] [address] [place] [address] documented as of this encounter Visit Diagnoses Not on filedocumented in this encounter Care Teams Hose Tester Relationship Specialty Start Date End Date Laina Duran DO [address] [facility] [address] [place] [address] PCP - General Internal Medicine 03/08/15 NO DME 03/05/19 documented as of this encounter
--- OUTSIDE RECORDS SUMMARY | 2024-12-25 13:05 | XMS_ITS | Encounter Summary ---
Author Organization [facility] Address [address] [place] [address] Care Team Providers Care Glove Boarder Name Role Phone Laina Duran DO Primary Care Provider [phone] Encounter Details Date Type Department Care Team (Latest Contact Info) Description 01/27/2004 Outpatient Historical [facility] AVRIL Avila, Candi Ferreira MD NO ADDRESS ON FILE SCREENING MAMM-MAILG NEOPL-OTHER (Primary Dx) Social History Tobacco Use Types Packs/Day Years Used Date Smoking Tobacco: Never Assessed Comments Unknown Sex and Gender Information Value Date Recorded Sex Assigned at Not on file Legal Sex Female 3:53 AM COOK SOUP Gender Identity Not on file Sexual Orientation Not on file documented as of this encounter Plan of Treatment Upcoming Encounters Date Type Department Care Team (Late st Contact Info) Description 02/20/2025 11:30 AM CDT Office Visit [facility] Internal Medicine Medical [place] [address] [facility] [address] [address] Laina Duran DO [address] [facility] [address] [place] [address] documented as of this encounter Visit Diagnoses Diagnosis Other screening mammogram- Primary documented in this encounter Care Teams Glove Boarder Relationship Specialty Start Date End Date Laina Duran DO [address] [facility] [address] [place] [address] PCP - General Internal Medicine 03/08/15 NO DME 03/05/19 documented as of this encounter
--- OUTSIDE RECORDS SUMMARY | 2024-12-25 13:05 | XMS_ITS | Clinical Summary ---
Author Organization [facility] [address] Address [address] [place] [address] Care Team Providers Care Senior Chemist Name Role Phone Unknown, Notinfile Primary Care [...] on file Legal Sex Female 5:[address] Gender Identity Not on file Sexual Orientation [...] Vaccine Completed 07/17/2019, 02/12, 07/18/2018 Insurance MEDICARE [facility] Care Teams Senior Chemist Relationship Specialty Start Date End Date Unknown, Notinfile PCP - General 09/08/21
--- OUTSIDE RECORDS SUMMARY | 2024-12-25 13:05 | XMS_ITS | Encounter Summary ---
Author Organization [facility] Address [address] [place] [address] Care Team Providers Care Dynamotor Repairer Name Role Phone Laina Duran DO Primary Care Provider [phone] Encounter Details Date Type Department Care Team (Late st Contact Info) Description 07/23/2001 Outpatient Historical [facility] Internal Medicine - [place] [address] [place] [address] [place] [address] [place] [id number] Social History Tobacco Use Types Packs/Day Years Used Date Smoking Tobacco: Never Assessed Comments Unknown Sex and Gender Information Value Date Recorded Sex Assigned at Not on file Legal Sex Female 3:53 AM DESIGN MAKER Gender Identity Not on file Sexual Orientation Not on file documented as of this encounter Plan of Treatment Upcoming Encounters Date Type Department Care Team (Late st Contact Info) Description 02/20/2025 11:30 AM CDT Office Visit [facility] Internal Medicine Medical [place] [address] [facility] [address] [address] Laina Duarn DO [address] [facility] [address] [place] [address] documented as of this encounter Visit Diagnoses Not on filedocumented in this encounter Care Teams Dynamotor Repairer Relationship Specialty Start Date End Date Laina Duran DO [address] [facility] [address] [place] [address] PCP - General Internal Medicine 03/08/15 NO DME 03/05/19 documented as of this encounter
--- OUTSIDE RECORDS SUMMARY | 2024-12-25 13:05 | XMS_ITS | Encounter Summary ---
Author Organization [facility] Address [address] [place] [address] Care Team Providers Care Station Jailer Name Role Phone Laina Duran DO Primary Care Provider [phone] Encounter Details Date Type Department Care Team (Late st Contact Info) Description 01/14/2004 Outpatient Historical [facility] Internal Medicine - [place] [address] [place] [address] [place] [address] [place], [place] Social History Tobacco Use Types Packs/Day Years Used Date Smoking Tobacco: Never Assessed Comments Unknown Sex and Gender Information Value Date Recorded Sex Assigned at Not on file Legal Sex Female 3:53 AM LIDAR TECHNICIAN Gender Identity Not on file Sexual Orientation Not on file documented as of this encounter Plan of Treatment Upcoming Encounters Date Type Department Care Team (Late st Contact Info) Description 02/20/2025 11:30 AM CDT Office Visit [facility] Internal Medicine Medical [place] A [address] [facility] [address] [address] Laina Duran DO [address] [facility] [address] [place] [address] documented as of this encounter Visit Diagnoses Not on filedocumented in this encounter Care Teams Station Jailer Relationship Specialty Start Date End Date Laina Duran DO [address] [facility] [address] [place] [address] PCP - General Internal Medicine 03/08/15 NO DME 03/05/19 documented as of this encounter
--- OUTSIDE RECORDS SUMMARY | 2024-12-25 13:05 | XMS_ITS | Encounter Summary ---
Author Organization [facility] Address [address] [place] [address] Care Team Providers Care Sap Crm Developer Name Role Phone Laina Duran DO Primary Care Provider [phone] Encounter Details Date Type Department Care Team (Late st Contact Info) Description 04/09/2006 Outpatient Historical [facility] Internal Medicine [facility] [address] [facility] [address] [address] Kandy Schulz MD Social History Tobacco Use Types Packs/Day Years Used Date Smoking Tobacco: Never Assessed Comments Unknown Sex and Gender Information Value Date Recorded Sex Assigned at Not on file Legal Sex Female 3:53 AM SHIFT PRODUCTION SUPERVISOR Gender Identity Not on file Sexual Orientation Not on file documented as of this encounter Plan of Treatment Upcoming Encounters Date Type Department Care Team (Late st Contact Info) Description 02/20/2025 11:30 AM CDT Office Visit [facility] Internal Medicine [facility] [address] [address] Laina Duran DO [address] [facility] [address] [place] [address] documented as of this encounter Visit Diagnoses Not on filedocumented in this encounter Care Teams Sap Crm Developer Relationship Specialty Start Date End Date Laina Duran DO [address] [facility] [address] [place] [address] PCP - General Internal Medicine 03/08/15 NO DME 03/05/19 documented as of this encounter
--- OUTSIDE RECORDS SUMMARY | 2024-12-25 13:05 | XMS_ITS | Encounter Summary ---
Author Organization [facility] Address [address] [place] [address] Care Team Providers Care Appraiser Real Estate Name Role Phone Laina Duran DO Primary Care Provider [phone] Encounter Details Date Type Department Care Team (Late st Contact Info) Description 03/06/2000 Outpatient Historical [facility] Internal Medicine - [place] [address] [place] [address] [place] [address] [place] [address] Social History Tobacco Use Types Packs/Day Years Used Date Smoking Tobacco: Never Assessed Comments Unknown Sex and Gender Information Value Date Recorded Sex Assigned at Not on file Legal Sex Female 3:53 AM SUBSTATION TECHNICIAN Gender Identity Not on file Sexual Orientation Not on file documented as of this encounter Plan of Treatment Upcoming Encounters Date Type Department Care Team (Late st Contact Info) Description 02/20/2025 11:30 AM CDT Office Visit [facility] Internal Medicine Medical [place] [address] [facility] [address] [address] Laina Duran DO [address] [facility] [address] [place] [address] documented as of this encounter Visit Diagnoses Not on filedocumented in this encounter Care Teams Appraiser Real Estate Relationship Specialty Start Date End Date Laina Duran DO [address] [facility] [address] [place] [address] PCP - General Internal Medicine 03/08/15 NO DME 03/05/19 documented as of this encounter
--- OUTSIDE RECORDS SUMMARY | 2024-12-25 13:05 | XMS_ITS | Encounter Summary ---
Author Organization [facility] Address [address] [place] [address] Care Team Providers Care Pet Resort Concierge Name Role Phone Laina Duran DO Primary Care Provider [phone] Encounter Details Date Type Department Care Team (Latest Contact Info) Description 09/03/2002 Outpatient Historical HIS [facility] AVRIL Avila, Candi Ferreira MD NO ADDRESS ON FILE SCREENING MAMM-MAILG NEOPL-OTHER (Primary Dx) Social History Tobacco Use Types Packs/Day Years Used Date Smoking Tobacco: Never Assessed Comments Unknown Sex and Gender Information Value Date Recorded Sex Assigned at Not on file Legal Sex Female 3:53 AM TRUCK SUPERVISOR Gender Identity Not on file Sexual Orientation Not on file documented as of this encounter Plan of Treatment Upcoming Encounters Date Type Department Care Team (Late st Contact Info) Description 02/20/2025 11:30 AM CDT Office Visit [facility] Internal Medicine Medical [place] A [address] [facility] [place] [address] [address] Laina Duran DO [address] [facility] [address] [place] [address] documented as of this encounter Visit Diagnoses Diagnosis Other screening mammogram- Primary documented in this encounter Care Teams Pet Resort Concierge Relationship Specialty Start Date End Date Laina Duran DO [address] [facility] [address] [place] [address] PCP - General Internal Medicine 03/08/15 NO DME 03/05/19 documented as of this encounter
--- OUTSIDE RECORDS SUMMARY | 2024-12-25 13:05 | XMS_ITS | Encounter Summary ---
Author Organization [facility] Address [address] [place] [address] Care Team Providers Care Glass Ribbon Machine Operator Name Role Phone Laina Duran DO Primary Care Provider [phone] Encounter Details Date Type Department Care Team (Late st Contact Info) Description 01/14/2004 Outpatient Historical [facility] Internal Medicine - [place] [address] [place] [address] [place] [address] [place], [place] Social History Tobacco Use Types Packs/Day Years Used Date Smoking Tobacco: Never Assessed Comments Unknown Sex and Gender Information Value Date Recorded Sex Assigned at Not on file Legal Sex Female 3:53 AM INFORMATION ARCHITECT Gender Identity Not on file Sexual Orientation Not on file documented as of this encounter Plan of Treatment Upcoming Encounters Date Type Department Care Team (Late st Contact Info) Description 02/20/2025 11:30 AM CDT Office Visit [facility] Internal Medicine Medical [place] [address] [facility] [address] [address] Laina Duran DO [address] [facility] [address] [place] [address] documented as of this encounter Visit Diagnoses Not on filedocumented in this encounter Care Teams Glass Ribbon Machine Operator Relationship Specialty Start Date End Date Laina Duran DO [address] [facility] [address] [place] [address] PCP - General Internal Medicine 03/08/15 NO DME 03/05/19 documented as of this encounter
--- OUTSIDE RECORDS SUMMARY | 2024-12-25 13:05 | XMS_ITS | Encounter Summary ---
Author Organization [facility] Address [address] [place] [address] Care Team Providers Care Tailer Out Name Role Phone Laina Duran DO Primary Care Provider [phone] Encounter Details Date Type Department Care Team (Late st Contact Info) Description 05/30/2005 Outpatient Historical [facility] Internal Medicine - [place] [address] [place] [address] [place] [address] [place] [address] Social History Tobacco Use Types Packs/Day Years Used Date Smoking Tobacco: Never Assessed Comments Unknown Sex and Gender Information Value Date Recorded Sex Assigned at Not on file Legal Sex Female 3:53 AM NASCAR PIT CREW PERSON Gender Identity Not on file Sexual Orientation Not on file documented as of this encounter Plan of Treatment Upcoming Encounters Date Type Department Care Team (Late st Contact Info) Description 02/20/2025 11:30 AM CDT Office Visit [facility] Internal Medicine Medical [place] [address] [facility] [address] [address] Laina Duran DO [address] [facility] [address] [place] [address] documented as of this encounter Visit Diagnoses Not on filedocumented in this encounter Care Teams Tailer Out Relationship Specialty Start Date End Date Laina Duran DO [address] [facility] [address] [place] [address] PCP - General Internal Medicine 03/08/15 NO DME 03/05/19 documented as of this encounter
--- OUTSIDE RECORDS SUMMARY | 2024-12-25 13:05 | XMS_ITS | Encounter Summary ---
Author Organization [facility] Address [address] [place] [address] Care Team Providers Care Branch Lead Name Role Phone Laina Duran DO Primary Care Provider [phone] Encounter Details Date Type Department Care Team (Latest Contact Info) Description 04/09/2006 Outpatient Historical [facility] Internal [facility] [place] [address] [facility] [place] [address] Kandy Schulz MD Family History of Ischemic Heart Disease (Primary Dx) Social History Tobacco Use Types Packs/Day Years Used Date Smoking Tobacco: Never Assessed Comments Unknown Sex and Gender Information Value Date Recorded Sex Assigned at Not on file Legal Sex Female 3:53 AM BOBBIN DRIER Gender Identity Not on file Sexual Orientation Not on file documented as of this encounter Plan of Treatment Upcoming Encounters Date Type Department Care Team (Late st Contact Info) Description 02/20/2025 11:30 AM CDT Office Visit [facility] [place] [address] [facility] [address] [place] [address] Laina Duran DO [address] [facility] [address] [place] [address] documented as of this encounter Procedures Procedure Name Priority Date/Time Associated Diagnosis Comments TSH REFLEXIVE Routine 04/09/2006 11:01 AM BOBBIN DRIER CBC WITH DIFFERENTIAL Routine 04/09/2006 11:01 AM BOBBIN DRIER CBC WITH DIFFERENTIAL Routine 04/09/2006 11:01 AM BOBBIN DRIER LIPID PANEL Routine 04/09/2006 11:01 AM BOBBIN DRIER COMPREHENSIVE METABOLIC PANEL Routine 04/09/2006 11:01 AM BOBBIN DRIER documented in this encounter Results * CBC WITH DIFFERENTIAL (04/09/2006 11:01 AM BOBBIN DRIER) NEUTROPHILS 50 45 - 70 % INTERFAC [...] K/uL INTERFACE SYSTEM 04/09/2006 11:0 1 AM BOBBIN DRIER us Kandy Schulz MD HEMATOLOGY ORDERABLES Final R esult INTERFACE SYSTEM Refer to clinic/hospital department * CBC WITH DIFFERENTIAL (04/09/2006 11:01 AM BOBBIN DRIER) WBC 7.1 4.0 - 9.8 K/uL INTERFACE [...] fL INTERFACE SYSTEM 04/09/2006 11:0 1 AM BOBBIN DRIER us Kandy Schulz MD HEMATOLOGY ORDERABLES Final R esult Performing Organization Address [facility] Co me Phone Number INTERFACE SYSTEM Refer to clinic/hospital department * TSH REFLEXIVE (04/09/2006 11:01 AM BOBBIN DRIER) TSH 1.28 0.27 - 4.20 uU/mL INTERFACE SYSTEM 04/09/2006 11:0 1 AM BOBBIN DRIER us Kandy Schulz MD CHEMISTRY ORDERABLES Final Re sult Performing Organization Address [facility] Phone Number INTERFACE SYSTEM Refer to clinic/hospital department * (ABNORMAL) COMPREHENSIVE METABOLIC PANEL (04/09/2006 11:01 AM BOBBIN DRIER) GLUCOSE 94 65 - 99 mg/dL INTERFACE [...] mmol/L INTERFACE SYSTEM 04/09/2006 11:0 1 AM BOBBIN DRIER us Kandy Schulz MD CHEMISTRY ORDERABLES Final Re sult Performing Organization Address [facility] Co de Phone Number INTERFACE SYSTEM Refer to clinic/hospital department * (ABNORMAL) LIPID PANEL (04/09/2006 11:01 AM BOBBIN DRIER) CHOLESTEROL 180 100 - 199 mg/dL INTERFACE SYSTEM TRIGLYCERIDE 101 10 - 149 mg/dL INTERFACE SYSTEM HDL 70(H) 40 - 59 mg/dL INTERFACE SYSTEM CHOL/HDL RATIO 2.6 2.0 - 5.0 INTER FACE SYSTEM LDL CALCULATED 90 <=99 mg/dL INTERFACE SYSTEM LIPID PANEL COMMENT See Below INTERFACE SYSTEM Comment: The adult ATP and pediatric NCEP classifications for lipids are available on the [facility] Intranet at: [email or web address] Select: Lab Policies and Procedures Select: Reference Ranges - Lipids 04/09/2006 11:0 1 AM BOBBIN DRIER us Kandy Schulz MD CHEMISTRY ORDERABLES Final Re sult INTERFACE SYSTEM Refer to clinic/hospital department documented in this encounter Visit Diagnoses Diagnosis Family history of ischemic heart disease- Primary documented in this encounter Care Teams Branch Lead Relationship Specialty Start Date End Date Laina Duran DO [address] [facility] [address] [place] [address] PCP - General Internal Medicine 03/08/15 NO DME 03/05/19 documented as of this encounter
--- OUTSIDE RECORDS SUMMARY | 2024-12-25 13:05 | XMS_ITS | Encounter Summary ---
Author Organization [facility] Address [address] [place] [address] Care Team Providers Care Electrical Tech/Project Manager Name Role Phone Laina Duran DO Primary Care Provider Encounter Details Date Type Department Care Team (Late st Contact Info) Description 05/30/[address] [facility] Internal Medicine - [place] [address] [place] [address] [place] [address] [place] [address] Social History Tobacco Use Types Packs/Day Years Used Date Smoking Tobacco: Never Assessed Comments Unknown Sex and Gender Information Value Date Recorded Sex Assigned at Not on file Legal Sex Female 3:53 AM LAYER OFF Gender Identity Not on file Sexual Orientation Not on file documented as of this encounter Plan of Treatment Upcoming Encounters Date Type Department Care Team (Late st Contact Info) Description 02/20/2025 11:30 AM CDT Office Visit [facility] Internal Medicine Medical [place] [address] [facility] [address] [address] Liana Duran DO [address] [facility] [address] [place] [address] documented as of this encounter Visit Diagnoses Not on filedocumented in this encounter Care Teams Electrical Tech/Project Manager Relationship Specialty Start Date End Date Laina Duran DO [address] [facility] [address] [place] [address] PCP - General Internal Medicine 03/08/15 NO DME 03/05/19 documented as of this encounter
--- OUTSIDE RECORDS SUMMARY | 2024-12-25 13:05 | XMS_ITS | Encounter Summary ---
Author Organization [facility] Address [address] [place] [address] Care Team Providers Care Catering Barista Name Role Phone Laina Duarn DO Primary Care Provider [phone] Encounter Details Date Type Department Care Team (Late st Contact Info) Description 12/17/1998 Outpatient Historical [facility] Internal Medicine - [place] [address] [place] [address] [place] [address] [place] [address] Social History Tobacco Use Types Packs/Day Years Used Date Smoking Tobacco: Never Assessed Comments Unknown Sex and Gender Information Value Date Recorded Sex Assigned at Not on file Legal Sex Female 3:53 AM DRY GOODS CLERK Gender Identity Not on file Sexual Orientation Not on file documented as of this encounter Plan of Treatment Upcoming Encounters Date Type Department Care Team (Late st Contact Info) Description 02/20/2025 11:30 AM CDT Office Visit [facility] Internal Medicine Medical [place] [address] [facility] [address] [address] Laina Duran DO [address] [facility] [address] [place] [address] documented as of this encounter Visit Diagnoses Not on filedocumented in this encounter Care Teams Catering Barista Relationship Specialty Start Date End Date Laina Duran DO [address] [facility] [address] [place] [address] PCP - General Internal Medicine 03/08/15 NO DME 03/05/19 documented as of this encounter
--- OUTSIDE RECORDS SUMMARY | 2024-12-25 13:05 | XMS_ITS | Encounter Summary ---
Author Organization [facility] Address [address] [place] [address] Care Team Providers Care Musculoskeletal Physician Name Role Phone Laina Duran DO Primary Care Provider Encounter Details Date Type Department Care Team (Latest Contact Info) Description 11/03/1998 Outpatient Historical [facility] AVRIL Avila, Candi Ferreira MD NO ADDRESS ON FILE Other screening mammogram (Primary Dx) Social History Tobacco Use Types Packs/Day Years Used Date Smoking Tobacco: Never Assessed Comments Unknown Sex and Gender Information Value Date Recorded Sex Assigned at Not on file Legal Sex Female 3:53 AM HIRED HAND Gender Identity Not on file Sexual Orientation Not on file documented as of this encounter Plan of Treatment Upcoming Encounters Date Type Department Care Team (Late st Contact Info) Description 02/20/2025 11:30 AM CDT Office Visit [facility] Internal Medicine Medical [place] [address] [facility] [address] [address] Laina Duran DO [address] [facility] [address] [place], [place] [address] documented as of this encounter Visit Diagnoses Diagnosis Other screening mammogram- Primary documented in this encounter Care Teams Musculoskeletal Physician Relationship Specialty Start Date End Date Laina Duran DO [address] [facility] [address] [place] [address] PCP - General Internal Medicine 03/08/15 NO DME 03/05/19 documented as of this encounter
--- OUTSIDE RECORDS SUMMARY | 2024-12-25 13:05 | XMS_ITS | Encounter Summary ---
Author Organization [facility] Address [address] [place] [address] Care Team Providers Care Ditch Digger Name Role Phone Laina Duran DO Primary Care Provider [phone] Encounter Details Date Type Department Care Team (Latest Contact Info) Description 04/10/2000 Outpatient Historical [facility] Avila, Candi Ferreira MD NO ADDRESS ON FILE Other screening mammogram (Primary Dx) Social History Tobacco Use Types Packs/Day Years Used Date Smoking Tobacco: Never Assessed Comments Unknown Sex and Gender Information Value Date Recorded Sex Assigned at Not on file Legal Sex Female 3:53 AM COUNSELING CENTER MANAGER Gender Identity Not on file Sexual Orientation Not on file documented as of this encounter Plan of Treatment Upcoming Encounters Date Type Department Care Team (Late st Contact Info) Description 02/20/2025 11:30 AM CDT Office Visit [facility] Internal Medicine Medical [place] [address] [facility] [address] [address] Laina Duran DO [address] [facility] [address] [place], [place] [address] documented as of this encounter Visit Diagnoses Diagnosis Other screening mammogram- Primary documented in this encounter Care Teams Ditch Digger Relationship Specialty Start Date End Date Laina Duran DO [address] [place] [address] PCP - General Internal Medicine 03/08/15 NO DME 03/05/19 documented as of this encounter
--- OUTSIDE RECORDS SUMMARY | 2024-12-25 13:05 | XMS_ITS | Encounter Summary ---
Author Organization [facility] Address [address] [place] [address] Care Team Providers Care Marketing Services Vice President Name Role Phone Laina Duran DO Primary Care Provider [phone] Encounter Details Date Type Department Care Team (Late st Contact Info) Description 05/30/[address] [facility] Internal Medicine - [place] [address] [place] [address] [place] [address] [place] [id number] Social History Tobacco Use Types Packs/Day Years Used Date Smoking Tobacco: Never Assessed Comments Unknown Sex and Gender Information Value Date Recorded Sex Assigned at Not on file Legal Sex Female 3:53 AM FREIGHT BRAKEMAN Gender Identity Not on file Sexual Orientation Not on file documented as of this encounter Plan of Treatment Upcoming Encounters Date Type Department Care Team (Late st Contact Info) Description 02/20/2025 11:30 AM CDT Office Visit [facility] Internal Medicine Medical [place] A [address] [facility] [address] [address] Laina Duran DO [address] [facility] [address] [place] [address] documented as of this encounter Visit Diagnoses Not on filedocumented in this encounter Care Teams Marketing Services Vice President Relationship Specialty Start Date End Date Laina Duran DO [address] [facility] [address] [place] [address] PCP - General Internal Medicine 03/08/15 NO DME 03/05/19 documented as of this encounter
--- OUTSIDE RECORDS SUMMARY | 2024-12-25 13:05 | XMS_ITS | Encounter Summary ---
Author Organization [facility] Address [address] [place] [address] Care Team Providers Care Learning Development Specialist Name Role Phone Laina Duran DO Primary Care Provider [phone] Encounter Details Date Type Department Care Team (Late st Contact Info) Description 01/14/2004 Outpatient Historical [facility] Internal Medicine - [place] [address] [place] [address] [place] [address] [place], [place] Social History Tobacco Use Types Packs/Day Years Used Date Smoking Tobacco: Never Assessed Comments Unknown Sex and Gender Information Value Date Recorded Sex Assigned at Not on file Legal Sex Female 3:53 AM HOSTED SERVICES ANALYST Gender Identity Not on file Sexual Orientation Not on file documented as of this encounter Plan of Treatment Upcoming Encounters Date Type Department Care Team (Late st Contact Info) Description 02/20/2025 11:30 AM CDT Office Visit [facility] Internal Medicine Medical [place] A [address]ENCHO [address] [facility] [address] [address] Laina Duran DO [address] [facility] [address] [place] [address] documented as of this encounter Visit Diagnoses Not on filedocumented in this encounter Care Teams Learning Development Specialist Relationship Specialty Start Date End Date Laina Duran DO [address] [facility] [address] [place] [address] PCP - General Internal Medicine 03/08/15 NO DME 03/05/19 documented as of this encounter
--- OUTSIDE RECORDS SUMMARY | 2024-12-25 13:05 | XMS_ITS | Encounter Summary ---
Author Organization [facility] Address [address] [place] [address] Care Team Providers Care Jig And Fixture Builder Apprentice Name Role Phone Laina Duran DO Primary Care Provider [phone] Encounter Details Date Type Department Care Team (Latest Contact Info) Description 10/11/2004 Outpatient Historical HIS [facility] Avila, Candi Ferreira MD NO ADDRESS ON FILE MASTODYNIA (Primary Dx) Social History Tobacco Use Types Packs/Day Years Used Date Smoking Tobacco: Never Assessed Comments Unknown Sex and Gender Information Value Date Recorded Sex Assigned at Not on file Legal Sex Female 3:53 AM FOOD SANITARIAN Gender Identity Not on file Sexual Orientation Not on file documented as of this encounter Plan of Treatment Upcoming Encounters Date Type Department Care Team (Late st Contact Info) Description 02/20/2025 11:30 AM CDT Office Visit [facility] Internal Medicine Medical [place] A [address]ENCHO [address] [facility] [address] [address] Laina Duran DO [address] [facility] [address] [place] [address] documented as of this encounter Visit Diagnoses Diagnosis Mastodynia- Primary documented in this encounter Care Teams Jig And Fixture Builder Apprentice Relationship Specialty Start Date End Date Laina Duran DO [address] [facility] [address] [place] [address] PCP - General Internal Medicine 03/08/15 NO DME 03/05/19 documented as of this encounter
--- OUTSIDE RECORDS SUMMARY | 2024-12-25 13:05 | XMS_ITS | Clinical Summary ---
Author Organization [facility] Address [address] [place] [address] Phone Care Team Providers Care Relocation Counselor Name Role Phone Laina Duran Primary Care Provider [phone] Allergies Active Allergy Reactions Criticality Noted Date Comments Risedronate Other (See Comments) 09/14/2014 Flu like reaction Medications CALCIUM CARBONATE/VITAMIN D3 (CALCIUM + D ORAL) Take by mouth. 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 03/10/20 Active Additional Information Patient not taking.Reported on [...] surgery, has titanium plates. She was in [place] at that time and so her surgeon [...] Encounters Date Type Department Care Team Description 12/23/2024 External Device Data STL ABSTRACTION Provider, Abstract 10/21/2024 External Device Data STL ABSTRACTION Provider, [...] on file Legal Sex Female 3:53 AM SALES SOLUTIONS REPRESENTATIVE Gender Identity Not on file Sexual Orientation Not on file Occupation Industry Job Start Date Job End Date retired Not on file Not on file Not on file Not on file Not on file Not on file Not on file Last Filed Vital Signs Vital Sign Reading Time Taken Comments Blood Pressure 138/78 06/09/2024 1:33 PM SALES SOLUTIONS REPRESENTATIVE Pulse 86 06/09/2024 1:33 PM SALES SOLUTIONS REPRESENTATIVE Temperature 35.8 C (96.4 F) 06/09/2024 1:33 PM SALES SOLUTIONS REPRESENTATIVE Respiratory Rate 10 05/16/2023 1:38 PM SALES SOLUTIONS REPRESENTATIVE Oxygen Saturation 96% 06/09/2024 1:33 PM SALES SOLUTIONS REPRESENTATIVE Inhaled Oxygen Concentration - - Weight 60.9 kg (134 lb 3.2 oz) 06/09/2024 1:33 P M SALES SOLUTIONS REPRESENTATIVE Height 154.9 cm (5' 1) 06/09/2024 1:33 PM SALES SOLUTIONS REPRESENTATIVE Body Mass Index 25.36 06/09/2024 1:33 PM SALES SOLUTIONS REPRESENTATIVE Plan of Treatment Upcoming Encounters Date Type Department Care Team (Late st Contact Info) Description 02/20/2025 11:30 AM CDT Office Visit [facility] Internal Medicine Medical [place] [facility] [address] [facility] [address] [place] [address] Laina Duranatt, DO [address] [facility] [address] [place] [address] Health Maintenance Due Date Last [...] 03/10/2021, Additional history exists OSTEOPOROSIS SCREENING 12/29/2027 , 11/22/2020, 12/13/2017, Additional history exists FIT/FOBT Q [...] found in the Imaging Section of the [facility] EMR. Osteopenia. Lumbar Spine: t-Score: 1.0 Left [...] lumbar spine, hip(s) and forearm(s) using a [employer] DEXA scanner for bone mineral density determination [...] found in the Imaging Section of the [facility] EMR. Osteopenia. Lumbar Spine: t-Score: 1.0 Left [...] Dr. Carlin Avalos MD DICTATION LOCATION: 1 Laina Duran DO DIAGNOSTIC IMAGING ORDERABLES Final Result * ENDOSCOPY, COLON, SCREENING (01/03/2017) Laina Duran DO GI PROCEDURE ORDERABLES Final Result [facility], KARAN DENNIS MD [facility]# [id number] [address] [address] * POC OCCULT BLOOD 1 CARD (07/13/2011) OCCULT BLOOD #1 Negative [facility] Stool specimen (specimen) us Julieta Brock MD POINT OF CARE TESTING Final Result [facility] from Last 3 Months or Most Recently Relevant to Health Maintenance Insurance MEDICARE PART A AND B [facility] [employer] Medicare Part D Advance Directives For more information, please contact: [phone] * Full Code (Latest Code Status on File) Date Activated Date Inactivated Comments 09/27/2013 2:49 PM 09/29/2013 7:30 PM Care Teams Relocation Counselor Relationship Specialty Start Date End Date Laina Duran DO [address] [place] [address] PCP - General Internal Medicine 03/08/15 NO DME 03/05/19
--- OUTSIDE RECORDS SUMMARY | 2024-12-25 13:05 | XMS_ITS | Encounter Summary ---
Author Organization [facility] Address [address] [place] [address] Care Team Providers Care Steam Turbine Assembler Name Role Phone Laina Duran DO Primary Care Provider [phone] Encounter Details Date Type Department Care Team (Latest Contact Info) Description 03/01/2005 Outpatient Historical [facility] [place] [facility] Avila, Candi Ferreira MD NO ADDRESS ON FILE MASTODYNIA (Primary Dx) Social History Tobacco Use Types Packs/Day Years Used Date Smoking Tobacco: Never Assessed Comments Unknown Sex and Gender Information Value Date Recorded Sex Assigned at Not on file Legal Sex Female 3:53 AM CHIEF RELAY TESTER Gender Identity Not on file Sexual Orientation Not on file documented as of this encounter Plan of Treatment Upcoming Encounters Date Type Department Care Team (Late st Contact Info) Description 02/20/2025 11:30 AM CDT Office Visit [facility] Internal Medicine Medical [place] A [address] [facility] [address] [address] Laina Duran DO [address] [facility] [address] [place] [address] documented as of this encounter Visit Diagnoses Diagnosis Mastodynia- Primary documented in this encounter Care Teams Steam Turbine Assembler Relationship Specialty Start Date End Date Laina Duran DO [address] [facility] [address] [place] [address] PCP - General Internal Medicine 03/08/15 NO DME 03/05/19 documented as of this encounter
--- OUTSIDE RECORDS SUMMARY | 2024-12-25 13:05 | XMS_ITS | Encounter Summary ---
Author Organization [facility] Address [address] [place] [address] Care Team Providers Care Chrome Polisher Name Role Phone Laina Duran DO Primary Care Provider [phone] Encounter Details Date Type Department Care Team (Late st Contact Info) Description 12/30/2002 Outpatient Historical [facility] Internal Medicine - [place] [address] [place] [address] [place] [address] [place] [address] Social History Tobacco Use Types Packs/Day Years Used Date Smoking Tobacco: Never Assessed Comments Unknown Sex and Gender Information Value Date Recorded Sex Assigned at Not on file Legal Sex Female 3:53 AM AUTOMATIC SEAMER Gender Identity Not on file Sexual Orientation Not on file documented as of this encounter Plan of Treatment Upcoming Encounters Date Type Department Care Team (Late st Contact Info) Description 02/20/2025 11:30 AM CDT Office Visit [facility] Internal Medicine Medical [place] A [address] [facility] [address] [address] Laina Duran DO [address] [facility] [facility] [address] [place] [address] documented as of this encounter Visit Diagnoses Not on filedocumented in this encounter Care Teams Chrome Polisher Relationship Specialty Start Date End Date Laina Duran DO [address] [facility] [address] [place] [address] PCP - General Internal Medicine 03/08/15 NO DME 03/05/19 documented as of this encounter
--- OUTSIDE RECORDS SUMMARY | 2024-12-25 13:05 | XMS_ITS | Encounter Summary ---
Author Organization [facility] Address [address] [place] [address] Care Team Providers Care Inpatient Auditor Name Role Phone Laina Duran DO Primary Care Provider [phone] Encounter Details Date Type Department Care Team (Late st Contact Info) Description 02/10/1999 Outpatient Historical [facility] Julieta Brock MD [address] [facility] [address] [place] [address] Abdominal pain, left lower quadrant (Primary Dx) Social History Tobacco Use Types Packs/Day Years Used Date Smoking Tobacco: Never Assessed Comments Unknown Sex and Gender Information Value Date Recorded Sex Assigned at Not on file Legal Sex Female 3:53 AM RIGGER THIRD Gender Identity Not on file Sexual Orientation Not on file documented as of this encounter Plan of Treatment Upcoming Encounters Date Type Department Care Team (Late Contact Info) Description 02/20/2025 11:30 AM CDT Office Visit [facility] Internal Medicine Medical [place] A [address] [facility] [address] [address] Laina Duran DO [address] [facility] [address] [place] [address] documented as of this encounter Visit Diagnoses Diagnosis Abdominal pain, left lower quadrant- Primary documented in this encounter Care Teams Inpatient Auditor Relationship Specialty Start Date End Date Laina Duran DO [address] [facility] [address] [place] [address] PCP - General Internal Medicine 03/08/15 NO DME 03/05/19 documented as of this encounter
--- OUTSIDE RECORDS SUMMARY | 2024-12-25 13:06 | XMS_ITS | Encounter Summary ---
Author Organization [facility] Address [address] [place] [address] Care Team Providers Care Master Barber Name Role Phone Laina Duran DO Primary Care Provider [phone] Encounter Details Date Type Department Care Team (Latest Contact Info) Description 04/11/2006 Outpatient Historical [facility] Avila, Candi Ferreira MD NO ADDRESS ON FILE Other Screening Mammogram (Primary Dx) Social History Tobacco Use Types Packs/Day Years Used Date Smoking Tobacco: Never Assessed Comments Unknown Sex and Gender Information Value Date Recorded Sex Assigned at Not on file Legal Sex Female 3:53 AM POT BUILDER Gender Identity Not on file Sexual Orientation Not on file documented as of this encounter Plan of Treatment Upcoming Encounters Date Type Department Care Team (Late st Contact Info) Description 02/20/2025 11:30 AM CDT Office Visit [facility] Internal Medicine Medical [place] [address] [facility] [address] [address] Laina Duran DO [address] [facility] [address] [place], [place] [address] documented as of this encounter Visit Diagnoses Diagnosis Other screening mammogram- Primary documented in this encounter Care Teams Master Barber Relationship Specialty Start Date End Date aLina Duran DO [address] [facility] [address] [place] [address] PCP - General Internal Medicine 03/08/15 NO DME 03/05/19 documented as of this encounter
--- OUTSIDE RECORDS SUMMARY | 2024-12-25 13:06 | XMS_ITS | Continuity of Care Document ---
Author Organization [facility] Address [address] [place] [address] Phone Care Team Providers Care Moid Middle [employer] Teacher Name Role Phone David Appiah Unavailable Unavailable Advance Directives Directive Yes / No Effective Date File Name No Information Encounters Encounter Description Practice Location Reason(s) For Visit Diagnoses Date Provider Providers Copied on Encounter [facility], [id number] [place] [address] [address], [place], [place], [id number], [place] tel:[phone] [facility] No Information [address], [place], [address], [place]. tel:[phone] Family History Family Member Type Diagnosis Age At Onset No Information Payers Payer name Insurance type Covered democrat ID Authoriza tion(s) No Information Social History [...]
--- OUTSIDE RECORDS SUMMARY | 2024-12-25 13:06 | XMS_ITS | Encounter Summary ---
Author Organization [facility] Address [address] [place] [address] Care Team Providers Care Blower Blast Furnace Name Role Phone Laina Duran DO Primary Care Provider [phone] Encounter Details Date Type Department Care Team (Late st Contact Info) Description 05/30/2006 Outpatient Historical [facility] Internal Medicine Medical [place] [facility] [address] [facility] [address] [address] Kandy Schulz MD Social History Tobacco Use Types Packs/Day Years Used Date Smoking Tobacco: Never Assessed Comments Unknown Sex and Gender Information Value Date Recorded Sex Assigned at Not on file Legal Sex Female 3:53 AM CEMETERY WARDEN Gender Identity Not on file Sexual Orientation Not on file documented as of this encounter Last Filed Vital Signs Vital Sign Reading Time Taken Comments Blood Pressure 130/74 05/30/2006 2:15 PM CEMETERY WARDEN Pulse 72 05/30/2006 2:15 PM CEMETERY WARDEN Temperature 36.8 C (98.2 F) 05/30/2006 2:15 PM CEMETERY WARDEN Respiratory Rate - - Oxygen Saturation - - Inhaled Oxygen Concentration - - Weight 58.5 kg (129 lb) 05/30/2006 2:15 PM CEMETERY WARDEN Height - - Body Mass Index 24.37 04/27/2006 4:00 PM CEMETERY WARDEN documented in this encounter Plan of Treatment Upcoming Encounters Date Type Department Care Team (Late st Contact Info) Description 02/20/2025 11:30 AM CDT Office Visit [facility] Internal Medicine Medical [place] A [facility] [address] [facility] [address] [address] Laina Duran DO [address] [facility] [address] [place] [address] documented as of this encounter Visit Diagnoses Not on filedocumented in this encounter Care Teams Blower Blast Furnace Relationship Specialty Start Date End Date Laina Duran DO [address] [facility] [address] [place] [address] PCP - General Internal Medicine 03/08/15 NO DME 03/05/19 documented as of this encounter
--- OUTSIDE RECORDS SUMMARY | 2024-12-25 13:06 | XMS_ITS | Encounter Summary ---
Author Organization [facility] Address [address] [place] [address] Care Team Providers Care Jewelry Designer Name Role Phone Laina Duran DO Primary Care Provider [phone] Encounter Details Date Type Department Care Team (Latest Contact Info) Description 12/07/2008 Outpatient Historical [facility] Schulz, Kandy Perez MD [address] [place] [address] Family History of Ischemic Heart Disease Social History Tobacco Use Types Packs/Day Years Used Date Smoking Tobacco: Never Alcohol Use Standard Drinks/Week Comments Yes 6.7 (1 standard drink = 0.6 oz p ure alcohol) social Comments No Sex and Gender Information Value Date Recorded Sex Assigned at Not on file Legal Sex Female 3:53 AM PROCESS ENVIRONMENTAL TECHNICIAN Gender Identity Not on file Sexual Orientation Not on file Occupation Industry Job Start Date Job End Date retired Not on file Not on file Not on file documented as of this encounter Plan of Treatment Upcoming Encounters Date Type Department Care Team (Late st Contact Info) Description 02/20/2025 11:30 AM CDT Office Visit [facility] Internal Medicine Medical [place] [facility] [address] [facility] [address] [address] Laina Duran DO [address] [facility] [address] [place] [address] documented as of this encounter Visit Diagnoses Diagnosis Family history of ischemic heart disease documented in this encounter Care Teams Jewelry Designer Relationship Specialty Start Date End Date Laina Duran DO [address] [place] [address] PCP - General Internal Medicine 03/08/15 NO DME 03/05/19 documented as of this encounter
--- OUTSIDE RECORDS SUMMARY | 2024-12-25 13:06 | XMS_ITS | Encounter Summary ---
Author Organization [facility] Address [address] [place] [address] Care Team Providers Care Social Welfare Administrator Name Role Phone Laina Duran DO Primary Care Provider [phone] Reason for Visit * Reason Comments Provider Call Encounter Details Date Type Department Care Team (Late st Contact Info) Description 07/29/2024 Telephone [facility] Internal Medicine Medical [facility] [address] [address] Laina Duran DO [address] [place] [address] Provider Call Social History Tobacco Use Types Packs/Day Years Used Date Smoking Tobacco: Never Smokeless Tobacco: Never Alcohol Use Standard Drinks/Week Comments Yes 14 (1 standard drink = 0.6 oz pu re alcohol) Comments No Sex and Gender Information Value Date Recorded Sex Assigned at Not on file Legal Sex Female 3: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 Topic: Bydeouro-Oo-Noxdgwkf Call >> Jul 29, 2024 11:16 AM Eagle Ferreira wrote: Caller is requesting to speak with Clinical Care Team. Caller Name: [facility] Callback Number: [phone] Clinician Type: Other healthcare professional not listed above Call Notes: Leda with [facility] in [place] is calling for NPI for Shoemaking Finisher Rozina Ratliff.Info was given. Is this addressing an immediate patient care need? No documented in this encounter Plan of Treatment Upcoming Encounters Date Type Department Care Team (Late st Contact Info) Description 02/20/2025 11:30 AM CDT Office Visit [facility] Internal Medicine Medical [place] [facility] [address] [address] Laina Duran DO [address] [place] [address] documented as of this encounter Visit Diagnoses Not on filedocumented in this encounter Care Teams Social Welfare Administrator Relationship Specialty Start Date End Date Laina Duran DO [address] [place] [address] PCP - General Internal Medicine 03/08/15 NO DME 03/05/19 documented as of this encounter
--- OUTSIDE RECORDS SUMMARY | 2024-12-25 13:06 | XMS_ITS | Encounter Summary ---
Author Organization [facility] Address [address] [place] [address] Care Team Providers Care Paint Laboratory Technician Name Role Phone Laina Duran DO Primary Care Provider [phone] Reason for Visit * Reason Comments Question Encounter Details Date Type Department Care Team (Late st Contact Info) Description 12/27/2023 Telephone [facility] Internal Medicine Medical [facility] [address] [address] Laina Duran DO [address] [place] [address] Question Social History Tobacco Use Types Packs/Day Years Used Date Smoking Tobacco: Never Smokeless Tobacco: Never Alcohol Use Standard Drinks/Week Comments Yes 14 (1 standard drink = 0.6 oz pu re alcohol) Comments No Sex and Gender Information Value Date Recorded Sex Assigned at Not on file Legal Sex Female 3:53 AM RECEPTION Gender Identity Not on file Sexual Orientation [...] - 12/27/2023 1:54 PM CDT Copied from [facility] #[id number]. Topic: Patient or Caregiver Communication Request >> Dec 27, 2023 1:47 PM Carol Ann Ferreira wrote: Patient or Caregiver insisting that a message be sent to Care Team Caller: Elizabeth Johnson Patient/Caregiver Callback Number: [phone] (home) Call Notes: .Elizabeth Johnson because she wanted to know the name of the 4 docs she recommend herto go to . Please call pt back on phone documented in this encounter Plan of Treatment Upcoming Encounters Date Type Department Care Team (Late st Contact Info) Description 02/20/2025 11:30 AM CDT Office Visit [facility] Internal Medicine Medical [place] [facility] [address] [address] Laina Duran DO [address] [place] [address] documented as of this encounter Visit Diagnoses Not on filedocumented in this encounter Care Teams Paint Laboratory Technician Relationship Specialty Start Date End Date Laina Duran DO [address] [place] [address] PCP - General Internal Medicine 03/08/15 NO DME 03/05/19 documented as of this encounter
--- OUTSIDE RECORDS SUMMARY | 2024-12-25 13:06 | XMS_ITS | Encounter Summary ---
Author Organization [facility] Address [address] [place] [address] Care Team Providers Care Lockstitch Collar Setter Name Role Phone Laina Duran DO Primary Care Provider [phone] Encounter Details Date Type Department Care Team (Late st Contact Info) Description 06/28/2007 Outpatient Historical [facility] Internal Medicine [facility] [address] [address] Kandy Schulz MD Social History Tobacco Use Types Packs/Day Years Used Date Smoking Tobacco: Never Assessed Comments Unknown Sex and Gender Information Value Date Recorded Sex Assigned at Not on file 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 Gender Identity Not on file Sexual Orientation Not on file documented as of this encounter Plan of Treatment Upcoming Encounters Date Type Department Care Team (Late st Contact Info) Description 02/20/2025 11:30 AM CDT Office Visit [facility] Internal Medicine [facility] [address] [address] Laina Duran DO [address] [place] [address] documented as of this encounter Visit Diagnoses Not on filedocumented in this encounter Care Teams Lockstitch Collar Setter Relationship Specialty Start Date End Date Laina Duran DO [address] [place] [address] PCP - General Internal Medicine 03/08/15 NO DME 03/05/19 documented as of this encounter
--- OUTSIDE RECORDS SUMMARY | 2024-12-25 13:06 | XMS_ITS | Encounter Summary ---
Author Organization [facility] Address [address] [place] [address] Care Team Providers Care Special Service Representative Name Role Phone Laina Duran DO Primary Care Provider [phone] Encounter Details Date Type Department Care Team (Late st Contact Info) Description 12/30/2002 Outpatient Historical [facility] Internal Medicine - [place] [address] [place] [address] [place] [address] [place] [address] Social History Tobacco Use Types Packs/Day Years Used Date Smoking Tobacco: Never Assessed Comments Unknown Sex and Gender Information Value Date Recorded Sex Assigned at Not on file Legal 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 Gender Identity Not on file Sexual Orientation Not on file documented as of this encounter Plan of Treatment Upcoming Encounters Date Type Department Care Team (Late st Contact Info) Description 02/20/2025 11:30 AM CDT Office Visit [facility] Internal Medicine Medical [place] [facility] [place] [address] [address] Laina Duran DO [address] [place] [address] documented as of this encounter Visit Diagnoses Not on filedocumented in this encounter Care Teams Special Service Representative Relationship Specialty Start Date End Date Laina Duran DO [address] [place] [address] PCP - General Internal Medicine 03/08/15 NO DME 03/05/19 documented as of this encounter
--- OUTSIDE RECORDS SUMMARY | 2024-12-25 13:06 | XMS_ITS | Encounter Summary ---
Author Organization [facility] Address [address] [place] [address] Care Team Providers Care Leather Finisher Name Role Phone Laina Duran DO Primary Care Provider [phone] Reason for Visit * Reason Onset Date Comments Needs Form Or Letter Filled Out 07/05/2023 Handicapped Placard Encounter Details Date Type Department Care Team (Late st Contact Info) Description 07/05/2023 Telephone [facility] Internal Medicine Medical [place] A [facility] [address] [address] Laina Duran DO [address] [place] [address] Needs Form Or Letter Filled Out (Handicapped Placard) Social History Tobacco Use Types Packs/Day Years Used Date Smoking Tobacco: Never Smokeless Tobacco: Never Alcohol Use Standard Drinks/Week Comments Yes 14 (1 standard drink = 0.6 oz pu re alcohol) Comments No Sex and Gender Information Value Date Recorded Sex Assigned at Not on file Legal Sex Female 3:53 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 [place] resident. Filled out [place] Handicapped Parking Placard Form. At my desk to be signed by physician. Then will mail to patient home. ERCIAL ACCOUNT OFFICER * Telephone Encounter - Lety Douglas - 07/05/2023 1:26 PM CST LM to call office back. Contact Center: Transfer to office ERCIAL ACCOUNT OFFICER * Telephone Encounter - Laina Duran DO - 07/05/2023 12:24 PM CST Ok to do handicap placard, please advise her temporary can only be for 6 mo max. Does she want permanent (5yrs) instead? ERCIAL ACCOUNT OFFICER * Telephone Encounter - Jimenez Lomeli - 07/05/2023 12:06 PM CST Copied from [facility] #[id number]. Topic: CPA Information Request - Patient Call Back >> Jul 05, 2023 12:05 PM Jimenez Ferreira wrote: Caller is returning phone call from clinic. Patient Has Additional Questions Caller Name: Elizabeth Johnson Patient/Caregiver Callback Number: [phone] Call Notes: ,Elizabeth called in regarding issue with broken hip and cannot step on a curb. She wantspermission to get a disabled sticker for drving for a 1 yr. Please Advise ERCIAL ACCOUNT OFFICER documented in this encounter Plan of Treatment Upcoming Encounters Date Type Department Care Team (Late st Contact Info) Description 02/20/2025 11:30 AM CDT Office Visit [facility] Internal Medicine Medical [place] [facility] [address] [address] Laina Duran DO [address] [place], [place] [address] documented as of this encounter Visit Diagnoses Not on filedocumented in this encounter Care Teams Leather Finisher Relationship Specialty Start Date End Date Laina Duran DO [address] [place] [address] PCP - General Internal Medicine 03/08/15 NO DME 03/05/19 documented as of this encounter
--- OUTSIDE RECORDS SUMMARY | 2024-12-25 13:06 | XMS_ITS | Encounter Summary ---
Author Organization [facility] Address [address] [place] [address] Care Team Providers Care Pharmaceutical Plant Operator Name Role Phone Laina Duran DO Primary Care Provider [phone] Encounter Details Date Type Department Care Team (Late st Contact Info) Description 06/28/2007 Outpatient Historical [facility] Internal Medicine [facility] [address] [address] Kandy Schulz MD Social History Tobacco Use Types Packs/Day Years Used Date Smoking Tobacco: Never Assessed Comments Unknown Sex and Gender Information Value Date Recorded Sex Assigned at Not on file Legal Sex Female 3:53 AM SPECIAL EVENTS DIRECTOR Gender Identity Not on file Sexual Orientation Not on file documented as of this encounter Plan of Treatment Upcoming Encounters Date Type Department Care Team (Late st Contact Info) Description 02/20/2025 11:30 AM CDT Office Visit [facility] Internal Medicine [facility] [address] [address] Laina Duran DO [address] [place] [address] documented as of this encounter Visit Diagnoses Not on filedocumented in this encounter Care Teams Pharmaceutical Plant Operator Relationship Specialty Start Date End Date Laina Duran DO [address] [place] [address] PCP - General Internal Medicine 03/08/15 NO DME 03/05/19 documented as of this encounter
--- OUTSIDE RECORDS SUMMARY | 2024-12-25 13:06 | XMS_ITS | Encounter Summary ---
Author Organization [facility] Address [address] [place] [address] Care Team Providers Care Medic Technician Name Role Phone Laina Duran DO Primary Care Provider [phone] Encounter Details Date Type Department Care Team (Late st Contact Info) Description 04/27/2006 Outpatient Historical [facility] Internal Medicine [facility] [address] [address] Consuelo Hernandez MD [address] [place] [address] Social History Tobacco Use Types Packs/Day Years Used Date Smoking Tobacco: Never Assessed Comments Unknown Sex and Gender Information Value Date Recorded Sex Assigned at Not on file Legal Sex Female 3:53 AM TRACK SWEEPER Gender Identity Not on file Sexual Orientation Not on file documented as of this encounter Last Filed Vital Signs Vital Sign Reading Time Taken Comments Blood Pressure 120/70 04/27/2006 4:00 PM TRACK SWEEPER Pulse 80 04/27/2006 4:00 PM TRACK SWEEPER Temperature - - Respiratory Rate - - Oxygen Saturation - - Inhaled Oxygen Concentration - - Weight 59.9 kg (132 lb) 04/27/2006 4:00 PM TRACK SWEEPER Height 154.9 cm (5' 1) 04/27/2006 4:00 PM TRACK SWEEPER Body Mass Index 24.94 04/27/2006 4:00 PM TRACK SWEEPER documented in this encounter Plan of Treatment Upcoming Encounters Date Type Department Care Team (Late st Contact Info) Description 02/20/2025 11:30 AM CDT Office Visit [facility] Internal Medicine Medical [place] [facility] [place] [address] [address] Laina Duran DO [address] [place] [address] documented as of this encounter Visit Diagnoses Not on filedocumented in this encounter Care Teams Medic Technician Relationship Specialty Start Date End Date Laina Duran DO [address] [place] [address] PCP - General Internal Medicine 03/08/15 NO DME 03/05/19 documented as of this encounter
--- OUTSIDE RECORDS SUMMARY | 2024-12-25 13:06 | XMS_ITS | Encounter Summary ---
Author Organization [facility] Address [address] Attn: [place] [address] Care Team Providers Care Single Pass Soil Stabilizer Operator Name Role Phone Laina Duran DO Primary Care Provider [phone] Encounter Details Date Type Department Care Team (Latest Contact Info) Description 06/28/2007 Orders Only Kandy Schulz MD Social History Tobacco Use Types Packs/Day Years Used Date Smoking Tobacco: Never Assessed Comments Unknown Sex and Gender Information Value Date Recorded Sex Assigned at Not on file Legal Sex Female 3:53 AM VOICE STUDIES DIRECTOR Gender Identity Not on file Sexual Orientation Not on file documented as of this encounter Plan of Treatment Upcoming Encounters Date Type Department Care Team (Late st Contact Info) Description 02/20/2025 11:30 AM CDT Office Visit [facility] Internal Medicine Medical [place] [facility] [place] [address] [address] Laina Duran DO [address] [place], [place] [address] documented as of this encounter Visit Diagnoses Not on filedocumented in this encounter Care Teams Single Pass Soil Stabilizer Operator Relationship Specialty Start Date End Date Laina Duran DO [address] [place] [address] PCP - General Internal Medicine 03/08/15 NO DME 03/05/19 documented as of this encounter
--- OUTSIDE RECORDS SUMMARY | 2024-12-25 13:06 | XMS_ITS | Encounter Summary ---
Author Organization [facility] Address [address] [place] [address] Care Team Providers Care Cnc Lathe Programmer Name Role Phone Laina Duran DO Primary Care Provider [phone] Encounter Details Date Type Department Care Team (Late st Contact Info) Description 04/27/2006 Orders Only [facility] Internal Medicine Medical [place] A [facility] [address] [address] Consuelo Hernandez MD [facility] [address] [place] [address] Social History Tobacco Use Types Packs/Day Years Used Date Smoking Tobacco: Never Assessed Comments Unknown Sex and Gender Information Value Date Recorded Sex Assigned at Not on file Legal Sex Female 3:53 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 [facility] [address] [place], [place] [address] documented as of this encounter Visit Diagnoses Not on filedocumented in this encounter Care Teams Cnc Lathe Programmer Relationship Specialty Start Date End Date Laina Duran DO [address] [facility] [facility] [address] [place] [address] PCP - General Internal Medicine 03/08/15 NO DME 03/05/19 documented as of this encounter
--- OUTSIDE RECORDS SUMMARY | 2024-12-25 13:06 | XMS_ITS | Encounter Summary ---
Author Organization [facility] Address [address] [place] [address] Care Team Providers Care Copyright Expert Name Role Phone Laina Duran DO Primary Care Provider [phone] Encounter Details Date Type Department Care Team (Latest Contact Info) Description 07/01/2008 Outpatient Historical [facility] AV[facility] Avila, Candi Ferreira MD NO ADDRESS ON FILE Other Screening Mammogram Social History Tobacco Use Types Packs/Day Years Used Date Smoking Tobacco: Never Assessed Comments Unknown Sex and Gender Information Value Date Recorded Sex Assigned at Not on file Legal Sex Female 3:53 AM 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 SALES 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 Gender Identity Not on file Sexual Orientation Not on file documented as of this encounter Plan of Treatment Upcoming Encounters Date Type Department Care Team (Late st Contact Info) Description 02/20/2025 11:30 AM CDT Office Visit [facility] Internal Medicine Medical [place] A [facility] [address] [address] Laina Duran DO [address] [place] [address] documented as of this encounter Procedures Procedure Name Priority Date/Time Associated Diagnosis Comments MAMMO SCREEN BILAT W OR WO CAD Routine 07/01/2008 10:04 AM HUNTING SALES LEADER documented in this encounter Results * MAMMO DIGITAL SCREEN BILAT (07/01/2008 10:04 AM HUNTING SALES LEADER) Anatomical Region Laterality Modality Breast Bilateral Other 07/01/2008 10:0 4 AM HUNTING SALES LEADER Narrative 07/02/2008 7:40 AM HUNTING SALES LEADER [place] [address] [place], [place] [address] Admit Date: 07/01/2008 ELIZABETH GODFREY Sex: F Admit Prov: CANDI AVILA Date: 1940 Primary Care Prov: LILIYA MURRAY CMRN: [id number] [facility] N: [id number] IMAGING SERVICES Ordering Prov: CANDI AVILA Accession Number: [id number] Interpretation BILATERAL FULL FIELD DIGITAL SCREENING MAMMOGRAM [...] AMK Procedure Note Oralia Benito - 07/02/2008 [place] [address] [place], [place] [address] Admit Date: 07/01/2008 ELIZABETH GODFREY Sex: F Admit Prov: CANDI AVILA Date: 1940 Primary Care Prov: LILIYA MURRAY CMRN: [id number] Room: [place] SSN: [id number] IMAGING SERVICES Ordering Prov: CANDI AVILA Interpretation [...] mammogram documented in this encounter Care Teams Copyright Expert Relationship Specialty Start Date End Date Laina Duran DO [address] [place] [address] PCP - General Internal Medicine 03/08/15 NO DME 03/05/19 documented as of this encounter
--- OUTSIDE RECORDS SUMMARY | 2024-12-25 13:06 | XMS_ITS | Encounter Summary ---
Author Organization [facility] Address [address] [place] [address] Care Team Providers Care Flocculator Operator Name Role Phone Laina Duran DO Primary Care Provider [phone] Encounter Details Date Type Department Care Team (Latest Contact Info) Description 06/28/2007 Outpatient Historical [facility] Internal Medicine [facility] [address] [place] [address] Kandy Schulz MD Family History of Ischemic Heart Disease Social History Tobacco Use Types Packs/Day Years Used Date Smoking Tobacco: Never Assessed Comments Unknown Sex and Gender Information Value Date Recorded Sex Assigned at Not on file Legal Sex Female 3:53 AM FASHION COORDINATOR Gender Identity Not on file Sexual Orientation Not on file documented as of this encounter Plan of Treatment Upcoming Encounters Date Type Department Care Team (Late st Contact Info) Description 02/20/2025 11:30 AM CDT Office Visit [facility] Internal Medicine [facility] [address] [facility] [address] [place] [address] Laina Duran DO [address] [address] documented as of this encounter Procedures Procedure Name Priority Date/Time Associated Diagnosis Comments TSH WITH REFLEX FT4 AND FT3 Routine 06/28/2007 11:59 AM FASHION COORDINATOR LIPID PANEL Routine 06/28/2007 11:59 AM FASHION COORDINATOR COMPREHENSIVE METABOLIC PANEL Routine 06/28/2007 11:59 AM FASHION COORDINATOR documented in this encounter Results * (ABNORMAL) LIPID PANEL (06/28/2007 11:59 AM FASHION COORDINATOR) Pathologist [facility] CHOL/HDL RATIO 2.7 2.0 - 5.0 [facility] TRIGLYCERIDE 116 10 - 149 mg/dL [facility] HDL 72(H) 40 - 59 mg/dL [facility] CHOLESTEROL 196 100 - 199 mg/dL [facility] LDL CALCULATED 101(H) <=99 mg/dL [facility] LIPID PANEL COMMENT See Below [facility] Comment: The adult ATP and pediatric NCEP classifications for lipids are available on the [facility] Intranet at: [email or web address] Select: Lab Policies and Procedures,Current Select: Lipid Panel Interpretation Blood specimen (specimen) 06/28/2007 11:59 AM FASHION COORDINATOR 06/28/2007 12:12 PM FASHION COORDINATOR Kandy Schulz MD CHEMISTRY ORDERABLES Edited [facility] [address] [place] [address] * TSH WITH REFLEX FT4 AND FT3 (06/28/2007 11:59 AM FASHION COORDINATOR) Pathologist [facility] TSH 1.33 0.27 - 4.20 uU/mL [facility] Blood specimen (specimen) 06/28/2007 11:59 AM FASHION COORDINATOR 06/28/2007 12:12 PM FASHION COORDINATOR us Kandy Schulz MD CHEMISTRY ORDERABLES Final Resu lt [facility] [address] [place] [address] * (ABNORMAL) COMPREHENSIVE METABOLIC PANEL (06/28/2007 11:59 AM FASHION COORDINATOR) SODIUM 144 135 - 145 mmol/L [facility] ALKALINE PHOSPHATASE 65 35 - 104 U/L [facility] CO2 30 22 - 30 mmol/L [facility] BILIRUBIN TOTAL 0.4 0.2 - 1.0 mg/dL [facility] POTASSIUM 3.1(L) 3.5 - 4.9 mmol/L [facility] TOTAL PROTEIN 7.3 6.3 - 8.6 g/dL [facility] GLUCOSE 93 65 - 99 mg/dL [facility] AST 22 12 - 32 U/L [facility] BUN 16 6 - 20 mg/dL [facility] CALCIUM 8.8 8.4 - 10.2 mg/dL [facility] ALBUMIN 4.3 3.4 - 4.8 g/dL [facility] CHLORIDE 103 96 - 108 mmol/L [facility] CREATININE 0.72 0.51 - 0.95 mg/dL [facility] ALT 14 0 - 31 U/L [facility] GFR, >60 >=60 mL/min/1. 7 sq meter [facility] GFR >60 >=60 mL/min/1. 7 sq meter [facility] Comment: Estimated GFR rate interpretative information for both Americans and non- Americans is available on the [facility] Intranet at: [email or web address] Select: Lab Policies and Procedures Select: Reference Ranges - GFR Blood specimen (specimen) 06/28/2007 11:59 AM FASHION COORDINATOR 06/28/2007 12:12 PM FASHION COORDINATOR Kandy Schulz MD CHEMISTRY ORDERABLES Edited [facility] [address] [place] [address] documented in this encounter Visit Diagnoses Diagnosis Family history of ischemic heart disease documented in this encounter Care Teams Flocculator Operator Relationship Specialty Start Date End Date Laina Duran DO [address] [facility] [address] [place] [address] PCP - General Internal Medicine 03/08/15 NO DME 03/05/19 documented as of this encounter
--- OUTSIDE RECORDS SUMMARY | 2024-12-25 13:06 | XMS_ITS | Encounter Summary ---
Author Organization [facility] Address [address] [place] [address] Care Team Providers Care Recruitment Advertising Manager Name Role Phone Laina Duran DO Primary Care Provider [phone] Encounter Details Date Type Department Care Team (Latest Contact Info) Description 06/19/2007 Outpatient Historical [facility] Avila, Candi Ferreira MD NO ADDRESS ON FILE Other Screening Mammogram Social History Tobacco Use Types Packs/Day Years Used Date Smoking Tobacco: Never Assessed Comments Unknown Sex and Gender Information Value Date Recorded Sex Assigned at Not on file Legal Sex Female 3:53 AM ELEMENTARY SCHOOL REGISTRAR Gender Identity Not on file Sexual Orientation Not on file documented as of this encounter Plan of Treatment Upcoming Encounters Date Type Department Care Team (Late st Contact Info) Description 02/20/2025 11:30 AM CDT Office Visit [facility] Internal Medicine Medical [place] [facility] [address] [facility] [address] [address] Laina Duran DO [address] [facility] [address] [place] [address] documented as of this encounter Visit Diagnoses Diagnosis Other screening mammogram documented in this encounter Care Teams Recruitment Advertising Manager Relationship Specialty Start Date End Date Laina Duran DO [address] [facility] [address] [place] [address] PCP - General Internal Medicine 03/08/15 NO DME 03/05/19 documented as of this encounter
--- OUTSIDE RECORDS SUMMARY | 2024-12-25 13:06 | XMS_ITS | Encounter Summary ---
Author Organization [facility] Address [address] [place] [address] Care Team Providers Care National Park Ranger Name Role Phone Laina Duran DO Primary Care Provider [phone] Encounter Details Date Type Department Care Team [...] on file Legal Sex Female 3:53 AM ACID PUMPER Gender Identity Not on file Sexual Orientation [...] Epic <<<<<<<< TRIAGE NOTE >>>>>>>> Triage Note: Residential Direct Support Professional Natalia Jean added this note on Oct 30 2014 6:34PM: Dr Capps returned call and order for prescription given. Escribed dosepack as ordered to pt's pharmacy of choice. Pt very pleased. <<<<<<<< TRIAGE/OUTCOME >>>>>>>> Guideline Title: Poison Puja, [place], or [place] Exposure ; Poison Puja, [place], or [place] Exposure Recommended Disposition: See Provider within 4 hours Original Inclination: Call Provider/See in 24 Override Disposition: Redirection Page Intended Action: Call Provider Immediately Physician Contacted: Yes Involves eyes, mouth, or genitals. ? YES documented in this encounter Plan of Treatment Upcoming Encounters Date Type Department Care Team (Late st Contact Info) Description 02/20/2025 11:30 AM CDT Office Visit [facility] Internal Medicine Medical [place] [facility] [address] [facility] [address] [address] Laina Duran DO [address] [facility] [address] [place] [address] documented as of this encounter Visit Diagnoses Not on filedocumented in this encounter Additional Health Concerns Assessment Noted Time PHQ-9 Depression Total Score: 2 03/03/20 14 1:00 PM CDT documented as of this encounter Care Teams National Park Ranger Relationship Specialty Start Date End Date Laina Duran DO [address] [facility] [address] [place] [address] PCP - General Internal Medicine 03/08/15 NO DME 03/05/19 documented as of this encounter
--- OUTSIDE RECORDS SUMMARY | 2024-12-25 13:06 | XMS_ITS | Encounter Summary ---
Author Organization [facility] Address [address] [place] [address] Care Team Providers Care Commercial Escrow Assistant Name Role Phone Laina Duran DO Primary Care Provider [phone] Encounter Details Date Type Department Care Team (Latest Contact Info) Description 06/28/2007 Outpatient Historical [facility] Avila, Candi Ferreira MD NO ADDRESS ON FILE Other Screening Mammogram Social History Tobacco Use Types Packs/Day Years Used Date Smoking Tobacco: Never Assessed Comments Unknown Sex and Gender Information Value Date Recorded Sex Assigned at Not on file Legal Sex Female 3:53 AM CYCLE TOURING GUIDE Gender Identity Not on file Sexual Orientation Not on file documented as of this encounter Plan of Treatment Upcoming Encounters Date Type Department Care Team (Late st Contact Info) Description 02/20/2025 11:30 AM CDT Office Visit [facility] Internal Medicine Medical [place] A [facility] [address] [facility] [address] [address] Laina Duran DO [address] [facility] [address] [place] [address] documented as of this encounter Procedures Procedure Name Priority Date/Time Associated Diagnosis Comments MAMMO SCREEN BILAT W OR WO CAD Timed Study 06/28/2007 12:24 PM CYCLE TOURING GUIDE documented in this encounter Results * MAMMO DIGITAL SCREEN BILAT (06/28/2007 12:24 PM CYCLE TOURING GUIDE) Anatomical Region Laterality Modality Breast Bilateral Other 06/28/2007 12:2 4 PM CYCLE TOURING GUIDE Narrative 06/29/2007 7:35 PM CYCLE TOURING GUIDE [place] [address] [place], [place] [address] Admit Date: 06/28/2007 ELIZABETH GODFREY Sex: F Admit Prov: CANDI AVILA Date: 1940 Primary Care Prov: LILIYA MURRAY CMRN: [id number] Room: TERRA N: [id number] IMAGING SERVICES Ordering Prov: CANDI AVILA Accession Number: [id number] Interpretation BILATERAL SCREENING DIGITAL MAMMOGRAMS WITH COMPUTER [...] AMK Procedure Note Provider, Historical - 06/29/2007 [place] [address] [place], [place] [address] Admit Date: 06/28/2007 ELIZABETH GODFREY Sex: F Admit Prov: CANDI AVILA Date: 1940 Primary Care Prov: LILIYA MURRAY CMRN: [id number] Room: TERRA N: [id number] IMAGING SERVICES Ordering Prov: CANDI AVILA Interpretation [...] mammogram documented in this encounter Care Teams Commercial Escrow Assistant Relationship Specialty Start Date End Date Laina Duran DO [address] [place] [address] PCP - General Internal Medicine 03/08/15 NO DME 03/05/19 documented as of this encounter
--- OUTSIDE RECORDS SUMMARY | 2024-12-25 13:06 | XMS_ITS | Encounter Summary ---
Author Organization [facility] Address [address] [facility] Attn: [place] [address] Care Team Providers Care Quality Control Checker Name Role Phone Laina Duran DO Primary Care Provider [phone] Encounter Details Date Type Department Care Team (Latest Contact Info) Description 04/09/2006 Orders Only Kandy Schulz MD Social History Tobacco Use Types Packs/Day Years Used Date Smoking Tobacco: Never Assessed Comments Unknown Sex and Gender Information Value Date Recorded Sex Assigned at Not on file Legal Sex Female 3:53 AM COLOR MAKER Gender Identity Not on file Sexual Orientation Not on file documented as of this encounter Plan of Treatment Upcoming Encounters Date Type Department Care Team (Late st Contact Info) Description 02/20/2025 11:30 AM CDT Office Visit [facility] Internal Medicine Medical [place] [address] [facility] [address] [facility] [address] [address] Laina Duran DO [address] [facility] [address] [place] [address] documented as of this encounter Visit Diagnoses Not on filedocumented in this encounter Care Teams Quality Control Checker Relationship Specialty Start Date End Date Laina Duran DO [address] [facility] [address] [place] [address] PCP - General Internal Medicine 03/08/15 NO DME 03/05/19 documented as of this encounter
--- OUTSIDE RECORDS SUMMARY | 2024-12-25 13:06 | XMS_ITS | Clinical Summary ---
Author Organization [facility] Address [address] [place] [address] Care Team Providers Care Sr Technical Sales Consultant Name Role Phone Kandy Schulz MD Primary Care Provider [phone] Source Comments [facility],non-owned Affiliates and Associated Physician Practices is amultiple site organization consisting of ambulatory clinics and hospital sitesin [place], [place] and [place]. This disclosure is being madepursuant to the Care Everywhere program and may not contain all information available regarding this patient. Last updated 18.[facility] Allergies No known active allergies Medications * [...] on file Legal Sex Female 6:28 PM EMERGENCY MANAGEMENT SYSTEM DIRECTOR Gender Identity Not on file Sexual Orientation Not on file Last Filed Vital Signs Vital Sign Reading Time Taken Comments Blood Pressure 186/82 03/28/2018 2:46 PM EMERGENCY MANAGEMENT SYSTEM DIRECTOR Pulse 65 03/28/2018 2:45 PM EMERGENCY MANAGEMENT SYSTEM DIRECTOR Temperature 36.4 C (97.5 F) 03/28/2018 2:00 PM EMERGENCY MANAGEMENT SYSTEM DIRECTOR Respiratory Rate 20 03/28/2018 2:45 PM EMERGENCY MANAGEMENT SYSTEM DIRECTOR Oxygen Saturation 97% 03/28/2018 2:40 PM EMERGENCY MANAGEMENT SYSTEM DIRECTOR Inhaled Oxygen Concentration - - Weight 59.4 kg (131 lb) 03/28/2018 11:49 AM EMERGENCY MANAGEMENT SYSTEM DIRECTOR Height 154.9 cm (5' 1) 03/28/2018 11:49 AM EMERGENCY MANAGEMENT SYSTEM DIRECTOR Body Mass Index 24.75 03/28/2018 11:49 AM EMERGENCY MANAGEMENT SYSTEM DIRECTOR Plan of Treatment Health Maintenance Due Date [...] this topic Medical Devices Implanted Type Area Bark Spudder Device Identifier Shelf Expiration Date Model / Serial / Lot Kit Inst 2mm Bone Tamp Gd Slv Implanted:Qty: 1 on 03/28/2018 by Janine Conway MD at [facility] Right: Foot [employer] [id number] / / [id number] Insurance MEDICARE MEDICARE [facility] Care Teams Sr Technical Sales Consultant Relationship Specialty Start Date End Date Kandy Schulz MD [address] [place] [phone] PCP - General 06/12/08
--- OUTSIDE RECORDS SUMMARY | 2024-12-25 13:06 | XMS_ITS | Encounter Summary ---
Author Organization [facility] Address [address] [place] [address] Care Team Providers Care Motorized Squad Lieutenant Name Role Phone Laina Duran DO Primary Care Provider [phone] Encounter Details Date Type Department Care Team (Late st Contact Info) Description 06/28/2007 Outpatient Historical [facility] Internal Medicine [facility] 189 [address] [facility] [address] [address] Kandy Schulz MD Social History Tobacco Use Types Packs/Day Years Used Date Smoking Tobacco: Never Assessed Comments Unknown Sex and Gender Information Value Date Recorded Sex Assigned at Not on file Legal Sex Female 3:53 AM FRUIT RAISER Gender Identity Not on file Sexual Orientation Not on file documented as of this encounter Plan of Treatment Upcoming Encounters Date Type Department Care Team (Late st Contact Info) Description 02/20/2025 11:30 AM CDT Office Visit [facility] Internal Medicine [facility] 189 [address] [address] Laina Duran DO [address] [facility] [address] [place] [address] documented as of this encounter Visit Diagnoses Not on filedocumented in this encounter Care Teams Motorized Squad Lieutenant Relationship Specialty Start Date End Date Laina Duran DO [address] [facility] [address] [place] [address] PCP - General Internal Medicine 03/08/15 NO DME 03/05/19 documented as of this encounter
--- OUTSIDE RECORDS SUMMARY | 2024-12-25 13:06 | XMS_ITS | Continuity of Care Document ---
Author Organization [facility] Address [address] [place] [address] Phone Care Team Providers Care Survey Field Technician Name Role Phone Iris COTTO, Monster Unavailable [...] OFFICE/OUTPA TIENT VISIT, EST [facility], [address] [facility] [address], [place], [place], [id number], [place] tel:[phone] OPH CONSULT [facility] pseudophakia (chief complaint) Other secondary cataract, bilateralPost erior vitreous detachment of both eyesInsuffici ency of tear film of both eyesMacular pucker, left eyePseudophak ia of both eyes 5 Iris Sureshhil. [address], [place], [place], [id number], [place]. tel:[phone] Referring Provider: Monster painting, [address], [place], [address] . tel:[phone] OFFICE/OUTPA TIENT VISIT, EST [facility], [address] [place] [address], [id number], [place] tel:[phone] OPH CONSULT CATRINA GIPSON PCO OU (chief complaint) Other secondary cataract, bilateralPost erior vitreous detachment of both eyesMacular pucker, left eyeInsufficie ncy of tear film of both eyesPseudopha arnol of both eyes Fe 4 Iris Coelhol. [address], [place], [place], [id number], [place]. tel:[phone] Referring Provider: Monster painting, [address], [place], [address] . tel:[phone] OFFICE/OUTPA TIENT VISIT, EST [facility], [address] [place] [address], [id number], [place] tel:[phone] OPH CONSULT CATRINA GIPSON pressure inside OS (chief complaint) Other secondary cataract, bilateralPost erior vitreous detachment of both eyesMacular pucker, left eyeInsufficie ncy of tear film of both eyesPseudopha arnol of both eyes Oct- 2 Iris Sureshhil. [address], [place], [place], [id number], [place]. tel:[phone] Referring Provider: Laian NAVARRETE, [address], [place], [address]. tel:[phone] OFFICE/OUTPA TIENT VISIT, EST [facility], [address] [place] [address], [id number], [place] tel:[phone] OPH CONSULT CATRINA GIPSON IOL check (chief complaint) Other secondary cataract, bilateralPost erior vitreous detachment of both eyesInsuffici ency of tear film of both eyesMacular pucker, left eyePseudophak ia of both eyes 9 Krishnasamy Monster. [address], [place], [place], [id number], [place]. tel:[phone] Referring Provider: Monster painting, [address], [place], [address] . tel:[phone] OFFICE/OUTPA TIENT VISIT, EST [facility], [address] [place] [address], [id number], [place] tel:[phone] Oph Consult [facility] Office feeling pressure (chief complaint) PVD (posterior vitreous detachment), both eyesOther secondary cataract, bilateralPseu dophakia of both eyesInsuffici ency of tear film of both eyesClosed fracture of left orbital floor with routine healing, subsequent encounter 6 Krishnasabel Sureshhil. [address], [place], [place], [id number], [place]. tel:[phone] Referring Provider: Monster painting, [address], [place], [address] . tel:[phone] OFFICE/OUTPA TIENT VISIT, EST [facility], [address] [place] [address], [id number], [place] tel:[phone] Oph Consult [facility] Office Pressure/ Blurry Vison (chief complaint) Closed fracture of orbital floor (blow-out)Santo s replaced by other meansDiplopia Vitreous degenerationE xposure keratoconjunc tivitisAfter cataract not obscuring vision 5 Krishnasamy Monster. [address], [place], [place], [id number], . tel:[phone] Referring Provider: Monster painting, [address], [place], [address] . tel:[phone] OFFICE/OUTPA TIENT VISIT, NEW [facility], [address] [address], [place], [place], [id number], tel:[phone] Oph Consult [facility] Office Exposure keratoconjunc tivitisDiplop iaClosed fracture of orbital floor (blow-out)Tea r film insufficiency , unspecifiedVi treous degenerationL ens replaced by other means 4 Iris Hook. [address], [place], [place], [id number], [place]. tel:[phone] Referring Provider: Monster painting, [address], [place], [address] . 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 Cedeno for [...]
--- OUTSIDE RECORDS SUMMARY | 2024-12-25 13:06 | XMS_ITS | Encounter Summary ---
Author Organization [facility] Address [address] [place] [address] Care Team Providers Care Medical Assistant Supervisor Name Role Phone Laina Duran DO Primary Care Provider [phone] Encounter Details Date Type Department Care Team (Late st Contact Info) Description 12/30/2002 Outpatient Historical [facility] Internal Medicine - [place] [address] [place] [address] [place] [address] [place] [address] Social History Tobacco Use Types Packs/Day Years Used Date Smoking Tobacco: Never Assessed Comments Unknown Sex and Gender Information Value Date Recorded Sex Assigned at Not on file Legal Sex Female 3:53 AM MANAGER INTEL Gender Identity Not on file Sexual Orientation Not on file documented as of this encounter Plan of Treatment Upcoming Encounters Date Type Department Care Team (Late st Contact Info) Description 02/20/2025 11:30 AM CDT Office Visit [facility] Internal Medicine Medical [place] [address] [address] [facility] [address] [address] Laina Duran DO [address] [facility] [address] [place] [address] documented as of this encounter Visit Diagnoses Not on filedocumented in this encounter Care Teams Medical Assistant Supervisor Relationship Specialty Start Date End Date Laina Duran DO [address] [facility] [address] [place] [address] PCP - General Internal Medicine 03/08/15 NO DME 03/05/19 documented as of this encounter
--- OUTSIDE RECORDS SUMMARY | 2024-12-25 13:06 | XMS_ITS | Encounter Summary ---
Author Organization [facility] Address [address] [place] [address] Care Team Providers Care Appointment Scheduler Name Role Phone Laina Duran DO Primary Care Provider [phone] Encounter Details Date Type Department Care Team (Late st Contact Info) Description 12/07/2006 Outpatient Historical [facility] Kevin Garcia MD [address] [place] [id number] Special Screening for Malignant Neoplasms, Colon (Primary Dx) Social History Tobacco Use Types Packs/Day Years Used Date Smoking Tobacco: Never Assessed Comments Unknown Sex and Gender Information Value Date Recorded Sex Assigned at Not on file Legal Sex Female 3:53 AM COMPUTER PUBLISHER Gender Identity Not on file Sexual Orientation Not on file documented as of this encounter Plan of Treatment Upcoming Encounters Date Type Department Care Team (Late st Contact Info) Description 02/20/2025 11:30 AM CDT Office Visit [facility] Internal Medicine Medical [place] A [facility] [address] [address] Laina Duran DO [address] [facility] [address] [place] [address] documented as of this encounter Visit Diagnoses Diagnosis Special screening for malignant neoplasms, colon- Primary documented in this encounter Care Teams Appointment Scheduler Relationship Specialty Start Date End Date Laina Duran DO [address] [facility] [address] [place] [address] PCP - General Internal Medicine 03/08/15 NO DME 03/05/19 documented as of this encounter
[2024-12-25 14:32] LABS: Thyroid Stimulating Hormone 1.230 uIU/mL (0.465-4.680)
== END 2024-12-25 12:53 | disposition home or self-care (01) ==
PROVIDERS: PCP Family Medicine; Visit Provider Family Medicine
DX: E05.90 Thyrotoxicosis, unspecified without thyrotoxic crisis or storm (principal)
CPT/HCPCS: 36415; 84443

== ENCOUNTER 2024-12-29 09:30 | Outpatient (CLI) | payer MEDICARE, SELFPAY ==
--- NOTE | ~2024-12-29 | MM_ITS ---
EXAMINATION: MM screening dustin BI w darryl HISTORY: Screening mammogram, family history of breast cancer in her sister. TECHNIQUE: Craniocaudal and mediolateral oblique 3-D tomosynthesis images were obtained and synthetic 2-D images were generated. CAD analysis was submitted and interpreted. COMPARISON: No prior mammogram is available for comparison at this institution. BREAST PARENCHYMAL COMPOSITION:Not Dense. There are scattered areas of fibroglandular density. FINDINGS: Lymph node present at the upper, outer quadrant right breast. No suspicious mass, calcifica tion, or architectural distortion are identified in either breast to suggest malignancy. Bilateral be nign calcifications are present. There has been no suspicious interval change. IMPRESSION: No mammographic evidence of malignancy. Recommend routine screening mammography in one year. BI-RADS Category 2: Benign finding(s). Reviewed, dictated and finalized at [facility].
--- OUTSIDE RECORDS SUMMARY | 2024-12-29 10:11 | XMS_ITS | Encounter Summary ---
Author Organization [facility] Address [address] Attn: [place] [address] Care Team Providers Care Charter Boat Captain Name Role Phone Laina Duran DO Primary Care Provider [phone] Encounter Details Date Type Department Care Team (Latest Contact Info) Description 06/28/2007 Orders Only Kandy Schulz MD Social History Tobacco Use Types Packs/Day Years Used Date Smoking Tobacco: Never Assessed Comments Unknown Sex and Gender Information Value Date Recorded Sex Assigned at Not on file Legal Sex Female 3:53 AM ASSISTANT PROFESSOR OF ENGLISH Gender Identity Not on file Sexual Orientation Not on file documented as of this encounter Plan of Treatment Upcoming Encounters Date Type Department Care Team (Late st Contact Info) Description 02/20/2025 11:30 AM CDT Office Visit [facility] Internal Medicine Medical [place] A [place] [address] [facility] [address] [address] Laina Duran DO [address] [facility] [address] [place], [place] [id number] documented as of this encounter Visit Diagnoses Not on filedocumented in this encounter Care Teams Charter Boat Captain Relationship Specialty Start Date End Date Laina Duran DO [address] [facility] [address] [facility] [address] [place] [address] PCP - General Internal Medicine 03/08/15 NO DME 03/05/19 documented as of this encounter
--- OUTSIDE RECORDS SUMMARY | 2024-12-29 10:11 | XMS_ITS | Encounter Summary ---
Author Organization [facility] Address [address] [place] [address] Care Team Providers Care Maintenance Mechanic Supervisor Name Role Phone Laina Duran DO Primary Care Provider [phone] Encounter Details Date Type Department Care Team (Late st Contact Info) Description 04/09/2006 Outpatient Historical [facility] Internal Medicine [facility] [address] [facility] [address] [address] Kandy Schulz MD Social History Tobacco Use Types Packs/Day Years Used Date Smoking Tobacco: Never Assessed Comments Unknown Sex and Gender Information Value Date Recorded Sex Assigned at Not on file Legal Sex Female 3:53 AM DOCKING SAW OPERATOR Gender Identity Not on file Sexual Orientation Not on file documented as of this encounter Plan of Treatment Upcoming Encounters Date Type Department Care Team (Late st Contact Info) Description 02/20/2025 11:30 AM CDT Office Visit [facility] Internal Medicine [facility] [address] [address] Laina Duran DO [address] [facility] [address] [place] [address] documented as of this encounter Visit Diagnoses Not on filedocumented in this encounter Care Teams Maintenance Mechanic Supervisor Relationship Specialty Start Date End Date Laina Duran DO [address] [facility] [address] [place] [address] PCP - General Internal Medicine 03/08/15 NO DME 03/05/19 documented as of this encounter
--- OUTSIDE RECORDS SUMMARY | 2024-12-29 10:11 | XMS_ITS | Encounter Summary ---
Author Organization [facility] Address [address] [place] [address] Care Team Providers Care Joint Machine Operator Name Role Phone Laina Duran DO Primary Care Provider [phone] Encounter Details Date Type Department Care Team (Late st Contact Info) Description 01/14/2004 Outpatient Historical [facility] Internal Medicine - [place] [address] [place] [address] [place] [address] [place], [place] Social History Tobacco Use Types Packs/Day Years Used Date Smoking Tobacco: Never Assessed Comments Unknown Sex and Gender Information Value Date Recorded Sex Assigned at Not on file Legal Sex Female 3:53 AM SOLAR INSTALLATION FOREMAN Gender Identity Not on file Sexual Orientation Not on file documented as of this encounter Plan of Treatment Upcoming Encounters Date Type Department Care Team (Late st Contact Info) Description 02/20/2025 11:30 AM CDT Office Visit [facility] Internal Medicine Medical [place] [facility] [place] [address] [address] [address] Laina Duran DO [address] [facility] [address] [place] [address] documented as of this encounter Visit Diagnoses Not on filedocumented in this encounter Care Teams Joint Machine Operator Relationship Specialty Start Date End Date Laina Duran DO [address] [facility] [address] [place] [address] PCP - General Internal Medicine 03/08/15 NO DME 03/05/19 documented as of this encounter
--- OUTSIDE RECORDS SUMMARY | 2024-12-29 10:11 | XMS_ITS | Encounter Summary ---
Author Organization [facility] Address [address] [place] [address] Care Team Providers Care Soap Press Feeder Name Role Phone Laina Duran DO Primary Care Provider [phone] Encounter Details Date Type Department Care Team (Late st Contact Info) Description 01/14/2004 Outpatient Historical [facility] Internal Medicine - [place] [address] [place] [address] [place] [address] [place], [place] Social History Tobacco Use Types Packs/Day Years Used Date Smoking Tobacco: Never Assessed Comments Unknown Sex and Gender Information Value Date Recorded Sex Assigned at Not on file Legal Sex Female 3:53 AM MILK RUNNER Gender Identity Not on file Sexual Orientation Not on file documented as of this encounter Plan of Treatment Upcoming Encounters Date Type Department Care Team (Late st Contact Info) Description 02/20/2025 11:30 AM CDT Office Visit [facility] Internal Medicine Medical [place] A [place] [address] [facility] [address] [address] Laina Duran DO [address] [facility] [address] [place] [address] documented as of this encounter Visit Diagnoses Not on filedocumented in this encounter Care Teams Soap Press Feeder Relationship Specialty Start Date End Date Laina Duran DO [address] [facility] [address] [place] [address] PCP - General Internal Medicine 03/08/15 NO DME 03/05/19 documented as of this encounter
--- OUTSIDE RECORDS SUMMARY | 2024-12-29 10:11 | XMS_ITS | Encounter Summary ---
Author Organization [facility] Address [address] [place] [address] Care Team Providers Care Electrical & Instrumentation Supervisor Name Role Phone Laina Duran DO Primary Care Provider [phone] Encounter Details Date Type Department Care Team (Late st Contact Info) Description 06/28/2007 Outpatient Historical [facility] Internal Medicine [facility] [address] [facility] [address] [address] [address] Kandy Schulz MD Social History Tobacco Use Types Packs/Day Years Used Date Smoking Tobacco: Never Assessed Comments Unknown Sex and Gender Information Value Date Recorded Sex Assigned at Not on file Legal Sex Female 3:53 AM SCREWHEAD STONER AND POLISHER Gender Identity Not on file Sexual Orientation Not on file documented as of this encounter Plan of Treatment Upcoming Encounters Date Type Department Care Team (Late st Contact Info) Description 02/20/2025 11:30 AM CDT Office Visit [facility] Internal Medicine [facility] [address] [address] Laina Duran DO [address] [facility] [address] [place] [address] documented as of this encounter Visit Diagnoses Not on filedocumented in this encounter Care Teams Electrical & Instrumentation Supervisor Relationship Specialty Start Date End Date Laina Duran DO [address] [facility] [address] [place] [address] PCP - General Internal Medicine 03/08/15 NO DME 03/05/19 documented as of this encounter
--- OUTSIDE RECORDS SUMMARY | 2024-12-29 10:11 | XMS_ITS | Clinical Summary ---
Author Organization [facility] Address [address] [place] [address] Phone Care Team Providers Care Army Helicopter Pilot Name Role Phone Laina Duran Primary Care Provider [phone] Allergies Active Allergy Reactions Criticality Noted Date [...] surgery, has titanium plates. She was in [place] at that time and so her surgeon [...] on file Legal Sex Female 3:53 AM CNC SET UP OPERATOR Gender Identity Not on file Sexual Orientation Not on file Occupation Industry Job Start Date Job End Date retired Not on file Not on file Not on file Not on file Not on file Not on file Not on file Last Filed Vital Signs Vital Sign Reading Time Taken Comments Blood Pressure 138/78 06/09/2024 1:33 PM CNC SET UP OPERATOR Pulse 86 06/09/2024 1:33 PM CNC SET UP OPERATOR Temperature 35.8 C (96.4 F) 06/09/2024 1:33 PM CNC SET UP OPERATOR Respiratory Rate 10 05/16/2023 1:38 PM CNC SET UP OPERATOR Oxygen Saturation 96% 06/09/2024 1:33 PM CNC SET UP OPERATOR Inhaled Oxygen Concentration - - Weight 60.9 kg (134 lb 3.2 oz) 06/09/2024 1:33 P M CNC SET UP OPERATOR Height 154.9 cm (5' 1) 06/09/2024 1:33 PM CNC SET UP OPERATOR Body Mass Index 25.36 06/09/2024 1:33 PM CNC SET UP OPERATOR Plan of Treatment Upcoming Encounters Date Type Department Care Team (Late st Contact Info) Description 02/20/2025 11:30 AM CDT Office Visit [facility] Internal Medicine Medical [place] [facility] [address] [facility] [address] [place] [address] Laina Duranatt, DO [address] [facility] [address] [place] [address] Health Maintenance Due Date Last [...] found in the Imaging Section of the [facility] EMR. Osteopenia. Lumbar Spine: t-Score: [...] lumbar spine, hip(s) and forearm(s) using a Yippy DEXA scanner for bone mineral density determination [...] found in the Imaging Section of the [facility] EMR. Osteopenia. Lumbar Spine: t-Score: [...] Duran DO GI PROCEDURE ORDERABLES Final Result [facility], KARAN DENNIS MD [facility]# [id number] [address] [address] * POC OCCULT BLOOD 1 CARD (07/13/2011) OCCULT BLOOD #1 Negative [facility] Stool specimen (specimen) us Julieta Brock MD POINT OF CARE TESTING Final Result [facility] from Last 3 Months or Most Recently Relevant to Health Maintenance Insurance MEDICARE PART A AND B [facility] RX PRIME THERAPEUTICS Medicare Part D Advance Directives For more information, please contact: [phone] * Full Code (Latest Code Status on File) Date Activated Date Inactivated Comments 09/27/2013 2:49 PM 09/29/2013 7:30 PM Care Teams Army Helicopter Pilot Relationship Specialty Start Date End Date Laina Duran DO [address] [place] [address] PCP - General Internal Medicine 03/08/15 NO DME 03/05/19
--- OUTSIDE RECORDS SUMMARY | 2024-12-29 10:11 | XMS_ITS | Encounter Summary ---
Author Organization [facility] Address [address] [place] [address] Care Team Providers Care People Manager Name Role Phone Laina Duran DO Primary Care Provider [phone] Encounter Details Date Type Department Care Team (Latest Contact Info) Description 11/03/1998 Outpatient Historical [facility]IL Avila, Candi Ferreira MD NO ADDRESS ON FILE Other screening mammogram (Primary Dx) Social History Tobacco Use Types Packs/Day Years Used Date Smoking Tobacco: Never Assessed Comments Unknown Sex and Gender Information Value Date Recorded Sex Assigned at Not on file Legal Sex Female 3:53 AM BRAND ACTIVATION MANAGER Gender Identity Not on file Sexual Orientation Not on file documented as of this encounter Plan of Treatment Upcoming Encounters Date Type Department Care Team (Late st Contact Info) Description 02/20/2025 11:30 AM CDT Office Visit [facility] Internal Medicine Medical [place] A [place] [address] [facility] [address] [address] Laina Duran DO [address] [facility] [facility] [address] [place], [place] [address] documented as of this encounter Visit Diagnoses Diagnosis Other screening mammogram- Primary documented in this encounter Care Teams People Manager Relationship Specialty Start Date End Date Laina Duran DO [address] [facility] [facility] [address] [place] [address] PCP - General Internal Medicine 03/08/15 NO DME 03/05/19 documented as of this encounter
--- OUTSIDE RECORDS SUMMARY | 2024-12-29 10:11 | XMS_ITS | Encounter Summary ---
Author Organization [facility] Address [address] [place] [address] Care Team Providers Care Returned Telephone Equipment Appraiser Name Role Phone Laina Duran DO Primary Care Provider [phone] Encounter Details Date Type Department Care Team (Late st Contact Info) Description 01/14/2004 Outpatient Historical [facility] Internal Medicine - [place] [address] [place] [address] [place] [address] [place], [place] Social History Tobacco Use Types Packs/Day Years Used Date Smoking Tobacco: Never Assessed Comments Unknown Sex and Gender Information Value Date Recorded Sex Assigned at Not on file Legal Sex Female 3:53 AM SLUDGE CONTROL OPERATOR Gender Identity Not on file Sexual Orientation Not on file documented as of this encounter Plan of Treatment Upcoming Encounters Date Type Department Care Team (Late st Contact Info) Description 02/20/2025 11:30 AM CDT Office Visit [facility] Internal Medicine Medical [place] A [place] [address] [facility] [address] [address] Laina Duran DO [address] [facility] [address] [place] [address] documented as of this encounter Visit Diagnoses Not on filedocumented in this encounter Care Teams Returned Telephone Equipment Appraiser Relationship Specialty Start Date End Date Laina Duran DO [address] [facility] [address] [place] [address] PCP - General Internal Medicine 03/08/15 NO DME 03/05/19 documented as of this encounter
--- OUTSIDE RECORDS SUMMARY | 2024-12-29 10:11 | XMS_ITS | Encounter Summary ---
Author Organization [facility] Address [address] [place] [address] Care Team Providers Care Engineering Project Designer Name Role Phone Laina Duran DO Primary Care Provider [phone] Encounter Details Date Type Department Care Team (Late st Contact Info) Description 12/30/2002 Outpatient Historical [facility] Internal Medicine - [place] [address] [place] [address] [place] [address] [place] [id number] Social History Tobacco Use Types Packs/Day Years Used Date Smoking Tobacco: Never Assessed Comments Unknown Sex and Gender Information Value Date Recorded Sex Assigned at Not on file Legal Sex Female 3:53 AM SECURITY TESTER Gender Identity Not on file Sexual Orientation Not on file documented as of this encounter Plan of Treatment Upcoming Encounters Date Type Department Care Team (Late st Contact Info) Description 02/20/2025 11:30 AM CDT Office Visit [facility] Internal Medicine Medical [place] A [place] [address] [facility] [address] [address] Laina Duran DO [address] [facility] [address] [place] [address] documented as of this encounter Visit Diagnoses Not on filedocumented in this encounter Care Teams Engineering Project Designer Relationship Specialty Start Date End Date Laina Duran DO [address] [facility] [address] [place] [address] PCP - General Internal Medicine 03/08/15 NO DME 03/05/19 documented as of this encounter
--- OUTSIDE RECORDS SUMMARY | 2024-12-29 10:11 | XMS_ITS | Encounter Summary ---
Author Organization [facility] Address [address] [place] [address] Care Team Providers Care Barrel Bander Name Role Phone Laina Duran DO Primary Care Provider [phone] Encounter Details Date Type Department Care Team (Latest Contact Info) Description 06/19/2007 Outpatient Historical [facility] Avila, Candi Ferreira MD NO ADDRESS ON FILE Other Screening Mammogram Social History Tobacco Use Types Packs/Day Years Used Date Smoking Tobacco: Never Assessed Comments Unknown Sex and Gender Information Value Date Recorded Sex Assigned at Not on file Legal Sex Female 3:53 AM PROGRAM ELIGIBILITY SPECIALIST Gender Identity Not on file Sexual Orientation Not on file documented as of this encounter Plan of Treatment Upcoming Encounters Date Type Department Care Team (Late st Contact Info) Description 02/20/2025 11:30 AM CDT Office Visit [facility] Internal Medicine Medical [place] A [facility] [address] [facility] [address] [address] Laina Duran DO [address] [facility] [address] [place] [address] documented as of this encounter Visit Diagnoses Diagnosis Other screening mammogram documented in this encounter Care Teams Barrel Bander Relationship Specialty Start Date End Date Laina Duran DO [address] [facility] [address] [place] [address] PCP - General Internal Medicine 03/08/15 NO DME 03/05/19 documented as of this encounter
--- OUTSIDE RECORDS SUMMARY | 2024-12-29 10:11 | XMS_ITS | Encounter Summary ---
Author Organization [facility] Address [address] [place] [address] Care Team Providers Care Firer Kiln Name Role Phone Laina Duran DO Primary Care Provider [phone] Encounter Details Date Type Department Care Team (Late st Contact Info) Description 05/30/2005 Outpatient Historical [facility] Internal Medicine - [place] [address] [place] [address] [place] [address] [place] [id number] Social History Tobacco Use Types Packs/Day Years Used Date Smoking Tobacco: Never Assessed Comments Unknown Sex and Gender Information Value Date Recorded Sex Assigned at Not on file Legal Sex Female 3:53 AM SPORTSPERSONS Gender Identity Not on file Sexual Orientation Not on file documented as of this encounter Plan of Treatment Upcoming Encounters Date Type Department Care Team (Late st Contact Info) Description 02/20/2025 11:30 AM CDT Office Visit [facility] Internal Medicine Medical [place] A [place] [address] [facility] [address] [address] Laina Duran DO [address] [facility] [address] [place] [address] documented as of this encounter Visit Diagnoses Not on filedocumented in this encounter Care Teams Firer Kiln Relationship Specialty Start Date End Date Laina Duran DO [address] [facility] [address] [place] [address] PCP - General Internal Medicine 03/08/15 NO DME 03/05/19 documented as of this encounter
--- OUTSIDE RECORDS SUMMARY | 2024-12-29 10:11 | XMS_ITS | Clinical Summary ---
Author Organization [facility] [address] Address [address] [place] [address] Care Team Providers Care Perforator Operator Oil Well Name Role Phone Unknown, Notinfile Primary Care [...] on file Legal Sex Female 5:02 AM HOSPICE CLINICAL MANAGER Gender Identity Not on file Sexual [...] Vaccine Completed 07/17/2019, 02/12, 07/18/2018 Insurance MEDICARE [facility] Care Teams Perforator Operator Oil Well Relationship Specialty Start Date End Date Unknown, Notinfile PCP - General 09/08/21
--- OUTSIDE RECORDS SUMMARY | 2024-12-29 10:11 | XMS_ITS | Encounter Summary ---
Author Organization [facility] Address [address] [place] [address] Care Team Providers Care Pool Servicer Name Role Phone Laina Duran DO Primary Care Provider [phone] Encounter Details Date Type Department Care Team (Latest Contact Info) Description 06/28/2007 Outpatient Historical HIS [facility] AVRIL Avila, Candi Ferreira MD NO ADDRESS ON FILE Other Screening Mammogram Social History Tobacco Use Types Packs/Day Years Used Date Smoking Tobacco: Never Assessed Comments Unknown Sex and Gender Information Value Date Recorded Sex Assigned at Not on file Legal Sex Female 3:53 AM FUEL CELL BATTERY TECHNICIAN Gender Identity Not on file Sexual Orientation Not on file documented as of this encounter Plan of Treatment Upcoming Encounters Date Type Department Care Team (Late st Contact Info) Description 02/20/2025 11:30 AM CDT Office Visit [facility] Internal Medicine Medical [place] [facility] [address] [address] Laina Duran DO [address] [facility] [address] [place] [address] documented as of this encounter Procedures Procedure Name Priority Date/Time Associated Diagnosis Comments MAMMO SCREEN BILAT W OR WO CAD Timed Study 06/28/2007 12:24 PM FUEL CELL BATTERY TECHNICIAN documented in this encounter Results * MAMMO DIGITAL SCREEN BILAT (06/28/2007 12:24 PM FUEL CELL BATTERY TECHNICIAN) Anatomical Region Laterality Modality Breast Bilateral Other 06/28/2007 12:2 4 PM FUEL CELL BATTERY TECHNICIAN Narrative 06/29/2007 7:35 PM FUEL CELL BATTERY TECHNICIAN [id number] [place], [place] [address] Admit Date: 06/28/2007 ELIZABETH GODFREY Sex: F Admit Prov: CANDI AVILA Date: 1940 Primary Care Prov: LILIYA MURRAY CMRN: [id number] Room: TERRA N: [id number] IMAGING SERVICES Ordering Prov: CANDI AVILA Accession Number: [id number] Interpretation BILATERAL SCREENING DIGITAL MAMMOGRAMS WITH COMPUTER [...] AMK Procedure Note Provider, Historical - 06/29/2007 [id number] [place], [place] [address] Admit Date: 06/28/2007 ELIZABETH GODFREY Sex: F Admit Prov: CANDI AVILA Date: 1940 Primary Care Prov: LILIYA MURRAY CMRN: [id number] Room: TERRA N: [id number] IMAGING SERVICES Ordering Prov: CANDI AVILA Interpretation [...] mammogram documented in this encounter Care Teams Pool Servicer Relationship Specialty Start Date End Date Laina Duran DO [address] [place] [address] PCP - General Internal Medicine 03/08/15 NO DME 03/05/19 documented as of this encounter
--- OUTSIDE RECORDS SUMMARY | 2024-12-29 10:11 | XMS_ITS | Encounter Summary ---
Author Organization [facility] Address [address] [place] [address] Care Team Providers Care Human Factors Specialist Name Role Phone Laina Duran DO Primary Care Provider [phone] Encounter Details Date Type Department Care Team (Late st Contact Info) Description 12/07/2006 Outpatient Historical [facility] Kevin Garcia MD [address] [place] [id number] Special Screening for Malignant Neoplasms, Colon (Primary Dx) Social History Tobacco Use Types Packs/Day Years Used Date Smoking Tobacco: Never Assessed Comments Unknown Sex and Gender Information Value Date Recorded Sex Assigned at Not on file Legal Sex Female 3:53 AM TELESALES PROFESSIONAL Gender Identity Not on file Sexual Orientation Not on file documented as of this encounter Plan of Treatment Upcoming Encounters Date Type Department Care Team (Late st Contact Info) Description 02/20/2025 11:30 AM CDT Office Visit [facility] Internal Medicine Medical [place] A [facility] [address] [address] [address] Laina Duran DO [address] [facility] [address] [place] [address] documented as of this encounter Visit Diagnoses Diagnosis Special screening for malignant neoplasms, colon- Primary documented in this encounter Care Teams Human Factors Specialist Relationship Specialty Start Date End Date Laina Duran DO [address] [facility] [address] [place] [address] PCP - General Internal Medicine 03/08/15 NO DME 03/05/19 documented as of this encounter
--- OUTSIDE RECORDS SUMMARY | 2024-12-29 10:11 | XMS_ITS | Encounter Summary ---
Author Organization [facility] Address [address] [place] [address] Care Team Providers Care Agent Ticketing Gate Name Role Phone Laina Duran DO Primary Care Provider [phone] Encounter Details Date Type Department Care Team (Late st Contact Info) Description 05/30/2005 Outpatient Historical [facility] [place] [address] [place] [address] [place] [address] [place] [id number] Social History Tobacco Use Types Packs/Day Years Used Date Smoking Tobacco: Never Assessed Comments Unknown Sex and Gender Information Value Date Recorded Sex Assigned at Not on file Legal Sex Female 3:53 AM CYTOTECHNOLOGIST Gender Identity Not on file Sexual Orientation Not on file documented as of this encounter Plan of Treatment Upcoming Encounters Date Type Department Care Team (Late st Contact Info) Description 02/20/2025 11:30 AM CDT Office Visit [facility] Internal Medicine Medical [place] A [facility] [address] [facility] [address] [address] Laina Duran DO [address] [facility] [address] [place] [address] documented as of this encounter Visit Diagnoses Not on filedocumented in this encounter Care Teams Agent Ticketing Gate Relationship Specialty Start Date End Date Laina Duran DO [address] [facility] [address] [place] [address] PCP - General Internal Medicine 03/08/15 NO DME 03/05/19 documented as of this encounter
--- OUTSIDE RECORDS SUMMARY | 2024-12-29 10:11 | XMS_ITS | Encounter Summary ---
Author Organization [facility] Address [address] [place] [address] Care Team Providers Care Geriatric Nurse Practitioner Name Role Phone Laina Duran DO Primary Care Provider [phone] Encounter Details Date Type Department Care Team (Latest Contact Info) Description 12/07/2008 Outpatient Historical HIS [facility] AVRIL Schulz, Kandy Perez MD [address] [place] [address] Family History of Ischemic Heart Disease Social History Tobacco Use Types Packs/Day Years Used Date Smoking Tobacco: Never Alcohol Use Standard Drinks/Week Comments Yes 6.7 (1 standard drink = 0.6 oz p ure alcohol) social Comments No Sex and Gender Information Value Date Recorded Sex Assigned at Not on file Legal Sex Female 3:53 AM HOOP RIVETING MACHINE OPERATOR HELPER Gender Identity Not on file Sexual Orientation Not on file Occupation Industry Job Start Date Job End Date retired Not on file Not on file Not on file documented as of this encounter Plan of Treatment Upcoming Encounters Date Type Department Care Team (Late st Contact Info) Description 02/20/2025 11:30 AM CDT Office Visit [facility] Internal Medicine Medical [place] A [facility] [address] [facility] [address] [address] Laina Duran DO [address] [facility] [address] [place] [address] documented as of this encounter Visit Diagnoses Diagnosis Family history of ischemic heart disease documented in this encounter Care Teams Geriatric Nurse Practitioner Relationship Specialty Start Date End Date Laina Duran DO [address] [place] [address] PCP - General Internal Medicine 03/08/15 NO DME 03/05/19 documented as of this encounter
--- OUTSIDE RECORDS SUMMARY | 2024-12-29 10:11 | XMS_ITS | Encounter Summary ---
Author Organization [facility] Address [address] [place] [address] Care Team Providers Care Senior Gl Accountant Name Role Phone Laina Duran DO Primary Care Provider [phone] Encounter Details Date Type Department Care Team (Latest Contact Info) Description 04/09/2006 Outpatient Historical [facility] Internal Medicine [facility] [address] [facility] [address] [place] [address] Kandy Schulz MD Family History of Ischemic Heart Disease (Primary Dx) Social History Tobacco Use Types Packs/Day Years Used Date Smoking Tobacco: Never Assessed Comments Unknown Sex and Gender Information Value Date Recorded Sex Assigned at Not on file Legal Sex Female 3:53 AM LEATHER GRADER Gender Identity Not on file Sexual Orientation Not on file documented as of this encounter Plan of Treatment Upcoming Encounters Date Type Department Care Team (Late st Contact Info) Description 02/20/2025 11:30 AM CDT Office Visit [facility] Internal Medicine [facility] [address] [facility] [address] [place] [address] Laina Duran DO [address] [facility] [address] [place] [address] documented as of this encounter Procedures Procedure Name Priority Date/Time Associated Diagnosis Comments TSH REFLEXIVE Routine 04/09/2006 11:01 AM LEATHER GRADER CBC WITH DIFFERENTIAL Routine 04/09/2006 11:01 AM LEATHER GRADER CBC WITH DIFFERENTIAL Routine 04/09/2006 11:01 AM LEATHER GRADER LIPID PANEL Routine 04/09/2006 11:01 AM LEATHER GRADER COMPREHENSIVE METABOLIC PANEL Routine 04/09/2006 11:01 AM LEATHER GRADER documented in this encounter Results * CBC WITH DIFFERENTIAL (04/09/2006 11:01 AM LEATHER GRADER) NEUTROPHILS 50 45 - 70 % INTERFAC [...] K/uL INTERFACE SYSTEM 04/09/2006 11:0 1 AM LEATHER GRADER us Kandy Schulz MD HEMATOLOGY ORDERABLES Final R esult INTERFACE SYSTEM Refer to clinic/hospital department * CBC WITH DIFFERENTIAL (04/09/2006 11:01 AM LEATHER GRADER) WBC 7.1 4.0 - 9.8 K/uL INTERFACE [...] fL INTERFACE SYSTEM 04/09/2006 11:0 1 AM LEATHER GRADER us Kandy Schulz MD HEMATOLOGY ORDERABLES Final R esult Performing Organization Address [facility] Co nd Phone Number INTERFACE SYSTEM Refer to clinic/hospital department * TSH REFLEXIVE (04/09/2006 11:01 AM LEATHER GRADER) TSH 1.28 0.27 - 4.20 uU/mL INTERFACE SYSTEM 04/09/2006 11:0 1 AM LEATHER GRADER us Kandy Schulz MD CHEMISTRY ORDERABLES Final Re sult Performing Organization Address [facility] Phone Number INTERFACE SYSTEM Refer to clinic/hospital department * (ABNORMAL) COMPREHENSIVE METABOLIC PANEL (04/09/2006 11:01 AM LEATHER GRADER) GLUCOSE 94 65 - 99 mg/dL INTERFACE [...] mmol/L INTERFACE SYSTEM 04/09/2006 11:0 1 AM LEATHER GRADER us Kandy Schulz MD CHEMISTRY ORDERABLES Final Re sult Performing Organization Address [facility] Co de Phone Number INTERFACE SYSTEM Refer to clinic/hospital department * (ABNORMAL) LIPID PANEL (04/09/2006 11:01 AM LEATHER GRADER) CHOLESTEROL 180 100 - 199 mg/dL INTERFACE SYSTEM TRIGLYCERIDE 101 10 - 149 mg/dL INTERFACE SYSTEM HDL 70(H) 40 - 59 mg/dL INTERFACE SYSTEM CHOL/HDL RATIO 2.6 2.0 - 5.0 INTER FACE SYSTEM LDL CALCULATED 90 <=99 mg/dL INTERFACE SYSTEM LIPID PANEL COMMENT See Below INTERFACE SYSTEM Comment: The adult ATP and pediatric NCEP classifications for lipids are available on the [facility] Intranet at: [email or web address] Select: Lab Policies and Procedures Select: Reference Ranges - Lipids 04/09/2006 11:0 1 AM LEATHER GRADER us Kandy Schulz MD CHEMISTRY ORDERABLES Final Re sult INTERFACE SYSTEM Refer to clinic/hospital department documented in this encounter Visit Diagnoses Diagnosis Family history of ischemic heart disease- Primary documented in this encounter Care Teams Senior Gl Accountant Relationship Specialty Start Date End Date Laina Duran DO [address] [facility] [address] [place] [address] PCP - General Internal Medicine 03/08/15 NO DME 03/05/19 documented as of this encounter
--- OUTSIDE RECORDS SUMMARY | 2024-12-29 10:11 | XMS_ITS | Encounter Summary ---
Author Organization [facility] Address [address] [place] [address] Care Team Providers Care Panel Raiser Operator Name Role Phone Laina Duran DO Primary Care Provider [phone] Encounter Details Date Type Department Care Team (Latest Contact Info) Description 01/27/2004 Outpatient Historical HIS [facility] AVRIL Avila, Candi Ferreira MD NO ADDRESS ON FILE SCREENING MAMM-MAILG NEOPL-OTHER (Primary Dx) Social History Tobacco Use Types Packs/Day Years Used Date Smoking Tobacco: Never Assessed Comments Unknown Sex and Gender Information Value Date Recorded Sex Assigned at Not on file Legal Sex Female 3:53 AM GAS LOAD DISPATCHER Gender Identity Not on file Sexual Orientation Not on file documented as of this encounter Plan of Treatment Upcoming Encounters Date Type Department Care Team (Late st Contact Info) Description 02/20/2025 11:30 AM CDT Office Visit [facility] Internal Medicine Medical [place] A [facility] [address] [facility] [address] [address] Laina Duran DO [address] [facility] [address] [place] [address] documented as of this encounter Visit Diagnoses Diagnosis Other screening mammogram- Primary documented in this encounter Care Teams Panel Raiser Operator Relationship Specialty Start Date End Date Laina Duran DO [address] [facility] [address] [place] [address] PCP - General Internal Medicine 03/08/15 NO DME 03/05/19 documented as of this encounter
--- OUTSIDE RECORDS SUMMARY | 2024-12-29 10:11 | XMS_ITS | Encounter Summary ---
Author Organization [facility] Address [address] [place] [address] Care Team Providers Care Urgent Care Nurse Practitioner Name Role Phone Laina Duran DO Primary Care Provider [phone] Encounter Details Date Type Department Care Team (Late st Contact Info) Description 06/28/2007 Outpatient Historical [facility] Internal Medicine [facility] [address] [facility] [address] [address] Kandy Schulz MD Social History Tobacco Use Types Packs/Day Years Used Date Smoking Tobacco: Never Assessed Comments Unknown Sex and Gender Information Value Date Recorded Sex Assigned at Not on file 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 Gender Identity Not on file Sexual Orientation Not on file documented as of this encounter Plan of Treatment Upcoming Encounters Date Type Department Care Team (Late st Contact Info) Description 02/20/2025 11:30 AM CDT Office Visit [facility] Internal Medicine [facility] [address] [address] Laina Duran DO [address] [facility] [address] [place] [address] documented as of this encounter Visit Diagnoses Not on filedocumented in this encounter Care Teams Urgent Care Nurse Practitioner Relationship Specialty Start Date End Date Laina Duran DO [address] [facility] [address] [place] [address] PCP - General Internal Medicine 03/08/15 NO DME 03/05/19 documented as of this encounter
--- OUTSIDE RECORDS SUMMARY | 2024-12-29 10:11 | XMS_ITS | Encounter Summary ---
Author Organization [facility] Address [address] [place] [address] Care Team Providers Care Strip Feeder Name Role Phone Laina Duran DO Primary Care Provider [phone] Encounter Details Date Type Department Care Team (Latest Contact Info) Description 04/10/2000 Outpatient Historical HIS [facility] AVRIL Avila, Candi Ferreira MD NO ADDRESS ON FILE Other screening mammogram (Primary Dx) Social History Tobacco Use Types Packs/Day Years Used Date Smoking Tobacco: Never Assessed Comments Unknown Sex and Gender Information Value Date Recorded Sex Assigned at Not on file Legal Sex Female 3:53 AM AGED OR DISABLED CARE WORKER Gender Identity Not on file Sexual Orientation Not on file documented as of this encounter Plan of Treatment Upcoming Encounters Date Type Department Care Team (Late st Contact Info) Description 02/20/2025 11:30 AM CDT Office Visit [facility] Internal Medicine Medical [place] A [facility] [address] [facility] [address] [facility] [address] [address] Laina Duran DO [address] [facility] [address] [place], [place] [address] documented as of this encounter Visit Diagnoses Diagnosis Other screening mammogram- Primary documented in this encounter Care Teams Strip Feeder Relationship Specialty Start Date End Date Laina Duran DO [address] [facility] [address] [place] [address] PCP - General Internal Medicine 03/08/15 NO DME 03/05/19 documented as of this encounter
--- OUTSIDE RECORDS SUMMARY | 2024-12-29 10:11 | XMS_ITS | Encounter Summary ---
Author Organization [facility] Address [address] [place] [address] Care Team Providers Care Batching Operator Name Role Phone Laina Duran DO Primary Care Provider [phone] Encounter Details Date Type Department Care Team (Late st Contact Info) Description 12/30/2002 Outpatient Historical [facility] Internal Medicine - [place] [address] [place] [address] [place] [address] [place] [id number] Social History Tobacco Use Types Packs/Day Years Used Date Smoking Tobacco: Never Assessed Comments Unknown Sex and Gender Information Value Date Recorded Sex Assigned at Not on file Legal 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 Female 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 Gender Identity Not on file Sexual Orientation Not on file documented as of this encounter Plan of Treatment Upcoming Encounters Date Type Department Care Team (Late st Contact Info) Description 02/20/2025 11:30 AM CDT Office Visit [facility] Internal Medicine Medical [place] A [facility] [address] [facility] [address] [address] Laina Duran DO [address] [facility] [place] [facility] [address] [place] [address] documented as of this encounter Visit Diagnoses Not on filedocumented in this encounter Care Teams Batching Operator Relationship Specialty Start Date End Date Laina Duran DO [address] [facility] [place] [facility] [address] [place] [address] PCP - General Internal Medicine 03/08/15 NO DME 03/05/19 documented as of this encounter
--- OUTSIDE RECORDS SUMMARY | 2024-12-29 10:11 | XMS_ITS | Encounter Summary ---
Author Organization [facility] Address [address] [place] [address] Care Team Providers Care Technical Document Writer Name Role Phone Laina Duran DO Primary Care Provider [phone] Encounter Details Date Type Department Care Team (Late st Contact Info) Description 04/09/2006 Outpatient Historical [facility] Internal Medicine [facility] [address] [facility] [address] [address] Kandy Schulz MD Social History Tobacco Use Types Packs/Day Years Used Date Smoking Tobacco: Never Assessed Comments Unknown Sex and Gender Information Value Date Recorded Sex Assigned at Not on file 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 Gender Identity Not on file Sexual Orientation Not on file documented as of this encounter Plan of Treatment Upcoming Encounters Date Type Department Care Team (Late st Contact Info) Description 02/20/2025 11:30 AM CDT Office Visit [facility] Internal Medicine [facility] [address] [facility] [address] [address] Laina Duran DO [address] [facility] [address] [place] [address] documented as of this encounter Visit Diagnoses Not on filedocumented in this encounter Care Teams Technical Document Writer Relationship Specialty Start Date End Date Laina Duran DO [address] [facility] [address] [place] [address] PCP - General Internal Medicine 03/08/15 NO DME 03/05/19 documented as of this encounter
--- OUTSIDE RECORDS SUMMARY | 2024-12-29 10:11 | XMS_ITS | Encounter Summary ---
Author Organization [facility] Address [address] [place] [address] Care Team Providers Care Napper Fixer Name Role Phone Laina Duran DO Primary Care Provider [phone] Encounter Details Date Type Department Care Team (Latest Contact Info) Description 03/01/2005 Outpatient Historical HIS [facility] AVRIL Avila, Candi Ferreira MD NO ADDRESS ON FILE MASTODYNIA (Primary Dx) Social History Tobacco Use Types Packs/Day Years Used Date Smoking Tobacco: Never Assessed Comments Unknown Sex and Gender Information Value Date Recorded Sex Assigned at Not on file Legal Sex Female 3:53 AM PARK GUIDE Gender Identity Not on file Sexual Orientation Not on file documented as of this encounter Plan of Treatment Upcoming Encounters Date Type Department Care Team (Late st Contact Info) Description 02/20/2025 11:30 AM CDT Office Visit [facility] Internal Medicine Medical [place] A [facility] [address] [facility] [address] [address] Laina Duran DO [address] [facility] [address] [place] [address] documented as of this encounter Visit Diagnoses Diagnosis Mastodynia- Primary documented in this encounter Care Teams Napper Fixer Relationship Specialty Start Date End Date Laina Duran DO [address] [facility] [address] [place] [address] PCP - General Internal Medicine 03/08/15 NO DME 03/05/19 documented as of this encounter
--- OUTSIDE RECORDS SUMMARY | 2024-12-29 10:11 | XMS_ITS | Encounter Summary ---
Author Organization [facility] Address [address] [place] [address] Care Team Providers Care Shirt Cleaner Name Role Phone Laina Duran DO Primary Care Provider [phone] Encounter Details Date Type Department Care Team (Latest Contact Info) Description 06/28/2007 Outpatient Historical [facility] Internal Medicine [facility] [address] [place] [address] Kandy Schulz MD Family History of Ischemic Heart Disease Social History Tobacco Use Types Packs/Day Years Used Date Smoking Tobacco: Never Assessed Comments Unknown Sex and Gender Information Value Date Recorded Sex Assigned at Not on file Legal Sex Female 3:53 AM CANOE BUILDER Gender Identity Not on file Sexual Orientation Not on file documented as of this encounter Plan of Treatment Upcoming Encounters Date Type Department Care Team (Late st Contact Info) Description 02/20/2025 11:30 AM CDT Office Visit [facility] Internal Medicine [facility] [address] [facility] [address] [place] [address] Laina Duran DO [address] [address] documented as of this encounter Procedures Procedure Name Priority Date/Time Associated Diagnosis Comments TSH WITH REFLEX FT4 AND FT3 Routine 06/28/2007 11:59 AM CANOE BUILDER LIPID PANEL Routine 06/28/2007 11:59 AM CANOE BUILDER COMPREHENSIVE METABOLIC PANEL Routine 06/28/2007 11:59 AM CANOE BUILDER documented in this encounter Results * (ABNORMAL) LIPID PANEL (06/28/2007 11:59 AM CANOE BUILDER) Pathologist [facility] CHOL/HDL RATIO 2.7 2.0 - 5.0 [facility] TRIGLYCERIDE 116 10 - 149 mg/dL [facility] HDL 72(H) 40 - 59 mg/dL [facility] CHOLESTEROL 196 100 - 199 mg/dL [facility] LDL CALCULATED 101(H) <=99 mg/dL [facility] LIPID PANEL COMMENT See Below [facility] Comment: The adult ATP and pediatric NCEP classifications for lipids are available on the [facility] Intranet at: [email or web address] affairs medical centerShopifycarilion clinic st. [email or web address] Select: Lab Policies and Procedures,Current Select: Lipid Panel Interpretation Blood specimen (specimen) 06/28/2007 11:59 AM CANOE BUILDER 06/28/2007 12:12 PM CANOE BUILDER Kandy Schulz MD CHEMISTRY ORDERABLES Edited [facility] [address] [place] [address] * TSH WITH REFLEX FT4 AND FT3 (06/28/2007 11:59 AM CANOE BUILDER) Pathologist [facility] TSH 1.33 0.27 - 4.20 uU/mL [facility] Blood specimen (specimen) 06/28/2007 11:59 AM CANOE BUILDER 06/28/2007 12:12 PM CANOE BUILDER us Kandy Schulz MD CHEMISTRY ORDERABLES Final Resu lt [facility] [address] [place] [address] * (ABNORMAL) COMPREHENSIVE METABOLIC PANEL (06/28/2007 11:59 AM CANOE BUILDER) SODIUM 144 135 - 145 mmol/L [facility] ALKALINE PHOSPHATASE 65 35 - 104 U/L [facility] CO2 30 22 - 30 mmol/L [facility] BILIRUBIN TOTAL 0.4 0.2 - 1.0 mg/dL [facility] POTASSIUM 3.1(L) 3.5 - 4.9 mmol/L [facility] TOTAL PROTEIN 7.3 6.3 - 8.6 g/dL [facility] GLUCOSE 93 65 - 99 mg/dL [facility] AST 22 12 - 32 U/L [facility] BUN 16 6 - 20 mg/dL [facility] CALCIUM 8.8 8.4 - 10.2 mg/dL [facility] ALBUMIN 4.3 3.4 - 4.8 g/dL [facility] CHLORIDE 103 96 - 108 mmol/L [facility] CREATININE 0.72 0.51 - 0.95 mg/dL [facility] ALT 14 0 - 31 U/L [facility] GFR, >60 >=60 mL/min/1. 7 sq meter [facility] GFR >60 >=60 mL/min/1. 7 sq meter [facility] Comment: Estimated GFR rate interpretative information for both Americans and non- Americans is available on the [facility] Intranet at: [email or web address] affairs medical [email or web address] Select: Lab Policies and Procedures Select: Reference Ranges - GFR Blood specimen (specimen) 06/28/2007 11:59 AM CANOE BUILDER 06/28/2007 12:12 PM CANOE BUILDER Kandy Schulz MD CHEMISTRY ORDERABLES Edited [facility] [address] [place] [address] documented in this encounter Visit Diagnoses Diagnosis Family history of ischemic heart disease documented in this encounter Care Teams Shirt Cleaner Relationship Specialty Start Date End Date Laina Duran DO [address] [facility] [address] [place] [address] PCP - General Internal Medicine 03/08/15 NO DME 03/05/19 documented as of this encounter
--- OUTSIDE RECORDS SUMMARY | 2024-12-29 10:11 | XMS_ITS | Encounter Summary ---
Author Organization [facility] Address [address] [place] [address] Care Team Providers Care Vegetable Specker Name Role Phone Laina Duran DO Primary Care Provider [phone] Encounter Details Date Type Department Care Team (Late st Contact Info) Description 03/06/[address] 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 Internal Medicine Medical [place] [facility] [address] [facility] [address] [address] Laina Duran DO [address] [facility] [address] [place] [address] documented as of this encounter Visit Diagnoses Not on filedocumented in this encounter Care Teams Vegetable Specker Relationship Specialty Start Date End Date Laina Duran DO [address] [facility] [address] [place] [address] PCP - General Internal Medicine 03/08/15 NO DME 03/05/19 documented as of this encounter
--- OUTSIDE RECORDS SUMMARY | 2024-12-29 10:11 | XMS_ITS | Encounter Summary ---
Author Organization [facility] Address [address] [place] [address] Care Team Providers Care Sales Associate Cashier Name Role Phone Laina Duran DO Primary Care Provider [phone] Encounter Details Date Type Department Care Team (Late st Contact Info) Description 07/23/2001 Outpatient Historical [facility] Internal Medicine - [place] [address] [place] [address] [place] [address] [place] [address] Social History Tobacco Use Types Packs/Day Years Used Date Smoking Tobacco: Never Assessed Comments Unknown Sex and Gender Information Value Date Recorded Sex Assigned at Not on file Legal Sex Female 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 Gender Identity Not on file Sexual Orientation Not on file documented as of this encounter Plan of Treatment Upcoming Encounters Date Type Department Care Team (Late st Contact Info) Description 02/20/2025 11:30 AM CDT Office Visit [facility] Internal Medicine Medical [place] [facility] [address] [facility] [address] [address] Laina Duran DO [address] [facility] [address] [place] [address] documented as of this encounter Visit Diagnoses Not on filedocumented in this encounter Care Teams Sales Associate Cashier Relationship Specialty Start Date End Date Laina Duran DO [address] [facility] [address] [place] [address] PCP - General Internal Medicine 03/08/15 NO DME 03/05/19 documented as of this encounter
--- OUTSIDE RECORDS SUMMARY | 2024-12-29 10:11 | XMS_ITS | Encounter Summary ---
Author Organization [facility] Address 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 MACHINE 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 Gender Identity Not on file Sexual Orientation Not on file documented as of this encounter Plan of Treatment Upcoming Encounters Date Type Department Care Team (Late st Contact Info) Description 02/20/2025 11:30 AM CDT Office Visit [facility] Internal Medicine Medical [place] [facility] [address] [facility] [address] [address] Laina Duran DO [address] [facility] [address] [place] [address] documented as of this encounter Procedures Procedure Name Priority Date/Time Associated Diagnosis Comments MAMMO SCREEN BILAT W OR WO CAD Routine 07/01/2008 10:04 AM INSPECTING MACHINE ADJUSTER documented in this encounter Results * MAMMO DIGITAL SCREEN BILAT (07/01/2008 10:04 AM INSPECTING MACHINE ADJUSTER) Anatomical Region Laterality Modality Breast Bilateral Other 07/01/2008 10:0 4 AM INSPECTING MACHINE ADJUSTER Narrative 07/02/2008 7:40 AM INSPECTING MACHINE ADJUSTER [place] [address] [place] [address] Admit Date: 07/01/2008 ELIZABETH GODFREY Sex: F Admit Prov: CANDI AVILA Date: 1940 Primary Care Prov: LILIYA MURRAY CMRN: [id number] [facility]: [id number] IMAGING SERVICES Ordering Prov: CANDI AVILA Accession Number: [id number] Interpretation BILATERAL FULL FIELD DIGITAL SCREENING MAMMOGRAM [...] AMK Procedure Note Oralia Benito - 07/02/2008 [place] [address] [place] [address] Admit Date: 07/01/2008 ELIZABETH GODFREY Sex: F Admit Prov: CANDI AVILA Date: 1940 Primary Care Prov: LILIYA MURRAY CMRN: [id number] Room: [place] SSN: [id number] IMAGING SERVICES Ordering Prov: CANDI AVILA Interpretation [...] mammogram documented in this encounter Care Teams Assistant Office Manager Relationship Specialty Start Date End Date Laina Duran DO [address] [place] [address] PCP - General Internal Medicine 03/08/15 NO DME 03/05/19 documented as of this encounter
--- OUTSIDE RECORDS SUMMARY | 2024-12-29 10:11 | XMS_ITS | Encounter Summary ---
Author Organization [facility] Address [address] [place] [address] Care Team Providers Care Dye Feeder Name Role Phone Laina Duran DO Primary Care Provider [phone] Encounter Details Date Type Department Care Team (Late st Contact Info) Description 04/09/2006 Outpatient Historical [facility] Internal Medicine [facility] [address] [facility] [address] [address] Kandy Schulz MD Social History Tobacco Use Types Packs/Day Years Used Date Smoking Tobacco: Never Assessed Comments Unknown Sex and Gender Information Value Date Recorded Sex Assigned at Not on file Legal Sex Female 3:53 AM TRAVEL CLERK Gender Identity Not on file Sexual Orientation Not on file documented as of this encounter Plan of Treatment Upcoming Encounters Date Type Department Care Team (Late st Contact Info) Description 02/20/2025 11:30 AM CDT Office Visit [facility] Internal Medicine [facility] [address] [facility] [address] [facility] [address] [address] Laina Duran DO [address] [facility] [address] [place] [address] documented as of this encounter Visit Diagnoses Not on filedocumented in this encounter Care Teams Dye Feeder Relationship Specialty Start Date End Date Laina Duran DO [address] [facility] [address] [place] [address] PCP - General Internal Medicine 03/08/15 NO DME 03/05/19 documented as of this encounter
--- OUTSIDE RECORDS SUMMARY | 2024-12-29 10:11 | XMS_ITS | Encounter Summary ---
Author Organization [facility] Address 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 Gender Identity Not on file Sexual Orientation Not on file documented as of this encounter Plan of Treatment Upcoming Encounters Date Type Department Care Team (Late st Contact Info) Description 02/20/2025 11:30 AM CDT Office Visit [facility] Internal Medicine Medical [place] [facility] [place] [address] [facility] [address] [address] Laina Duran DO [address] [facility] [address] [place] [address] documented as of this encounter Visit Diagnoses Diagnosis Other screening mammogram- Primary documented in this encounter Care Teams Leaf Fat Scraper Relationship Specialty Start Date End Date Laina Duran DO [address] [facility] [address] [place] [address] PCP - General Internal Medicine 03/08/15 NO DME 03/05/19 documented as of this encounter
--- OUTSIDE RECORDS SUMMARY | 2024-12-29 10:11 | XMS_ITS | Encounter Summary ---
Author Organization [facility] Address [address] [place] [address] Care Team Providers Care Neck Skewer Name Role Phone Laina Duran DO Primary Care Provider [phone] Encounter Details Date Type Department Care Team (Late st Contact Info) Description 06/28/2007 Outpatient Historical [facility] Internal Medicine [facility] [address] [facility] [address] [address] Kandy Schulz MD Social History Tobacco Use Types Packs/Day Years Used Date Smoking Tobacco: Never Assessed Comments Unknown Sex and Gender Information Value Date Recorded Sex Assigned at Not on file Legal Sex Female 3:53 AM SUPERVISOR 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 Gender Identity Not on file Sexual Orientation Not on file documented as of this encounter Plan of Treatment Upcoming Encounters Date Type Department Care Team (Late st Contact Info) Description 02/20/2025 11:30 AM CDT Office Visit [facility] Internal Medicine [facility] [address] [facility] [address] [facility] [address] [address] Laina Duran DO [address] [facility] [address] [place] [address] documented as of this encounter Visit Diagnoses Not on filedocumented in this encounter Care Teams Neck Skewer Relationship Specialty Start Date End Date Laina Duran DO [address] [facility] [address] [place] [address] PCP - General Internal Medicine 03/08/15 NO DME 03/05/19 documented as of this encounter
--- OUTSIDE RECORDS SUMMARY | 2024-12-29 10:11 | XMS_ITS | Encounter Summary ---
Author Organization [facility] Address [address] [place] [address] Care Team Providers Care Electrical Technician Instructor Name Role Phone Laina Duran DO Primary Care Provider [phone] Encounter Details Date Type Department Care Team (Late st Contact Info) Description 12/17/1998 Outpatient Historical [facility] Internal Medicine - [place] [address] [place] [address] [place] [address] [place] [address] Social History Tobacco Use Types Packs/Day Years Used Date Smoking Tobacco: Never Assessed Comments Unknown Sex and Gender Information Value Date Recorded Sex Assigned at Not on file Legal 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 Female 3:53 AM STEEL WORKER Gender Identity Not on file Sexual Orientation Not on file documented as of this encounter Plan of Treatment Upcoming Encounters Date Type Department Care Team (Late st Contact Info) Description 02/20/2025 11:30 AM CDT Office Visit [facility] Internal Medicine Medical [place] [address] [facility] [address] [address] Laina Duran DO [address] [facility] [address] [place] [address] documented as of this encounter Visit Diagnoses Not on filedocumented in this encounter Care Teams Electrical Technician Instructor Relationship Specialty Start Date End Date Laina Duran DO [address] [facility] [address] [place] [address] PCP - General Internal Medicine 03/08/15 NO DME 03/05/19 documented as of this encounter
--- OUTSIDE RECORDS SUMMARY | 2024-12-29 10:11 | XMS_ITS | Encounter Summary ---
Author Organization [facility] Address [address] [place] [address] Care Team Providers Care Adjunct Spanish Instructor Name Role Phone Laina Duran DO Primary Care Provider [phone] Encounter Details Date Type Department Care Team (Late st Contact Info) Description 05/30/2005 Outpatient Historical [facility] Internal Medicine - [place] [address] [place] [address] [place] [address] [place] [address] Social History Tobacco Use Types Packs/Day Years Used Date Smoking Tobacco: Never Assessed Comments Unknown Sex and Gender Information Value Date Recorded Sex Assigned at Not on file Legal Sex Female 3:53 AM EXAMINATION PROCTOR Gender Identity Not on file Sexual Orientation Not on file documented as of this encounter Plan of Treatment Upcoming Encounters Date Type Department Care Team (Late st Contact Info) Description 02/20/2025 11:30 AM CDT Office Visit [facility] Internal Medicine Medical [place] [address] [facility] [address] [address] Laina Duran DO [address] [facility] [address] [place] [address] documented as of this encounter Visit Diagnoses Not on filedocumented in this encounter Care Teams Adjunct Spanish Instructor Relationship Specialty Start Date End Date Laina Duran DO [address] [facility] [address] [place] [address] PCP - General Internal Medicine 03/08/15 NO DME 03/05/19 documented as of this encounter
--- OUTSIDE RECORDS SUMMARY | 2024-12-29 10:11 | XMS_ITS | Encounter Summary ---
Author Organization [facility] Address [address] [place] [address] Care Team Providers Care Drapery Seamstress Name Role Phone Laina Duran DO Primary Care Provider [phone] Encounter Details Date Type Department Care Team (Late st Contact Info) Description 12/30/2002 Outpatient Historical [facility] Internal Medicine - [place] [address] [place] [address] [place] [address] [place] [address] Social History Tobacco Use Types Packs/Day Years Used Date Smoking Tobacco: Never Assessed Comments Unknown Sex and Gender Information Value Date Recorded Sex Assigned at Not on file 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 Gender Identity Not on file Sexual Orientation Not on file documented as of this encounter Plan of Treatment Upcoming Encounters Date Type Department Care Team (Late st Contact Info) Description 02/20/2025 11:30 AM CDT Office Visit [facility] Internal Medicine Medical [place] [facility] [place] [address] [facility] [address] [address] Laina Duran DO [address] [facility] [address] [place] [address] documented as of this encounter Visit Diagnoses Not on filedocumented in this encounter Care Teams Drapery Seamstress Relationship Specialty Start Date End Date Laina Duran DO [address] [facility] [address] [place] [address] PCP - General Internal Medicine 03/08/15 NO DME 03/05/19 documented as of this encounter
--- OUTSIDE RECORDS SUMMARY | 2024-12-29 10:11 | XMS_ITS | Encounter Summary ---
Author Organization [facility] Address [address] [place] [address] Care Team Providers Care Quitline Counselor Name Role Phone Laina Duran DO Primary Care Provider [phone] Encounter Details Date Type Department Care Team (Late st Contact Info) Description 02/10/1999 Outpatient Historical [facility] Brock MD [address] [facility] [address] [place] [address] Abdominal pain, left lower quadrant (Primary Dx) Social History Tobacco Use Types Packs/Day Years Used Date Smoking Tobacco: Never Assessed Comments Unknown Sex and Gender Information Value Date Recorded Sex Assigned at Not on file Legal 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 Female 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 Gender Identity Not on file Sexual Orientation Not on file documented as of this encounter Plan of Treatment Upcoming Encounters Date Type Department Care Team (Late Contact Info) Description 02/20/2025 11:30 AM CDT Office Visit [facility] Internal Medicine Medical [place] [facility] [address] [facility] [address] [address] Laina Duran DO [address] [facility] [address] [place] [address] documented as of this encounter Visit Diagnoses Diagnosis Abdominal pain, left lower quadrant- Primary documented in this encounter Care Teams Quitline Counselor Relationship Specialty Start Date End Date Laina Duran DO [address] [facility] [address] [place] [address] PCP - General Internal Medicine 03/08/15 NO DME 03/05/19 documented as of this encounter
--- OUTSIDE RECORDS SUMMARY | 2024-12-29 10:11 | XMS_ITS | Encounter Summary ---
Author Organization [facility] Address 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 Gender Identity Not on file Sexual Orientation Not on file documented as of this encounter Plan of Treatment Upcoming Encounters Date Type Department Care Team (Late st Contact Info) Description 02/20/2025 11:30 AM CDT Office Visit [facility] Internal Medicine Medical [place] A [facility] [address] [address] Laina Duran DO [address] [place] [address] documented as of this encounter Visit Diagnoses Diagnosis Mastodynia- Primary documented in this encounter Care Teams Lopper Relationship Specialty Start Date End Date Laina Duran DO [address] [place] [address] PCP - General Internal Medicine 03/08/15 NO DME 03/05/19 documented as of this encounter
--- OUTSIDE RECORDS SUMMARY | 2024-12-29 10:11 | XMS_ITS | Encounter Summary ---
Author Organization [facility] Address [address] [place] [address] Care Team Providers Care Piping Supervisor Name Role Phone Laina Duran DO Primary Care Provider [phone] Reason for Visit * Reason Comments Provider Call Encounter Details Date Type Department Care Team (Late st Contact Info) Description 07/29/2024 Telephone [facility] Internal Medicine Medical [facility] [address] [facility] [facility] [address] [address] Laina Duran DO [address] [facility] [address] [place] [address] Provider Call Social History Tobacco Use Types Packs/Day Years Used Date Smoking Tobacco: Never Smokeless Tobacco: Never Alcohol Use Standard Drinks/Week Comments Yes 14 (1 standard drink = 0.6 oz pu re alcohol) Comments No Sex and Gender Information Value Date Recorded Sex Assigned at Not on file 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 Topic: Dcwxjcat-Of-[id number] Call >> Jul 29, 2024 11:16 AM Eagle Ferreira wrote: Caller is requesting to speak with Clinical Care Team. Caller Name: [facility] Callback Number: [phone] Clinician Type: Other healthcare professional not listed above Call Notes: Leda with [facility] in [place] is calling for NPI for Installer Technician Rozina Ratliff.Info was given. Is this addressing an immediate patient care need? No documented in this encounter Plan of Treatment Upcoming Encounters Date Type Department Care Team (Late st Contact Info) Description 02/20/2025 11:30 AM CDT Office Visit [facility] Internal Medicine Medical [place] A [facility] [address] [address] Laina Duran DO [address] [facility] [address] [place] [address] documented as of this encounter Visit Diagnoses Not on filedocumented in this encounter Care Teams Piping Supervisor Relationship Specialty Start Date End Date Laina Duran DO [address] [facility] [facility] [address] [place] [address] PCP - General Internal Medicine 03/08/15 NO DME 03/05/19 documented as of this encounter
--- OUTSIDE RECORDS SUMMARY | 2024-12-29 10:12 | XMS_ITS | Encounter Summary ---
Author Organization [facility] Address [address] [place] [address] Care Team Providers Care Structural Steel Worker Apprentice Name Role Phone Laina Duran DO Primary Care Provider [phone] Reason for Visit * Reason Comments Question Encounter Details Date Type Department Care Team (Late st Contact Info) Description 12/27/2023 Telephone [facility] Internal Medicine Medical [facility] [address] [facility] [address] [address] Laina Duran DO [address] [facility] [address] [facility] [address] [place] [address] Question Social History Tobacco Use Types Packs/Day Years Used Date Smoking Tobacco: Never Smokeless Tobacco: Never Alcohol Use Standard Drinks/Week Comments Yes 14 (1 standard drink = 0.6 oz pu re alcohol) Comments No Sex and Gender Information Value Date Recorded Sex Assigned at Not on file 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 Topic: Patient or Caregiver Communication Request >> Dec 27, 2023 1:47 PM Carol Ann Ferreira wrote: Patient or Caregiver insisting that a message be sent to Care Team Caller: Elizabeth Johnson Patient/Caregiver Callback Number: [phone] (home) Call Notes: .Elizabeth Johnson because she wanted to know the name of the 4 docs she recommend herto go to . Please call pt back on phone documented in this encounter Plan of Treatment Upcoming Encounters Date Type Department Care Team (Late st Contact Info) Description 02/20/2025 11:30 AM CDT Office Visit [facility] Internal Medicine Medical [place] A [facility] [address] [address] Laina Duran DO [address] [facility] [address] [place] [address] documented as of this encounter Visit Diagnoses Not on filedocumented in this encounter Care Teams Structural Steel Worker Apprentice Relationship Specialty Start Date End Date Laina Duran DO [address] [place] [address] PCP - General Internal Medicine 03/08/15 NO DME 03/05/19 documented as of this encounter
--- OUTSIDE RECORDS SUMMARY | 2024-12-29 10:12 | XMS_ITS | Encounter Summary ---
Author Organization [facility] Address 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 Gender Identity Not on file Sexual Orientation Not on file documented as of this encounter Plan of Treatment Upcoming Encounters Date Type Department Care Team (Late st Contact Info) Description 02/20/2025 11:30 AM CDT Office Visit [facility] Internal Medicine Medical [place] A [facility] [address] [address] Laina Duran DO [address] [facility] [address] [place], [place] [address] documented as of this encounter Visit Diagnoses Diagnosis Other screening mammogram- Primary documented in this encounter Care Teams Transmission Mechanic Relationship Specialty Start Date End Date Laina Duran DO [address] [place] [address] PCP - General Internal Medicine 03/08/15 NO DME 03/05/19 documented as of this encounter
--- OUTSIDE RECORDS SUMMARY | 2024-12-29 10:12 | XMS_ITS | Continuity of Care Document ---
Author Organization [facility] Address [address] [place] [address] Phone Care Team Providers Care Rn Assessment Name Role Phone David Appiah Unavailable Unavailable Advance Directives Directive Yes / No Effective Date File Name No Information Encounters Encounter Description Practice Location Reason(s) For Visit Diagnoses Date Provider Providers Copied on Encounter [facility], [id number] [place] [address] [address], [place], [place], [address], [place] tel:[phone] [facility] No Information [address], [place], [address], [place]. tel:[phone] Family History Family Member Type Diagnosis Age [...]
--- OUTSIDE RECORDS SUMMARY | 2024-12-29 10:12 | XMS_ITS | Continuity of Care Document ---
Author Organization [facility] Address [address] [place] [address] Phone Care Team Providers Care Travel Accommodation Inspector Name Role Phone Iris COTTO, Monster Unavailable [...] OFFICE/OUTPA TIENT VISIT, EST [facility], [address] [facility] [address], [place], [place], [address], [place] tel:[phone] [facility] pseudophakia (chief complaint) Other secondary cataract, bilateralPost erior vitreous detachment of both eyesInsuffici ency of tear film of both eyesMacular pucker, left eyePseudophak ia of both eyes 5 Iris Sureshhil. [address], [place], [place], [id number], [place]. tel:[phone] Referring Provider: Monster painting, [address], [place], [address] . tel:[phone] OFFICE/OUTPA TIENT VISIT, EST [facility], [address] [place] [address], [id number], [place] tel:[phone] [facility] CATRINA GIPSON PCO OU (chief complaint) Other secondary cataract, bilateralPost erior vitreous detachment of both eyesMacular pucker, left eyeInsufficie ncy of tear film of both eyesPseudopha arnol of both eyes Fe 4 Iris Coelhol. [address], [place], [place], [address], [place]. tel:[phone] Referring Provider: Monster painting, [address], [place], [address] . tel:[phone] OFFICE/OUTPA TIENT VISIT, EST [facility], [address] [place] [address], [id number], [place] tel:[phone] [facility] CATRINA GIPSON pressure inside OS (chief complaint) Other secondary cataract, bilateralPost erior vitreous detachment of both eyesMacular pucker, left eyeInsufficie ncy of tear film of both eyesPseudopha arnol of both eyes Oct- 2 Iris Sureshhil. [address], [address], [place], [place], [id number], [place]. tel:[phone] Referring Provider: Laina NAVARRETE, [address], [place], [address]. tel:[phone] OFFICE/OUTPA TIENT VISIT, EST [facility], [address] [place] [address], [id number], [place] tel:[phone] [facility] CATR[facility] GIPSON IOL check (chief complaint) Other secondary cataract, bilateralPost erior vitreous detachment of both eyesInsuffici ency of tear film of both eyesMacular pucker, left eyePseudophak ia of both eyes 9 Krishnasamy Monster. [address], [place], [place], [address], [place]. tel:[phone] Referring Provider: Monster painting, [address], [place], [address] . tel:[phone] OFFICE/OUTPA TIENT VISIT, EST [facility], [address] [place] [address], [id number], [place] tel:[phone] [facility] Office feeling pressure (chief complaint) PVD (posterior vitreous detachment), both eyesOther secondary cataract, bilateralPseu dophakia of both eyesInsuffici ency of tear film of both eyesClosed fracture of left orbital floor with routine healing, subsequent encounter 6 Krishnasabel Sureshhil. [address], [address], [place], [place], [id number], [place]. tel:[phone] Referring Provider: Monster painting, [address], [place], [address] . tel:[phone] OFFICE/OUTPA TIENT VISIT, EST [facility], [address] [place] [address], [id number], [place] tel:[phone] [facility] Office Pressure/ Blurry Vison (chief complaint) Closed fracture of orbital floor (blow-out)Santo s replaced by other meansDiplopia Vitreous degenerationE xposure keratoconjunc tivitisAfter cataract not obscuring vision 5 Krishnasamy Monster. [address], [place], [place], [address], . tel:[phone] Referring Provider: Monster painting, [address], [place], [address] . tel:[phone] OFFICE/OUTPA TIENT VISIT, NEW [facility], [address] [address], [place], [place], [address], tel:[phone] [facility] Office Exposure keratoconjunc tivitisDiplop iaClosed fracture of orbital floor (blow-out)Tea r film insufficiency , unspecifiedVi treous degenerationL ens replaced by other means 4 Iris Hook. [address], [place], [place], [address], [place]. tel:[phone] Referring Provider: Monster painting, [address], [place], [address] . tel:[phone] Family History Family Member Type Diagnosis Age At Onset Problem No family history of Macular degeneration Problem No family history of [place] a Payers Payer name Insurance type Covered alliance party ID Authorconnor gupta(s) [place] MB [id number] [facility] [id number] Social History Type Description Quantity Date Captured [...] floor (blow-out) OS - S/P repair in [place] - Patient Ref to Dr. Cedeno for [...]
--- OUTSIDE RECORDS SUMMARY | 2024-12-29 10:12 | XMS_ITS | Encounter Summary ---
Author Organization [facility] Address [address] [place] [address] Care Team Providers Care Co Pilot Name Role Phone Laina Duran DO Primary Care Provider [phone] Encounter Details Date Type Department Care Team (Late st Contact Info) Description 04/27/2006 Orders Only [facility] Internal Medicine Medical [place] A [facility] [address] [facility] [address] [facility] [address] [address] Consuelo Hernandez MD [facility] [facility] [address] [place] [address] Social History Tobacco Use Types Packs/Day Years Used Date Smoking Tobacco: Never Assessed Comments Unknown Sex and Gender Information Value Date Recorded Sex Assigned at Not on file 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 [facility] [address] [place], [place] [address] documented as of this encounter Visit Diagnoses Not on filedocumented in this encounter Care Teams Co Pilot Relationship Specialty Start Date End Date Laina Duran DO [address] [facility] [facility] [address] [place] [address] PCP - General Internal Medicine 03/08/15 NO DME 03/05/19 documented as of this encounter
--- OUTSIDE RECORDS SUMMARY | 2024-12-29 10:12 | XMS_ITS | Encounter Summary ---
Author Organization [facility] Address [address] [place] [address] Care Team Providers Care Occ Therapist Name Role Phone Laina Duran DO Primary Care Provider [phone] Reason for Visit * Reason Onset Date Comments Needs Form Or Letter Filled Out 07/05/2023 Handicapped Placard Encounter Details Date Type Department Care Team (Late st Contact Info) Description 07/05/2023 Telephone [facility] Internal Medicine Medical [place] A 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 [place] resident. Filled out ID Handicapped Parking Placard Form. At my desk to be signed by physician. Then will mail to patient home. RAM MANAGER TRANSPORTATION * Telephone Encounter - Lety Douglas - 07/05/2023 1:26 PM CST LM to call office back. Contact Center: Transfer to office RAM MANAGER TRANSPORTATION * Telephone Encounter - Laina Duran DO - 07/05/2023 12:24 PM CST Ok to do handicap placard, please advise her temporary can only be for 6 mo max. Does she want permanent (5yrs) instead? RAM MANAGER TRANSPORTATION * Telephone Encounter - Jimenez Lomeli - 07/05/2023 12:06 PM CST Copied from [facility] #[id number]. Topic: CPA Information Request - Patient Call Back >> Jul 05, 2023 12:05 PM Jimenez Ferreira wrote: Caller is returning phone call from clinic. Patient Has Additional Questions Caller Name: Elizabeth Johnson Patient/Caregiver Callback Number: [phone] Call Notes: ,Elizabeth called in regarding issue with broken hip and cannot step on a curb. She wantspermission to get a disabled sticker for drving for a 1 yr. Please Advise RAM MANAGER TRANSPORTATION documented in this encounter Plan of Treatment Upcoming Encounters Date Type Department Care Team (Late st Contact Info) Description 02/20/2025 11:30 AM CDT Office Visit [facility] Internal Medicine Medical [place] A [facility] [address] [facility] [address] [address] Laina Duran DO [address] [facility] [address] [place], [place] [address] documented as of this encounter Visit Diagnoses Not on filedocumented in this encounter Care Teams Occ Therapist Relationship Specialty Start Date End Date Laina Duran DO [address] [place] [address] PCP - General Internal Medicine 03/08/15 NO DME 03/05/19 documented as of this encounter
--- OUTSIDE RECORDS SUMMARY | 2024-12-29 10:12 | XMS_ITS | Encounter Summary ---
Author Organization [facility] Address [address] [place] [address] Care Team Providers Care [employer] Executive Director Name Role Phone Laina Duran DO Primary Care Provider [phone] Encounter Details Date Type Department Care Team (Late st Contact Info) Description 04/27/2006 Outpatient Historical [facility] Internal Medicine [facility] A [place] [address] [address] Consuelo Hernandez MD [address] [place] [address] Social History Tobacco Use Types Packs/Day Years Used Date Smoking Tobacco: Never Assessed Comments Unknown Sex and Gender Information Value Date Recorded Sex Assigned at Not on file Legal Sex Female 3:53 AM PLANISHING HAMMER OPERATOR Gender Identity Not on file Sexual Orientation Not on file documented as of this encounter Last Filed Vital Signs Vital Sign Reading Time Taken Comments Blood Pressure 120/70 04/27/2006 4:00 PM PLANISHING HAMMER OPERATOR Pulse 80 04/27/2006 4:00 PM PLANISHING HAMMER OPERATOR Temperature - - Respiratory Rate - - Oxygen Saturation - - Inhaled Oxygen Concentration - - Weight 59.9 kg (132 lb) 04/27/2006 4:00 PM PLANISHING HAMMER OPERATOR Height 154.9 cm (5' 1) 04/27/2006 4:00 PM PLANISHING HAMMER OPERATOR Body Mass Index 24.94 04/27/2006 4:00 PM PLANISHING HAMMER OPERATOR documented in this encounter Plan of Treatment Upcoming Encounters Date Type Department Care Team (Late st Contact Info) Description 02/20/2025 11:30 AM CDT Office Visit [facility] Internal Medicine Medical [place] A [address] [address] Laina Duran DO [address] [facility] [facility] [address] [place] [address] documented as of this encounter Visit Diagnoses Not on filedocumented in this encounter Care Teams Red Cross Executive Director Relationship Specialty Start Date End Date Laina Duran DO [address] [facility] [facility] [address] [place] [address] PCP - General Internal Medicine 03/08/15 NO DME 03/05/19 documented as of this encounter
--- OUTSIDE RECORDS SUMMARY | 2024-12-29 10:12 | XMS_ITS | Encounter Summary ---
Author Organization [facility] Address [address] [place] [address] Care Team Providers Care Payroll Specialist Name Role Phone Laina Duran DO Primary Care Provider [phone] Encounter Details Date Type Department Care Team [...] on file Legal Sex Female 3:53 AM SUPERINTENDENT OF GENERATION Gender Identity Not on file Sexual Orientation [...] Epic <<<<<<<< TRIAGE NOTE >>>>>>>> Triage Note: [employer] Natalia Jean added this note on Oct 30 2014 6:34PM: Dr Capps returned call and order for prescription given. Escribed dosepack as ordered to pt's pharmacy of choice. Pt very pleased. <<<<<<<< TRIAGE/OUTCOME >>>>>>>> Guideline Title: Poison Puja, [place], or [place] Exposure ; Poison Puja, [place], or [place] Exposure Recommended Disposition: See Provider within 4 hours Original Inclination: Call Provider/See in 24 Override Disposition: Redirection Page Intended Action: Call Provider Immediately Physician Contacted: Yes Involves eyes, mouth, or genitals. ? YES documented in this encounter Plan of Treatment Upcoming Encounters Date Type Department Care Team (Late st Contact Info) Description 02/20/2025 11:30 AM CDT Office Visit [facility] Internal Medicine Medical [place] A [facility] [address] [facility] [address] [address] Laina Duran DO [address] [facility] [address] [place] [address] documented as of this encounter Visit Diagnoses Not on filedocumented in this encounter Additional Health Concerns Assessment Noted Time PHQ-9 Depression Total Score: 2 03/03/20 14 1:00 PM CDT documented as of this encounter Care Teams Payroll Specialist Relationship Specialty Start Date End Date Laina Duran DO [address] [facility] [address] [place] [address] PCP - General Internal Medicine 03/08/15 NO DME 03/05/19 documented as of this encounter
--- OUTSIDE RECORDS SUMMARY | 2024-12-29 10:12 | XMS_ITS | Clinical Summary ---
Author Organization [facility] Address [address] [place] [address] Care Team Providers Care Building Maintenance Custodian Name Role Phone Kandy Schulz MD Primary Care Provider [phone] Source Comments [facility],non-owned Affiliates and Associated Physician Practices is amultiple site organization consisting of ambulatory clinics and hospital sitesin [place], [place], [place] and [place]. This disclosure is being madepursuant to the Care Everywhere program and may not contain all information available regarding this patient. Last updated 18.[facility] Allergies No known active allergies Medications * [...] on file Legal Sex Female 6:28 PM HOSPITAL PLAN ADMINISTRATOR Gender Identity Not on file Sexual Orientation Not on file Last Filed Vital Signs Vital Sign Reading Time Taken Comments Blood Pressure 186/82 03/28/2018 2:46 PM HOSPITAL PLAN ADMINISTRATOR Pulse 65 03/28/2018 2:45 PM HOSPITAL PLAN ADMINISTRATOR Temperature 36.4 C (97.5 F) 03/28/2018 2:00 PM HOSPITAL PLAN ADMINISTRATOR Respiratory Rate 20 03/28/2018 2:45 PM HOSPITAL PLAN ADMINISTRATOR Oxygen Saturation 97% 03/28/2018 2:40 PM HOSPITAL PLAN ADMINISTRATOR Inhaled Oxygen Concentration - - Weight 59.4 kg (131 lb) 03/28/2018 11:49 AM HOSPITAL PLAN ADMINISTRATOR Height 154.9 cm (5' 1) 03/28/2018 11:49 AM HOSPITAL PLAN ADMINISTRATOR Body Mass Index 24.75 03/28/2018 11:49 AM HOSPITAL PLAN ADMINISTRATOR Plan of Treatment Health Maintenance Due Date [...] this topic Medical Devices Implanted Type Area Permit Technician Device Identifier Shelf Expiration Date Model / Serial / Lot Kit Inst 2mm Bone Tamp Gd Slv Implanted:Qty: 1 on 03/28/2018 by Janine Conway MD at [facility] Right: Foot [employer] [id number] / / [id number] Insurance MEDICARE MEDICARE [facility] Care Teams Building Maintenance Custodian Relationship Specialty Start Date End Date Kandy Schulz MD [address] [place] [id number] PCP - General 06/12/08
--- OUTSIDE RECORDS SUMMARY | 2024-12-29 10:12 | XMS_ITS | Encounter Summary ---
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 SERVICE Gender Identity Not on file Sexual Orientation Not on file documented as of this encounter Plan of Treatment Upcoming Encounters Date Type Department Care Team (Late st Contact Info) Description 02/20/2025 11:30 AM CDT Office Visit [facility] Internal Medicine Medical [place] [address] [address] Laina Duran DO [address] [place] [address] documented as of this encounter Visit Diagnoses Not on filedocumented in this encounter Care Teams Compliance And Control Analyst Relationship Specialty Start Date End Date Laina Duran DO [address] [place] [address] PCP - General Internal Medicine 03/08/15 NO DME 03/05/19 documented as of this encounter
--- OUTSIDE RECORDS SUMMARY | 2024-12-29 10:12 | XMS_ITS | Encounter Summary ---
Author Organization [facility] Address [address] [place] [address] Care Team Providers Care Operations Officer Name Role Phone Laina Duran DO Primary Care Provider [phone] Encounter Details Date Type Department Care Team (Late st Contact Info) Description 05/30/2006 Outpatient Historical [facility] Internal Medicine Medical [place] [facility] [address] [address] Kandy Schulz MD Social History Tobacco Use Types Packs/Day Years Used Date Smoking Tobacco: Never Assessed Comments Unknown Sex and Gender Information Value Date Recorded Sex Assigned at Not on file Legal Sex Female 3:53 AM WATER TESTER Gender Identity Not on file Sexual Orientation Not on file documented as of this encounter Last Filed Vital Signs Vital Sign Reading Time Taken Comments Blood Pressure 130/74 05/30/2006 2:15 PM WATER TESTER Pulse 72 05/30/2006 2:15 PM WATER TESTER Temperature 36.8 C (98.2 F) 05/30/2006 2:15 PM WATER TESTER Respiratory Rate - - Oxygen Saturation - - Inhaled Oxygen Concentration - - Weight 58.5 kg (129 lb) 05/30/2006 2:15 PM WATER TESTER Height - - Body Mass Index 24.37 04/27/2006 4:00 PM WATER TESTER documented in this encounter Plan of Treatment Upcoming Encounters Date Type Department Care Team (Late st Contact Info) Description 02/20/2025 11:30 AM CDT Office Visit [facility] Internal Medicine Medical [place] [facility] [address] [address] Laina Duran DO [address] [place] [address] documented as of this encounter Visit Diagnoses Not on filedocumented in this encounter Care Teams Operations Officer Relationship Specialty Start Date End Date Laina Duran DO [address] [place] [address] PCP - General Internal Medicine 03/08/15 NO DME 03/05/19 documented as of this encounter
== END 2024-12-29 09:31 | disposition home or self-care (01) ==
PROVIDERS: PCP Family Medicine
DX: Z12.31 Encounter for screening mammogram for malignant neoplasm of breast (principal)
CPT/HCPCS: 77063; 77067